=== PATIENT | female | born 1970 | race American Indian/Alaskan Native ===

== ENCOUNTER 2016-07-21 11:32 | Emergency (ER) | payer SELFPAY ==
[2016-07-21 11:41] VITALS: BP 150/87
--- NOTE | 2016-07-21 12:25 | Emergency Department Report ---
ED Rash HPI - HPI Chief Complaint: Skin Rash Stated Complaint: BAD RASH ON BACK OTHER AREAS Time Seen by Provider: 07/21/16 12:06 Duration: 3 Days Location: Chest, Back, Abdomen Suspected Cause: Unknown Rash Symptoms: Yes Itching, No Facial Swelling, No Tongue/Oral Swelling, No Breathing Difficulties, No Choking Sensation, No Wheezing/Dyspnea, No Peeling, No Blistering, No Fever, No Lightheaded, No Malaise, No Myalgias Severity: mild Other History: Pt reports rash to chest, abdomen, rash x 3 days. Mild pruritis. No exposures or other sx. ED Review of Systems ROS: Stated complaint: BAD RASH ON BACK OTHER AREAS Other details as noted in HPI Comment: All other systems reviewed and negative Constitutional: denies: chills, fever Eyes: denies: eye pain, eye discharge, vision change ENT: denies: ear pain, throat pain Respiratory: denies: cough, shortness of breath, wheezing Cardiovascular: denies: chest pain, palpitations Endocrine: no symptoms reported Gastrointestinal: denies: abdominal pain, nausea, diarrhea Genitourinary: denies: urgency, dysuria, discharge Musculoskeletal: denies: back pain, joint swelling, arthralgia Skin: rash. denies: lesions Neurological: denies: headache, weakness, paresthesias Psychiatric: denies: anxiety, depression Hematological/Lymphatic: denies: easy bleeding, easy bruising ED Past Medical Hx - Past Medical History Hx Hypertension: Yes Additional medical history: hypothyroid. fibroids. heart murmur - Surgical History Hx Breast Surgery: Yes (LEFT BREAST BIOPSY) Additional Surgical History: tubal ligation. left collar bone surgery - Social History Smoking Status: Former Smoker Substance Use Type: None - Medications Home Medications: Home Medications Medication Instructions Recorded Confirmed Last Taken Type Methimazole [Tapazole] 10 mg PO QDAY #30 tablet 02/16/16 Unknown Rx Propranolol [Inderal] 10 mg PO Q12H #60 tablet 02/16/16 Unknown Rx Acetaminophen/Codeine [Tylenol #3] 1 tab PO Q6H PRN #20 tab 06/14/16 Unknown Rx Amoxicillin [Amoxicillin TAB] 875 mg PO BID #20 tablet 06/14/16 Unknown Rx Ketoconazole 2% [Nizoral] 1 applicatio TP QDAY #60 gram 07/21/16 Unknown Rx hydrOXYzine HCL [Atarax] 25 mg PO Q6HR PRN #15 tablet 07/21/16 Unknown Rx Rash Exam - Exam General: Vital signs noted. No distress. Alert and acting appropriately. HEENT: No Periorbital Edema, No Conjuctival Injection, No Chemosis, No Perioral Edema, No Tongue Edema, No Uvular Edema, No Compromised Airway, No Drooling Lungs: Yes Good Air Exchange (Normal Breath Sounds), No Wheezes, No Ronchi, No Stridor, No Cough, No Labored Respirations, No Retractions, No Use of Accessory Muscles, No Other Abnormal Lung Sounds Heart: Yes Regular, No Murmur Skin: Yes Other (Rash appearing consistent with tinea versicolor noted to chest , abdomen, back. Under Wood's lamp, yellow-green areas noted.) Other: Positive: Abdomen Normal, Neurologic Normal, Musculoskeletal Normal ED Course Vital Signs 07/21/16 11:37 Temperature 98.7 F Pulse Rate 67 Respiratory 18 Rate Blood Pressure 150/87 O2 Sat by Pulse 100 Oximetry - Reevaluation(s) Reevaluation #1: 07/21/16 12:21 NAD, stable for d/c. ED Medical Decision Making - Medical Decision Making Will give topical therapy and follow with PCP/derm. - Differential Diagnosis tinea versicolor, ringworm, pityriasis rosea Critical care attestation.: If time is entered above; I have spent that time in minutes in the direct care of this critically ill patient, excluding procedure time. ED Disposition Clinical Impression: Tinea versicolor Disposition: DISCHARGED TO HOME OR SELFCARE Is pt being admited?: No Condition: Good Instructions: Tinea Versicolor (ED) Prescriptions: hydrOXYzine HCL [Atarax] 25 mg PO Q6HR PRN #15 tablet PRN Reason: Itching Ketoconazole 2% [Nizoral] 1 applicatio TP QDAY #60 gram Referrals: PRIMARY CARE,MD [Primary Care Provider] - 3-5 Days Forms: Work/School Release Form(ED) Time of Disposition: 12:26
== END 2016-07-21 12:33 | disposition home or self-care (01) ==
LOC: ED 11:32
DX: B36.0 Pityriasis versicolor (principal); I10 Essential (primary) hypertension; E03.9 Hypothyroidism, unspecified; Z87.891 Personal history of nicotine dependence
CPT/HCPCS: 99282

== ENCOUNTER 2016-09-25 16:00 | Emergency (ER) | payer SELFPAY ==
--- NOTE | 2016-09-25 19:50 | Emergency Department Report ---
ED Rash HPI - HPI Chief Complaint: Skin Rash Stated Complaint: BREAKING OUT W/RASH/OVR A MONTH ON MENSTRUAL CYCLE Time Seen by Provider: 09/25/16 18:56 Duration: 1 week Location: Neck, Chest, Back, Abdomen, Upper Extremities, Lower Extremities Rash Symptoms: Yes Itching, No Facial Swelling, No Tongue/Oral Swelling, No Breathing Difficulties, No Choking Sensation, No Wheezing/Dyspnea, No Peeling, No Blistering, No Fever, No Lightheaded, No Malaise, No Myalgias Severity: mild ED Review of Systems ROS: Stated complaint: BREAKING OUT W/RASH/OVR A MONTH ON MENSTRUAL CYCLE Other details as noted in HPI This is a [age]-year-old female presents with skin rash on the arms, breasts, groin area for several weeks. Patient states it is itching. Patient states 2 days ago change detergent to PureX. Patient states 2 days later after wearing the clothes she started to have these itching episodes. Denies any shortness of breath, chest pain. Comment: All other systems reviewed and negative Constitutional: denies: chills, fever Eyes: denies: eye pain, eye discharge, vision change ENT: denies: ear pain, throat pain Respiratory: denies: cough, shortness of breath, wheezing Cardiovascular: denies: chest pain, palpitations Endocrine: no symptoms reported Gastrointestinal: denies: abdominal pain, nausea, diarrhea Genitourinary: denies: urgency, dysuria, discharge Musculoskeletal: denies: back pain, joint swelling, arthralgia Skin: denies: rash, lesions Neurological: denies: headache, weakness, paresthesias Psychiatric: denies: anxiety, depression Hematological/Lymphatic: denies: easy bleeding, easy bruising ED Past Medical Hx - Past Medical History Previous Medical History?: Yes Hx Hypertension: Yes Additional medical history: hypothyroid. fibroids. heart murmur - Surgical History Past Surgical History?: Yes Hx Breast Surgery: Yes (LEFT BREAST BIOPSY) Additional Surgical History: tubal ligation. left collar bone surgery - Social History Smoking Status: Never Smoker Substance Use Type: None - Medications Home Medications: Home Medications Medication Instructions Recorded Confirmed Last Taken Type Methimazole [Tapazole] 10 mg PO QDAY #30 tablet 02/16/16 Unknown Rx Propranolol [Inderal] 10 mg PO Q12H #60 tablet 02/16/16 Unknown Rx Acetaminophen/Codeine [Tylenol #3] 1 tab PO Q6H PRN #20 tab 06/14/16 Unknown Rx Amoxicillin [Amoxicillin TAB] 875 mg PO BID #20 tablet 06/14/16 Unknown Rx Ketoconazole 2% [Nizoral] 1 applicatio TP QDAY #60 gram 07/21/16 Unknown Rx hydrOXYzine HCL [Atarax] 25 mg PO Q6HR PRN #15 tablet 07/21/16 Unknown Rx predniSONE [Deltasone] 50 mg PO QDAY #5 tab 09/25/16 Unknown Rx Rash Exam - Exam General: Vital signs noted. No distress. Alert and acting appropriately. HEENT: No Periorbital Edema, No Conjuctival Injection, No Chemosis, No Perioral Edema, No Tongue Edema, No Uvular Edema, No Compromised Airway, No Drooling Lungs: Yes Good Air Exchange (Normal Breath Sounds), No Wheezes, No Ronchi, No Stridor, No Cough, No Labored Respirations, No Retractions, No Use of Accessory Muscles, No Other Abnormal Lung Sounds Heart: Yes Regular, No Murmur Front/Back of Body, Lg (Color): 1 - macular rash 2 - macular rash 3 - macular rash 4 - macular rash 5 - macular rash 6 - macular rash 7 - macular rash 8 - macular rash Skin: Yes Maculopapular Rash (bilateral arms, groin, chest and back), No Urticarial Rash, No Morbilliform rash, No Bulla(e), No Excoriations, No Weeping , No Tenderness, No Erythema, No Edema, No Encrustations ED Course Vital Signs 09/25/16 16:10 Temperature 98.4 F Pulse Rate 71 Respiratory 16 Rate Blood Pressure 112/75 O2 Sat by Pulse 100 Oximetry ED Medical Decision Making - Medical Decision Making Ed course: This is a 46-year-old female that presents with atopic dermatitis. Patient does not seem toxic in appearance or in any distress. 1- I instructed patient to avoid PureX detergent. 2-Prescribed prednisone x5 days 3- I instructed patient if symptoms of shortness of breath, chest pain or worsening symptoms to report back emergency room. 4- patient understands diagnosis and treatment plan. At this time the patient does have any questions. Critical care attestation.: If time is entered above; I have spent that time in minutes in the direct care of this critically ill patient, excluding procedure time. ED Disposition Clinical Impression: Atopic dermatitis Disposition: DISCHARGED TO HOME OR SELFCARE Is pt being admited?: No Does the pt Need Aspirin: No Condition: Stable Instructions: Eczema (ED), Allergies (ED) Additional Instructions: Please visited her primary care doctor in 3-5 days. His symptoms of chest pain, shortness of breath, worsening of symptoms, please report back to emergency room. Please avoid factors that irritate her skin, such as PureX detergent. Please rewash or your close that was used with Purex detergent Prescriptions: predniSONE [Deltasone] 50 mg PO QDAY #5 tab Referrals: PRIMARY CARE, [Primary Care Provider] - 3-5 Days
[2016-09-25 20:11] VITALS: BP 138/83
== END 2016-09-25 20:11 | disposition home or self-care (01) ==
LOC: ED 16:00
DX: L20.9 Atopic dermatitis, unspecified (principal)
CPT/HCPCS: 99282

== ENCOUNTER 2016-11-30 18:08 | Emergency (ER) | payer SELFPAY ==
[2016-11-30 20:20] VITALS: BP 132/96
== END 2016-11-30 23:20 | disposition left against medical advice (07) ==
LOC: ED 18:08
DX: R21 Rash and other nonspecific skin eruption (principal); Z53.21 Procedure and treatment not carried out due to patient leaving prior to being seen by health care provider

== ENCOUNTER 2016-12-01 07:33 | Emergency (ER) | payer SELFPAY ==
[2016-12-01 07:43] VITALS: BP 120/59
[2016-12-01 08:38] LABS: Hematocrit 39.5 % (30.3-42.9); Hemoglobin 13.5 gm/dl (10.1-14.3); Mean Corpuscular HGB Conc 34 % (30-34); Mean Corpuscular Hemoglobin 30 pg (28-32); Mean Corpuscular Volume 89 fl (79-97); Platelet Count 211 K/mm3 (140-440); Red Blood Count 4.46 M/mm3 (3.65-5.03); Red Cell Distribution Width 12.9 % (13.2-15.2); White Blood Count 4.4 K/mm3 (4.5-11.0)
[2016-12-01 08:57] LABS: Anion Gap 13 mmol/L; Blood Urea Nitrogen 13 mg/dL (7-17); Carbon Dioxide 28 mmol/L (22-30); Glucose 93 mg/dL (65-100); Sodium 144 mmol/L (137-145)
== END 2016-12-01 08:30 | disposition left against medical advice (07) ==
LOC: ED 07:33
DX: R21 Rash and other nonspecific skin eruption (principal); Z53.21 Procedure and treatment not carried out due to patient leaving prior to being seen by health care provider
CPT/HCPCS: 36415; 80048; 84443; 84703; 85027

== ENCOUNTER 2017-03-18 20:17 | Emergency (ER) | payer SELFPAY ==
[2017-03-18 22:05] LABS: Basophils % (Auto) 0.4 % (0.0-1.8); Hemoglobin 13.5 gm/dl (10.1-14.3); Mean Corpuscular HGB Conc 34 % (30-34); Mean Corpuscular Hemoglobin 29 pg (28-32); Mean Corpuscular Volume 85 fl (79-97); Platelet Count 219 K/mm3 (140-440); Red Blood Count 4.71 M/mm3 (3.65-5.03); Red Cell Distribution Width 13.7 % (13.2-15.2)
[2017-03-18 22:19] LABS: Alanine Aminotransferase 12 units/L (7-56); Albumin 4.4 g/dL (3.9-5); Albumin/Globulin Ratio 1.5 %; Alkaline Phosphatase 143 units/L (35-129); Anion Gap 18 mmol/L; Blood Urea Nitrogen 15 mg/dL (7-17); Carbon Dioxide 26 mmol/L (22-30); Chloride 106.2 mmol/L (98-107); Glucose 110 mg/dL (65-100); Lipase 10 units/L (13-60); Potassium 4.2 mmol/L (3.6-5.0); Sodium 146 mmol/L (137-145); Total Protein 7.3 g/dL (6.3-8.2)
[2017-03-19] MEDS ORDERED: ZOFRAN IV ONE (01:58)
[2017-03-19] MEDS ORDERED: TORADOL IV ONE (01:58)
[2017-03-19] MEDS ORDERED: NACL 0.9% 1000 ML 1,000 ML IV ONE (01:58)
[2017-03-19 02:04] LABS: Bacteria,Urine 1+ /HPF (Negative); Bilirubin,Urine NEG (Negative); Blood,Urine MOD (Negative); Ketones,Urine TR mg/dL (Negative); Leukocyte Esterase,Urine NEG (Negative); Mucus,Urine 2+ /HPF; Nitrite,Urine NEG (Negative); Urobilinogen,Urine < 2.0 mg/dL (<2.0)
--- NOTE | 2017-03-19 02:07 | Emergency Department Report ---
ED Abdominal Pain HPI - General Chief Complaint: Abdominal Pain Stated Complaint: ABDOMINAL PAIN/VOMITING Time Seen by Provider: 03/19/17 01:47 Source: patient Mode of arrival: Stretcher Limitations: No Limitations - History of Present Illness Initial Comments: 47-year-old female with past medical history of hypothyroidism and constipation , presents with complains of diffuse abdominal pain since yesterday afternoon. Patient has had numerous episodes of vomiting, and diarrhea. No fever. No cough no shortness of breath. MD Complaint: abdominal pain (diffuse abdominal pain) -: Gradual, Last night Location: diffuse Radiation: none Migration to: no migration Severity: moderate Severity scale (0 -10): 7 Quality: cramping, stabbing Consistency: intermittent Improves With: nothing Worsens With: nothing Associated Symptoms: nausea, vomiting, diarrhea. denies: chills, dysuria, hematemesis, melena, hematuria, anorexia - Related Data Previous Rx's Medication Instructions Recorded Last Taken Type Methimazole [Tapazole] 10 mg PO QDAY #30 tablet 02/16/16 Unknown Rx Propranolol [Inderal] 10 mg PO Q12H #60 tablet 02/16/16 Unknown Rx Acetaminophen/Codeine [Tylenol #3] 1 tab PO Q6H PRN #20 tab 06/14/16 Unknown Rx Amoxicillin [Amoxicillin TAB] 875 mg PO BID #20 tablet 06/14/16 Unknown Rx Ketoconazole 2% [Nizoral] 1 applicatio TP QDAY #60 gram 07/21/16 Unknown Rx hydrOXYzine HCL [Atarax] 25 mg PO Q6HR PRN #15 tablet 07/21/16 Unknown Rx predniSONE [Deltasone] 50 mg PO QDAY #5 tab 09/25/16 Unknown Rx Dicyclomine [Bentyl] 20 mg PO QID #20 tablet 03/19/17 Unknown Rx Lactulose [Kristalose] 20 gm PO Q8H #21 packet 03/19/17 Unknown Rx Ondansetron [Zofran Odt] 4 mg PO Q8H PRN #16 tab.rapdis 03/19/17 Unknown Rx Allergies Allergy/AdvReac Type Severity Reaction Status Date / Time metronidazole [From Flagyl] Allergy Vomiting Verified 08/15/15 09:23 Metronidazole HCl Allergy Vomiting Verified 08/15/15 09:23 [From Flagyl] ED Review of Systems ROS: Stated complaint: ABDOMINAL PAIN/VOMITING Other details as noted in HPI Comment: All other systems reviewed and negative Constitutional: malaise, weakness. denies: chills, diaphoresis, fever Eyes: denies: eye pain, eye discharge, vision change ENT: denies: throat pain Respiratory: denies: cough, orthopnea, shortness of breath, SOB with exertion Cardiovascular: denies: chest pain, palpitations, dyspnea on exertion, edema, syncope, paroxysmal nocturnal dyspnea Endocrine: no symptoms reported. denies: excessive sweating, flushing, intolerance to cold Gastrointestinal: abdominal pain, nausea, vomiting, diarrhea. denies: hematemesis, melena Genitourinary: denies: urgency, dysuria, frequency, hematuria Musculoskeletal: denies: joint swelling, arthralgia Skin: denies: rash, change in color, change in hair/nails Neurological: weakness. denies: headache, numbness, paresthesias ED Past Medical Hx - Past Medical History Previous Medical History?: Yes Hx Hypertension: Yes Additional medical history: hypothyroid. fibroids. heart murmur - Surgical History Hx Breast Surgery: Yes (LEFT BREAST BIOPSY) Additional Surgical History: tubal ligation. left collar bone surgery - Social History Smoking Status: Never Smoker - Medications Home Medications: Home Medications Medication Instructions Recorded Confirmed Last Taken Type Methimazole [Tapazole] 10 mg PO QDAY #30 tablet 02/16/16 Unknown Rx Propranolol [Inderal] 10 mg PO Q12H #60 tablet 02/16/16 Unknown Rx Acetaminophen/Codeine [Tylenol #3] 1 tab PO Q6H PRN #20 tab 06/14/16 Unknown Rx Amoxicillin [Amoxicillin TAB] 875 mg PO BID #20 tablet 06/14/16 Unknown Rx Ketoconazole 2% [Nizoral] 1 applicatio TP QDAY #60 gram 07/21/16 Unknown Rx hydrOXYzine HCL [Atarax] 25 mg PO Q6HR PRN #15 tablet 07/21/16 Unknown Rx predniSONE [Deltasone] 50 mg PO QDAY #5 tab 09/25/16 Unknown Rx Dicyclomine [Bentyl] 20 mg PO QID #20 tablet 03/19/17 Unknown Rx Lactulose [Kristalose] 20 gm PO Q8H #21 packet 03/19/17 Unknown Rx Ondansetron [Zofran Odt] 4 mg PO Q8H PRN #16 tab.rapdis 03/19/17 Unknown Rx ED Physical Exam - General Limitations: No Limitations General appearance: alert, in distress (moderate distress) - Head Head exam: Present: atraumatic, normocephalic, normal inspection - Eye Eye exam: Present: normal appearance, PERRL, EOMI. Absent: scleral icterus, conjunctival injection, nystagmus Pupils: Present: normal accommodation - ENT ENT exam: Present: normal exam, normal orophraynx, mucous membranes moist - Neck Neck exam: Present: normal inspection, full ROM. Absent: tenderness, lymphadenopathy - Respiratory Respiratory exam: Present: normal lung sounds bilaterally. Absent: respiratory distress, wheezes, rales, chest wall tenderness, accessory muscle use - Cardiovascular Cardiovascular Exam: Present: regular rate, normal rhythm, normal heart sounds - GI/Abdominal GI/Abdominal exam: Present: soft, tenderness (diffuse), guarding (diffuse), hypoactive bowel sounds. Absent: rebound - Rectal Rectal exam: Present: deferred - Extremities Exam Extremities exam: Present: normal inspection, full ROM, normal capillary refill - Back Exam Back exam: Present: normal inspection, full ROM. Absent: CVA tenderness (L), muscle spasm - Neurological Exam Neurological exam: Present: alert, oriented X3, CN II-XII intact, normal gait ED Course Vital Signs 03/18/17 03/19/17 03/19/17 21:26 02:34 04:54 Temperature 98.9 F 98 F Pulse Rate 79 90 Respiratory 16 18 18 Rate Blood Pressure 120/72 119/78 [Right] O2 Sat by Pulse 100 100 Oximetry 03/19/17 04:55 Temperature Pulse Rate Respiratory 18 Rate Blood Pressure [Right] O2 Sat by Pulse Oximetry ED Medical Decision Making - Lab Data Result diagrams: 03/18/17 21:38 03/18/17 21:38 - Radiology Data Radiology results: report reviewed Critical Care Time: No Critical care attestation.: If time is entered above; I have spent that time in minutes in the direct care of this critically ill patient, excluding procedure time. ED Disposition Clinical Impression: Constipation, Nausea & vomiting Disposition: - TO HOME OR SELFCARE Is pt being admited?: No Does the pt Need Aspirin: No Condition: Stable Instructions: Abdominal Pain (ED), Constipation (ED), Acute Nausea and Vomiting (ED) Additional Instructions: Follow up with your primary care physician in next 2-3 days Prescriptions: Dicyclomine [Bentyl] 20 mg PO QID #20 tablet Lactulose [Kristalose] 20 gm PO Q8H #21 packet Ondansetron [Zofran Odt] 4 mg PO Q8H PRN #16 tab.rapdis PRN Reason: Nausea And Vomiting Referrals: PRIMARY CARE,MD [Primary Care Provider] - 3-5 Days Time of Disposition: 06:02
[2017-03-19 02:48] LABS: Urine Drugs of Abuse Note Disclamer
[2017-03-19] MEDS ORDERED: NACL ONE (03:10)
[2017-03-19 03:26] LABS: Amylase 54 units/L (27-131); Lipase 10 units/L (13-60)
--- NOTE | 2017-03-19 04:16 | Cat Scan Report ---
FINAL REPORT EXAM: CT ABDOMEN PELVIS W CON IV, HISTORY: Abdominal Pain TECHNIQUE: Routine imaging was obtained of the abdomen pelvis with IV contrast. There are no previous studies available for comparison. FINDINGS: The lung bases are clear. There is a small hiatal hernia at the GE junction. The liver, gallbladder, pancreas, spleen and adrenal glands appear normal. The kidneys enhance normally. There is a 6.3 millimeter low-attenuation lesion in the medial aspect of left kidney most likely representing small cortical cysts. It is too small to characterize. There is no evidence of hydronephrosis. There is normal enhancement of the great vessels. The bowel loops are normal in caliber. Free fluid is not seen. There is no evidence of adenopathy. There are several uncomplicated diverticula in the ascending colon. In the pelvis the uterus is enlarged having a lobulated contour. This is most likely to underlying fibroids. The bladder appears normal. The skeletal structures reveal the facet arthropathy changes lower lumbar spine IMPRESSION: No acute process in the abdomen pelvis. Uncomplicated diverticulosis in the ascending colon. Small hiatal hernia. Probable small cortical cyst in the medial aspect left kidney.
[2017-03-19 04:55] VITALS: BP 119/78
== END 2017-03-19 06:20 | disposition home or self-care (01) ==
LOC: ED 20:17
DX: K59.00 Constipation, unspecified (principal); R11.2 Nausea with vomiting, unspecified; I10 Essential (primary) hypertension; E03.9 Hypothyroidism, unspecified; Z88.8 Allergy status to other drugs, medicaments and biological substances
CPT/HCPCS: 36415; 74177; 80053; 80307; 81001; 81025; 82150; 83690; 83735; 85025; 96361; 96374; 96375; 99284; J1885; J2405; J7030; Q9967

== ENCOUNTER 2017-09-08 08:44 | Outpatient (CLI) | payer OTHER ==
--- NOTE | 2017-09-08 10:33 | Ultrasound Report ---
Bilateral mammogram and left breast ultrasound: Patient presents with palpable mass in the left breast. Prior benign biopsy on the left. A marker was placed over the area of concern in the approximate 10:00 location posteriorly in the left breast. Routine views were obtained. The patient has a heterogeneously dense fibroglandular pattern. The biopsy marker is at the margin of a small nodular area noted in the superior left breast. There is no identifiable nodule related to the palpable location. The remainder the breast pattern bilaterally is generally unremarkable. Probable ultrasound demonstrates dilated retroareolar ducts. No intra-ductal lesion identified. In the 11:00 location 7 cm from the nipple there is a circumscribed anechoic mass measuring 9.3 mm and in the 10:00 location a circumscribed hypoechoic nodule is present measuring 4 mm. A couple scattered echoes are noted within it but there is enhancement of distal echoes. Also in the 10:00 location corresponding to the palpable region there is a cluster of anechoic nodules having a maximum dimension of 2.3 cm. CAD used. Impression: 1. Nonspecific retroareolar ductal dilatation. 2. The palpable finding corresponds to a cluster of cysts. Other cysts identified as described. Recommendation: 1. Clinical followup of palpable abnormality. No currently suspicious findings. 2. Annual mammogram followup. BI-RADS CATEGORY: 2 = Benign ACR BI-RADS MAMMOGRAPHIC CODES: 0 = Needs additional imaging evaluation; 1 = Negative; 2 = Benign; 3 = Probably benign; 4 = Suspicious; 5 = Malignant; 6 = Known biopsy-proven malignancy COMMENT: 1. Dense breast tissue, i.e., adenosis, fibrocystic changes, etc., may obscure an underlying neoplasm. 2. Approximately 10% of cancers are not detected with mammography. 3. A negative mammography report should not delay biopsy if a clinically suspicious mass is present.
== END 2017-09-08 08:45 | disposition home or self-care (01) ==
LOC: MAMMO 08:44
PROVIDERS: ATTEND Advanced Practice Midwife
DX: N63.20 Unspecified lump in the left breast, unspecified quadrant (principal); N60.09 Solitary cyst of unspecified breast; R92.8 Other abnormal and inconclusive findings on diagnostic imaging of breast; I10 Essential (primary) hypertension; E07.89 Other specified disorders of thyroid
CPT/HCPCS: 77066

== ENCOUNTER 2018-02-06 05:55 | Emergency (ER) | payer SELFPAY ==
[2018-02-06] MEDS ORDERED: ZOFRAN ONE (06:17)
[2018-02-06] MEDS ORDERED: ZOFRAN IV ONE ×2 (06:26→19:01)
[2018-02-06 06:42] LABS: Hematocrit 40.5 % (30.3-42.9); Hemoglobin 13.8 gm/dl (10.1-14.3); Mean Corpuscular HGB Conc 34 % (30-34); Mean Corpuscular Hemoglobin 28 pg (28-32); Mean Corpuscular Volume 81 fl (79-97); Platelet Count 224 K/mm3 (140-440); Red Cell Distribution Width 13.8 % (13.2-15.2)
[2018-02-06 07:05] LABS: BUN/Creatinine Ratio 38; Blood Urea Nitrogen 15 mg/dL (7-17); Calcium 10.1 mg/dL (8.4-10.2); Hemolysis Index 7
[2018-02-06 09:22] LABS: Basophils % (Manual) 0 % (0.0-1.8); Eosinophils % (Manual) 0 % (0.0-4.3); Platelet Estimate Consistent w Auto; Total Cells Counted 100
[2018-02-06] MEDS ORDERED: NACL 0.9% 1000 ML 1,000 ML IV ONE ×3 (09:28→13:54)
[2018-02-06] MEDS ORDERED: K-DUR PO ONE (09:28)
[2018-02-06] MEDS ORDERED: IMODIUM PO ONE (09:28)
[2018-02-06] MEDS ORDERED: MORPHINE IV ONE ×2 (09:28→16:09)
[2018-02-06] MEDS ORDERED: TORADOL IV ONE (09:29)
[2018-02-06] MEDS ORDERED: PEPCID IV ONE (09:29)
[2018-02-06 09:30] LABS: Albumin 4.4 g/dL (3.9-5); Bilirubin,Direct 0.3 mg/dL (0-0.2)
--- NOTE | 2018-02-06 10:14 | Emergency Department Report ---
ED N/V/D HPI - General Chief complaint: Nausea/Vomiting/Diarrhea Stated complaint: N/V Time Seen by Provider: 02/06/18 09:21 Source: patient, EMS Mode of arrival: Stretcher Limitations: No Limitations - History of Present Illness Initial comments: 47-year-old female with a past medical history hypertension, hyperthyroidism ( on methimazole), fibroids, previous and tubal ligation presents to the hospital for complaints of nausea, vomiting, diarrhea, and by mouth intolerance for greater than 10 hours. Symptoms started after eating a salad. She denies sick contacts, recent travel, fever, hematemesis, hematochezia, or melena. She complains of generalized cramping abdominal pain worse the lower abdomen. Pain overall is constant, moderate to severe in intensity, worse with palpation without alleviating factors - Related Data Previous Rx's Medication Instructions Recorded Last Taken Type Acetaminophen/Codeine [Tylenol #3] 1 tab PO Q6H PRN #20 tab 06/14/16 Unknown Rx Amoxicillin [Amoxicillin TAB] 875 mg PO BID #20 tablet 06/14/16 Unknown Rx Ketoconazole 2% [Nizoral] 1 applicatio TP QDAY #60 gram 07/21/16 Unknown Rx hydrOXYzine HCL [Atarax] 25 mg PO Q6HR PRN #15 tablet 07/21/16 Unknown Rx predniSONE [Deltasone] 50 mg PO QDAY #5 tab 09/25/16 Unknown Rx Dicyclomine [Bentyl] 20 mg PO QID #20 tablet 03/19/17 Unknown Rx Lactulose [Kristalose] 20 gm PO Q8H #21 packet 03/19/17 Unknown Rx Ondansetron [Zofran Odt] 4 mg PO Q8H PRN #16 tab.rapdis 03/19/17 Unknown Rx Famotidine [Pepcid] 20 mg PO BID #20 tablet 02/06/18 Unknown Rx Loperamide [Imodium] 2 mg PO Q2HR PRN #20 capsule 02/06/18 Unknown Rx Methimazole [Tapazole] 10 mg PO QDAY #30 tablet 02/06/18 Unknown Rx Ondansetron [Zofran Odt] 4 mg PO Q8HR PRN #20 tab.rapdis 02/06/18 Unknown Rx Propranolol [Inderal] 10 mg PO Q12H #60 tablet 02/06/18 Unknown Rx traMADol [Ultram 50 MG tab] 50 mg PO Q6HR PRN #20 tablet 02/06/18 Unknown Rx Allergies Allergy/AdvReac Type Severity Reaction Status Date / Time metronidazole [From Flagyl] Allergy Vomiting Verified 08/15/15 09:23 Metronidazole HCl Allergy Vomiting Verified 08/15/15 09:23 [From Flagyl] ED Review of Systems ROS: Stated complaint: N/V Other details as noted in HPI Comment: All other systems reviewed and negative ED Past Medical Hx - Past Medical History Hx Hypertension: Yes Additional medical history: hyperthyroid. fibroids. heart murmur - Surgical History Hx Breast Surgery: Yes (LEFT BREAST BIOPSY) Additional Surgical History: tubal ligation. left collar bone surgery - Social History Smoking Status: Never Smoker Substance Use Type: None - Medications Home Medications: Home Medications Medication Instructions Recorded Confirmed Last Taken Type Acetaminophen/Codeine [Tylenol #3] 1 tab PO Q6H PRN #20 tab 06/14/16 Unknown Rx Amoxicillin [Amoxicillin TAB] 875 mg PO BID #20 tablet 06/14/16 Unknown Rx Ketoconazole 2% [Nizoral] 1 applicatio TP QDAY #60 gram 07/21/16 Unknown Rx hydrOXYzine HCL [Atarax] 25 mg PO Q6HR PRN #15 tablet 07/21/16 Unknown Rx predniSONE [Deltasone] 50 mg PO QDAY #5 tab 09/25/16 Unknown Rx Dicyclomine [Bentyl] 20 mg PO QID #20 tablet 03/19/17 Unknown Rx Lactulose [Kristalose] 20 gm PO Q8H #21 packet 03/19/17 Unknown Rx Ondansetron [Zofran Odt] 4 mg PO Q8H PRN #16 tab.rapdis 03/19/17 Unknown Rx Famotidine [Pepcid] 20 mg PO BID #20 tablet 02/06/18 Unknown Rx Loperamide [Imodium] 2 mg PO Q2HR PRN #20 capsule 02/06/18 Unknown Rx Methimazole [Tapazole] 10 mg PO QDAY #30 tablet 02/06/18 Unknown Rx Ondansetron [Zofran Odt] 4 mg PO Q8HR PRN #20 tab.rapdis 02/06/18 Unknown Rx Propranolol [Inderal] 10 mg PO Q12H #60 tablet 02/06/18 Unknown Rx traMADol [Ultram 50 MG tab] 50 mg PO Q6HR PRN #20 tablet 02/06/18 Unknown Rx ED Physical Exam - General Limitations: No Limitations - Other Other exam information: General: No limitations, patient is alert in no acute distress Head exam: Atraumatic, normocephalic Eyes exam: Normal appearance, nonicteric sclerae ENT: Moist mucous membrane, normal oropharynx Neck exam: Normal inspection, full range of motion, no meningismus nontender Respiratory exam: Clear to auscultation bilateral, no wheezes, rales, crackles Cardiovascular: Mild tachycardia regular rhythm Abdomen: Soft, nondistended, generalized tenderness to palpation greatest in the lower abdomen. Normal bowel sounds. No rebound or guarding Extremity: Full range of motion normal inspection no deformity Back: Normal Inspection, full range of motion, no tenderness Neurologic: Alert, oriented x3, cranial nerves intact, no motor or sensory deficit Psychiatric: normal affect, normal mood Skin: Warm, dry, intact ED Course Vital Signs 02/06/18 02/06/18 02/06/18 06:09 06:12 09:30 Temperature 98.4 F 98.4 F Pulse Rate 107 H 104 H Respiratory 18 16 16 Rate Blood Pressure 161/83 161/63 Blood Pressure [Right] O2 Sat by Pulse 96 98 Oximetry 02/06/18 02/06/18 02/06/18 09:40 12:09 15:59 Temperature 98.0 F Pulse Rate 109 H 103 H Respiratory 16 15 Rate Blood Pressure 122/66 145/81 Blood Pressure [Right] O2 Sat by Pulse 99 Oximetry 02/06/18 02/06/18 16:00 17:37 Temperature 98.2 F 99.6 F Pulse Rate 103 H 91 H Respiratory 18 18 Rate Blood Pressure Blood Pressure 145/81 130/76 [Right] O2 Sat by Pulse 99 95 Oximetry - Reevaluation(s) Reevaluation #1: 02/06/18 12:03 feeling better, tolerating po 02/06/18 15:29 Although patient was feeling better and tolerating by mouth heart rate still remained above 100 despite receiving 2 L of normal saline. Therefore a third liter of normal saline was ordered and thyroid function tests were added. Patient's labs that she has hyperthyroidism. Patient initially told staff that she was hypothyroid. She has been noncompliant with her methimazole and propranolol for several months. These medications were be providing any ED and restarted 02/06/18 17:38 HR now 91 after meds ED Medical Decision Making - Lab Data Result diagrams: 02/06/18 Unknown 02/06/18 Unknown Lab Results 02/06/18 02/06/18 02/06/18 Range/Units Unknown Unknown Unknown WBC 8.1 (4.5-11.0) K/mm3 RBC 5.00 (3.65-5.03) M/mm3 Hgb 13.8 (10.1-14.3) gm/dl Hct 40.5 (30.3-42.9) % MCV 81 (79-97) fl MCH 28 (28-32) pg MCHC 34 (30-34) % RDW 13.8 (13.2-15.2) % Plt Count 224 (140-440) K/mm3 Add Manual Diff Complete Total Counted 100 Seg Neutrophils % Chamber Walker Seg Neuts % (Manual) 90.0 H (40.0-70.0) % Band Neutrophils % 0 % Lymphocytes % (Manual) 5.0 L (13.4-35.0) % Reactive Lymphs % (Man) 0 % Monocytes % (Manual) 5.0 (0.0-7.3) % Eosinophils % (Manual) 0 (0.0-4.3) % Basophils % (Manual) 0 (0.0-1.8) % Metamyelocytes % 0 % Myelocytes % 0 % Promyelocytes % 0 % Blast Cells % 0 % Nucleated RBC % Not Reportable Seg Neutrophils # Man 7.3 (1.8-7.7) K/mm3 Band Neutrophils # 0.0 K/mm3 Lymphocytes # (Manual) 0.4 L (1.2-5.4) K/mm3 Abs React Lymphs (Man) 0.0 K/mm3 Monocytes # (Manual) 0.4 (0.0-0.8) K/mm3 Eosinophils # (Manual) 0.0 (0.0-0.4) K/mm3 Basophils # (Manual) 0.0 (0.0-0.1) K/mm3 Metamyelocytes # 0.0 K/mm3 Myelocytes # 0.0 K/mm3 Promyelocytes # 0.0 K/mm3 Blast Cells # 0.0 K/mm3 WBC Morphology Not Reportable Hypersegmented Neuts Not Reportable Hyposegmented Neuts Not Reportable Hypogranular Neuts Not Reportable Smudge Cells Not Reportable Toxic Granulation Not Reportable Toxic Vacuolation Not Reportable Dohle Bodies Not Reportable Pelger-Huet Anomaly Not Reportable Braden Rods Not Reportable Platelet Estimate Consistent w auto Clumped Platelets Not Reportable Plt Clumps, EDTA Not Reportable Large Platelets Not Reportable Giant Platelets Not Reportable Platelet Satelliting Not Reportable Plt Morphology Comment Not Reportable RBC Morphology Not Reportable Dimorphic RBCs Not Reportable Polychromasia Not Reportable Hypochromasia Not Reportable Poikilocytosis Not Reportable Anisocytosis Not Reportable Microcytosis Not Reportable Macrocytosis Not Reportable Spherocytes Not Reportable Pappenheimer Bodies Not Reportable Sickle Cells Not Reportable Target Cells Not Reportable Tear Drop Cells Not Reportable Ovalocytes Not Reportable Helmet Cells Not Reportable [place] Bodies Not Reportable [place]iday Rings Not Reportable [place] Cells Not Reportable Bite Cells Not Reportable Crenated Cell Not Reportable Elliptocytes Not Reportable Acanthocytes (Spur) Not Reportable Rouleaux Not Reportable Hemoglobin C Crystals Not Reportable Schistocytes Not Reportable Malaria parasites Not Reportable [place] Bodies Not Reportable Hem Pathologist Commnt No Sodium 144 (137-145) mmol/L Potassium 3.2 L (3.6-5.0) mmol/L Chloride 103.7 (98-107) mmol/L Carbon Dioxide 23 (22-30) mmol/L Anion Gap 21 mmol/L BUN 15 (7-17) mg/dL Creatinine 0.4 L (0.7-1.2) mg/dL Estimated GFR > 60 ml/min BUN/Creatinine Ratio 38 % Glucose 134 H (65-100) mg/dL Calcium 10.1 (8.4-10.2) mg/dL Magnesium (1.7-2.3) mg/dL Total Bilirubin (0.1-1.2) mg/dL Direct Bilirubin (0-0.2) mg/dL Indirect Bilirubin mg/dL AST (5-40) units/L ALT (7-56) units/L Alkaline Phosphatase (35-129) units/L Total Protein (6.3-8.2) g/dL Albumin (3.9-5) g/dL Albumin/Globulin Ratio % Lipase (13-60) units/L HCG, Qual Negative (Negative) 02/06/18 Range/Units Unknown WBC (4.5-11.0) K/mm3 RBC (3.65-5.03) M/mm3 Hgb (10.1-14.3) gm/dl Hct (30.3-42.9) % MCV (79-97) fl MCH (28-32) pg MCHC (30-34) % RDW (13.2-15.2) % Plt Count (140-440) K/mm3 Add Manual Diff Total Counted Seg Neutrophils % Seg Neuts % (Manual) (40.0-70.0) % Band Neutrophils % % Lymphocytes % (Manual) (13.4-35.0) % Reactive Lymphs % (Man) % Monocytes % (Manual) (0.0-7.3) % Eosinophils % (Manual) (0.0-4.3) % Basophils % (Manual) (0.0-1.8) % Metamyelocytes % % Myelocytes % % Promyelocytes % % Blast Cells % % Nucleated RBC % Seg Neutrophils # Man (1.8-7.7) K/mm3 Band Neutrophils # K/mm3 Lymphocytes # (Manual) (1.2-5.4) K/mm3 Abs React Lymphs (Man) K/mm3 Monocytes # (Manual) (0.0-0.8) K/mm3 Eosinophils # (Manual) (0.0-0.4) K/mm3 Basophils # (Manual) (0.0-0.1) K/mm3 Metamyelocytes # K/mm3 Myelocytes # K/mm3 Promyelocytes # K/mm3 Blast Cells # K/mm3 WBC Morphology Hypersegmented Neuts Hyposegmented Neuts Hypogranular Neuts Smudge Cells Toxic Granulation Toxic Vacuolation Dohle Bodies Pelger-Huet Anomaly Braden Rods Platelet Estimate Clumped Platelets Plt Clumps, EDTA Large Platelets Giant Platelets Platelet Satelliting Plt Morphology Comment RBC Morphology Dimorphic RBCs Polychromasia Hypochromasia Poikilocytosis Anisocytosis Microcytosis Macrocytosis Spherocytes Pappenheimer Bodies Sickle Cells Target Cells Tear Drop Cells Ovalocytes Helmet Cells [place] Bodies Ferriday Rings [place] Cells Bite Cells Crenated Cell Elliptocytes Acanthocytes (Spur) Rouleaux Hemoglobin C Crystals Schistocytes Malaria parasites Fermin Bodies Hem Pathologist Commnt Sodium (137-145) mmol/L Potassium (3.6-5.0) mmol/L Chloride (98-107) mmol/L Carbon Dioxide (22-30) mmol/L Anion Gap mmol/L BUN (7-17) mg/dL Creatinine (0.7-1.2) mg/dL Estimated GFR ml/min BUN/Creatinine Ratio % Glucose (65-100) mg/dL Calcium (8.4-10.2) mg/dL Magnesium 1.80 (1.7-2.3) mg/dL Total Bilirubin 2.40 H (0.1-1.2) mg/dL Direct Bilirubin 0.3 H (0-0.2) mg/dL Indirect Bilirubin 2.1 mg/dL AST 20 (5-40) units/L ALT 14 (7-56) units/L Alkaline Phosphatase 171 H (35-129) units/L Total Protein 7.7 (6.3-8.2) g/dL Albumin 4.4 (3.9-5) g/dL Albumin/Globulin Ratio 1.3 % Lipase 10 L (13-60) units/L HCG, Qual (Negative) - Medical Decision Making gastroenteritis better with IVF, zofran, tramadol tolerating po hypokalemia secondary to above given po kcl will d/c with meds and f/u - Differential Diagnosis gastroenteritis, infectious diarrhea, appendicitis, dehydration, Critical Care Time: No Critical care attestation.: If time is entered above; I have spent that time in minutes in the direct care of this critically ill patient, excluding procedure time. ED Disposition Clinical Impression: Gastroenteritis, Hyperthyroidism, Noncompliance with medication regimen, Hypokalemia Disposition: DC-01 TO HOME OR SELFCARE Is pt being admited?: No Does the pt Need Aspirin: No Condition: Stable Instructions: Hyperthyroidism (ED), Gastroenteritis (ED), Hypokalemia (ED) Additional Instructions: Take the medication as prescribed. Follow up with your doctor. Return if symptoms worsen as indicated by your discharge instructions Prescriptions: Famotidine [Pepcid] 20 mg PO BID #20 tablet Loperamide [Imodium] 2 mg PO Q2HR PRN #20 capsule PRN Reason: Diarrhea Methimazole [Tapazole] 10 mg PO QDAY #30 tablet Ondansetron [Zofran Odt] 4 mg PO Q8HR PRN #20 tab.rapdis PRN Reason: Nausea And Vomiting Propranolol [Inderal] 10 mg PO Q12H #60 tablet traMADol [Ultram 50 MG tab] 50 mg PO Q6HR PRN #20 tablet PRN Reason: Pain Referrals: [facility] [Provider Group] - 3-5 Days Daniel BOO MD [Referring] - 3-5 Days ([facility]) JO GARCIA MD [Staff Physician] - 3-5 Days (Endocrinology) MARNIE EASLEY MD [Referring] - 3-5 Days ([facility]) Time of Disposition: 18:45
[2018-02-06 14:41] LABS: INR 1.1 (0.87-1.13)
[2018-02-06] MEDS ORDERED: INDERAL PO ONE (15:28)
[2018-02-06] MEDS ORDERED: TAPAZOLE PO SCH (16:00)
[2018-02-06 17:38] VITALS: BP 130/76
[2018-02-06] MEDS ORDERED: LIDOCAINE VISCOUS 2% PO ONE (18:43)
[2018-02-06] MEDS ORDERED: ALUM-MAG HYDROX-SIMETH 200-200-20MG/5ML PO ONE (18:43)
== END 2018-02-06 19:27 | disposition home or self-care (01) ==
LOC: ED 05:55
DX: K52.9 Noninfective gastroenteritis and colitis, unspecified (principal); E05.90 Thyrotoxicosis, unspecified without thyrotoxic crisis or storm; E87.6 Hypokalemia; I10 Essential (primary) hypertension; Z91.14 Patient's other noncompliance with medication regimen; Z98.51 Tubal ligation status; Z88.1 Allergy status to other antibiotic agents
CPT/HCPCS: 36415; 80048; 80074; 83690; 83735; 84439; 84443; 84703; 85007; 85025; 85610; 93005; 93010; 96361; 96374; 96375; 96376; 99284; J1885; J2270; J2405; J7030

== ENCOUNTER 2018-06-20 18:40 | Emergency (ER) | payer SELFPAY ==
[2018-06-20] MEDS ORDERED: NACL 0.9% 1000 ML 1,000 ML IV ONE (19:04)
[2018-06-20] MEDS ORDERED: MORPHINE ONE (19:05)
[2018-06-20] MEDS ORDERED: ZOFRAN ONE (19:06)
--- NOTE | 2018-06-20 19:07 | Emergency Department Report ---
Chief Complaint: Abdominal Pain Stated Complaint: STOMACH PAIN - HPI History of Present Illness: 48-year-old -[place] female comes in for excruciating abdominal pain that started about 2:00 this afternoon. Patient reports no past medical history. - Exam Vital Signs: Vital Signs 06/20/18 18:50 Temperature 98.4 F Pulse Rate 131 H Respiratory 18 Rate Blood Pressure 163/78 O2 Sat by Pulse 99 Oximetry Physical Exam: Patient's alert and oriented mild distress. Patient is diaphoretic guarding abdominal tenderness to palpate. MSE screening note: Focused history and physical exam performed. Due to findings the following was ordered: Abdominal protocol has been ordered. Morphine 1 mg order for pain management. Patient then placed in room 3. ED Disposition for MSE Condition: Stable Instructions: Abdominal Pain (ED)
[2018-06-20] MEDS ORDERED: MORPHINE IV ONE (19:09)
[2018-06-20] MEDS ORDERED: ZOFRAN IV ONE (19:10)
--- NOTE | 2018-06-20 19:27 | Emergency Department Report ---
ED Abdominal Pain HPI - General Chief Complaint: Abdominal Pain Stated Complaint: STOMACH PAIN Time Seen by Provider: 06/20/18 19:18 Source: patient Mode of arrival: Ambulatory Limitations: No Limitations - History of Present Illness Initial Comments: 48-year-old female presents to ED with complaint of abdominal pain. Patient reports epigastric pain after drinking Cheko-Aid approximately 5 hours ago. Patient reports throbbing, nonradiating pain. Patient denies nausea, vomiting, diarrhea, fever. Patient denies taking anything prior to ED arrival for pain. Pt reports history of hyperthyroidism, states has been off of methimazole and propranolol for several months. MD Complaint: abdominal pain -: hour(s) (5) Location: epigastric Radiation: none Migration to: no migration Severity: severe Severity scale (0 -10): 10 Quality: other (throbbing) - Related Data Previous Rx's Medication Instructions Recorded Last Taken Type Dicyclomine [Bentyl] 20 mg PO QID PRN #20 tablet 06/20/18 Unknown Rx Methimazole [Tapazole] 10 mg PO QDAY #30 tablet 06/20/18 Unknown Rx Ondansetron [Zofran Odt] 4 mg PO Q8HR PRN #20 tab.rapdis 06/20/18 Unknown Rx Propranolol [Inderal] 10 mg PO BID #60 tablet 06/20/18 Unknown Rx Ranitidine HCl [Zantac] 300 mg PO QDAY #30 tablet 06/20/18 Unknown Rx Allergies Allergy/AdvReac Type Severity Reaction Status Date / Time metronidazole [From Flagyl] Allergy Vomiting Verified 08/15/15 09:23 Metronidazole HCl Allergy Vomiting Verified 08/15/15 09:23 [From Flagyl] ED Review of Systems ROS: Stated complaint: STOMACH PAIN Other details as noted in HPI Comment: All other systems reviewed and negative Constitutional: denies: chills, fever Respiratory: denies: shortness of breath Gastrointestinal: abdominal pain. denies: nausea, vomiting, diarrhea ED Past Medical Hx - Past Medical History Hx Hypertension: Yes Additional medical history: hyperthyroid. fibroids. heart murmur - Surgical History Hx Breast Surgery: Yes (LEFT BREAST BIOPSY) Additional Surgical History: tubal ligation. left collar bone surgery - Social History Smoking Status: Never Smoker Substance Use Type: None - Medications Home Medications: Home Medications Medication Instructions Recorded Confirmed Last Taken Type Dicyclomine [Bentyl] 20 mg PO QID PRN #20 tablet 06/20/18 Unknown Rx Methimazole [Tapazole] 10 mg PO QDAY #30 tablet 06/20/18 Unknown Rx Ondansetron [Zofran Odt] 4 mg PO Q8HR PRN #20 tab.rapdis 06/20/18 Unknown Rx Propranolol [Inderal] 10 mg PO BID #60 tablet 06/20/18 Unknown Rx Ranitidine HCl [Zantac] 300 mg PO QDAY #30 tablet 06/20/18 Unknown Rx ED Physical Exam - General Limitations: No Limitations General appearance: other (obvious pain) - Head Head exam: Present: atraumatic, normocephalic - Eye Eye exam: Present: normal appearance - ENT ENT exam: Present: mucous membranes moist - Neck Neck exam: Present: normal inspection - Respiratory Respiratory exam: Present: normal lung sounds bilaterally. Absent: respiratory distress - Cardiovascular Cardiovascular Exam: Present: normal rhythm, tachycardia - GI/Abdominal GI/Abdominal exam: Present: soft, tenderness (moderate diffuse abdominal tenderness). Absent: distended - Extremities Exam Extremities exam: Present: normal inspection - Neurological Exam Neurological exam: Present: alert, oriented X3 - Psychiatric Psychiatric exam: Present: normal affect, normal mood - Skin Skin exam: Present: warm, dry, intact, normal color. Absent: rash ED Course Vital Signs 06/20/18 06/20/18 06/20/18 18:50 19:07 19:15 Temperature 98.4 F Pulse Rate 131 H 140 H 125 H Respiratory 18 29 H 21 Rate Blood Pressure 163/78 184/91 O2 Sat by Pulse 99 Oximetry 06/20/18 06/20/18 06/20/18 19:31 19:51 20:00 Temperature Pulse Rate 118 H 119 H 108 H Respiratory 26 H 13 17 Rate Blood Pressure 139/56 117/70 138/60 O2 Sat by Pulse Oximetry 06/20/18 06/20/18 06/20/18 20:15 20:31 20:45 Temperature Pulse Rate 114 H 119 H 119 H Respiratory 23 24 21 Rate Blood Pressure 149/56 166/58 123/70 O2 Sat by Pulse Oximetry 06/20/18 06/20/18 06/20/18 21:01 21:15 21:46 Temperature Pulse Rate 116 H 117 H Respiratory 25 H 22 Rate Blood Pressure 108/67 107/56 145/70 O2 Sat by Pulse Oximetry 06/20/18 22:00 Temperature Pulse Rate Respiratory Rate Blood Pressure 110/55 O2 Sat by Pulse Oximetry ED Medical Decision Making - Lab Data Result diagrams: 06/20/18 20:05 06/20/18 20:05 - Radiology Data Radiology results: report reviewed, image reviewed - Medical Decision Making 48-year-old female who presented to ED with abdominal pain. Vital signs normal, except for heart rate, which is possibly elevated due to patient's history of untreated hyperthyroidism. Labs unremarkable, no elevation in WBCs, lipase normal, LFTs normal, only very mild elevation in alkaline phosphatase. CT abdomen and pelvis done, shows duodenitis. Patient feels much better following the IV fluids and pain medication. Will discharge home with prescription for Zantac, Bentyl. Patient also given a refill on her propranolol and methimazole. Physician follow-up information given. Return precautions given. - Differential Diagnosis pancreatitis, gastritis, bowel obstruction, esophageal spasm, perforation Critical care attestation.: If time is entered above; I have spent that time in minutes in the direct care of this critically ill patient, excluding procedure time. ED Disposition Clinical Impression: Duodenitis Disposition: DC-01 TO HOME OR SELFCARE Is pt being admited?: No Condition: Stable Instructions: Gastritis (ED), Diet for Ulcers and Gastritis (ED) Prescriptions: Dicyclomine [Bentyl] 20 mg PO QID PRN #20 tablet PRN Reason: abdominal pain Methimazole [Tapazole] 10 mg PO QDAY #30 tablet Ondansetron [Zofran Odt] 4 mg PO Q8HR PRN #20 tab.rapdis PRN Reason: Vomiting Propranolol [Inderal] 10 mg PO BID #60 tablet Ranitidine HCl [Zantac] 300 mg PO QDAY #30 tablet Referrals: [facility] [Primary Care Provider] - 3-5 Days [facility] [Provider Group] - 3-5 Days [facility] [Provider Group] - 3-5 Days [facility] [Outside] - 3-5 Days Forms: Work/School Release Form(ED) Time of Disposition: 22:24
[2018-06-20 20:19] LABS: Bilirubin,Urine NEG (Negative); Blood,Urine SM (Negative); Color,Urine Yellow (Yellow); Mucus,Urine FEW /HPF; Protein,Urine <15 mg/dL mg/dL (Negative); Urobilinogen,Urine < 2.0 mg/dL (<2.0)
[2018-06-20] MEDS ORDERED: ALUM-MAG HYDROX-SIMETH 200-200-20MG/5ML PO ONE (20:28)
[2018-06-20] MEDS ORDERED: LIDOCAINE VISCOUS 2% PO ONE (20:28)
[2018-06-20 20:32] LABS: Basophils % (Auto) 0.4 % (0.0-1.8); Eosinophils % (Auto) 0.2 % (0.0-4.3); Hemoglobin 12.5 gm/dl (10.1-14.3); Lymphocytes # (Auto) 1.9 K/mm3 (1.2-5.4); Lymphocytes % (Auto) 21.5 % (13.4-35.0); Mean Corpuscular HGB Conc 34 % (30-34); Mean Corpuscular Volume 83 fl (79-97); Monocytes # (Auto) 0.6 K/mm3 (0.0-0.8); Monocytes % (Auto) 7.1 % (0.0-7.3); Platelet Count 205 K/mm3 (140-440); Red Blood Count 4.45 M/mm3 (3.65-5.03); Red Cell Distribution Width 14.2 % (13.2-15.2)
[2018-06-20 20:51] LABS: Alanine Aminotransferase 12 units/L (7-56); Albumin 3.5 g/dL (3.9-5); BUN/Creatinine Ratio 53; Blood Urea Nitrogen 16 mg/dL (7-17); Calcium 9.2 mg/dL (8.4-10.2); Hemolysis Index 21
--- NOTE | 2018-06-20 22:11 | Cat Scan Report ---
FINAL REPORT PROCEDURE: CT ABDOMEN PELVIS W CON TECHNIQUE: Computerized axial tomography of the abdomen and pelvis was performed after the IV inject ion of iodinated nonionic contrast. HISTORY: abd pain COMPARISON: No prior studies are available for comparison. FINDINGS: Liver, spleen, pancreas and adrenal glands are within normal limits. Mild degree of diffuse fat indur ation is identified involving the peripancreatic, very duodenal and right paracolic and bilateral ant erior perirenal regions. Bilateral kidneys demonstrate normal enhancement without hydronephrosis. 3 m illimeter nonobstructive calculus is noted in the midpole right kidney. Urinary bladder is minimally filled with normal outlines. Aorta is of normal caliber. There is no free fluid or free air. Gallblad mary is contracted. There is mild degree dilatation of duodenum and proximal jejunal loops. Appendix i s normal. Uterus demonstrates multiple enhancing mass lesions largest measuring about 4.6 centimeters . Vertebral height is normal.. IMPRESSION: Mild degree duodenal and proximal jejunal dilatation with the induration of the intra-abdominal fat p lanes most likely represent duodenitis. Pancreas appears unremarkable and pancreatitis is felt to be unlikely. Clinical correlation is recommended. Multiple enhancing mass lesions in the uterus are consistent with uterine fibroids largest measuring 4.5 centimeters. 3 millimeter nonobstructive calculus right kidney
[2018-06-20 22:28] VITALS: BP 110/55
[2018-06-20] MEDS ORDERED: TORADOL IV ONE (22:37)
== END 2018-06-20 22:46 | disposition home or self-care (01) ==
LOC: ED 18:40
DX: K29.80 Duodenitis without bleeding (principal)
CPT/HCPCS: 36415; 74177; 80053; 81001; 83690; 84703; 85025; 96361; 96374; 96375; 99284; J1885; J2270; J2405; J7030; Q9967

== ENCOUNTER 2018-09-18 08:09 | Inpatient (IN) | payer SELFPAY ==
[2018-09-18] MEDS ORDERED: NACL 0.9% 1000 ML 1,000 ML IV ONE (08:17)
[2018-09-18 08:57] LABS: Basophils % (Auto) 0.6 % (0.0-1.8); Eosinophils % (Auto) 0.4 % (0.0-4.3); Hematocrit 38.8 % (30.3-42.9); Lymphocytes # (Auto) 1.9 K/mm3 (1.2-5.4); Lymphocytes % (Auto) 30.2 % (13.4-35.0); Mean Corpuscular HGB Conc 34 % (30-34); Mean Corpuscular Volume 82 fl (79-97); Monocytes # (Auto) 0.5 K/mm3 (0.0-0.8); Monocytes % (Auto) 7.2 % (0.0-7.3); Platelet Count 244 K/mm3 (140-440); Red Blood Count 4.71 M/mm3 (3.65-5.03); Red Cell Distribution Width 13.9 % (13.2-15.2)
[2018-09-18 09:19] LABS: Alanine Aminotransferase 14 units/L (7-56); Albumin 3.8 g/dL (3.9-5); BUN/Creatinine Ratio 37; Blood Urea Nitrogen 11 mg/dL (7-17); Calcium 9.8 mg/dL (8.4-10.2); Hemolysis Index 27
[2018-09-18 10:15] LABS: Bilirubin,Urine NEG (Negative); Blood,Urine MOD (Negative); Color,Urine Yellow (Yellow); Mucus,Urine 1+ /HPF; Protein,Urine <15 mg/dL mg/dL (Negative); Urobilinogen,Urine < 2.0 mg/dL (<2.0)
[2018-09-18] MEDS ORDERED: BENTYL IM ONE (11:15)
[2018-09-18] MEDS ORDERED: DILAUDID IV ONE (11:15)
[2018-09-18] MEDS ORDERED: ZOFRAN IV ONE (11:15)
[2018-09-18] MEDS ORDERED: PEPCID IV ONE (11:15)
--- NOTE | 2018-09-18 11:19 | Emergency Department Report ---
ED Abdominal Pain HPI - General Chief Complaint: Abdominal Pain Stated Complaint: ABD PAIN Time Seen by Provider: 09/18/18 11:08 Source: patient Mode of arrival: Ambulatory Limitations: No Limitations - History of Present Illness Initial Comments: Patient is a 48-year-old female who is presenting with epigastric pain. He states is 10 out of 10 in severity and occurred last night. Has been constant and is a stabbing aching pain with cramps. Patient states there is some radiation to the right upper flank. Patient states there is been multiple episodes of nausea vomiting but she denies diarrhea. Patient denies fevers chills cough cold or congestion. Patient has no history of gallstones or pancreatitis. Severity scale (0 -10): 10 - Related Data Previous Rx's Medication Instructions Recorded Last Taken Type Dicyclomine [Bentyl] 20 mg PO QID PRN #20 tablet 06/20/18 Unknown Rx Methimazole [Tapazole] 10 mg PO QDAY #30 tablet 06/20/18 Unknown Rx Ondansetron [Zofran Odt] 4 mg PO Q8HR PRN #20 tab.rapdis 06/20/18 Unknown Rx Propranolol [Inderal] 10 mg PO BID #60 tablet 06/20/18 Unknown Rx Ranitidine HCl [Zantac] 300 mg PO QDAY #30 tablet 06/20/18 Unknown Rx Allergies Allergy/AdvReac Type Severity Reaction Status Date / Time metronidazole [From Flagyl] Allergy Vomiting Verified 09/18/18 08:14 Metronidazole HCl Allergy Vomiting Verified 09/18/18 08:14 [From Flagyl] ED Review of Systems ROS: Stated complaint: ABD PAIN Other details as noted in HPI Comment: All other systems reviewed and negative ED Past Medical Hx - Past Medical History Previous Medical History?: Yes Hx Hypertension: Yes Additional medical history: hyperthyroid. fibroids. heart murmur - Surgical History Hx Breast Surgery: Yes (LEFT BREAST BIOPSY) Additional Surgical History: tubal ligation. left collar bone surgery - Social History Smoking Status: Never Smoker Substance Use Type: None - Medications Home Medications: Home Medications Medication Instructions Recorded Confirmed Last Taken Type Dicyclomine [Bentyl] 20 mg PO QID PRN #20 tablet 06/20/18 Unknown Rx Methimazole [Tapazole] 10 mg PO QDAY #30 tablet 06/20/18 Unknown Rx Ondansetron [Zofran Odt] 4 mg PO Q8HR PRN #20 tab.rapdis 06/20/18 Unknown Rx Propranolol [Inderal] 10 mg PO BID #60 tablet 06/20/18 Unknown Rx Ranitidine HCl [Zantac] 300 mg PO QDAY #30 tablet 06/20/18 Unknown Rx ED Physical Exam - General Limitations: No Limitations General appearance: alert, in distress (secondary to pain) - Head Head exam: Present: atraumatic, normocephalic - Eye Eye exam: Present: normal appearance, PERRL, EOMI - ENT ENT exam: Present: mucous membranes moist - Neck Neck exam: Present: normal inspection - Respiratory Respiratory exam: Present: normal lung sounds bilaterally. Absent: respiratory distress, wheezes, rales, rhonchi, stridor - Cardiovascular Cardiovascular Exam: Present: regular rate, normal rhythm. Absent: systolic murmur, diastolic murmur, rubs, gallop - GI/Abdominal GI/Abdominal exam: Present: soft, tenderness (epigastric ), normal bowel sounds. Absent: distended, guarding, rebound, rigid - Extremities Exam Extremities exam: Present: normal inspection, full ROM - Back Exam Back exam: Present: normal inspection - Neurological Exam Neurological exam: Present: alert, oriented X3 - Psychiatric Psychiatric exam: Present: normal affect, normal mood - Skin Skin exam: Present: warm, dry, intact, normal color. Absent: rash ED Course Vital Signs 09/18/18 08:14 Temperature 98.1 F Pulse Rate 125 H Respiratory 18 Rate Blood Pressure 170/95 O2 Sat by Pulse 95 Oximetry ED Medical Decision Making - Lab Data Result diagrams: 09/18/18 08:40 09/18/18 08:40 Lab Results 09/18/18 09/18/18 09/18/18 Range/Units 08:40 08:40 10:03 WBC 6.3 (4.5-11.0) K/mm3 RBC 4.71 (3.65-5.03) M/mm3 Hgb 13.0 (10.1-14.3) gm/dl Hct 38.8 (30.3-42.9) % MCV 82 (79-97) fl MCH 28 (28-32) pg MCHC 34 (30-34) % RDW 13.9 (13.2-15.2) % Plt Count 244 (140-440) K/mm3 Lymph % (Auto) 30.2 (13.4-35.0) % [place] % (Auto) 7.2 (0.0-7.3) % Eos % (Auto) 0.4 (0.0-4.3) % Baso % (Auto) 0.6 (0.0-1.8) % Lymph # 1.9 (1.2-5.4) K/mm3 [place] # 0.5 (0.0-0.8) K/mm3 Eos # 0.0 (0.0-0.4) K/mm3 Baso # 0.0 (0.0-0.1) K/mm3 Seg Neutrophils % 61.6 (40.0-70.0) % Seg Neutrophils # 3.9 (1.8-7.7) K/mm3 Sodium 138 (137-145) mmol/L Potassium 3.8 (3.6-5.0) mmol/L Chloride 104.9 (98-107) mmol/L Carbon Dioxide 25 (22-30) mmol/L Anion Gap 12 mmol/L BUN 11 (7-17) mg/dL Creatinine 0.3 L (0.7-1.2) mg/dL Estimated GFR > 60 ml/min BUN/Creatinine Ratio 37 % Glucose 119 H (65-100) mg/dL Calcium 9.8 (8.4-10.2) mg/dL Total Bilirubin 0.60 (0.1-1.2) mg/dL AST 19 (5-40) units/L ALT 14 (7-56) units/L Alkaline Phosphatase 216 H (35-129) units/L Total Protein 7.4 (6.3-8.2) g/dL Albumin 3.8 L (3.9-5) g/dL Albumin/Globulin Ratio 1.1 % Lipase 773 H (13-60) units/L Urine Color Yellow (Yellow) Urine Turbidity Clear (Clear) Urine pH 5.0 (5.0-7.0) Ur Specific [place] 1.027 (1.003-1.030) Urine Protein <15 mg/dl (Negative) mg/dL Urine Glucose (UA) Neg (Negative) mg/dL Urine Ketones Neg (Negative) mg/dL Urine Blood Mod (Negative) Urine Nitrite Neg (Negative) Urine Bilirubin Neg (Negative) Urine Urobilinogen < 2.0 (<2.0) mg/dL Ur Leukocyte Esterase Neg (Negative) Urine WBC (Auto) 1.0 (0.0-6.0) /HPF Urine RBC (Auto) 4.0 (0.0-6.0) /HPF U Epithel Cells (Auto) < 1.0 (0-13.0) /HPF Urine Mucus 1+ /HPF - Medical Decision Making Patient with a extremely elevated lipase. Patient has no history of pa ncreatitis. Patient be admitted to the hospitalist service under Dr. Ferguson. CT is pending at this time. Critical care attestation.: If time is entered above; I have spent that time in minutes in the direct care of this critically ill patient, excluding procedure time. ED Disposition Clinical Impression: Acute pancreatitis Qualifiers: Pancreatitis type: unspecified pancreatitis type Acute pancreatitis complication: unspecified Qualified Code(s): K85.90 - Acute pancreatitis without necrosis or infection, unspecified Disposition: 09 OP ADMIT IP TO THIS HOSP Is pt being admited?: Yes Does the pt Need Aspirin: No Condition: Stable Time of Disposition: 11:31
[2018-09-18] MEDS ORDERED: SODIUM CHLORIDE FLUSH SYRINGE 10 ML IV PRN (11:33)
[2018-09-18] MEDS ORDERED: PROVENTIL IH PRN (11:33)
[2018-09-18] MEDS ORDERED: TYLENOL PO PRN (11:33)
--- NOTE | 2018-09-18 11:33 | History and Physical Report ---
History of Present Illness Chief complaint: My stomach hurts History of present illness: 48 YO Female with HTN, Hyperthyroidism presents to ED for evaluation. Pt states that she has experienced abdominal pain over the past 2 days with progressively worsening symptoms over the past 10 hours. Pt states that her abdominal pain awoke her from sleep overnight. Pt states that her pain is 6-9/10, epigastric, persistent, associated with nausea, and multiple episodes of vomiting. Pt transported to [facility] via private vehicle. Pt seen and evaluated in ED and found to have Acute/Chronic Pancreatitis. Pt treated with IVF resuscitation and pain control. GI consulted in ED. Medication reconciled at time of admission. No previous admissions at [facility]. Pt denies fever, chills, CP, Palpitation, BRBPR, Unintentional weight loss, ETOH use, foreign travel, productive cough, skin rash, trauma, ingestion of food/water from new/different sources, or recent ill contacts. Pt admitted to medical floor. Past History Past Medical History: hypertension, hypothyroidism, other (Uterine Fibroids) Past Surgical History: Other (breast biopsy, ) Social history: single. denies: smoking, alcohol abuse, prescription drug abuse Family history: hypertension Medications and Allergies Allergies Allergy/AdvReac Type Severity Reaction Status Date / Time metronidazole [From Flagyl] Allergy Vomiting Verified 09/18/18 08:14 Metronidazole HCl Allergy Vomiting Verified 09/18/18 08:14 [From Flagyl] Home Medications Medication Instructions Recorded Confirmed Last Taken Type No Known Home Medications [No 09/18/18 09/18/18 Unknown History Reported Home Medications] Active Meds: Active Medications Sodium Chloride (Nacl 0.9% 1000 Ml) 1,000 mls @ 250 mls/hr IV ONCE ONE Stop: 09/18/18 12:16 Review of Systems Constitutional: no weight loss, no weight gain, no fever, no chills Ears, nose, mouth and throat: no ear pain, no ear discharge, no tinnitis, no decreased hearing, no nose pain, no nasal congestion Breasts: no change in shape, no swelling, no mass Cardiovascular: no chest pain, no orthopnea, no palpitations, no rapid/irregular heart beat, no edema, no syncope, no lightheadedness Respiratory: no cough, no cough with sputum, no excessive sputum, no hemoptysis, no shortness of breath, no snoring Gastrointestinal: abdominal pain, nausea, vomiting, no hematemesis, no BRBPR, no melena, no hematochezia, no early satiety, no heartburn Genitourinary Female: no pelvic pain, no flank pain, no menorrhagia, no dysuria Rectal: no pain, no incontinence, no bleeding Musculoskeletal: no neck stiffness, no neck pain, no shooting arm pain, no arm numbness/tingling, no low back pain, no shooting leg pain, no leg numbness/tingling Integumentary: no rash, no pruritis, no redness, no sores, no wounds Neurological: no head injury, no transient paralysis, no paralysis, no weakness, no parathesias, no numbness, no tingling Psychiatric: no anxiety, no memory loss, no change in sleep habits, no sleep disturbances, no insomnia, no change in appetite Endocrine: no cold intolerance, no heat intolerance, no excessive thirst, no polydipsia, no polyuria, no nocturia, no excessive sweating Hematologic/Lymphatic: no easy bruising, no easy bleeding, no lymphadenopathy, no lymphedema Allergic/Immunologic: no urticaria, no allergic rhinitis, no wheezing, no persistent infections, no anaphylaxis, no angioedema Exam - Constitutional Vitals: Temp Pulse Resp BP Pulse Ox 98.1 F 125 H 18 170/95 95 09/18/18 08:14 09/18/18 08:14 09/18/18 08:14 09/18/18 08:14 09/18/18 08:14 General appearance: Present: mild distress - EENT Eyes: Present: PERRL ENT: hearing intact, clear oral mucosa - Neck Neck: Present: supple, normal ROM - Respiratory Respiratory effort: normal Respiratory: bilateral: CTA - Cardiovascular Heart Sounds: Present: S1 & S2. Absent: rub, click - Extremities Extremities: pulses symmetrical, No edema Peripheral Pulses: within normal limits - Abdominal General gastrointestinal: Present: soft, non-distended, normal bowel sounds. Absent: hepatomegaly, splenomegaly, mass, hernia, other Localized gastrointestinal: tender: diffuse Female genitourinary: Present: normal - Integumentary Integumentary: Present: clear, warm, dry - Musculoskeletal Musculoskeletal: gait normal, strength equal bilaterally - Psychiatric Psychiatric: appropriate mood/affect, intact judgment & insight - Neurologic Neurologic: CNII-XII intact, moves all extremities Results - Labs CBC & Chem 7: 09/18/18 08:40 09/18/18 08:40 Labs: Abnormal lab results 09/18/18 Range/Units 08:40 Creatinine 0.3 L (0.7-1.2) mg/dL Glucose 119 H (65-100) mg/dL Alkaline Phosphatase 216 H (35-129) units/L Albumin 3.8 L (3.9-5) g/dL Lipase 773 H (13-60) units/L Assessment and Plan - Patient Problems (1) Acute pancreatitis Current Visit: Yes Status: Acute Qualifiers: Pancreatitis type: unspecified pancreatitis type Acute pancreatitis complication: unspecified Qualified Code(s): K85.90 - Acute pancreatitis without necrosis or infection, unspecified Plan to address problem: IVF resuscitation, Bowel rest, GI consulted, lipase, repeat lipase in AM, CT Abdomen Pelvis, Ultrasound abdomen, LFT, pain control, serial abdominal exam. (2) Hyperthyroidism Current Visit: No Status: Acute Plan to address problem: Continue methmizole, supportive care. (3) DVT prophylaxis Current Visit: Yes Status: Acute Plan to address problem: SCD to BLE while in bed, Prophylactic lovenox
[2018-09-18] MEDS ORDERED: ZOFRAN ODT PO PRN (11:35)
[2018-09-18] MEDS ORDERED: BENTYL PO PRN (11:35)
--- NOTE | 2018-09-18 12:41 | Ultrasound Report ---
ULTRASOUND ABDOMEN COMPLETE: TECHNIQUE: Transabdominal ultrasound with color Doppler interrogation. HISTORY: Pancreatitis. COMPARISON: none. FINDINGS: LIVER: Normal. BILIARY SYSTEM: Normal. PANCREAS: Only the proximal pancreas is visualized. No obvious pancreatic abnormality. The pancreatic duct is visualized and measures 2.9 mm. SPLEEN: Normal. 7.8 cm in length. KIDNEYS: The kidneys are slightly echogenic consistent with nonspecific renal parenchymal disease. No focal renal lesion or hydronephrosis. AORTA/IVC: Normal. ASCITES: None. IMPRESSION: Unremarkable liver and biliary system. The pancreas is only partially imaged, see above. Nonspecific renal parenchymal disease.
[2018-09-18] MEDS: INDERAL PO SCH ×2 (13:35→21:14)
--- NOTE | 2018-09-18 14:15 | Gastroenterology Consultation ---
History of Present Illness - Reason for Consult Consult date: 09/18/18 pancreatitis Requesting physician: STORMY ANDRE - History of Present Illness This is a 48 yo female with pmh of HTN and thyroid disorder presenting to the ED for acute onset epigastric abdominal pain. Patient reports pain starting yesterday with severe pain radiating to her back associated with n ausea/vomiting. She had fever at home but afebrile here. Denies any new medication, alcohol use, or herbal supplements. States she drinks a lot of tea. In the ED, she was found to have elevated lipase and CT abdomen showing inflammatory changes in the pancreatic tail. No family hx of pancreatic cancer or GI malignancy. Past History Past Medical History: hypertension, other (thyroid disorder) Social history: denies: alcohol abuse Family history: other (no h/o pancreatitis in family) Medications and Allergies Allergies Allergy/AdvReac Type Severity Reaction Status Date / Time metronidazole [From Flagyl] Allergy Vomiting Verified 09/18/18 08:14 Metronidazole HCl Allergy Vomiting Verified 09/18/18 08:14 [From Flagyl] Home Medications Medication Instructions Recorded Confirmed Last Taken Type No Known Home Medications [No 09/18/18 09/18/18 Unknown History Reported Home Medications] Active Meds: Active Medications Acetaminophen (Tylenol) 650 mg PO Q4H PRN PRN Reason: Pain MILD(1-3)/Fever >100.5/CODY Albuterol (Proventil) 2.5 mg IH Q4HRT PRN PRN Reason: Shortness Of Breath Dicyclomine HCl (Bentyl) 20 mg PO QID PRN PRN Reason: abdominal pain Famotidine (Pepcid) 10 mg IV BID [facility] Hydromorphone HCl (Dilaudid) 0.5 mg IV Q3H PRN PRN Reason: Pain , Severe (7-10) Methimazole (Tapazole) 10 mg PO QDAY [facility] Ondansetron HCl (Zofran) 4 mg IV Q8H PRN PRN Reason: Nausea And Vomiting Ondansetron HCl (Zofran Odt) 4 mg PO Q8HR PRN PRN Reason: Vomiting Propranolol HCl (Inderal) 10 mg PO BID [facility] Last Admin: 09/18/18 13:35 Dose: 10 mg Documented by: Sodium Chloride (Sodium Chloride Flush Syringe 10 Ml) 10 ml IV BID [facility] Sodium Chloride (Sodium Chloride Flush Syringe 10 Ml) 10 ml IV PRN PRN PRN Reason: LINE FLUSH Review of Systems - Review of Systems Constitutional: fever, no weight loss, no weight gain Eyes: deferred Ears, Nose, Throat: deferred Cardiovascular: no chest pain Respiratory: no cough Gastrointestinal: abdominal pain, nausea, vomiting, no diarrhea, no melena Musculoskeletal: no gait dysfunction Integumentary: deferred, no jaundice Endocrine: no cold intolerance Hematologic/Lymphatic: no easy bruising Allergic/Immunologic: no wheezing Exam - Constitutional Vital Signs: Temp Pulse Resp BP Pulse Ox 98.1 F 125 H 18 170/95 95 09/18/18 08:14 09/18/18 08:14 09/18/18 08:14 09/18/18 08:14 09/18/18 08:14 General appearance: well-nourished - EENT Eyes: PERRL ENT: hearing intact, clear oral mucosa, dentition normal - Neck Neck: supple, normal ROM, no masses or JVD - Respiratory Respiratory effort: normal Respiratory: bilateral: CTA - Breasts Breasts: deferred - Cardiovascular Rhythm: regular Heart Sounds: Present: S1 & S2. Absent: gallop, rub Extremities: pulses intact, No edema, normal color, Full ROM - Gastrointestinal General gastrointestinal: Present: soft, tender, non-distended, normal bowel sounds - Integumentary Integumentary: Present: clear, warm, dry - Neurologic Neurological: alert and oriented x3 - Psychiatric Psychiatric: appropriate mood/affect, intact judgment & insight, memory intact - Labs CBC & Chem 7: 09/18/18 08:40 09/18/18 08:40 Lab Results: Laboratory Results - last 24 hr 09/18/18 09/18/18 09/18/18 08:40 08:40 10:03 WBC 6.3 RBC 4.71 Hgb 13.0 Hct 38.8 MCV 82 MCH 28 MCHC 34 RDW 13.9 Plt Count 244 Lymph % (Auto) 30.2 [place] % (Auto) 7.2 Eos % (Auto) 0.4 Baso % (Auto) 0.6 Lymph # 1.9 [place] # 0.5 Eos # 0.0 Baso # 0.0 Seg Neutrophils % 61.6 Seg Neutrophils # 3.9 Sodium 138 Potassium 3.8 Chloride 104.9 Carbon Dioxide 25 Anion Gap 12 BUN 11 Creatinine 0.3 L Estimated GFR > 60 BUN/Creatinine Ratio 37 Glucose 119 H Calcium 9.8 Total Bilirubin 0.60 AST 19 ALT 14 Alkaline Phosphatase 216 H Total Protein 7.4 Albumin 3.8 L Albumin/Globulin Ratio 1.1 Lipase 773 H Urine Color Yellow Urine Turbidity Clear Urine pH 5.0 Ur Specific [place] 1.027 Urine Protein <15 mg/dl Urine Glucose (UA) Neg Urine Ketones Neg Urine Blood Mod Urine Nitrite Neg Urine Bilirubin Neg Urine Urobilinogen < 2.0 Ur Leukocyte Esterase Neg Urine WBC (Auto) 1.0 Urine RBC (Auto) 4.0 U Epithel Cells (Auto) < 1.0 Urine Mucus 1+ Plasma/Serum Alcohol 09/18/18 11:44 WBC RBC Hgb Hct MCV MCH MCHC RDW Plt Count Lymph % (Auto) [place] % (Auto) Eos % (Auto) Baso % (Auto) Lymph # [place] # Eos # Baso # Seg Neutrophils % Seg Neutrophils # Sodium Potassium Chloride Carbon Dioxide Anion Gap BUN Creatinine Estimated GFR BUN/Creatinine Ratio Glucose Calcium Total Bilirubin AST ALT Alkaline Phosphatase Total Protein Albumin Albumin/Globulin Ratio Lipase Urine Color Urine Turbidity Urine pH Ur Specific [place] Urine Protein Urine Glucose (UA) Urine Ketones Urine Blood Urine Nitrite Urine Bilirubin Urine Urobilinogen Ur Leukocyte Esterase Urine WBC (Auto) Urine RBC (Auto) U Epithel Cells (Auto) Urine Mucus Plasma/Serum Alcohol < 0.01 - Imaging CT Scan: report reviewed Ultrasound: report reviewed Assessment and Plan 48 yo female with pmh of HTN and thyroid disorder here with abdominal pain due to acute pancreatitis. # abdominal pain # Acute pancreatitis - elevated lipase >x3 ULN, CT findings with inflammatory changes in pancreatic tail. normal biliary system on US. - normal liver enzymes and kidney function. - unclear etiology given no h/o alcohol use or no medication. Patient states she has not been taking her medications. Rec: - medical therapy for pancreatitis with aggressive IVF with LR at 200cc/hr. - NPO - pain control. - follow liver enzymes. - will follow. Reviewed patient current medications - Patient Problems (1) Acute pancreatitis Current Visit: Yes Status: Acute Qualifiers: Pancreatitis type: unspecified pancreatitis type Acute pancreatitis complication: unspecified Qualified Code(s): K85.90 - Acute pancreatitis without necrosis or infection, unspecified
[2018-09-18] MEDS ORDERED: APRESOLINE IV PRN (14:27)
--- NOTE | 2018-09-18 14:37 | Cat Scan Report ---
PROCEDURE: CT ABDOMEN PELVIS W CON TECHNIQUE: Computerized axial tomography of the abdomen and pelvis was performed after the IV inject ion of iodinated nonionic contrast. HISTORY: epigatsric pain [place] COMPARISONS: Prior CT scan 06/20/2018 . FINDINGS: Lower Lung keller: Minimal dependent atelectasis otherwise clear. Upper Abdomen: The liver and gallbladder showed no focal abnormalities. The adrenal glands and splee n are unremarkable. The pancreas showed no focal abnormalities. Inflammatory changes previously visua lized in the right upper quadrant around the duodenum and pancreas extending anterior to Gerota's fas sil on the right have resolved. There is mild inflammatory change seen around the tail the pancreas o n today's study, the appearance suggesting mild residual or recurrent pancreatitis. No pancreatic mas s or pseudocyst visualized. Kidneys, Ureters and Urinary bladder: Subcentimeter cyst visualized medial aspect of the third left kidney. Kidneys, ureters and urinary bladder otherwise unremarkable. Urinary bladder is only partiall y filled and difficult to characterize. No gross abnormality is seen. Multiple calcifications seen in the lower pelvis which appear to represent phleboliths. Retroperitoneum: Minimal atherosclerotic changes visualized abdominal aorta. No aneurysm is seen. Nonspecific subcentimeter lymph nodes are seen in the retroperitoneum. No pathologically enlarged ly mph nodes are identified. Bowel: Minimal diverticulosis left side of the colon without evidence of diverticulitis. There is al so mild to moderate diverticulosis right side of the colon without evidence of diverticulitis. Normal -appearing appendix is seen on the right projecting into the right side of the pelvis. Reproductive organs: There is a lobulated soft tissue mass in the lower pelvis. This is to the right of midline. This measures 6.6 x 6.9 cm. This was seen on the prior study. The mass contains multiple soft tissue nodules, the central aspect of the nodules lower in density than the periphery of each n odule. This may represent fibroid uterus although should be correlated with the patient's prior surgi matt history. This is located to the right of midline and could represent an adnexal mass, ovarian mas s, as opposed to fibroid uterus. Other: No acute bone abnormalities are identified. IMPRESSION: Significantly improved inflammatory process upper abdomen. There is a small amount of inflammatory ch michaela seen adjacent to the tail the pancreas which could represent residual inflammation versus recurr ent inflammatory change such as pancreatitis. I do not see a pancreatic mass or pseudocyst.. Diverticulosis as described without evidence of diverticulitis. Lobulated soft tissue mass or pelvis. Please see above comments. Correlation with prior surgical hist ory is recommended. This document is electronically signed by Blaine Delcid MD., September 18 2018 02:34:50 PM ET
[2018-09-18] MEDS ORDERED: NACL 0.45% 2,000 ML IV SCH (15:00)
[2018-09-18] MEDS ORDERED: ZOFRAN ONE (17:47)
[2018-09-18] MEDS ORDERED: DILAUDID ONE (17:47)
[2018-09-18] MEDS: ZOFRAN IV PRN (17:50)
[2018-09-18] MEDS: DILAUDID IV PRN (17:50)
[2018-09-18] MEDS ORDERED: NACL 0.45% 1000 ML 1,000 ML IV ONE (18:10)
[2018-09-18] MEDS: LOVENOX SUB-Q SCH (21:09)
[2018-09-18] MEDS: PEPCID IV SCH (21:10)
[2018-09-18] MEDS: SODIUM CHLORIDE FLUSH SYRINGE 10 ML IV SCH (21:23)
[2018-09-19] MEDS: DILAUDID IV PRN ×4 (03:19→22:06)
[2018-09-19] MEDS: ZOFRAN IV PRN ×2 (03:34→22:33)
[2018-09-19] MEDS ORDERED: NACL 0.45% 1000 ML 1,000 ML IV SCH (06:00)
[2018-09-19 06:26] LABS: Basophils % (Auto) 0.5 % (0.0-1.8); Eosinophils % (Auto) 0.2 % (0.0-4.3); Hematocrit 35.4 % (30.3-42.9); Hemoglobin 11.8 gm/dl (10.1-14.3); Lymphocytes # (Auto) 1.2 K/mm3 (1.2-5.4); Lymphocytes % (Auto) 26.1 % (13.4-35.0); Mean Corpuscular HGB Conc 33 % (30-34); Mean Corpuscular Volume 82 fl (79-97); Monocytes # (Auto) 0.4 K/mm3 (0.0-0.8); Monocytes % (Auto) 8.4 % (0.0-7.3); Platelet Count 215 K/mm3 (140-440); Red Cell Distribution Width 13.6 % (13.2-15.2)
[2018-09-19 06:52] LABS: BUN/Creatinine Ratio 43; Blood Urea Nitrogen 13 mg/dL (7-17); Calcium 10.1 mg/dL (8.4-10.2); Hemolysis Index 3
[2018-09-19] MEDS: TAPAZOLE PO SCH (09:51)
[2018-09-19] MEDS: PEPCID IV SCH ×2 (09:52→22:06)
[2018-09-19] MEDS: INDERAL PO SCH ×2 (09:52→22:05)
[2018-09-19] MEDS ORDERED: NON-FORMULARY (Methimazole [Tapazole] 10 MG) PO SCH (10:00)
[2018-09-19] MEDS ORDERED: NON-FORMULARY (Ranitidine Hcl [Zantac] 300 MG) PO SCH (10:00)
[2018-09-19] MEDS: SODIUM CHLORIDE FLUSH SYRINGE 10 ML IV SCH ×2 (10:01→22:07)
--- NOTE | 2018-09-19 10:29 | Progress Note ---
Assessment and Plan Assessment and plan: --Acute Pancreatitis; worsening symptoms and worsening lipase levels Nothing by mouth status, supportive care, IV fluids GI evaluation and recommendations noted and appreciated --History of hyperthyroidism; Continue methimazole, beta blockers if needed --Iyti-ja-elvfjryg malnutrition; supportive care --DVT prophylaxis; SCD and Lovenox Closely monitor the patient and adjust the management as needed Plan of care is reviewed with the patient, GI and her nurse History Interval history: Patient seen and examined medical records reviewed Admitted with acute pancreatitis Worsening symptoms, worsening lipase levels GI evaluated the patient Patient complains of vague abdominal pain Mild nausea Alert awake oriented Vital signs noted Hospitalist Physical - Constitutional Vitals: Temp Pulse Resp BP Pulse Ox 98.5 F 108 H 18 117/60 97 09/19/18 05:40 09/19/18 06:31 09/19/18 05:40 09/19/18 09:52 09/19/18 09:22 General appearance: Present: mild distress, well-nourished, cachectic - EENT Eyes: Present: PERRL, EOM intact - Neck Neck: Present: supple, normal ROM - Respiratory Respiratory effort: normal Respiratory: bilateral: diminished, negative: rales, rhonchi, wheezing - Cardiovascular Rhythm: regular Heart Sounds: Present: S1 & S2 - Extremities Extremities: no ischemia, No edema - Abdominal General gastrointestinal: soft, non-tender, non-distended, normal bowel sounds - Integumentary Integumentary: Present: clear, warm - Psychiatric Psychiatric: appropriate mood/affect, cooperative - Neurologic Neurologic: CNII-XII intact, moves all extremities Results - Labs CBC & Chem 7: 09/19/18 06:07 09/19/18 06:07 Labs: Laboratory Last Values WBC 4.5 K/mm3 (4.5-11.0) 09/19/18 06:07 RBC 4.30 M/mm3 (3.65-5.03) 09/19/18 06:07 Hgb 11.8 gm/dl (10.1-14.3) 09/19/18 06:07 Hct 35.4 % (30.3-42.9) 09/19/18 06:07 MCV 82 fl (79-97) 09/19/18 06:07 MCH 28 pg (28-32) 09/19/18 06:07 MCHC 33 % (30-34) 09/19/18 06:07 RDW 13.6 % (13.2-15.2) 09/19/18 06:07 Plt Count 215 K/mm3 (140-440) 09/19/18 06:07 Lymph % (Auto) 26.1 % (13.4-35.0) 09/19/18 06:07 [place] % (Auto) 8.4 % (0.0-7.3) H 09/19/18 06:07 Eos % (Auto) 0.2 % (0.0-4.3) 09/19/18 06:07 Baso % (Auto) 0.5 % (0.0-1.8) 09/19/18 06:07 Lymph # 1.2 K/mm3 (1.2-5.4) 09/19/18 06:07 [place] # 0.4 K/mm3 (0.0-0.8) 09/19/18 06:07 Eos # 0.0 K/mm3 (0.0-0.4) 09/19/18 06:07 Baso # 0.0 K/mm3 (0.0-0.1) 09/19/18 06:07 Seg Neutrophils % 64.8 % (40.0-70.0) 09/19/18 06:07 Seg Neutrophils # 2.9 K/mm3 (1.8-7.7) 09/19/18 06:07 Sodium 136 mmol/L (137-145) L 09/19/18 06:07 Potassium 4.1 mmol/L (3.6-5.0) 09/19/18 06:07 Chloride 99.9 mmol/L (98-107) 09/19/18 06:07 Carbon Dioxide 24 mmol/L (22-30) 09/19/18 06:07 Anion Gap 16 mmol/L 09/19/18 06:07 BUN 13 mg/dL (7-17) 09/19/18 06:07 Creatinine 0.3 mg/dL (0.7-1.2) L 09/19/18 06:07 Estimated GFR > 60 ml/min 09/19/18 06:07 BUN/Creatinine Ratio 43 % 09/19/18 06:07 Glucose 76 mg/dL (65-100) 09/19/18 06:07 Calcium 10.1 mg/dL (8.4-10.2) 09/19/18 06:07 Total Bilirubin 0.60 mg/dL (0.1-1.2) 09/18/18 08:40 AST 19 units/L (5-40) 09/18/18 08:40 ALT 14 units/L (7-56) 09/18/18 08:40 Alkaline Phosphatase 216 units/L (35-129) H 09/18/18 08:40 Total Protein 7.4 g/dL (6.3-8.2) 09/18/18 08:40 Albumin 3.8 g/dL (3.9-5) L 09/18/18 08:40 Albumin/Globulin Ratio 1.1 % 09/18/18 08:40 Lipase 1254 units/L (13-60) H 09/19/18 06:07 Urine Color Yellow (Yellow) 09/18/18 10:03 Urine Turbidity Clear (Clear) 09/18/18 10:03 Urine pH 5.0 (5.0-7.0) 09/18/18 10:03 Ur Specific [place] 1.027 (1.003-1.030) 09/18/18 10:03 Urine Protein <15 mg/dl mg/dL (Negative) 09/18/18 10:03 Urine Glucose (UA) Neg mg/dL (Negative) 09/18/18 10:03 Urine Ketones Neg mg/dL (Negative) 09/18/18 10:03 Urine Blood Mod (Negative) 09/18/18 10:03 Urine Nitrite Neg (Negative) 09/18/18 10:03 Urine Bilirubin Neg (Negative) 09/18/18 10:03 Urine Urobilinogen < 2.0 mg/dL (<2.0) 09/18/18 10:03 Ur Leukocyte Esterase Neg (Negative) 09/18/18 10:03 Urine WBC (Auto) 1.0 /HPF (0.0-6.0) 09/18/18 10:03 Urine RBC (Auto) 4.0 /HPF (0.0-6.0) 09/18/18 10:03 U Epithel Cells (Auto) < 1.0 /HPF (0-13.0) 09/18/18 10:03 Urine Mucus 1+ /HPF 09/18/18 10:03 Plasma/Serum Alcohol < 0.01 % (0-0.07) 09/18/18 11:44 Active Medications - Current Medications Current Medications: Generic Name Dose Route Start Last Admin Trade Name Freq PRN Reason Stop Dose Admin Acetaminophen 650 mg 09/18/18 11:33 Tylenol PO Q4H PRN Pain MILD(1-3)/Fever >100.5/CODY Albuterol 2.5 mg 09/18/18 11:33 Proventil IH Q4HRT PRN Shortness Of Breath Dicyclomine HCl 20 mg 09/18/18 11:35 09/18/18 21:10 Bentyl PO 20 mg QID PRN Administration abdominal pain Enoxaparin Sodium 40 mg 09/18/18 22:00 09/18/18 21:09 Lovenox SUB-Q 40 mg QDAY@2200 ELHAM Administration Famotidine 10 mg 09/18/18 22:00 09/19/18 09:52 Pepcid IV 10 mg BID ELHAM Administration Hydralazine HCl 10 mg 09/18/18 14:27 Apresoline IV Q6HR PRN Hypertension Hydromorphone HCl 0.5 mg 09/18/18 11:33 09/19/18 08:57 Dilaudid IV 0.5 mg Q3H PRN Administration Pain , Severe (7-10) Sodium Chloride 1,000 mls @ 125 mls/hr 09/19/18 06:00 09/19/18 06:14 Nacl 0.45% 1000 Ml IV 09/19/18 13:59 125 mls/hr DIRECT ELHAM Administration Methimazole 10 mg 09/19/18 10:00 09/19/18 09:51 Tapazole PO 10 mg QDAY ELHAM Administration Ondansetron HCl 4 mg 09/18/18 11:33 09/19/18 03:34 Zofran IV 4 mg Q8H PRN Administration Nausea And Vomiting Ondansetron HCl 4 mg 09/18/18 11:35 Zofran Odt PO Q8HR PRN Vomiting Propranolol HCl 10 mg 09/18/18 13:15 09/19/18 09:52 Inderal PO 10 mg BID ELHAM Administration Sodium Chloride 10 ml 09/18/18 22:00 09/19/18 10:01 Sodium Chloride Flush Syringe 10 Ml IV 10 ml BID ELHAM Administration Sodium Chloride 10 ml 09/18/18 11:33 Sodium Chloride Flush Syringe 10 Ml IV PRN PRN LINE FLUSH
--- NOTE | 2018-09-19 11:37 | Gastroenterology Progress Note ---
Assessment and Plan 1.acute pancreatitis -afebrile -WBC and H/H WNL -LFTs-T.francisco javier 0.60, AST 19, ALT 14, alk phos 216 -lipase 1254-trending up -abd CT showed inflammatory changes in pancreatic tail -abd U/S- unremarkable liver and biliary system -etiology unclear (patient denies alcohol use or new medication) -clinically, patient reports feeling slightly better with N/V improved but still c/o abdominal pain. -will order triglyceride level and IgG4 in am to r/o other possible causes -CRP in am -Keep NPO for now -continue to trend labs and supportive care (IVF, antiemetics, pain medications, etc.) -will follow Subjective Date of service: 09/19/18 Principal diagnosis: pancreatitis Interval history: Patient resting in bed w/o acute distress. Reports feeling slightly better with no N/V this am but still has c/o abdominal pain. Objective - Constitutional Vitals: Temp Pulse Resp BP Pulse Ox 98.5 F 108 H 18 117/60 97 09/19/18 05:40 09/19/18 06:31 09/19/18 05:40 09/19/18 09:52 09/19/18 09:22 General appearance: no acute distress - EENT Eyes: PERRL, EOM intact ENT: hearing intact - Respiratory Respiratory: bilateral: CTA - Cardiovascular Rhythm: other (tachycardia) - Gastrointestinal General gastrointestinal: Present: soft, tender (epigastric/LUQ), non-distended, normal bowel sounds - Neurologic Neurological: alert and oriented x3 - Labs CBC & Chem 7: 09/19/18 06:07 09/19/18 06:07 Labs: Laboratory Results - last 24 hr 09/18/18 09/19/18 09/19/18 11:44 06:07 06:07 WBC 4.5 RBC 4.30 Hgb 11.8 Hct 35.4 MCV 82 MCH 28 MCHC 33 RDW 13.6 Plt Count 215 Lymph % (Auto) 26.1 [place] % (Auto) 8.4 H Eos % (Auto) 0.2 Baso % (Auto) 0.5 Lymph # 1.2 [place] # 0.4 Eos # 0.0 Baso # 0.0 Seg Neutrophils % 64.8 Seg Neutrophils # 2.9 Sodium 136 L Potassium 4.1 Chloride 99.9 Carbon Dioxide 24 Anion Gap 16 BUN 13 Creatinine 0.3 L Estimated GFR > 60 BUN/Creatinine Ratio 43 Glucose 76 Calcium 10.1 Lipase Plasma/Serum Alcohol < 0.01 09/19/18 06:07 WBC RBC Hgb Hct MCV MCH MCHC RDW Plt Count Lymph % (Auto) [place] % (Auto) Eos % (Auto) Baso % (Auto) Lymph # [place] # Eos # Baso # Seg Neutrophils % Seg Neutrophils # Sodium Potassium Chloride Carbon Dioxide Anion Gap BUN Creatinine Estimated GFR BUN/Creatinine Ratio Glucose Calcium Lipase 1254 H Plasma/Serum Alcohol
[2018-09-19] MEDS: D5NS 1,000 ML IV SCH ×2 (17:16→23:56)
[2018-09-19] MEDS: LOVENOX SUB-Q SCH (22:07)
[2018-09-20 05:57] LABS: Basophils % (Auto) 0.1 % (0.0-1.8); Eosinophils % (Auto) 0.3 % (0.0-4.3); Hematocrit 33.2 % (30.3-42.9); Hemoglobin 11.1 gm/dl (10.1-14.3); Lymphocytes % (Auto) 42.4 % (13.4-35.0); Mean Corpuscular HGB Conc 34 % (30-34); Mean Corpuscular Volume 82 fl (79-97); Monocytes # (Auto) 0.6 K/mm3 (0.0-0.8); Platelet Count 197 K/mm3 (140-440); Red Blood Count 4.05 M/mm3 (3.65-5.03); Red Cell Distribution Width 13.9 % (13.2-15.2)
[2018-09-20] MEDS: D5NS 1,000 ML IV SCH ×3 (06:01→19:56)
[2018-09-20] MEDS: DILAUDID IV PRN ×4 (06:05→21:51)
[2018-09-20 06:28] LABS: Alanine Aminotransferase 9 units/L (7-56); Albumin 3.2 g/dL (3.9-5); BUN/Creatinine Ratio 15; Blood Urea Nitrogen 6 mg/dL (7-17); Calcium 9.3 mg/dL (8.4-10.2); Hemolysis Index 9
--- NOTE | 2018-09-20 09:01 | Progress Note ---
Assessment and Plan Assessment and plan: --Acute Pancreatitis; patient is clinically improving Lipase levels within normal limits, still has mild abdominal pain Start clear liquids advance as tolerated --History of hyperthyroidism; Continue methimazole, beta blockers if needed --Qnxl-ps-[id number] malnutrition; supportive care --DVT prophylaxis; SCD and Lovenox Closely monitor the patient and adjust the management as needed Plan of care is reviewed with the patient, GI and her nurse Possible discharge in 1-2 days if stable History Interval history: Patient seen and examined medical history reviewed Right is significantly improved Patient complains of mild abdominal pain Diet started to advance as tolerated Vital signs reviewed Hospitalist Physical - Constitutional Vitals: Temp Pulse Resp BP Pulse Ox 98.6 F 81 18 88/41 94 09/20/18 06:14 09/20/18 06:14 09/20/18 06:35 09/20/18 06:14 09/20/18 06:14 General appearance: Present: mild distress, well-nourished, cachectic - EENT Eyes: Present: PERRL, EOM intact - Neck Neck: Present: supple, normal ROM - Respiratory Respiratory effort: normal Respiratory: bilateral: diminished, negative: rales, rhonchi, wheezing - Cardiovascular Rhythm: regular Heart Sounds: Present: S1 & S2 - Extremities Extremities: no ischemia, No edema - Abdominal General gastrointestinal: soft, non-tender, non-distended, normal bowel sounds - Integumentary Integumentary: Present: clear, warm - Psychiatric Psychiatric: appropriate mood/affect, cooperative - Neurologic Neurologic: CNII-XII intact, moves all extremities Results - Labs CBC & Chem 7: 09/20/18 04:40 09/20/18 04:40 Labs: Laboratory Last Values WBC 4.7 K/mm3 (4.5-11.0) 09/20/18 04:40 RBC 4.05 M/mm3 (3.65-5.03) 09/20/18 04:40 Hgb 11.1 gm/dl (10.1-14.3) 09/20/18 04:40 Hct 33.2 % (30.3-42.9) 09/20/18 04:40 MCV 82 fl (79-97) 09/20/18 04:40 MCH 28 pg (28-32) 09/20/18 04:40 MCHC 34 % (30-34) 09/20/18 04:40 RDW 13.9 % (13.2-15.2) 09/20/18 04:40 Plt Count 197 K/mm3 (140-440) 09/20/18 04:40 Lymph % (Auto) 42.4 % (13.4-35.0) H 09/20/18 04:40 [place] % (Auto) 13.0 % (0.0-7.3) H 09/20/18 04:40 Eos % (Auto) 0.3 % (0.0-4.3) 09/20/18 04:40 Baso % (Auto) 0.1 % (0.0-1.8) 09/20/18 04:40 Lymph # 2.0 K/mm3 (1.2-5.4) 09/20/18 04:40 [place] # 0.6 K/mm3 (0.0-0.8) 09/20/18 04:40 Eos # 0.0 K/mm3 (0.0-0.4) 09/20/18 04:40 Baso # 0.0 K/mm3 (0.0-0.1) 09/20/18 04:40 Seg Neutrophils % 44.2 % (40.0-70.0) 09/20/18 04:40 Seg Neutrophils # 2.1 K/mm3 (1.8-7.7) 09/20/18 04:40 Sodium 140 mmol/L (137-145) 09/20/18 04:40 Potassium 3.8 mmol/L (3.6-5.0) 09/20/18 04:40 Chloride 102.6 mmol/L (98-107) 09/20/18 04:40 Carbon Dioxide 26 mmol/L (22-30) 09/20/18 04:40 Anion Gap 15 mmol/L 09/20/18 04:40 BUN 6 mg/dL (7-17) L 09/20/18 04:40 Creatinine 0.4 mg/dL (0.7-1.2) L 09/20/18 04:40 Estimated GFR > 60 ml/min 09/20/18 04:40 BUN/Creatinine Ratio 15 % 09/20/18 04:40 Glucose 125 mg/dL (65-100) H 09/20/18 04:40 Calcium 9.3 mg/dL (8.4-10.2) 09/20/18 04:40 Total Bilirubin 1.00 mg/dL (0.1-1.2) 09/20/18 04:40 AST 12 units/L (5-40) 09/20/18 04:40 ALT 9 units/L (7-56) 09/20/18 04:40 Alkaline Phosphatase 167 units/L (35-129) H 09/20/18 04:40 C-Reactive Protein 1.80 mg/dL (0.00-1.30) H 09/20/18 04:40 Total Protein 6.2 g/dL (6.3-8.2) L 09/20/18 04:40 Albumin 3.2 g/dL (3.9-5) L 09/20/18 04:40 Albumin/Globulin Ratio 1.1 % 09/20/18 04:40 Triglycerides 78 mg/dL (2-149) 09/20/18 04:40 Lipase 1254 units/L (13-60) H 09/19/18 06:07 Urine Color Yellow (Yellow) 09/18/18 10:03 Urine Turbidity Clear (Clear) 09/18/18 10:03 Urine pH 5.0 (5.0-7.0) 09/18/18 10:03 Ur Specific [place] 1.027 (1.003-1.030) 09/18/18 10:03 Urine Protein <15 mg/dl mg/dL (Negative) 09/18/18 10:03 Urine Glucose (UA) Neg mg/dL (Negative) 09/18/18 10:03 Urine Ketones Neg mg/dL (Negative) 09/18/18 10:03 Urine Blood Mod (Negative) 09/18/18 10:03 Urine Nitrite Neg (Negative) 09/18/18 10:03 Urine Bilirubin Neg (Negative) 09/18/18 10:03 Urine Urobilinogen < 2.0 mg/dL (<2.0) 09/18/18 10:03 Ur Leukocyte Esterase Neg (Negative) 09/18/18 10:03 Urine WBC (Auto) 1.0 /HPF (0.0-6.0) 09/18/18 10:03 Urine RBC (Auto) 4.0 /HPF (0.0-6.0) 09/18/18 10:03 U Epithel Cells (Auto) < 1.0 /HPF (0-13.0) 09/18/18 10:03 Urine Mucus 1+ /HPF 09/18/18 10:03 Plasma/Serum Alcohol < 0.01 % (0-0.07) 09/18/18 11:44 Active Medications - Current Medications Current Medications: Generic Name Dose Route Start Last Admin Trade Name Freq PRN Reason Stop Dose Admin Acetaminophen 650 mg 09/18/18 11:33 Tylenol PO Q4H PRN Pain MILD(1-3)/Fever >100.5/CODY Albuterol 2.5 mg 09/18/18 11:33 Proventil IH Q4HRT PRN Shortness Of Breath Dicyclomine HCl 20 mg 09/18/18 11:35 09/18/18 21:10 Bentyl PO 20 mg QID PRN Administration abdominal pain Enoxaparin Sodium 40 mg 09/18/18 22:00 09/19/18 22:07 Lovenox SUB-Q 40 mg QDAY@2200 ELHAM Administration Famotidine 10 mg 09/18/18 22:00 09/19/18 22:06 Pepcid IV 10 mg BID ELHAM Administration Hydralazine HCl 10 mg 09/18/18 14:27 Apresoline IV Q6HR PRN Hypertension Hydromorphone HCl 0.5 mg 09/18/18 11:33 09/20/18 06:05 Dilaudid IV 0.5 mg Q3H PRN Administration Pain , Severe (7-10) Dextrose/Sodium Chloride 1,000 mls @ 150 mls/hr 09/19/18 17:00 09/20/18 06:01 D5ns IV 150 mls/hr DIRECT ELHAM Administration Methimazole 10 mg 09/19/18 10:00 09/19/18 09:51 Tapazole PO 10 mg QDAY ELHAM Administration Ondansetron HCl 4 mg 09/18/18 11:33 09/19/18 22:33 Zofran IV 4 mg Q8H PRN Administration Nausea And Vomiting Ondansetron HCl 4 mg 09/18/18 11:35 Zofran Odt PO Q8HR PRN Vomiting Propranolol HCl 10 mg 09/18/18 13:15 09/19/18 22:05 Inderal PO 10 mg BID ELHAM Administration Sodium Chloride 10 ml 09/18/18 22:00 09/19/18 22:07 Sodium Chloride Flush Syringe 10 Ml IV 10 ml BID ELHAM Administration Sodium Chloride 10 ml 09/18/18 11:33 Sodium Chloride Flush Syringe 10 Ml IV PRN PRN LINE FLUSH
[2018-09-20] MEDS: PEPCID IV SCH ×2 (09:05→21:53)
[2018-09-20] MEDS: TAPAZOLE PO SCH (09:05)
[2018-09-20] MEDS: INDERAL PO SCH ×2 (09:09→21:53)
[2018-09-20] MEDS: SODIUM CHLORIDE FLUSH SYRINGE 10 ML IV SCH ×2 (09:10→21:54)
--- NOTE | 2018-09-20 10:12 | Gastroenterology Progress Note ---
Assessment and Plan 48 yo female with pmh of HTN and thyroid disorder here with abdominal pain due to acute pancreatitis. # abdominal pain # Acute pancreatitis - elevated lipase >x3 ULN, CT findings with inflammatory changes in pancreatic tail. normal biliary system on US. - normal liver enzymes and kidney function. - unclear etiology given no h/o alcohol use or no medication. Patient states she has not been taking her medications. - clinically improving. lipase and Hct trending down. CRP mildly elevated. - triglyceride normal. Rec: - start clear liquid diet. - pain control. - IGG4 pending. - will follow. - Patient Problems (1) Acute pancreatitis Current Visit: Yes Status: Acute Qualifiers: Pancreatitis type: unspecified pancreatitis type Acute pancreatitis complication: unspecified Qualified Code(s): K85.90 - Acute pancreatitis without necrosis or infection, unspecified Subjective Date of service: 09/20/18 Principal diagnosis: pancreatitis Interval history: No events o/n. Patient reports abdominal pain improving. No nausea/vomiting. No chest pain Objective - Constitutional Vitals: Temp Pulse Resp BP Pulse Ox 98.6 F 81 18 109/58 94 09/20/18 06:14 09/20/18 06:14 09/20/18 06:35 09/20/18 09:09 09/20/18 06:14 - EENT ENT: hearing intact, clear oral mucosa, dentition normal - Neck Neck: supple, normal ROM - Respiratory Respiratory effort: normal Respiratory: bilateral: CTA - Cardiovascular Rhythm: regular - Extremities Extremities: pulses intact, No edema, normal color, Full ROM - Gastrointestinal General gastrointestinal: Present: soft, tender, non-distended, normal bowel sounds - Integumentary Integumentary: Present: clear, warm, dry - Neurologic Neurological: alert and oriented x3 - Labs CBC & Chem 7: 09/20/18 04:40 09/20/18 04:40 Labs: Laboratory Results - last 24 hr 09/20/18 09/20/18 09/20/18 04:40 04:40 04:40 WBC 4.7 RBC 4.05 Hgb 11.1 Hct 33.2 MCV 82 MCH 28 MCHC 34 RDW 13.9 Plt Count 197 Lymph % (Auto) 42.4 H [place] % (Auto) 13.0 H Eos % (Auto) 0.3 Baso % (Auto) 0.1 Lymph # 2.0 [place] # 0.6 Eos # 0.0 Baso # 0.0 Seg Neutrophils % 44.2 Seg Neutrophils # 2.1 Sodium 140 Potassium 3.8 Chloride 102.6 Carbon Dioxide 26 Anion Gap 15 BUN 6 L Creatinine 0.4 L Estimated GFR > 60 BUN/Creatinine Ratio 15 Glucose 125 H Calcium 9.3 Total Bilirubin 1.00 AST 12 ALT 9 Alkaline Phosphatase 167 H C-Reactive Protein 1.80 H Total Protein 6.2 L Albumin 3.2 L Albumin/Globulin Ratio 1.1 Triglycerides 78 Lipase 103 H
[2018-09-20] MEDS: LOVENOX SUB-Q SCH (21:52)
[2018-09-21] MEDS: D5NS 1,000 ML IV SCH ×2 (01:51→07:58)
[2018-09-21] MEDS: TAPAZOLE PO SCH (10:38)
[2018-09-21] MEDS: PEPCID IV SCH (10:38)
[2018-09-21] MEDS: SODIUM CHLORIDE FLUSH SYRINGE 10 ML IV SCH (10:39)
[2018-09-21] MEDS: INDERAL PO SCH (10:39)
--- NOTE | 2018-09-21 11:25 | Gastroenterology Progress Note ---
Assessment and Plan 48 yo female with pmh of HTN and thyroid disorder here with abdominal pain due to acute pancreatitis. 1 abdominal pain 2 Acute pancreatitis - elevated lipase >x3 ULN- now trending down to 103. CT findings with inflammatory changes in pancreatic tail. normal biliary system on US. - normal liver enzymes and kidney function. CRP 1.8 on 09/20/18 - unclear etiology given no h/o alcohol use or no medication. Patient states she has not been taking her medications. - clinically improving. - triglyceride normal. - advance to full liquid/ soft diet. Denies N/V and wants to eat. - IGG4 pending. - IF tolerates diet well and pain controlled this afternoon, ok to DC per GI standpoint. D/W pt the need for follow up in clinic in 2-3 weeks. All questions answered. Subjective Date of service: 09/21/18 Principal diagnosis: pancreatitis Interval history: Pt reports she is feeling better, has not required any pain medications today to this point. Objective - Constitutional Vitals: Temp Pulse Resp BP Pulse Ox 98.0 F 86 18 116/43 97 09/21/18 04:50 09/21/18 10:39 09/21/18 04:50 09/21/18 04:50 09/21/18 04:50 General appearance: no acute distress - EENT Eyes: EOM intact ENT: hearing intact - Neck Neck: supple - Gastrointestinal General gastrointestinal: Present: soft, tender (mild TTP epigastric area) - Integumentary Integumentary: Present: warm, dry - Labs CBC & Chem 7: 09/20/18 04:40 09/20/18 04:40
[2018-09-21 12:47] VITALS: BP 134/62
--- NOTE | 2018-09-21 15:38 | Discharge Summary ---
Providers - Providers Date of Admission: 09/18/18 11:33 Date of discharge: 09/21/18 Attending physician: ENZO LIU 09/18/18 14:25 Consult to Physician [CONS] Routine Comment: Consulting Provider: ARYAN JOHNS Physician Instructions: Reason For Exam: pancreatitis [facility] Reason for admission: abdominal pain Condition: Stable Pertinent studies: CT abdomen and pelvis; significantly improved from a depressive upper abdomen and a small amount of inflammation to change seen adjacent to the tail of the pancreas could represent residual inflammation versus recurrent inflammation changes such as pancreatitis no pancreatic mass or pseudocyst Diverticulosis, no evidence of diverticulitis, Lobulated soft tissue mass and possible fibroid uterus Abdominal ultrasound; Unremarkable liver and biliary system nonspecifically renal parenchymal disease Hospital course: 48-year-old female patient with significant history of hypertension and hypothyroidism who was admitted through emergency room with abdominal pain, initial workup was consistent with acute pancreatitis with elevated lipase Placed on nothing by mouth status evaluated by GI, gradually monitor lipase levels which came back to normal limits, clear liquid diet advance to soft diet today which patient tolerated, Patient's symptoms significantly improved Incidental finding of a lobular mass in the pelvis probably fibroid uterus, Patient was advised to see private [employer]ER upon discharge for further evaluation and management, patient verbalized understanding, GI cleared for discharge and follow up with them in 1-2 weeks Today she is comfortable in no new complaints vital signs stable physical examination unremarkable, Stable at discharge Discharge diagnosis; --Acute Pancreatitis; patient is clinically improving Lipase levels within normal limits, still has mild abdominal pain Start clear liquids advance as tolerated --History of hyperthyroidism; Continue methimazole, beta blockers if needed --[id number] malnutrition; supportive care --Incidental finding of a lobulated mass and pelvis possible fibroid uterus Patient advised to follow private [employer] TECHNICAL OFF[employer]ER for further evaluation and management Cleared by GI stable at discharge Disposition: DC-01 TO HOME OR SELFCARE Time spent for discharge: 32 min Core Measure Documentation - Palliative Care Palliative Care/ Comfort Measures: Not Applicable - Core Measures Any of the following diagnoses?: none Exam - Constitutional Vitals: Temp Pulse Resp BP Pulse Ox 98.2 F 92 H 18 134/62 96 09/21/18 12:45 09/21/18 12:45 09/21/18 12:45 09/21/18 12:45 04/05/19 12:45 General appearance: Present: no acute distress, well-nourished - EENT Eyes: Present: PERRL, EOM intact - Neck Neck: Present: supple, normal ROM - Respiratory Respiratory effort: normal Respiratory: bilateral: diminished, negative: rales, rhonchi, wheezing - Cardiovascular Rhythm: regular Heart Sounds: Present: S1 & S2 - Extremities Extremities: no ischemia, No edema - Abdominal General gastrointestinal: Present: soft, non-tender, non-distended, normal bowel sounds - Integumentary Integumentary: Present: clear, warm - Musculoskeletal Musculoskeletal: strength equal bilaterally - Psychiatric Psychiatric: appropriate mood/affect, cooperative - Neurologic Neurologic: CNII-XII intact, moves all extremities Plan Activity: no restrictions Diet: other (soft diet, advance as tolerated) Additional Instructions: Soft diet advance as tolerated. Advised to follow GI in 1 week. Possible fibroid uterus on CT abdomen; advised to see private [employer] TECHNICAL OFFICER for further evaluation and management Follow up with: [place] [Primary Care Provider] - 7 Days MIN,ZACHARY MANE MD [Staff Physician] - 7 Days Prescriptions: Dicyclomine [Bentyl] 20 mg PO QID PRN #20 tablet PRN Reason: abdominal pain
== END 2018-09-21 17:10 | disposition home or self-care (01) | DRG 439 ==
LOC: ED 08:09 → 3A 11:33
PROVIDERS: ADMIT Internal Medicine; ATTEND Internal Medicine
DX: K85.90 Acute pancreatitis without necrosis or infection, unspecified (principal); E44.0 Moderate protein-calorie malnutrition; I10 Essential (primary) hypertension; E05.90 Thyrotoxicosis, unspecified without thyrotoxic crisis or storm; R19.00 Intra-abdominal and pelvic swelling, mass and lump, unspecified site; Z82.49 Family history of ischemic heart disease and other diseases of the circulatory system; Z88.8 Allergy status to other drugs, medicaments and biological substances; Z98.51 Tubal ligation status; Z68.22 Body mass index [BMI] 22.0-22.9, adult
CPT/HCPCS: 36415; 74177; 76700; 80048; 80053; 80320; 81001; 83690; 84478; 85025; 86140; G0378; G0480; J0500; J1170; J1650; J2405; J7030; J7042; Q9967

== ENCOUNTER 2018-10-14 19:16 | Inpatient (IN) | payer SELFPAY ==
[2018-10-14] MEDS ORDERED: NACL 0.9% 1000 ML 1,000 ML IV ONE ×2 (19:40→22:06)
[2018-10-14] MEDS ORDERED: ZOFRAN IV ONE ×3 (19:40→22:06)
[2018-10-14] MEDS ORDERED: MORPHINE IV ONE ×2 (19:40→21:08)
[2018-10-14] MEDS ORDERED: TORADOL IV ONE (19:40)
[2018-10-14] MEDS ORDERED: PEPCID IV ONE (19:41)
[2018-10-14 19:54] LABS: Basophils # (Auto) 0.1 K/mm3 (0.0-0.1); Basophils % (Auto) 1.1 % (0.0-1.8); Hematocrit 34.8 % (30.3-42.9); Hemoglobin 11.8 gm/dl (10.1-14.3); Lymphocytes # (Auto) 1.4 K/mm3 (1.2-5.4); Lymphocytes % (Auto) 23.4 % (13.4-35.0); Mean Corpuscular HGB Conc 34 % (30-34); Mean Corpuscular Volume 82 fl (79-97); Monocytes # (Auto) 0.5 K/mm3 (0.0-0.8); Monocytes % (Auto) 7.9 % (0.0-7.3); Platelet Count 172 K/mm3 (140-440); Red Blood Count 4.27 M/mm3 (3.65-5.03); Red Cell Distribution Width 14.4 % (13.2-15.2)
[2018-10-14 20:24] LABS: BUN/Creatinine Ratio 33; Blood Urea Nitrogen 13 mg/dL (7-17); Calcium 9.7 mg/dL (8.4-10.2); Hemolysis Index 16
--- NOTE | 2018-10-14 20:50 | Cat Scan Report ---
CT ABDOMEN PELVIS WO CON CLINICAL INDICATION: Female, 48 years of age. left flank pain COMPARISON: CT abdomen and pelvis September 18, 2018. TECHNIQUE: Contiguous axial images were obtained. This CT exam was performed using one or more of th e following dose reduction techniques: automated exposure control, adjustment of the mA and/or kV acc ording to patient size, or use of iterative reconstruction technique. Additional sagittal and coronal reformatted images were obtained. FINDINGS: Mild linear atelectasis or scarring at the lung bases. No calcified gallstones. Liver and s pleen are grossly unremarkable. Minimal haziness of fat margin of the pancreas. Bilateral thickened a drenal glands. 4 mm nonobstructive right renal calculus. No hydronephrosis bilaterally. No perinephric fat stranding . Aorta and IVC are normal in caliber. No distal ureteral or urinary bladder calculi. Multiple pelvic phlebolith. Lobular contour of the [place] and may be underlying fibroids. Ovaries are grossly unremarkable. No free fluid or lymphadenopath y in the pelvic cavity. The appendix is normal in caliber measuring 6 mm in diameter. No adjacent fat stranding or fluid. Lar ge and small bowel loops are normal in caliber. Lumbar vertebral body heights preserved. Bony pelvis is grossly intact. IMPRESSION: 1. Mild haziness of the fat at the margin of the pancreas. Correlation with urinalysis suggested to e nsure no subtle acute pancreatitis. 2. Single 4 mm nonobstructive right renal calculus. No additional renal or ureteral calculi. No hydro nephrosis. 3. No other gross acute findings. This document is electronically signed by Luz Elena Rocha DO., October 14 2018 08:47:58 PM ET
--- NOTE | 2018-10-14 21:03 | XRay Report ---
PROCEDURE: XR CHEST 1V AP TECHNIQUE: Frontal portable view of the chest HISTORY: Chest Pain COMPARISONS: Chest x-ray dated February 16, 2016 FINDINGS: There is prominence of the interstitial markings in both lungs similar in appearance to the previous study. There appear to be patchy areas of pulmonary consolidation in the upper lung keller bilaterally sugge stive of pulmonary infiltrates. There is no evidence of pneumothorax or pleural fluid collection. The cardiac silhouette is enlarged. There appears to be prominence of the pulmonary venous vasculature suggestive of pulmonary venous con gestion. The thoracic aorta and bony structures are unremarkable. IMPRESSION: 1. Areas of pulmonary consolidation in the upper lung keller bilaterally suggestive of pulmonary infi ltrates. Infectious and noninfectious etiologies, to include CHF, need to be considered. 2. Enlarged cardiac silhouette. 3. Evidence of pulmonary venous congestion. This document is electronically signed by Olga Ibarra MD., October 14 2018 09:01:54 PM ET
[2018-10-14 21:39] LABS: Bacteria,Urine 1+ /HPF (Negative); Bilirubin,Urine NEG (Negative); Blood,Urine SM (Negative); Color,Urine Straw (Yellow); Protein,Urine <15 mg/dL mg/dL (Negative); Urobilinogen,Urine < 2.0 mg/dL (<2.0); WBC,Urine < 1.0 /HPF (0.0-6.0)
[2018-10-14 21:44] LABS: Albumin 3.5 g/dL (3.9-5); Bilirubin,Direct 0.2 mg/dL (0-0.2)
[2018-10-14] MEDS ORDERED: ZOFRAN ONE (22:08)
--- NOTE | 2018-10-14 22:23 | Emergency Department Report ---
- General Chief Complaint: Chest Pain Stated Complaint: CHEST PRESSURE Time Seen by Provider: 10/14/18 19:36 Source: patient, EMS Mode of arrival: Stretcher Limitations: No Limitations - History of Present Illness Initial Comments: Patient is a 48-year-old female who is presenting with chest pain. The patient when pointing to the area that hurts is pointing to the lower chest/epigastrium. Patient states this started around 6 PM tonight she says it is a tight feeling. She states the pain is 8 out of 10 in severity. Patient also is complaining of some left flank pain and states that the chest pain radiates to her back. Patient states she has a history of anxiety but states this is a different feeling. She denies any cough cold or congestion. She states she also has some mild nausea but denies any vomiting or diarrhea. Patient states she does not drink alcohol and is not sure while she's had pancreatitis in the past. - Related Data Home Medications Medication Instructions Recorded Confirmed Last Taken Propranolol [Inderal] 10 mg PO BID 09/18/18 10/14/18 10/14/18 Tapazole 10 mg PO DAILY 09/18/18 10/14/18 10/14/18 Allergies Allergy/AdvReac Type Severity Reaction Status Date / Time metronidazole [From Flagyl] Allergy Vomiting Verified 09/18/18 08:14 Metronidazole HCl Allergy Vomiting Verified 09/18/18 08:14 [From Flagyl] ED Review of Systems ROS: Stated complaint: CHEST PRESSURE Other details as noted in HPI Comment: All other systems reviewed and negative ED Past Medical Hx - Past Medical History Hx Hypertension: Yes Hx Congestive Heart Failure: No Hx Diabetes: No Hx Asthma: (unsure) Hx COPD: No Additional medical history: hyperthyroid. fibroids. heart murmur - Surgical History Hx Breast Surgery: Yes (LEFT BREAST BIOPSY) Additional Surgical History: tubal ligation. left collar bone surgery - Social History Smoking Status: Never Smoker Substance Use Type: None - Medications Home Medications: Home Medications Medication Instructions Recorded Confirmed Last Taken Type Propranolol [Inderal] 10 mg PO BID 09/18/18 10/14/18 10/14/18 History Tapazole 10 mg PO DAILY 09/18/18 10/14/18 10/14/18 History ED Physical Exam - General Limitations: No Limitations General appearance: alert, in no apparent distress - Head Head exam: Present: atraumatic, normocephalic - Eye Eye exam: Present: normal appearance, PERRL, EOMI - ENT ENT exam: Present: mucous membranes moist - Neck Neck exam: Present: normal inspection - Respiratory Respiratory exam: Present: normal lung sounds bilaterally. Absent: respiratory distress, wheezes, rales, rhonchi - Cardiovascular Cardiovascular Exam: Present: regular rate, normal rhythm. Absent: systolic murmur, diastolic murmur, rubs, gallop - GI/Abdominal GI/Abdominal exam: Present: soft, normal bowel sounds. Absent: distended, tenderness, guarding, rebound, rigid - Extremities Exam Extremities exam: Present: normal inspection - Back Exam Back exam: Present: normal inspection - Neurological Exam Neurological exam: Present: alert, oriented X3 - Psychiatric Psychiatric exam: Present: normal affect, normal mood - Skin Skin exam: Present: warm, dry, intact, normal color. Absent: rash ED Course Vital Signs 10/14/18 10/14/18 10/14/18 19:20 19:22 19:31 Temperature 98.0 F Pulse Rate 138 H 142 H 127 H Respiratory 13 24 17 Rate Blood Pressure 129/67 129/67 O2 Sat by Pulse 97 98 Oximetry 10/14/18 10/14/18 10/14/18 19:45 20:00 20:15 Temperature Pulse Rate 112 H 111 H 111 H Respiratory 42 H 16 18 Rate Blood Pressure 125/68 122/75 125/76 O2 Sat by Pulse 98 99 97 Oximetry ED Medical Decision Making - Lab Data Result diagrams: 10/14/18 19:42 10/14/18 19:42 Lab Results 10/14/18 10/14/18 10/14/18 Range/Units 19:42 19:42 19:42 WBC 6.1 (4.5-11.0) K/mm3 RBC 4.27 (3.65-5.03) M/mm3 Hgb 11.8 (10.1-14.3) gm/dl Hct 34.8 (30.3-42.9) % MCV 82 (79-97) fl MCH 28 (28-32) pg MCHC 34 (30-34) % RDW 14.4 (13.2-15.2) % Plt Count 172 (140-440) K/mm3 Lymph % (Auto) 23.4 (13.4-35.0) % [place] % (Auto) 7.9 H (0.0-7.3) % Eos % (Auto) 0.0 (0.0-4.3) % Baso % (Auto) 1.1 (0.0-1.8) % Lymph # 1.4 (1.2-5.4) K/mm3 [place] # 0.5 (0.0-0.8) K/mm3 Eos # 0.0 (0.0-0.4) K/mm3 Baso # 0.1 (0.0-0.1) K/mm3 Seg Neutrophils % 67.6 (40.0-70.0) % Seg Neutrophils # 4.2 (1.8-7.7) K/mm3 Sodium 139 (137-145) mmol/L Potassium 3.1 L (3.6-5.0) mmol/L Chloride 105.5 (98-107) mmol/L Carbon Dioxide 21 L (22-30) mmol/L Anion Gap 16 mmol/L BUN 13 (7-17) mg/dL Creatinine 0.4 L (0.7-1.2) mg/dL Estimated GFR > 60 ml/min BUN/Creatinine Ratio 33 % Glucose 130 H (65-100) mg/dL Calcium 9.7 (8.4-10.2) mg/dL Total Bilirubin (0.1-1.2) mg/dL Direct Bilirubin (0-0.2) mg/dL Indirect Bilirubin mg/dL AST (5-40) units/L ALT (7-56) units/L Alkaline Phosphatase (35-129) units/L Troponin T < 0.010 (0.00-0.029) ng/mL NT-Pro-B Natriuret Pep (0-450) pg/mL Total Protein (6.3-8.2) g/dL Albumin (3.9-5) g/dL Albumin/Globulin Ratio % Lipase (13-60) units/L HCG, Qual Negative (Negative) Urine Color (Yellow) Urine Turbidity (Clear) Urine pH (5.0-7.0) Ur Specific [place] (1.003-1.030) Urine Protein (Negative) mg/dL Urine Glucose (UA) (Negative) mg/dL Urine Ketones (Negative) mg/dL Urine Blood (Negative) Urine Nitrite (Negative) Urine Bilirubin (Negative) Urine Urobilinogen (<2.0) mg/dL Ur Leukocyte Esterase (Negative) Urine WBC (Auto) (0.0-6.0) /HPF Urine RBC (Auto) (0.0-6.0) /HPF U Epithel Cells (Auto) (0-13.0) /HPF Urine Bacteria (Auto) (Negative) /HPF 10/14/18 10/14/18 10/14/18 Range/Units 19:42 19:42 21:14 WBC (4.5-11.0) K/mm3 RBC (3.65-5.03) M/mm3 Hgb (10.1-14.3) gm/dl Hct (30.3-42.9) % MCV (79-97) fl MCH (28-32) pg MCHC (30-34) % RDW (13.2-15.2) % Plt Count (140-440) K/mm3 Lymph % (Auto) (13.4-35.0) % [place] % (Auto) (0.0-7.3) % Eos % (Auto) (0.0-4.3) % Baso % (Auto) (0.0-1.8) % Lymph # (1.2-5.4) K/mm3 [place] # (0.0-0.8) K/mm3 Eos # (0.0-0.4) K/mm3 Baso # (0.0-0.1) K/mm3 Seg Neutrophils % (40.0-70.0) % Seg Neutrophils # (1.8-7.7) K/mm3 Sodium (137-145) mmol/L Potassium (3.6-5.0) mmol/L Chloride (98-107) mmol/L Carbon Dioxide (22-30) mmol/L Anion Gap mmol/L BUN (7-17) mg/dL Creatinine (0.7-1.2) mg/dL Estimated GFR ml/min BUN/Creatinine Ratio % Glucose (65-100) mg/dL Calcium (8.4-10.2) mg/dL Total Bilirubin 1.10 (0.1-1.2) mg/dL Direct Bilirubin 0.2 (0-0.2) mg/dL Indirect Bilirubin 0.9 mg/dL AST 16 (5-40) units/L ALT 10 (7-56) units/L Alkaline Phosphatase 251 H (35-129) units/L Troponin T (0.00-0.029) ng/mL NT-Pro-B Natriuret Pep 95.49 (0-450) pg/mL Total Protein 6.8 (6.3-8.2) g/dL Albumin 3.5 L (3.9-5) g/dL Albumin/Globulin Ratio 1.1 % Lipase 1285 H (13-60) units/L HCG, Qual (Negative) Urine Color Straw (Yellow) Urine Turbidity Clear (Clear) Urine pH 5.0 (5.0-7.0) Ur Specific [place] 1.004 (1.003-1.030) Urine Protein <15 mg/dl (Negative) mg/dL Urine Glucose (UA) Neg (Negative) mg/dL Urine Ketones Neg (Negative) mg/dL Urine Blood Sm (Negative) Urine Nitrite Neg (Negative) Urine Bilirubin Neg (Negative) Urine Urobilinogen < 2.0 (<2.0) mg/dL Ur Leukocyte Esterase Neg (Negative) Urine WBC (Auto) < 1.0 (0.0-6.0) /HPF Urine RBC (Auto) 3.0 (0.0-6.0) /HPF U Epithel Cells (Auto) < 1.0 (0-13.0) /HPF Urine Bacteria (Auto) 1+ (Negative) /HPF - EKG Data -: EKG Interpreted by [place] EKG shows normal: sinus rhythm, axis, intervals, QRS complexes, ST-T waves Rate: tachycardia - EKG Data Interpretation: normal EKG - Radiology Data [facility] [address] [place] [address] XRay Report Signed Patient: TONY WAY Cristine#: [id number] : 1970 Acct:[id number] Age/Sex: 48 / F ADM Date: 10/14/18 Loc: ED Attending Dr: Ordering Physician: STORMY ANDRE MD Date of Service: 10/14/18 Procedure(s): XR chest 1V ap Accession Number(s): [id number] cc: STORMY ANDRE MD Fluoro Time In Minutes: PROCEDURE: XR CHEST 1V AP TECHNIQUE: Frontal portable view of the chest HISTORY: Chest Pain COMPARISONS: Chest x-ray dated February 16, 2016 FINDINGS: There is prominence of the interstitial markings in both lungs similar in appearance to the previous study. There appear to be patchy areas of pulmonary consolidation in the upper lung keller bilaterally suggestive of pulmonary infiltrates. There is no evidence of pneumothorax or pleural fluid collection. The cardiac silhouette is enlarged. There appears to be prominence of the pulmonary venous vasculature suggestive of pulmonary venous congestion. The thoracic aorta and bony structures are unremarkable. IMPRESSION: 1. Areas of pulmonary consolidation in the upper lung keller bilaterally suggestive of pulmonary infiltrates. Infectious and noninfectious etiologies, to include CHF, need to be considered. 2. Enlarged cardiac silh ouette. 3. Evidence of pulmonary venous congestion. This document is electronically signed by Olga Ibarra MD., October 14 2018 09:01:54 PM ET Transcribed By: ED Dictated By: OLGA IBARRA MD Electronically Authenticated By: OLGA IBARRA MD Signed Date/Time: 10/14/182102 DD/D 45 TD/TT: 10/14/182045 [address] [address] Cat Scan Report Signed Patient: TONY WAY R#: [id number] : 1970 Acct:[id number] Age/Sex: 48 / F ADM Date: 10/14/18 Loc: ED Attending Dr: Ordering Physician: STORMY ANDRE MD Date of Service: 10/14/18 Procedure(s): CT abdomen pelvis wo con Accession Number(s): [id number] cc: STORMY ANDRE MD CT ABDOMEN PELVIS WO CON CLINICAL INDICATION: Female, 48 years of age. left flank pain COMPARISON: CT abdomen and pelvis September 18, 2018. TECHNIQUE: Contiguous axial images were obtained. This CT exam was performed using one or more of the following dose reduction techniques: automated exposure control, adjustment of the mA and/or kV according to patient size, or use of iterative reconstruction technique. Additional sagittal and coronal reformatted images were obtained. FINDINGS: Mild linear atelectasis or scarring at the lung bases. No calcified gallstones. Liver and spleen are grossly unremarkable. Minimal haziness of fat margin of the pancreas. Bilateral thickened adrenal glands. 4 mm nonobstructive right renal calculus. No hydronephrosis bilaterally. No perinephric fat stranding. Aorta and IVC are normal in caliber. No distal ureteral or urinary bladder calculi. Multiple pelvic phlebolith. Lobular contour of the uterus and may be underlying fibroids. Ovaries are grossly unremarkable. No free fluid or lymphadenopathy in the pelvic cavity. The appendix is normal in caliber measuring 6 mm in diameter. No adjacent fat stranding or fluid. Large and small bowel loops are normal in caliber. Lumbar vertebral body heights preserved. Bony pelvis is grossly intact. IMPRESSION: 1. Mild haziness of the fat at the margin of the pancreas. Correlation with urinalysis suggested to ensure no subtle acute pancreatitis. 2. Single 4 mm nonobstructive right renal calculus. No additional renal or ureteral calculi. No hydronephrosis. 3. No other gross acute findings. This document is electronically signed by Luz Elena Rocha DO., October 14 2018 08:47:58 PM ET Transcribed By: LMA Dictated By: TRISTAN ORCHA MD Electronically Authenticated By: TRISTAN ROCHA MD Signed Date/Time: 10/14/182049 DD/ 42 TD/TT: 10/14/18 204 - Medical Decision Making Patient is a 48-year-old female presenting with what she describes as chest pain. Physical exam patient is most tender in the epigastrium and does have some left CVA tenderness. Patient does have a small nonobstructing kidney stone on the right there is no evidence of hydronephrosis. The patient does have some inflammation at the pancreas. Patient's lipase is significantly elevated patient will be admitted to the hospital for hepatitis exacerbation. Critical care attestation.: If time is entered above; I have spent that time in minutes in the direct care of this critically ill patient, excluding procedure time. ED Disposition Clinical Impression: Acute pancreatitis Disposition: OP ADMIT IP TO THIS HOSP Is pt being admited?: Yes Does the pt Need Aspirin: No Condition: Stable Time of Disposition: 22:25
[2018-10-14] MEDS ORDERED: DILAUDID IV ONE (22:28)
[2018-10-14] MEDS ORDERED: INDERAL PO ONE (22:56)
[2018-10-14] MEDS ORDERED: TAPAZOLE PO SCH (22:58)
--- NOTE | 2018-10-14 23:08 | History and Physical Report ---
History of Present Illness Date of examination: 10/14/18 History of present illness: 48-year-old woman with a history of hypertension, hyperthyroidism, pancreatitis, unknown etiology cost emergency room with complaints of left mid to lower back pain, radiating to the left upper abdomen that she describes as a stabbing pain, constant, intensity 8/10, relieved with pain medication given in the emergency room. Also complaining of chest tightness, intermittent every 1 hour, no radiation, intensity 5/10. Admits to palpitation, nausea or vomiting, no shortness of breath, diaphoresis. She's been off her medications for the last 1 week Review of systems Constitutional: no weight loss, chills, fever Ears, eyes, nose, mouth and throat: no nasal congestion, no nasal discharge, no sinus pressure, no vision change, no red eye. Neck: No neck pain or rigidity. Cardiovascular: +palpitations, chest pain Respiratory: no cough, shortness of breath Gastrointestinal: no hematochezia, +abdominal pain Genitourinary : no frequency , no hematuria Musculoskeletal: no joint swelling or muscle ache Integumentary: no rash, no pruritis Neurological: no parathesias, no focal weakness Endocrine: no cold or heat intolerance, no polyuria or polydipsia Hematologic/Lymphatic: no easy bruising, no easy bleeding, no gland swelling Allergic/Immunologic: no urticaria, no angioedema. PAST MEDICAL HISTORY:hypertension, hyperthyroidism, pancreatitis PAST SURGICAL HISTORY: Tubal ligation, surgeryon collar bone SOCIAL HISTORY: Denies alcohol, drugs, tobacco FAMILY HISTORY: Hypertension Medications and Allergies Allergies Allergy/AdvReac Type Severity Reaction Status Date / Time metronidazole [From Flagyl] Allergy Vomiting Verified 09/18/18 08:14 Metronidazole HCl Allergy Vomiting Verified 09/18/18 08:14 [From Flagyl] Home Medications Medication Instructions Recorded Confirmed Last Taken Type Propranolol [Inderal] 10 mg PO BID 09/18/18 10/14/18 10/14/18 History Tapazole 10 mg PO DAILY 09/18/18 10/14/18 10/14/18 History Active Meds: Active Medications Sodium Chloride (Nacl 0.9% 1000 Ml) 1,000 mls @ 125 mls/hr IV ONCE ONE Stop: 10/15/18 06:05 Last Admin: 10/14/18 22:08 Dose: 125 mls/hr Documented by: Methimazole (Tapazole) 10 mg PO Q24HR ELHAM Methimazole (Tapazole) 10 mg PO Q24HR ELHAM Stop: 10/14/18 23:59 Exam - Physical Exam Narrative exam: General Apperance: The patient lying in bed, breathing comfortable HEENT: Normocephalic, atraumatic. Pupils equally round and reactive to light, EOMI, no sclericterus or JVD or thyromegaly or nodule. , no carotid bruit, mucous membranes moist, no exudate or erythema Heart: S1-S2, regular is rhythm Lungs: Clear to auscultation bilaterally, breathing comfortable Abdomen: Positive bowel sounds, soft,tender in the left upper quadrant, nondistended, no organomegaly Extremities: No edema cyanosis clubbing Skin: no rash, nodule, warm and dry Neuro: cranial nerves 2-12 intact, speech is fluent, motor/sensory intact - Constitutional Vitals: Temp Pulse Resp BP Pulse Ox 98.0 F 110 H 20 144/71 94 10/14/18 19:20 10/14/18 22:30 10/14/18 22:30 10/14/18 22:30 10/14/18 22:30 Results - Labs CBC & Chem 7: 10/14/18 19:42 10/14/18 19:42 Labs: Abnormal lab results 10/14/18 10/14/18 10/14/18 Range/Units 19:42 19:42 19:42 [place] % (Auto) 7.9 H (0.0-7.3) % Potassium 3.1 L (3.6-5.0) mmol/L Carbon Dioxide 21 L (22-30) mmol/L Creatinine 0.4 L (0.7-1.2) mg/dL Glucose 130 H (65-100) mg/dL Alkaline Phosphatase 251 H (35-129) units/L Albumin 3.5 L (3.9-5) g/dL Lipase 1285 H (13-60) units/L - Imaging and Cardiology Chest x-ray: report reviewed CT scan - abdomen: report reviewed CT scan - pelvis: report reviewed Assessment and Plan Assessment Acute pancreatitis Chest pain Bilateral upper lobe pneumonia Hypothyroidism Hypertension Plan Placed on bowel rest, start IV fluids, pain medication Start IV Rocephin, azithromycin, sputum cultures Respiratory isolation, although risk for TB but will still rule out Restart her medication, first dose of thyroid medicines now DVT prophylaxis
[2018-10-14] MEDS ORDERED: SODIUM CHLORIDE FLUSH SYRINGE 10 ML IV PRN (23:09)
[2018-10-14] MEDS ORDERED: TYLENOL PO PRN (23:09)
[2018-10-14] MEDS ORDERED: APRESOLINE IV PRN (23:11)
[2018-10-14] MEDS: ZITHROMAX PO SCH (23:42)
[2018-10-14] MEDS: ROCEPHIN/NS 1 GM/50 ML 1 GM/50 ML BAG IV SCH (23:42)
[2018-10-15 00:25] LABS: Creatine Kinase MB 1.6 ng/mL (0.0-4.0)
[2018-10-15] MEDS: NACL 0.45% 1000 ML 1,000 ML IV SCH ×2 (00:50→15:45)
[2018-10-15] MEDS: MORPHINE IV PRN ×4 (00:50→21:22)
[2018-10-15] MEDS: ZOFRAN IV PRN ×3 (04:36→21:22)
[2018-10-15 06:56] LABS: BUN/Creatinine Ratio 38; Blood Urea Nitrogen 15 mg/dL (7-17); Calcium 9.6 mg/dL (8.4-10.2); Hemolysis Index 5
[2018-10-15 06:57] LABS: Hematocrit 33.1 % (30.3-42.9); Hemoglobin 11.1 gm/dl (10.1-14.3); Mean Corpuscular Volume 82 fl (79-97); Red Blood Count 4.04 M/mm3 (3.65-5.03)
[2018-10-15 06:58] LABS: Basophils % (Auto) 0.1 % (0.0-1.8); Eosinophils % (Auto) 0.2 % (0.0-4.3); Lymphocytes # (Auto) 1.3 K/mm3 (1.2-5.4); Lymphocytes % (Auto) 26.1 % (13.4-35.0); Mean Corpuscular HGB Conc 34 % (30-34); Mean Platelet Volume 9.6 fl (6-12); Monocytes # (Auto) 0.5 K/mm3 (0.0-0.8); Monocytes % (Auto) 10.4 % (0.0-7.3); Platelet Count 173 K/mm3 (140-440); Red Cell Distribution Width 14.2 % (13.2-15.2)
[2018-10-15] MEDS: INDERAL PO SCH ×2 (09:29→21:50)
[2018-10-15] MEDS: LOVENOX SUB-Q SCH (09:29)
[2018-10-15] MEDS: TAPAZOLE PO SCH (09:30)
[2018-10-15] MEDS: SODIUM CHLORIDE FLUSH SYRINGE 10 ML IV SCH ×2 (09:30→21:51)
[2018-10-15] MEDS ORDERED: LOVENOX SUB-Q SCH (10:00)
[2018-10-15] MEDS ORDERED: TAPAZOLE PO SCH (10:00)
--- NOTE | 2018-10-15 11:29 | Gastroenterology Consultation ---
<LAKIA BALTAZAR - Last Filed: 10/15/18 12:06> History of Present Illness - Reason for Consult Consult date: 10/15/18 pancreatitis Requesting physician: MARTHA CORREA - History of Present Illness Patient is a 48 y/o female with PMH of HTN and thyroid disorder who presented to ED with c/o lower chest/upper abd pain that radiates to her back. CXR upon admission showed areas of pulmonary consolidation in francisco javier lung keller suggestive of pulmonary infiltrates with further workup pending by primary team (currently on antibiotics). Lipase was also found to be elevated with abd CT showing pancreatitis to which GI has been consulted. Patient is previously known to our service from a prior hospitalization earlier this month (09/18/18-09/21/18) for pancreatitis with etiology unknown. Patient was recommended to follow up in clinic for further workup upon discharge, however patient was unable to do so due to family issues at home. This morning patient was resting in bed w/o acute distress. She reports continued upper abdominal pain (epigastric/LUQ/RUQ) that radiates to her back. States that her abdominal pain improved upon d/c on 09/21/18 but never completely resolved and became increasing worse yesterday with an episode of N/V but no further episodes of N/V today. Symptoms are exacerbated with PO intake. Her weight is known to fluctuate but she has had no significant drop in wt recently per pt. Denies fever, CP, SOB, jaundice, signs of bleeding, or LGI symptoms. No alcohol use, new medications, or herbal supplements. No family hx of pancreatic cancer or GI malignancy. Past History Past Medical History: hypertension, other (thyroid disease, pancreatitis) Past Surgical History: Other (tubal ligation, collar bone) Social history: denies: smoking, alcohol abuse Medications and Allergies Allergies Allergy/AdvReac Type Severity Reaction Status Date / Time metronidazole [From Flagyl] Allergy Vomiting Verified 09/18/18 08:14 Metronidazole HCl Allergy Vomiting Verified 09/18/18 08:14 [From Flagyl] Home Medications Medication Instructions Recorded Confirmed Last Taken Type Propranolol [Inderal] 10 mg PO BID 09/18/18 10/14/18 10/14/18 History Tapazole 10 mg PO DAILY 09/18/18 10/14/18 10/14/18 History Active Meds: Active Medications Acetaminophen (Tylenol) 650 mg PO Q4H PRN PRN Reason: Pain MILD(1-3)/Fever >100.5/CODY Azithromycin (Zithromax) 500 mg PO DAILY@2200 [facility] Last Admin: 10/14/18 23:42 Dose: 500 mg Documented by: Enoxaparin Sodium (Lovenox) 40 mg SUB-Q QDAY@1000 [facility] Last Admin: 10/15/18 09:29 Dose: 40 mg Documented by: Hydralazine HCl (Apresoline) 5 mg IV Q6H PRN PRN Reason: Hypertension Sodium Chloride (Nacl 0.45% 1000 Ml) 1,000 mls @ 100 mls/hr IV DIRECT [facility] Last Admin: 10/15/18 00:50 Dose: 100 mls/hr Documented by: Ceftriaxone Sodium (Rocephin/Ns 1 Gm/50 Ml) 1 gm in 50 mls @ 100 mls/hr IV Q24HR@2200 [facility]; Protocol Last Admin: 10/14/18 23:42 Dose: 100 mls/hr Documented by: Methimazole (Tapazole) 10 mg PO DAILY [facility] Last Admin: 10/15/18 09:30 Dose: 10 mg Documented by: Morphine Sulfate (Morphine) 2 mg IV Q4H PRN PRN Reason: Pain, Moderate (4-6) Last Admin: 10/15/18 09:29 Dose: 2 mg Documented by: Ondansetron HCl (Zofran) 4 mg IV Q4H PRN PRN Reason: Nausea And Vomiting Last Admin: 10/15/18 09:29 Dose: 4 mg Documented by: Propranolol HCl (Inderal) 10 mg PO BID [facility] Last Admin: 10/15/18 09:29 Dose: 10 mg Documented by: Sodium Chloride (Sodium Chloride Flush Syringe 10 Ml) 10 ml IV BID [facility] Last Admin: 10/15/18 09:30 Dose: 10 ml Documented by: Sodium Chloride (Sodium Chloride Flush Syringe 10 Ml) 10 ml IV PRN PRN PRN Reason: LINE FLUSH medications reviewed/updated as required Review of Systems - Review of Systems All systems: negative Gastrointestinal: abdominal pain Exam - Constitutional Vital Signs: Temp Pulse Resp BP Pulse Ox 98.2 F 95 H 18 103/49 96 10/15/18 08:40 10/15/18 08:40 10/15/18 08:40 10/15/18 08:40 10/15/18 08:40 General appearance: no acute distress - EENT Eyes: PERRL, EOM intact ENT: hearing intact - Respiratory Respiratory: bilateral: diminished - Cardiovascular Rhythm: regular - Gastrointestinal General gastrointestinal: Present: soft, tender (epigastric/RUQ/LUQ), non- distended, normal bowel sounds - Neurologic Neurological: alert and oriented x3 - Labs CBC & Chem 7: 10/15/18 05:43 10/15/18 05:43 Lab Results: Laboratory Results - last 24 hr 10/14/18 10/14/18 10/14/18 19:42 19:42 19:42 WBC 6.1 RBC 4.27 Hgb 11.8 Hct 34.8 MCV 82 MCH 28 MCHC 34 RDW 14.4 Plt Count 172 Lymph % (Auto) 23.4 [place] % (Auto) 7.9 H Eos % (Auto) 0.0 Baso % (Auto) 1.1 Lymph # 1.4 [place] # 0.5 Eos # 0.0 Baso # 0.1 Seg Neutrophils % 67.6 Seg Neutrophils # 4.2 Sodium 139 Potassium 3.1 L Chloride 105.5 Carbon Dioxide 21 L Anion Gap 16 BUN 13 Creatinine 0.4 L Estimated GFR > 60 BUN/Creatinine Ratio 33 Glucose 130 H Calcium 9.7 Total Bilirubin Direct Bilirubin Indirect Bilirubin AST ALT Alkaline Phosphatase Total Creatine Kinase CK-MB (CK-2) CK-MB (CK-2) Rel Index Troponin T < 0.010 NT-Pro-B Natriuret Pep Total Protein Albumin Albumin/Globulin Ratio Triglycerides Lipase HCG, Qual Negative Urine Color Urine Turbidity Urine pH Ur Specific [place] Urine Protein Urine Glucose (UA) Urine Ketones Urine Blood Urine Nitrite Urine Bilirubin Urine Urobilinogen Ur Leukocyte Esterase Urine WBC (Auto) Urine RBC (Auto) U Epithel Cells (Auto) Urine Bacteria (Auto) 10/14/18 10/14/18 10/14/18 19:42 19:42 21:14 WBC RBC Hgb Hct MCV MCH MCHC RDW Plt Count Lymph % (Auto) [place] % (Auto) Eos % (Auto) Baso % (Auto) Lymph # [place] # Eos # Baso # Seg Neutrophils % Seg Neutrophils # Sodium Potassium Chloride Carbon Dioxide Anion Gap BUN Creatinine Estimated GFR BUN/Creatinine Ratio Glucose Calcium Total Bilirubin 1.10 Direct Bilirubin 0.2 Indirect Bilirubin 0.9 AST 16 ALT 10 Alkaline Phosphatase 251 H Total Creatine Kinase CK-MB (CK-2) CK-MB (CK-2) Rel Index Troponin T NT-Pro-B Natriuret Pep 95.49 Total Protein 6.8 Albumin 3.5 L Albumin/Globulin Ratio 1.1 Triglycerides Lipase 1285 H HCG, Qual Urine Color Straw Urine Turbidity Clear Urine pH 5.0 Ur Specific [place] 1.004 Urine Protein <15 mg/dl Urine Glucose (UA) Neg Urine Ketones Neg Urine Blood Sm Urine Nitrite Neg Urine Bilirubin Neg Urine Urobilinogen < 2.0 Ur Leukocyte Esterase Neg Urine WBC (Auto) < 1.0 Urine RBC (Auto) 3.0 U Epithel Cells (Auto) < 1.0 Urine Bacteria (Auto) 1+ 10/14/18 10/14/18 10/14/18 23:46 23:46 23:46 WBC RBC Hgb Hct MCV MCH MCHC RDW Plt Count Lymph % (Auto) [place] % (Auto) Eos % (Auto) Baso % (Auto) Lymph # [place] # Eos # Baso # Seg Neutrophils % Seg Neutrophils # Sodium Potassium Chloride Carbon Dioxide Anion Gap BUN Creatinine Estimated GFR BUN/Creatinine Ratio Glucose Calcium Total Bilirubin Direct Bilirubin Indirect Bilirubin AST ALT Alkaline Phosphatase Total Creatine Kinase 75 CK-MB (CK-2) 1.6 CK-MB (CK-2) Rel Index 2.1 Troponin T < 0.010 < 0.010 NT-Pro-B Natriuret Pep Total Protein Albumin Albumin/Globulin Ratio Triglycerides 36 Lipase HCG, Qual Urine Color Urine Turbidity Urine pH Ur Specific [place] Urine Protein Urine Glucose (UA) Urine Ketones Urine Blood Urine Nitrite Urine Bilirubin Urine Urobilinogen Ur Leukocyte Esterase Urine WBC (Auto) Urine RBC (Auto) U Epithel Cells (Auto) Urine Bacteria (Auto) 10/15/18 10/15/18 10/15/18 05:43 05:43 05:43 WBC 5.1 RBC 4.04 Hgb 11.1 Hct 33.1 MCV 82 MCH 27 L MCHC 34 RDW 14.2 Plt Count 173 Lymph % (Auto) 26.1 [place] % (Auto) 10.4 H Eos % (Auto) 0.2 Baso % (Auto) 0.1 Lymph # 1.3 [place] # 0.5 Eos # 0.0 Baso # 0.0 Seg Neutrophils % 63.2 Seg Neutrophils # 3.2 Sodium 142 Potassium 4.2 D Chloride 108.7 H Carbon Dioxide 22 Anion Gap 16 BUN 15 Creatinine 0.4 L Estimated GFR > 60 BUN/Creatinine Ratio 38 Glucose 94 Calcium 9.6 Total Bilirubin Direct Bilirubin Indirect Bilirubin AST ALT Alkaline Phosphatase Total Creatine Kinase 65 CK-MB (CK-2) 2.0 CK-MB (CK-2) Rel Index 3.0 Troponin T < 0.010 NT-Pro-B Natriuret Pep Total Protein Albumin Albumin/Globulin Ratio Triglycerides Lipase HCG, Qual Urine Color Urine Turbidity Urine pH Ur Specific [place] Urine Protein Urine Glucose (UA) Urine Ketones Urine Blood Urine Nitrite Urine Bilirubin Urine Urobilinogen Ur Leukocyte Esterase Urine WBC (Auto) Urine RBC (Auto) U Epithel Cells (Auto) Urine Bacteria (Auto) 10/15/18 09:53 WBC RBC Hgb Hct MCV MCH MCHC RDW Plt Count Lymph % (Auto) [place] % (Auto) Eos % (Auto) Baso % (Auto) Lymph # [place] # Eos # Baso # Seg Neutrophils % Seg Neutrophils # Sodium Potassium Chloride Carbon Dioxide Anion Gap BUN Creatinine Estimated GFR BUN/Creatinine Ratio Glucose Calcium Total Bilirubin Direct Bilirubin Indirect Bilirubin AST ALT Alkaline Phosphatase Total Creatine Kinase CK-MB (CK-2) CK-MB (CK-2) Rel Index Troponin T NT-Pro-B Natriuret Pep Total Protein Albumin Albumin/Globulin Ratio Triglycerides Lipase 299 H HCG, Qual Urine Color Urine Turbidity Urine pH Ur Specific [place] Urine Protein Urine Glucose (UA) Urine Ketones Urine Blood Urine Nitrite Urine Bilirubin Urine Urobilinogen Ur Leukocyte Esterase Urine WBC (Auto) Urine RBC (Auto) U Epithel Cells (Auto) Urine Bacteria (Auto) Assessment and Plan 1.pancreatitis -patient is a 48y/o female who presents with recurrent abd pain after previously being hospitalized earlier this month (09/18-09/21) for acute pancreatitis with unk nown etiology -afebrile -WBC and H/H WNL -LFTs-alk phos 251 (elevated since 2014 when compared to previous labs), T.francisco javier 1.10, AST 16, ALT 10 -lipase 299-trending down (1285 on admission) -triglyceride level WNL -IgG4 normal (45.6) on 09/21/18 -abd CT showed pancreatitis (non-obstructing kidney stone) -abd U/S 09/18/18-showed unremarkable liver and biliary system -etiology unclear (patient denies alcohol use or new medication) -clinically, patient is stable but reports continued upper abd pain. No N/V today. -CRP in am -Keep NPO for now -continue to trend labs and supportive care (IVF, antiemetics, pain medications, etc.) -will discuss with Dr. Jane and have him review prior workup with further recommendations to follow <ANGEL JANE - Last Filed: 10/15/18 14:55> Medications and Allergies Active Meds: Active Medications Acetaminophen (Tylenol) 650 mg PO Q4H PRN PRN Reason: Pain MILD(1-3)/Fever >100.5/CODY Azithromycin (Zithromax) 500 mg PO DAILY@2200 [facility] Last Admin: 10/14/18 23:42 Dose: 500 mg Documented by: Enoxaparin Sodium (Lovenox) 40 mg SUB-Q QDAY@1000 [place] Last Admin: 10/15/18 09:29 Dose: 40 mg Documented by: Hydralazine HCl (Apresoline) 5 mg IV Q6H PRN PRN Reason: Hypertension Sodium Chloride (Nacl 0.45% 1000 Ml) 1,000 mls @ 100 mls/hr IV DIRECT [facility] Last Admin: 10/15/18 00:50 Dose: 100 mls/hr Documented by: Ceftriaxone Sodium (Rocephin/Ns 1 Gm/50 Ml) 1 gm in 50 mls @ 100 mls/hr IV Q24HR@2200 [facility]; Protocol Last Admin: 10/14/18 23:42 Dose: 100 mls/hr Documented by: Methimazole (Tapazole) 10 mg PO DAILY [facility] Last Admin: 10/15/18 09:30 Dose: 10 mg Documented by: Morphine Sulfate (Morphine) 2 mg IV Q4H PRN PRN Reason: Pain, Moderate (4-6) Last Admin: 10/15/18 09:29 Dose: 2 mg Documented by: Ondansetron HCl (Zofran) 4 mg IV Q4H PRN PRN Reason: Nausea And Vomiting Last Admin: 10/15/18 09:29 Dose: 4 mg Documented by: Propranolol HCl (Inderal) 10 mg PO BID [facility] Last Admin: 10/15/18 09:29 Dose: 10 mg Documented by: Sodium Chloride (Sodium Chloride Flush Syringe 10 Ml) 10 ml IV BID [facility] Last Admin: 10/15/18 09:30 Dose: 10 ml Documented by: Sodium Chloride (Sodium Chloride Flush Syringe 10 Ml) 10 ml IV PRN PRN PRN Reason: LINE FLUSH Exam - Constitutional Vital Signs: Temp Pulse Resp BP Pulse Ox 98.2 F 95 H 18 103/49 96 10/15/18 08:40 10/15/18 08:40 10/15/18 08:40 10/15/18 08:40 10/15/18 08:40 - Labs CBC & Chem 7: 10/15/18 05:43 10/15/18 05:43 Lab Results: Laboratory Results - last 24 hr 10/14/18 10/14/18 10/14/18 19:42 19:42 19:42 WBC 6.1 RBC 4.27 Hgb 11.8 Hct 34.8 MCV 82 MCH 28 MCHC 34 RDW 14.4 Plt Count 172 Lymph % (Auto) 23.4 [place] % (Auto) 7.9 H Eos % (Auto) 0.0 Baso % (Auto) 1.1 Lymph # 1.4 [place] # 0.5 Eos # 0.0 Baso # 0.1 Seg Neutrophils % 67.6 Seg Neutrophils # 4.2 Sodium 139 Potassium 3.1 L Chloride 105.5 Carbon Dioxide 21 L Anion Gap 16 BUN 13 Creatinine 0.4 L Estimated GFR > 60 BUN/Creatinine Ratio 33 Glucose 130 H Calcium 9.7 Total Bilirubin Direct Bilirubin Indirect Bilirubin AST ALT Alkaline Phosphatase Total Creatine Kinase CK-MB (CK-2) CK-MB (CK-2) Rel Index Troponin T < 0.010 NT-Pro-B Natriuret Pep Total Protein Albumin Albumin/Globulin Ratio Triglycerides Lipase HCG, Qual Negative Urine Color Urine Turbidity Urine pH Ur Specific [place] Urine Protein Urine Glucose (UA) Urine Ketones Urine Blood Urine Nitrite Urine Bilirubin Urine Urobilinogen Ur Leukocyte Esterase Urine WBC (Auto) Urine RBC (Auto) U Epithel Cells (Auto) Urine Bacteria (Auto) 10/14/18 10/14/18 10/14/18 19:42 19:42 21:14 WBC RBC Hgb Hct MCV MCH MCHC RDW Plt Count Lymph % (Auto) [place] % (Auto) Eos % (Auto) Baso % (Auto) Lymph # [place] # Eos # Baso # Seg Neutrophils % Seg Neutrophils # Sodium Potassium Chloride Carbon Dioxide Anion Gap BUN Creatinine Estimated GFR BUN/Creatinine Ratio Glucose Calcium Total Bilirubin 1.10 Direct Bilirubin 0.2 Indirect Bilirubin 0.9 AST 16 ALT 10 Alkaline Phosphatase 251 H Total Creatine Kinase CK-MB (CK-2) CK-MB (CK-2) Rel Index Troponin T NT-Pro-B Natriuret Pep 95.49 Total Protein 6.8 Albumin 3.5 L Albumin/Globulin Ratio 1.1 Triglycerides Lipase 1285 H HCG, Qual Urine Color Straw Urine Turbidity Clear Urine pH 5.0 Ur Specific [place] 1.004 Urine Protein <15 mg/dl Urine Glucose (UA) Neg Urine Ketones Neg Urine Blood Sm Urine Nitrite Neg Urine Bilirubin Neg Urine Urobilinogen < 2.0 Ur Leukocyte Esterase Neg Urine WBC (Auto) < 1.0 Urine RBC (Auto) 3.0 U Epithel Cells (Auto) < 1.0 Urine Bacteria (Auto) 1+ 10/14/18 10/14/18 10/14/18 23:46 23:46 23:46 WBC RBC Hgb Hct MCV MCH MCHC RDW Plt Count Lymph % (Auto) [place] % (Auto) Eos % (Auto) Baso % (Auto) Lymph # [place] # Eos # Baso # Seg Neutrophils % Seg Neutrophils # Sodium Potassium Chloride Carbon Dioxide Anion Gap BUN Creatinine Estimated GFR BUN/Creatinine Ratio Glucose Calcium Total Bilirubin Direct Bilirubin Indirect Bilirubin AST ALT Alkaline Phosphatase Total Creatine Kinase 75 CK-MB (CK-2) 1.6 CK-MB (CK-2) Rel Index 2.1 Troponin T < 0.010 < 0.010 NT-Pro-B Natriuret Pep Total Protein Albumin Albumin/Globulin Ratio Triglycerides 36 Lipase HCG, Qual Urine Color Urine Turbidity Urine pH Ur Specific [place] Urine Protein Urine Glucose (UA) Urine Ketones Urine Blood Urine Nitrite Urine Bilirubin Urine Urobilinogen Ur Leukocyte Esterase Urine WBC (Auto) Urine RBC (Auto) U Epithel Cells (Auto) Urine Bacteria (Auto) 10/15/18 10/15/18 10/15/18 05:43 05:43 05:43 WBC 5.1 RBC 4.04 Hgb 11.1 Hct 33.1 MCV 82 MCH 27 L MCHC 34 RDW 14.2 Plt Count 173 Lymph % (Auto) 26.1 [place] % (Auto) 10.4 H Eos % (Auto) 0.2 Baso % (Auto) 0.1 Lymph # 1.3 [place] # 0.5 Eos # 0.0 Baso # 0.0 Seg Neutrophils % 63.2 Seg Neutrophils # 3.2 Sodium 142 Potassium 4.2 D Chloride 108.7 H Carbon Dioxide 22 Anion Gap 16 BUN 15 Creatinine 0.4 L Estimated GFR > 60 BUN/Creatinine Ratio 38 Glucose 94 Calcium 9.6 Total Bilirubin Direct Bilirubin Indirect Bilirubin AST ALT Alkaline Phosphatase Total Creatine Kinase 65 CK-MB (CK-2) 2.0 CK-MB (CK-2) Rel Index 3.0 Troponin T < 0.010 NT-Pro-B Natriuret Pep Total Protein Albumin Albumin/Globulin Ratio Triglycerides Lipase HCG, Qual Urine Color Urine Turbidity Urine pH Ur Specific [place] Urine Protein Urine Glucose (UA) Urine Ketones Urine Blood Urine Nitrite Urine Bilirubin Urine Urobilinogen Ur Leukocyte Esterase Urine WBC (Auto) Urine RBC (Auto) U Epithel Cells (Auto) Urine Bacteria (Auto) 10/15/18 09:53 WBC RBC Hgb Hct MCV MCH MCHC RDW Plt Count Lymph % (Auto) [place] % (Auto) Eos % (Auto) Baso % (Auto) Lymph # [place] # Eos # Baso # Seg Neutrophils % Seg Neutrophils # Sodium Potassium Chloride Carbon Dioxide Anion Gap BUN Creatinine Estimated GFR BUN/Creatinine Ratio Glucose Calcium Total Bilirubin Direct Bilirubin Indirect Bilirubin AST ALT Alkaline Phosphatase Total Creatine Kinase CK-MB (CK-2) CK-MB (CK-2) Rel Index Troponin T NT-Pro-B Natriuret Pep Total Protein Albumin Albumin/Globulin Ratio Triglycerides Lipase 299 H HCG, Qual Urine Color Urine Turbidity Urine pH Ur Specific [place] Urine Protein Urine Glucose (UA) Urine Ketones Urine Blood Urine Nitrite Urine Bilirubin Urine Urobilinogen Ur Leukocyte Esterase Urine WBC (Auto) Urine RBC (Auto) U Epithel Cells (Auto) Urine Bacteria (Auto) Assessment and Plan Pt has chest pain and abd pain. She has significant costochondritis with xiphoid tenderness radiating around both flanks. However, she also has elevated lipase and ALP, and CT findings of pancreatitis. - symptoms confusing due to panic disorder, costochondritis, and possible pancreatitis, as well as current pulmonary process. PUD also needs to be considered. - fractionate and verify that ALP is biliary in origin - do further GB evaluation, including HIDA scan - if negative, may do EGD and possible EUS.
--- NOTE | 2018-10-15 11:41 | Consultation ---
History of Present Illness Consult date: 10/15/18 Reason for consult: pneumonia History of present illness: Called to evaluate case of a 48-year-old -[place] female, admitted with new onset of abdominal pain radiating to the back and suspected acute pancreatitis. Called to evaluate for possible pneumonia. The patient reports new onset of midabdominal pain radiating to the back, up to 8/10 in intensity. This was associated with nausea and at least vomiting 1. She came to the ED for evaluation. Reportedly, recent history of pancreatitis approximately one month ago. She does report some chest tightness and pain, but denies cough, expectoration, fever, hemoptysis. Denies any choking events associated with vomiting. Admission x-ray was reported as consistent with upper lobe consolidations and she was admitted him placed on isolation for possible pneumonia. She denies juan or history of TB or abnormal PPD Past History Past Medical History: other (pancreatitis). denies: DVT, pulmonary embolism Social history: denies: smoking, alcohol abuse, prescription drug abuse, IV drug use Family history: other Medications and Allergies Allergies Allergy/AdvReac Type Severity Reaction Status Date / Time metronidazole [From Flagyl] Allergy Vomiting Verified 09/18/18 08:14 Metronidazole HCl Allergy Vomiting Verified 09/18/18 08:14 [From Flagyl] Home Medications Medication Instructions Recorded Confirmed Last Taken Type Propranolol [Inderal] 10 mg PO BID 09/18/18 10/14/18 10/14/18 History Tapazole 10 mg PO DAILY 09/18/18 10/14/18 10/14/18 History Active Meds: Active Medications Acetaminophen (Tylenol) 650 mg PO Q4H PRN PRN Reason: Pain MILD(1-3)/Fever >100.5/CODY Azithromycin (Zithromax) 500 mg PO DAILY@2200 [facility] Last Admin: 10/14/18 23:42 Dose: 500 mg Documented by: Enoxaparin Sodium (Lovenox) 40 mg SUB-Q QDAY@1000 [facility] Last Admin: 10/15/18 09:29 Dose: 40 mg Documented by: Hydralazine HCl (Apresoline) 5 mg IV Q6H PRN PRN Reason: Hypertension Sodium Chloride (Nacl 0.45% 1000 Ml) 1,000 mls @ 100 mls/hr IV DIRECT [facility] Last Admin: 10/15/18 00:50 Dose: 100 mls/hr Documented by: Ceftriaxone Sodium (Rocephin/Ns 1 Gm/50 Ml) 1 gm in 50 mls @ 100 mls/hr IV Q24HR@2200 [facility]; Protocol Last Admin: 10/14/18 23:42 Dose: 100 mls/hr Documented by: Methimazole (Tapazole) 10 mg PO DAILY [facility] Last Admin: 10/15/18 09:30 Dose: 10 mg Documented by: Morphine Sulfate (Morphine) 2 mg IV Q4H PRN PRN Reason: Pain, Moderate (4-6) Last Admin: 10/15/18 09:29 Dose: 2 mg Documented by: Ondansetron HCl (Zofran) 4 mg IV Q4H PRN PRN Reason: Nausea And Vomiting Last Admin: 10/15/18 09:29 Dose: 4 mg Documented by: Propranolol HCl (Inderal) 10 mg PO BID [facility] Last Admin: 10/15/18 09:29 Dose: 10 mg Documented by: Sodium Chloride (Sodium Chloride Flush Syringe 10 Ml) 10 ml IV BID [facility] Last Admin: 10/15/18 09:30 Dose: 10 ml Documented by: Sodium Chloride (Sodium Chloride Flush Syringe 10 Ml) 10 ml IV PRN PRN PRN Reason: LINE FLUSH Review of Systems Constitutional: weight loss, anorexia, fatigue, weakness Ears, nose, mouth and throat: no epistaxis, no bleeding gums Breasts: deferred Cardiovascular: no chest pain, no orthopnea, no palpitations, no rapid/irregular heart beat, no edema, no syncope, no lightheadedness, no shortness of breath, no dyspnea on exertion Respiratory: no cough, no cough with sputum, no hemoptysis, no wheezing, no pleurisy Gastrointestinal: abdominal pain (see HPI) Neurological: no head injury, no transient paralysis, no paralysis, no weakness, no parathesias Physical Examination Vital signs: Vital Signs Temp Pulse Resp BP Pulse Ox 98.0 F 138 H 13 129/67 97 10/14/18 19:20 10/14/18 19:20 10/14/18 19:20 10/14/18 19:20 10/14/18 19:20 General appearance: no acute distress, alert Eyes: non-icteric ENT: oropharynx moist Neck: no JVD Ascultation: Bilateral: clear Percussion: Bilateral: not dull Tactile fremitus: Bilateral: normal Cardiovascular: regular rate and rhythm Gastrointestinal: normoactive bowel sounds, non-distended, other (mildly distended and diffusely tender, no rebound. Bowel sounds present, diminished) Integumentary: normal Extremities: no cyanosis, no edema Musculoskeletal: no deformities normal mental status, non-focal exam, CN II-XII normal, motor strength normal and mood appropriate, affect normal Results - Laboratory Findings CBC and BMP: 10/15/18 05:43 10/15/18 05:43 Abnormal lab findings: Abnormal Labs 10/14/18 10/14/18 10/14/18 19:42 19:42 19:42 MCH [place] % (Auto) 7.9 H Potassium 3.1 L Chloride Carbon Dioxide 21 L Creatinine 0.4 L Glucose 130 H Alkaline Phosphatase 251 H Albumin 3.5 L Lipase 1285 H 10/15/18 10/15/18 10/15/18 05:43 05:43 09:53 MCH 27 L [place] % (Auto) 10.4 H Potassium Chloride 108.7 H Carbon Dioxide Creatinine 0.4 L Glucose Alkaline Phosphatase Albumin Lipase 299 H - Diagnostic Findings Chest x-ray: report reviewed, image reviewed Assessment and Plan Pneumonia. On my review, no significant consolidates, palpitation OR reaction seen. I do see a possible increased bronchovascular pattern change, which is not unusual to see an acute pancreatitis Acute pancreatitis Recommendations Continue nothing by mouth GI follow-up Consider chest CTA. I think this would more revealing and comprehensive, considering also recent admission Discussed with patient in detail. All questions answered. Thanks
--- NOTE | 2018-10-15 13:23 | Progress Note ---
Assessment and Plan Assessment and plan: Acute pancreatitis Admitted to tele Daily lipase Consult GI Chest pain Atypical Likely due to pneumonia Bilateral upper lobe pneumonia Started on Rocephin, Zithromax Consult Pulmonology Placed on airborne precautions from ED To r/o TB since upper lobe Consult ID Hyperthyroidism Resume Tapazole Hypertension Monitor BP Full code status History Interval history: Chest [place] Abdominal pain Hospitalist Physical - Physical exam Narrative exam: Gen: Not in acute distress, lying in bed HEENT: Normocephalic, atraumatic Neck: supple, no JVD Heart: S1 and S2 reg, no murmurs, rubs or gallop Lungs: Clear, no crackles Abd: soft, tender epigastric and mid abdomen, non distended, normal BS Ext: No edema, no clubbing, no cyanosis, Neuro: AAO x 3, no focal signs, moves all ext Psych:Normal mood - Constitutional Vitals: Temp Pulse Resp BP Pulse Ox 98.2 F 95 H 18 103/49 96 10/15/18 08:40 10/15/18 08:40 10/15/18 08:40 10/15/18 08:40 10/15/18 08:40 Results - Labs CBC & Chem 7: 10/15/18 05:43 10/15/18 05:43 Labs: Laboratory Last Values WBC 5.1 K/mm3 (4.5-11.0) 10/15/18 05:43 RBC 4.04 M/mm3 (3.65-5.03) 10/15/18 05:43 Hgb 11.1 gm/dl (10.1-14.3) 10/15/18 05:43 Hct 33.1 % (30.3-42.9) 10/15/18 05:43 MCV 82 fl (79-97) 10/15/18 05:43 MCH 27 pg (28-32) L 10/15/18 05:43 MCHC 34 % (30-34) 10/15/18 05:43 RDW 14.2 % (13.2-15.2) 10/15/18 05:43 Plt Count 173 K/mm3 (140-440) 10/15/18 05:43 Lymph % (Auto) 26.1 % (13.4-35.0) 10/15/18 05:43 [place] % (Auto) 10.4 % (0.0-7.3) H 10/15/18 05:43 Eos % (Auto) 0.2 % (0.0-4.3) 10/15/18 05:43 Baso % (Auto) 0.1 % (0.0-1.8) 10/15/18 05:43 Lymph # 1.3 K/mm3 (1.2-5.4) 10/15/18 05:43 [place] # 0.5 K/mm3 (0.0-0.8) 10/15/18 05:43 Eos # 0.0 K/mm3 (0.0-0.4) 10/15/18 05:43 Baso # 0.0 K/mm3 (0.0-0.1) 10/15/18 05:43 Seg Neutrophils % 63.2 % (40.0-70.0) 10/15/18 05:43 Seg Neutrophils # 3.2 K/mm3 (1.8-7.7) 10/15/18 05:43 Sodium 142 mmol/L (137-145) 10/15/18 05:43 Potassium 4.2 mmol/L (3.6-5.0) D 10/15/18 05:43 Chloride 108.7 mmol/L (98-107) H 10/15/18 05:43 Carbon Dioxide 22 mmol/L (22-30) 10/15/18 05:43 Anion Gap 16 mmol/L 10/15/18 05:43 BUN 15 mg/dL (7-17) 10/15/18 05:43 Creatinine 0.4 mg/dL (0.7-1.2) L 10/15/18 05:43 Estimated GFR > 60 ml/min 10/15/18 05:43 BUN/Creatinine Ratio 38 % 10/15/18 05:43 Glucose 94 mg/dL (65-100) 10/15/18 05:43 Calcium 9.6 mg/dL (8.4-10.2) 10/15/18 05:43 Total Bilirubin 1.10 mg/dL (0.1-1.2) 10/14/18 19:42 Direct Bilirubin 0.2 mg/dL (0-0.2) 10/14/18 19:42 Indirect Bilirubin 0.9 mg/dL 10/14/18 19:42 AST 16 units/L (5-40) 10/14/18 19:42 ALT 10 units/L (7-56) 10/14/18 19:42 Alkaline Phosphatase 251 units/L (35-129) H 10/14/18 19:42 Total Creatine Kinase 65 units/L (30-135) 10/15/18 05:43 CK-MB (CK-2) 2.0 ng/mL (0.0-4.0) 10/15/18 05:43 CK-MB (CK-2) Rel Index 3.0 (0-4) 10/15/18 05:43 Troponin T < 0.010 ng/mL (0.00-0.029) 10/15/18 05:43 NT-Pro-B Natriuret Pep 95.49 pg/mL (0-450) 10/14/18 19:42 Total Protein 6.8 g/dL (6.3-8.2) 10/14/18 19:42 Albumin 3.5 g/dL (3.9-5) L 10/14/18 19:42 Albumin/Globulin Ratio 1.1 % 10/14/18 19:42 Triglycerides 36 mg/dL (2-149) 10/14/18 23:46 Lipase 299 units/L (13-60) H 10/15/18 09:53 HCG, Qual Negative (Negative) 10/14/18 19:42 Urine Color Straw (Yellow) 10/14/18 21:14 Urine Turbidity Clear (Clear) 10/14/18 21:14 Urine pH 5.0 (5.0-7.0) 10/14/18 21:14 Ur Specific [place] 1.004 (1.003-1.030) 10/14/18 21:14 Urine Protein <15 mg/dl mg/dL (Negative) 10/14/18 21:14 Urine Glucose (UA) Neg mg/dL (Negative) 10/14/18 21:14 Urine Ketones Neg mg/dL (Negative) 10/14/18 21:14 Urine Blood Sm (Negative) 10/14/18 21:14 Urine Nitrite Neg (Negative) 10/14/18 21:14 Urine Bilirubin Neg (Negative) 10/14/18 21:14 Urine Urobilinogen < 2.0 mg/dL (<2.0) 10/14/18 21:14 Ur Leukocyte Esterase Neg (Negative) 10/14/18 21:14 Urine WBC (Auto) < 1.0 /HPF (0.0-6.0) 10/14/18 21:14 Urine RBC (Auto) 3.0 /HPF (0.0-6.0) 10/14/18 21:14 U Epithel Cells (Auto) < 1.0 /HPF (0-13.0) 10/14/18 21:14 Urine Bacteria (Auto) 1+ /HPF (Negative) 10/14/18 21:14 Active Medications - Current Medications Current Medications: Generic Name Dose Route Start Last Admin Trade Name Freq PRN Reason Stop Dose Admin Acetaminophen 650 mg 10/14/18 23:09 Tylenol PO Q4H PRN Pain MILD(1-3)/Fever >100.5/CODY Azithromycin 500 mg 10/14/18 23:21 10/14/18 23:42 Zithromax PO 500 mg DAILY@2200 ELHAM Administration Enoxaparin Sodium 40 mg 10/15/18 10:00 10/15/18 09:29 Lovenox SUB-Q 40 mg QDAY@1000 ELHAM Administration Hydralazine HCl 5 mg 10/14/18 23:11 Apresoline IV Q6H PRN Hypertension Sodium Chloride 1,000 mls @ 100 mls/hr 10/14/18 23:45 10/15/18 00:50 Nacl 0.45% 1000 Ml IV 100 mls/hr DIRECT ELHAM Administration Ceftriaxone Sodium 1 gm in 50 mls @ 100 mls/hr 10/14/18 23:21 10/14/18 23:42 Rocephin/Ns 1 Gm/50 Ml IV 100 mls/hr Q24HR@2200 ELHAM Administration Protocol Methimazole 10 mg 10/15/18 10:00 10/15/18 09:30 Tapazole PO 10 mg DAILY ELHAM Administration Morphine Sulfate 2 mg 10/14/18 23:09 10/15/18 09:29 Morphine IV 2 mg Q4H PRN Administration Pain, Moderate (4-6) Ondansetron HCl 4 mg 10/14/18 23:09 10/15/18 09:29 Zofran IV 4 mg Q4H PRN Administration Nausea And Vomiting Propranolol HCl 10 mg 10/15/18 10:00 10/15/18 09:29 Inderal PO 10 mg BID ELHAM Administration Sodium Chloride 10 ml 10/15/18 10:00 10/15/18 09:30 Sodium Chloride Flush Syringe 10 Ml IV 10 ml BID ELHAM Administration Sodium Chloride 10 ml 10/14/18 23:09 Sodium Chloride Flush Syringe 10 Ml IV PRN PRN LINE FLUSH
--- NOTE | 2018-10-15 16:56 | Consultation ---
History of Present Illness - Reason for Consult Consult date: 10/15/18 pneumonia upper load r/o TB Requesting physician: MARTHA CORREA - History of Present Illness 48 y/o female patient with history of hypertension, hypothyroidism, uterine fibroids and recent acute pancreatitis (recently admitted from 09/18-09/22/2018); re-admitted on 10/14/2018 due to acute midabdominal pain radiating to the back, up to 8/10 in intensity associated with nausea and at least vomiting 1. Reports chest tightness and pain, reports night dry cough associated with night sweats. Reports weight loss unclear amount during last 4 weeks. Denies any history of TB contact. Denies recent travels. Denies tobacco, ETOH or drugs. Works is a hotel. In the ED, temp 98, HR 138, R 13, O2 sat 97%, BP 129/57. WBC 6.1, Hg 11, Plat 172. Creat 0.4. Lipase 1285. Ct abdomen with mild haziness of the fat at the margin of the pancreas. CXR showed areas of pulmonary consolidation in the upper lung keller bilaterally suggestive of pulmonary infiltrates. Review of Systems: General: no fever, chills, nightsweats, unintentional weight change, or change in appetite Cutaneous: no rash, pruritus Head: no headaches or injury Eyes: no changes in vision, eye pain, double vision Ears: no ear pain, ear discharge, ringing or hearing loss Nose: no nose bleeding, stuffiness Mouth & throat: no bleeding gums, no horseness, no dental problems, or swollen glands Neck: no pain, node enlargement/lumps, tyroid enlargement or tenderness Respiratory:+cough, no wheezing, no sputum, no hemoptysis, pleuritic chest pain Cardiovascular: no chest pain, leg edema, cyanosis, DUGGAN, orthopnea Musculoskeletal: no decreased joint motion, bone or joint pain, joint swelling, muscle aches Gastrointestinal: no nausea, vomiting, hematemesis, diarrhea, constipation, melena, bright red blood in stools, fecal incontinence, jaundice Genitourinary/Reproductive: no frequent urination, dysuria, hematuria, incontinence Neurogical: no seizures, no headaches, no weakness, no paresthesias, no loss of speech or vision; no memory loss, no vertigo, no tremors, no numbness Psychiatric: stable mood; no excessive anxiety, sadness or moodiness . Past History Past Medical History: hypertension, other (thyroid disease, pancreatitis) Past Surgical History: Other (tubal ligation, collar bone) Social history: denies: smoking, alcohol abuse Family history: other Medications and Allergies Allergies Allergy/AdvReac Type Severity Reaction Status Date / Time metronidazole [From Flagyl] Allergy Vomiting Verified 09/18/18 08:14 Metronidazole HCl Allergy Vomiting Verified 09/18/18 08:14 [From Flagyl] Home Medications Medication Instructions Recorded Confirmed Last Taken Type Propranolol [Inderal] 10 mg PO BID 09/18/18 10/14/18 10/14/18 History Tapazole 10 mg PO DAILY 09/18/18 10/14/18 10/14/18 History Active Meds: Active Medications Acetaminophen (Tylenol) 650 mg PO Q4H PRN PRN Reason: Pain MILD(1-3)/Fever >100.5/CODY Azithromycin (Zithromax) 500 mg PO DAILY@2200 [facility] Last Admin: 10/14/18 23:42 Dose: 500 mg Documented by: Enoxaparin Sodium (Lovenox) 40 mg SUB-Q QDAY@1000 ELHAM Last Admin: 10/15/18 09:29 Dose: 40 mg Documented by: Hydralazine HCl (Apresoline) 5 mg IV Q6H PRN PRN Reason: Hypertension Sodium Chloride (Nacl 0.45% 1000 Ml) 1,000 mls @ 100 mls/hr IV DIRECT ELHAM Last Admin: 10/15/18 15:45 Dose: 100 mls/hr Documented by: Ceftriaxone Sodium (Rocephin/Ns 1 Gm/50 Ml) 1 gm in 50 mls @ 100 mls/hr IV Q2 4HR@2200 ELHAM; Protocol Last Admin: 10/14/18 23:42 Dose: 100 mls/hr Documented by: Methimazole (Tapazole) 10 mg PO DAILY [facility] Last Admin: 10/15/18 09:30 Dose: 10 mg Documented by: Morphine Sulfate (Morphine) 2 mg IV Q4H PRN PRN Reason: Pain, Moderate (4-6) Last Admin: 10/15/18 09:29 Dose: 2 mg Documented by: Ondansetron HCl (Zofran) 4 mg IV Q4H PRN PRN Reason: Nausea And Vomiting Last Admin: 10/15/18 09:29 Dose: 4 mg Documented by: Propranolol HCl (Inderal) 10 mg PO BID [facility] Last Admin: 10/15/18 09:29 Dose: 10 mg Documented by: Sodium Chloride (Sodium Chloride Flush Syringe 10 Ml) 10 ml IV BID [facility] Last Admin: 10/15/18 09:30 Dose: 10 ml Documented by: Sodium Chloride (Sodium Chloride Flush Syringe 10 Ml) 10 ml IV PRN PRN PRN Reason: LINE FLUSH Physical Examination - Physical Exam Narrative exam: General appearance: Alert in NAD, conversant Eyes: anicteric sclerae, moist conjunctivae; no lid-lag; PERRLA HENT: Atraumatic; oropharynx clear with moist mucous membranes and no mucosal ulcerations/no oral thrush; normal hard and soft palate. Normal external ears. Neck: Trachea midline; supple, no thyromegaly or lymphadenopathy Lungs: francicso javier crackles CV: RRR, no murmurs Abdomen: Soft, non-tender; no masses or hepatosplenomegaly Extremities: No peripheral edema or extremity lymphadenopathy Skin: Normal temperature, turgor and texture; no rash, ulcers or subcutaneous nodules Psych: Appropriate affect, alert and oriented to person, place and time. Neuro: alert and oriented x 3. Moving all extermities - Constitutional Vitals: Vital Signs Temp Pulse Resp BP Pulse Ox 98.2 F 95 H 18 103/49 96 10/15/18 08:40 10/15/18 08:40 10/15/18 08:40 10/15/18 08:40 10/15/18 08:40 Temperature -Last 24 Hours Temperature 98.2 F Temperature 98.0 F Temperature 98.0 F Temperature 98.0 F Results - Labs CBC & Chem 7: 10/15/18 05:43 10/15/18 05:43 Labs: Abnormal lab results 10/14/18 10/14/18 10/14/18 Range/Units 19:42 19:42 19:42 MCH (28-32) pg [place] % (Auto) 7.9 H (0.0-7.3) % Potassium 3.1 L (3.6-5.0) mmol/L Chloride (98-107) mmol/L Carbon Dioxide 21 L (22-30) mmol/L Creatinine 0.4 L (0.7-1.2) mg/dL Glucose 130 H (65-100) mg/dL Alkaline Phosphatase 251 H (35-129) units/L Albumin 3.5 L (3.9-5) g/dL Lipase 1285 H (13-60) units/L 10/15/18 10/15/18 10/15/18 Range/Units 05:43 05:43 09:53 MCH 27 L (28-32) pg [place] % (Auto) 10.4 H (0.0-7.3) % Potassium (3.6-5.0) mmol/L Chloride 108.7 H (98-107) mmol/L Carbon Dioxide (22-30) mmol/L Creatinine 0.4 L (0.7-1.2) mg/dL Glucose (65-100) mg/dL Alkaline Phosphatase (35-129) units/L Albumin (3.9-5) g/dL Lipase 299 H (13-60) units/L Assessment and Plan Cultures: none Assessment: 48 y/o female patient with history of hypertension, hypothyroidism, uterine fibroids and recent acute pancreatitis (recently admitted from 09/18-09/22/2018); re-admitted on 10/14/2018 due to acute midabdominal pain radiating to the back, up to 8/10 in intensity associated with nausea and at least vomiting 1. Reports chest tightness and pain, reports night dry cough associated with night sweats: 1) Tachycardia: unclear etiology likely acute pancreatitis +/- pneumonia. 2) Presumed bilateral upper lobe pneumonia: CXR with very mild changes of pneumonia. In my review seems quite normal. If pneumonia this may be related with recent nausea/vomiting from pancreatitis ? aspiration pneumonitis v/s CAP. Other possibility ?PE. Very low probability for TB. Denies any history of TB contact. Denies recent travels. Denies tobacco, ETOH or drugs. Works is a hotel. 3) Presumed recurrent pancreatitis: GI on board. CT abdomen with mild haziness of the fat at the margin of the pancreas. CXR showed areas of pulmonary consolidation in the upper lung keller bilaterally suggestive of pulmonary i nfiltrates. Recommendations: - CTA chest ordered - continue airborne isolation but will stop if CTA does not show infiltrates - continue ceftriaxone and azithromycin - add flagyl to cover aspiration pneumonia - abdominal pain evaluation per GI med Will follow. Lorrie Fan MD Infectious Diseases [facility] [employer] [facility] M [phone] O [phone]
[2018-10-15] MEDS: ROCEPHIN/NS 1 GM/50 ML 1 GM/50 ML BAG IV SCH (21:20)
[2018-10-15] MEDS: FLAGYL 500 MG/100 ML 500 MG/100 ML BAG IV SCH (21:22)
[2018-10-15] MEDS: ZITHROMAX PO SCH (21:50)
[2018-10-15] MEDS ORDERED: METHIMAZOLE 10 MG PO SCH (23:00)
--- NOTE | 2018-10-15 23:58 | Cat Scan Report ---
PROCEDURE: CT ANGIOGRAM OF THE CHEST FOR PULMONARY EMBOLISM TECHNIQUE: Computerized axial tomographic angiography of the chest and pulmonary arteries was perfor med after the IV injection of iodinated nonionic contrast. The image data was postprocessed using max imum intensity projection (MIP) and 2-dimensional multiplanar reformatted (MPR) techniques. The exami nation is specifically tailored to the evaluation of the pulmonary arteries per clinical request. Au tomated exposure control, adjustment of mA and/or kV according to patient size, or iterative reconstr uction dose optimization techniques were utilized. CPT G9637, 53253 HISTORY: Shortness of breath R06.02, chest pain unspecified R07.9 , COMPARISONS: None . FINDINGS: Heart and pericardium: Normal. Thoracic aorta: There is no thoracic aortic aneurysm or dissection.. Pulmonary vasculature: Normal. No pulmonary emboli. Lymph nodes: No enlarged thoracic lymph nodes. Lungs: Lungs are clear and expanded. There are no infiltrates.. Pleural space: No effusion, thickening, or pneumothorax. Musculoskeletal structures: No significant abnormality. Upper abdominal structures: There is fatty infiltration of liver. There is a 3 mm stone in the right kidney without hydronephrosis.. IMPRESSION: There is no pulmonary embolism. There is no thoracic aortic aneurysm or dissection.. Lungs are clear and expanded. There are no infiltrates.. There is no pleural effusion or pneumothorax. There is fatty infiltration of liver. There is a 3 mm stone in the right kidney without hydronephrosi s.. This document is electronically signed by Jason Horvath MD., October 15 2018 11:56:08 PM ET
[2018-10-16] MEDS: FLAGYL 500 MG/100 ML 500 MG/100 ML BAG IV SCH ×2 (05:35→15:00)
[2018-10-16 06:28] LABS: Hematocrit 34.2 % (30.3-42.9); Hemoglobin 11.5 gm/dl (10.1-14.3); Mean Corpuscular HGB Conc 34 % (30-34); Mean Corpuscular Volume 82 fl (79-97); Platelet Count 165 K/mm3 (140-440); Red Blood Count 4.19 M/mm3 (3.65-5.03); Red Cell Distribution Width 14.2 % (13.2-15.2)
[2018-10-16 06:37] LABS: Alanine Aminotransferase 12 units/L (7-56); Albumin 3.4 g/dL (3.9-5); BUN/Creatinine Ratio 33; Blood Urea Nitrogen 10 mg/dL (7-17); Calcium 9.4 mg/dL (8.4-10.2); Hemolysis Index 6
[2018-10-16] MEDS: TAPAZOLE PO SCH (10:09)
[2018-10-16] MEDS: ZOFRAN IV PRN ×3 (10:09→21:03)
[2018-10-16] MEDS: INDERAL PO SCH ×2 (10:09→21:03)
[2018-10-16] MEDS: LOVENOX SUB-Q SCH (10:09)
[2018-10-16] MEDS: SODIUM CHLORIDE FLUSH SYRINGE 10 ML IV SCH ×2 (10:10→21:04)
[2018-10-16] MEDS: MORPHINE IV PRN ×3 (10:10→21:04)
--- NOTE | 2018-10-16 10:51 | Progress Note ---
Assessment and Plan Assessment and plan: 48-year-old female patient was admitted with acute pancreatitis, evaluated by GI, lipase levels and symptoms significantly improved, was started on soft diet Awaiting HIDA scan, bilateral pneumonia, on IV antibiotics, pulmonary ID following, as lesions are upper lobe, airborne isolation to rule out pulmonary tuberculosis. --Acute pancreatitis; symptoms significantly improved, lipase levels within norm al limits Soft diet advance as tolerated, GI following --Atypical chest pain; noncardiac, continue current management --Bilateral upper lobe pneumonia; probably community-acquired Continue Rocephin and Zithromax, pulmonary following Airborne isolation to rule out tuberculosis, supportive care ID pulmonary following --Hyperthyroidism; continue Tapazole Supportive care --Hypertension; moderate control, continue current antihypertensives and when necessary medications --Hypertension; moderate control Continue current antihypertensives and when necessary medications --Full CODE STATUS Consults and recommendations noted and appreciated Plan of care reviewed with the patient her nurse and case management Disposition; follow pulmonary ID recommendations Possible discharge in 1-2 days if stable History Interval history: Patient seen and examined medical records reviewed Admitted with acute pancreatitis, bilateral pneumonia Pancreatitis significantly improved GI pulmonary and ID following the patient Patient has no new complaints Vital signs noted Hospitalist Physical - Constitutional Vitals: Temp Pulse Resp BP Pulse Ox 97.9 F 94 H 18 120/58 97 10/16/18 08:13 10/16/18 04:01 10/16/18 08:13 10/16/18 08:13 10/16/18 04:01 General appearance: Present: no acute distress, well-nourished - EENT Eyes: Present: PERRL, EOM intact - Neck Neck: Present: supple, normal ROM - Respiratory Respiratory effort: normal Respiratory: bilateral: diminished, rhonchi, negative: rales, wheezing - Cardiovascular Rhythm: regular Heart Sounds: Present: S1 & S2 - Extremities Extremities: no ischemia, No edema - Abdominal General gastrointestinal: soft, non-tender, non-distended - Integumentary Integumentary: Present: clear, warm - Psychiatric Psychiatric: appropriate mood/affect, cooperative - Neurologic Neurologic: moves all extremities Results - Labs CBC & Chem 7: 10/16/18 04:51 10/16/18 04:51 Labs: Laboratory Last Values WBC 4.1 K/mm3 (4.5-11.0) L 10/16/18 04:51 RBC 4.19 M/mm3 (3.65-5.03) 10/16/18 04:51 Hgb 11.5 gm/dl (10.1-14.3) 10/16/18 04:51 Hct 34.2 % (30.3-42.9) 10/16/18 04:51 MCV 82 fl (79-97) 10/16/18 04:51 MCH 28 pg (28-32) 10/16/18 04:51 MCHC 34 % (30-34) 10/16/18 04:51 RDW 14.2 % (13.2-15.2) 10/16/18 04:51 Plt Count 165 K/mm3 (140-440) 10/16/18 04:51 Lymph % (Auto) 26.1 % (13.4-35.0) 10/15/18 05:43 [place] % (Auto) 10.4 % (0.0-7.3) H 10/15/18 05:43 Eos % (Auto) 0.2 % (0.0-4.3) 10/15/18 05:43 Baso % (Auto) 0.1 % (0.0-1.8) 10/15/18 05:43 Lymph # 1.3 K/mm3 (1.2-5.4) 10/15/18 05:43 [place] # 0.5 K/mm3 (0.0-0.8) 10/15/18 05:43 Eos # 0.0 K/mm3 (0.0-0.4) 10/15/18 05:43 Baso # 0.0 K/mm3 (0.0-0.1) 10/15/18 05:43 Seg Neutrophils % 63.2 % (40.0-70.0) 10/15/18 05:43 Seg Neutrophils # 3.2 K/mm3 (1.8-7.7) 10/15/18 05:43 Sodium 141 mmol/L (137-145) 10/16/18 04:51 Potassium 3.8 mmol/L (3.6-5.0) 10/16/18 04:51 Chloride 104.6 mmol/L (98-107) 10/16/18 04:51 Carbon Dioxide 23 mmol/L (22-30) 10/16/18 04:51 Anion Gap 17 mmol/L 10/16/18 04:51 BUN 10 mg/dL (7-17) 10/16/18 04:51 Creatinine 0.3 mg/dL (0.7-1.2) L 10/16/18 04:51 Estimated GFR > 60 ml/min 10/16/18 04:51 BUN/Creatinine Ratio 33 % 10/16/18 04:51 Glucose 78 mg/dL (65-100) 10/16/18 04:51 Calcium 9.4 mg/dL (8.4-10.2) 10/16/18 04:51 Total Bilirubin 1.60 mg/dL (0.1-1.2) H 10/16/18 04:51 Direct Bilirubin 0.2 mg/dL (0-0.2) 10/14/18 19:42 Indirect Bilirubin 0.9 mg/dL 10/14/18 19:42 AST 19 units/L (5-40) 10/16/18 04:51 ALT 12 units/L (7-56) 10/16/18 04:51 Alkaline Phosphatase 235 units/L (35-129) H 10/16/18 04:51 Total Creatine Kinase 65 units/L (30-135) 10/15/18 05:43 CK-MB (CK-2) 2.0 ng/mL (0.0-4.0) 10/15/18 05:43 CK-MB (CK-2) Rel Index 3.0 (0-4) 10/15/18 05:43 Troponin T < 0.010 ng/mL (0.00-0.029) 10/15/18 05:43 C-Reactive Protein 0.80 mg/dL (0.00-1.30) 10/15/18 09:53 NT-Pro-B Natriuret Pep 95.49 pg/mL (0-450) 10/14/18 19:42 Total Protein 6.5 g/dL (6.3-8.2) 10/16/18 04:51 Albumin 3.4 g/dL (3.9-5) L 10/16/18 04:51 Albumin/Globulin Ratio 1.1 % 10/16/18 04:51 Triglycerides 36 mg/dL (2-149) 10/14/18 23:46 Lipase 26 units/L (13-60) 10/16/18 04:51 HCG, Qual Negative (Negative) 10/14/18 19:42 Urine Color Straw (Yellow) 10/14/18 21:14 Urine Turbidity Clear (Clear) 10/14/18 21:14 Urine pH 5.0 (5.0-7.0) 10/14/18 21:14 Ur Specific [place] 1.004 (1.003-1.030) 10/14/18 21:14 Urine Protein <15 mg/dl mg/dL (Negative) 10/14/18 21:14 Urine Glucose (UA) Neg mg/dL (Negative) 10/14/18 21:14 Urine Ketones Neg mg/dL (Negative) 10/14/18 21:14 Urine Blood Sm (Negative) 10/14/18 21:14 Urine Nitrite Neg (Negative) 10/14/18 21:14 Urine Bilirubin Neg (Negative) 10/14/18 21:14 Urine Urobilinogen < 2.0 mg/dL (<2.0) 10/14/18 21:14 Ur Leukocyte Esterase Neg (Negative) 10/14/18 21:14 Urine WBC (Auto) < 1.0 /HPF (0.0-6.0) 10/14/18 21:14 Urine RBC (Auto) 3.0 /HPF (0.0-6.0) 10/14/18 21:14 U Epithel Cells (Auto) < 1.0 /HPF (0-13.0) 10/14/18 21:14 Urine Bacteria (Auto) 1+ /HPF (Negative) 10/14/18 21:14 Active Medications - Current Medications Current Medications: Generic Name Dose Route Start Last Admin Trade Name Freq PRN Reason Stop Dose Admin Acetaminophen 650 mg 10/14/18 23:09 Tylenol PO Q4H PRN Pain MILD(1-3)/Fever >100.5/CODY Azithromycin 500 mg 10/14/18 23:21 10/15/18 21:50 Zithromax PO 500 mg DAILY@2200 ELHAM Administration Enoxaparin Sodium 40 mg 10/15/18 10:00 10/16/18 10:09 Lovenox SUB-Q 40 mg QDAY@1000 ELHAM Administration Hydralazine HCl 5 mg 10/14/18 23:11 Apresoline IV Q6H PRN Hypertension Sodium Chloride 1,000 mls @ 100 mls/hr 10/14/18 23:45 10/15/18 15:45 Nacl 0.45% 1000 Ml IV 100 mls/hr DIRECT ELHAM Administration Ceftriaxone Sodium 1 gm in 50 mls @ 100 mls/hr 10/14/18 23:21 10/15/18 21:20 Rocephin/Ns 1 Gm/50 Ml IV 100 mls/hr Q24HR@2200 ELHAM Administration Protocol Metronidazole 500 mg in 100 mls @ 100 mls/hr 10/15/18 18:00 10/16/18 05:35 Flagyl 500 Mg/100 Ml IV Not Given Q8HR ELHAM Protocol Methimazole 10 mg 10/15/18 10:00 10/16/18 10:09 Tapazole PO 10 mg DAILY ELHAM Administration Morphine Sulfate 2 mg 10/14/18 23:09 10/16/18 10:10 Morphine IV 2 mg Q4H PRN Administration Pain, Moderate (4-6) Ondansetron HCl 4 mg 10/14/18 23:09 10/16/18 10:09 Zofran IV 4 mg Q4H PRN Administration Nausea And Vomiting Propranolol HCl 10 mg 10/15/18 10:00 10/16/18 10:09 Inderal PO 10 mg BID ELHAM Administration Sodium Chloride 10 ml 10/15/18 10:00 10/16/18 10:10 Sodium Chloride Flush Syringe 10 Ml IV 10 ml BID ELHAM Administration Sodium Chloride 10 ml 10/14/18 23:09 Sodium Chloride Flush Syringe 10 Ml IV PRN PRN LINE FLUSH Nutrition/Malnutrition Assess - Dietary Evaluation Nutrition/Malnutrition Findings: Nutrition Notes Start: 10/15/18 16:49 Freq: Status: Active Protocol: Document 10/15/18 16:49 RM (Rec: 10/15/18 16:49 RM [id number]) Nutrition Notes Need for Assessment generated from: test analyst Initial or Follow up Brief Note Subjective/Other Information Screened for skin risk. Wiledr 21 points. Nutrition Intervention Revisit per MD consult or patient Sign Off request:
--- NOTE | 2018-10-16 11:00 | Progress Note ---
Assessment and Plan Cultures: none Assessment: 48 y/o female patient with history of hypertension, hypothyroidism, uterine fibroids and recent acute pancreatitis (recently admitted from 09/18-09/22/2018); re-admitted on 10/14/2018 due to acute midabdominal pain radiating to the back, up to 8/10 in intensity associated with nausea and at least vomiting 1. Reports chest tightness and pain, reports night dry cough associated with night sweats: 1) Tachycardia: Improved. unclear etiology likely acute pancreatitis +/- pneumonia. 2) Presumed bilateral upper lobe pneumonia: ? aspiration pneumonitis. CXR with very mild changes of pneumonia. In my review seems quite normal. Chest CT shows no infiltrates. No pleural effusion or pneuomothorax. There is fatty infiltration of liver. There is a 3 mm stone in the right kidney without hydronephrosis.. 3) Presumed recurrent pancreatitis: GI on board. CT abdomen with mild haziness of the fat at the margin of the pancreas. CXR showed areas of pulmonary consolidation in the upper lung keller bilaterally suggestive of pulmonary infiltrates. HIDA scan pending to further evaluate GB- Gi following Recommendations: -discontinue airborne isolation -discontinue ceftriaxone, azithromycin and flagyl -monitor off antibiotics Janis Lloyd NP [facility] M: [id number] O:[phone] Subjective Date of service: 10/16/18 Interval history: Patient seen and examined. Sitting up in bed. Reports no generalized weakness, SOB or rashes. No fevers. Objective - Exam Narrative Exam: General appearance: Alert in NAD, conversant Eyes: anicteric sclerae, moist conjunctivae; no lid-lag; PERRLA HENT: Atraumatic; oropharynx clear with moist mucous membranes and no mucosal ulcerations/no oral thrush; normal hard and soft palate. Normal external ears. Neck: Trachea midline; supple, no thyromegaly or lymphadenopathy Lungs: francisco javier crackles CV: RRR, no murmurs Abdomen: Soft, non-tender; no masses or hepatosplenomegaly Extremities: No peripheral edema or extremity lymphadenopathy Skin: Normal temperature, turgor and texture; no rash, ulcers or subcutaneous nodules Psych: Appropriate affect, alert and oriented to person, place and time. Neuro: alert and oriented x 3. Moving all extermities - Constitutional Vitals: Vital Signs Temp Pulse Resp BP Pulse Ox 97.9 F 94 H 18 120/58 97 10/16/18 08:13 10/16/18 04:01 10/16/18 08:13 10/16/18 08:13 10/16/18 04:01 Temperature -Last 24 Hours Temperature 97.9 F Temperature 98.3 F Temperature 98.0 F Temperature 98.2 F - Labs CBC & Chem 7: 10/16/18 04:51 10/16/18 04:51 Labs: Abnormal lab results 10/16/18 10/16/18 Range/Units 04:51 04:51 WBC 4.1 L (4.5-11.0) K/mm3 Creatinine 0.3 L (0.7-1.2) mg/dL Total Bilirubin 1.60 H (0.1-1.2) mg/dL Alkaline Phosphatase 235 H (35-129) units/L Albumin 3.4 L (3.9-5) g/dL
--- NOTE | 2018-10-16 12:00 | Gastroenterology Progress Note ---
<LAKIA BALTAZAR - Last Filed: 10/16/18 12:01> Assessment and Plan 1.pancreatitis -patient is a 48y/o female who presents with recurrent abd pain after previously being hospitalized earlier this month (09/18-09/21) for acute pancreatitis with unknown etiology -afebrile -WBC and H/H WNL -alk phos 235-stable (elevated since 2014 when compared to previous labs; T.francisco javier,AST, and ALT WNL) -lipase 26-trended down (1285 on admission) -CRP 0.80 -triglyceride level WNL -IgG4 normal (45.6) on 09/21/18 -abd CT showed pancreatitis (non-obstructing kidney stone) -abd U/S 09/18/18-showed unremarkable liver and biliary system -etiology unclear- Patient denies alcohol use or new medication. Symptoms confusing due to panic disorder, costochondritis, possible pancreatitis, and current pulmonary process -clinically, patient is stable. Reports abd pain improved from yesterday. No N/V. -okay to start on clears -labs pending to verify ALP is biliary in origin (5'nucleotidase and alk phos isoenzymes) -HIDA scan pneidng to further evaluate GB -continue to trend labs and supportive care (IVF, antiemetics, pain medications, etc.) -consider EGD vs possible EUS based on clinical course/progress -will follow Subjective Date of service: 10/16/18 Principal diagnosis: pancreatitis Interval history: Patient resting in bed this am w/o acute distress. Reports abd pain improved from yesterday. No N/V. Objective - Constitutional Vitals: Temp Pulse Resp BP Pulse Ox 97.9 F 94 H 18 120/58 97 10/16/18 08:13 10/16/18 04:01 10/16/18 08:13 10/16/18 08:13 10/16/18 04:01 General appearance: no acute distress - EENT Eyes: PERRL, EOM intact ENT: hearing intact - Respiratory Respiratory: bilateral: diminished - Cardiovascular Rhythm: regular - Gastrointestinal General gastrointestinal: Present: soft, tender, non-distended, normal bowel sounds - Neurologic Neurological: alert and oriented x3 - Labs CBC & Chem 7: 10/16/18 04:51 10/16/18 04:51 Labs: Laboratory Results - last 24 hr 10/15/18 10/16/18 10/16/18 09:53 04:51 04:51 WBC 4.1 L RBC 4.19 Hgb 11.5 Hct 34.2 MCV 82 MCH 28 MCHC 34 RDW 14.2 Plt Count 165 Sodium 141 Potassium 3.8 Chloride 104.6 Carbon Dioxide 23 Anion Gap 17 BUN 10 Creatinine 0.3 L Estimated GFR > 60 BUN/Creatinine Ratio 33 Glucose 78 Calcium 9.4 Total Bilirubin 1.60 H AST 19 ALT 12 Alkaline Phosphatase 235 H C-Reactive Protein 0.80 Total Protein 6.5 Albumin 3.4 L Albumin/Globulin Ratio 1.1 Lipase 10/16/18 04:51 WBC RBC Hgb Hct MCV MCH MCHC RDW Plt Count Sodium Potassium Chloride Carbon Dioxide Anion Gap BUN Creatinine Estimated GFR BUN/Creatinine Ratio Glucose Calcium Total Bilirubin AST ALT Alkaline Phosphatase C-Reactive Protein Total Protein Albumin Albumin/Globulin Ratio Lipase 26 <ANGEL PAGE R - Last Filed: 10/16/18 14:24> Assessment and Plan Doing well. No abd pain. Tolerated solids. Await f/u on labs and HIDA. However, if continues to do well, may D/C in AM, with outpatient f/u. Objective - Constitutional Vitals: Temp Pulse Resp BP Pulse Ox 98.2 F 94 H 18 112/50 97 10/16/18 12:02 10/16/18 04:01 10/16/18 12:02 10/16/18 12:02 10/16/18 04:01 - Labs CBC & Chem 7: 10/16/18 04:51 10/16/18 04:51 Labs: Laboratory Results - last 24 hr 10/15/18 10/16/18 10/16/18 09:53 04:51 04:51 WBC 4.1 L RBC 4.19 Hgb 11.5 Hct 34.2 MCV 82 MCH 28 MCHC 34 RDW 14.2 Plt Count 165 Sodium 141 Potassium 3.8 Chloride 104.6 Carbon Dioxide 23 Anion Gap 17 BUN 10 Creatinine 0.3 L Estimated GFR > 60 BUN/Creatinine Ratio 33 Glucose 78 Calcium 9.4 Total Bilirubin 1.60 H AST 19 ALT 12 Alkaline Phosphatase 235 H C-Reactive Protein 0.80 Total Protein 6.5 Albumin 3.4 L Albumin/Globulin Ratio 1.1 Lipase 10/16/18 04:51 WBC RBC Hgb Hct MCV MCH MCHC RDW Plt Count Sodium Potassium Chloride Carbon Dioxide Anion Gap BUN Creatinine Estimated GFR BUN/Creatinine Ratio Glucose Calcium Total Bilirubin AST ALT Alkaline Phosphatase C-Reactive Protein Total Protein Albumin Albumin/Globulin Ratio Lipase 26
--- NOTE | 2018-10-16 12:10 | Progress Note ---
Assessment and Plan r/o Pneumonia vs other process. Chest CTA negative pattern change, which is not unusual to see an acute pancreatitis Acute pancreatitis Recommendations Incentive spirometry x atelectasis prevention OOB as tolerated Pancreatitis, GI follow-up [place] Discussed with patient in detail. All questions answered. Will sign off Subjective Date of service: 10/16/18 Principal diagnosis: pancreatitis Interval history: No chest complains Objective Vital Signs - 12hr 10/16/18 10/16/18 10/16/18 04:01 08:13 12:02 Temperature 98.3 F 97.9 F 98.2 F Pulse Rate 94 H Respiratory 12 18 18 Rate Blood Pressure 127/62 120/58 112/50 O2 Sat by Pulse 97 Oximetry Constitutional: no acute distress, alert Eyes: non-icteric ENT: oropharynx moist Neck: no JVD Ascultation: Bilateral: clear Percussion: Bilateral: not dull Tactile fremitus: Bilateral: normal Cardiovascular: regular rate and rhythm Gastrointestinal: normoactive bowel sounds, non-distended, other (mildly distended and diffusely tender, no rebound. Bowel sounds present, diminished) Integumentary: normal Extremities: no cyanosis, no edema Neurologic: normal mental status, non-focal exam, CN II-XII normal, motor s trength normal and Psychiatric: mood appropriate, affect normal CBC and BMP: 10/16/18 04:51 10/16/18 04:51 Abnormal lab findings: Abnormal Labs 10/14/18 10/14/18 10/14/18 19:42 19:42 19:42 WBC MCH [place] % (Auto) 7.9 H Potassium 3.1 L Chloride Carbon Dioxide 21 L Creatinine 0.4 L Glucose 130 H Total Bilirubin Alkaline Phosphatase 251 H Albumin 3.5 L Lipase 1285 H 10/15/18 10/15/18 10/15/18 05:43 05:43 09:53 WBC MCH 27 L [place] % (Auto) 10.4 H Potassium Chloride 108.7 H Carbon Dioxide Creatinine 0.4 L Glucose Total Bilirubin Alkaline Phosphatase Albumin Lipase 299 H 10/16/18 10/16/18 04:51 04:51 WBC 4.1 L MCH [place] % (Auto) Potassium Chloride Carbon Dioxide Creatinine 0.3 L Glucose Total Bilirubin 1.60 H Alkaline Phosphatase 235 H Albumin 3.[address] scan - chest: report reviewed, image reviewed
[2018-10-16] MEDS: NACL 0.45% 1000 ML 1,000 ML IV SCH (18:27)
[2018-10-17] MEDS: NACL 0.45% 1000 ML 1,000 ML IV SCH ×2 (04:26→21:43)
[2018-10-17 06:36] LABS: Basophils % (Auto) 0.2 % (0.0-1.8); Eosinophils # (Auto) 0.1 K/mm3 (0.0-0.4); Eosinophils % (Auto) 1.5 % (0.0-4.3); Hematocrit 33.4 % (30.3-42.9); Hemoglobin 11.2 gm/dl (10.1-14.3); Lymphocytes # (Auto) 1.8 K/mm3 (1.2-5.4); Lymphocytes % (Auto) 43.4 % (13.4-35.0); Mean Corpuscular HGB Conc 34 % (30-34); Mean Corpuscular Volume 82 fl (79-97); Monocytes # (Auto) 0.5 K/mm3 (0.0-0.8); Monocytes % (Auto) 12.6 % (0.0-7.3); Platelet Count 169 K/mm3 (140-440); Red Blood Count 4.09 M/mm3 (3.65-5.03); Red Cell Distribution Width 14.3 % (13.2-15.2)
[2018-10-17 07:13] LABS: Alanine Aminotransferase 11 units/L (7-56); Albumin 3.2 g/dL (3.9-5); BUN/Creatinine Ratio 15; Blood Urea Nitrogen 6 mg/dL (7-17); Calcium 9.3 mg/dL (8.4-10.2); Hemolysis Index 6
[2018-10-17] MEDS ORDERED: KINEVAC IV ONE ×2 (08:27→08:30)
--- NOTE | 2018-10-17 08:54 | Progress Note ---
Assessment and Plan Cultures: 10/16/2018 Blood: in progress [id number] MRSA PCR: in progress Assessment: 48 y/o female patient with history of hypertension, hypothyroidism, uterine fibroids and recent acute pancreatitis (recently admitted from 09/18-09/22/2018); re-admitted on 10/14/2018 due to acute midabdominal pain radiating to the back, up to 8/10 in intensity associated with nausea and at least vomiting 1. Repo rts chest tightness and pain, reports night dry cough associated with night sweats: 1) Tachycardia: Improved. unclear etiology likely acute pancreatitis +/- pneumonia. 2) Presumed bilateral upper lobe pneumonia: ? aspiration pneumonitis. CXR with very mild changes of pneumonia. In my review seems quite normal. Chest CT shows no infiltrates. No pleural effusion or pneuomothorax. There is fatty infiltration of liver. There is a 3 mm stone in the right kidney without hydrone phrosis.. 3) Presumed recurrent pancreatitis: GI on board. CT abdomen with mild haziness of the fat at the margin of the pancreas. CXR showed areas of pulmonary consolidation in the upper lung keller bilaterally suggestive of pulmonary infiltrates. HIDA scan pending to further evaluate GB- Gi following Recommendations: -monitor off antibiotics ID is signing off [facility] M: [id number] O:[phone] Subjective Date of service: 10/17/18 Principal diagnosis: pancreatitis Interval history: Patient seen and examined. Sitting up in bed. Reports no generalized weakness, SOB or rashes. No fevers. Objective - Exam Narrative Exam: General appearance: Alert in NAD, conversant Eyes: anicteric sclerae, moist conjunctivae; no lid-lag; PERRLA HENT: Atraumatic; oropharynx clear with moist mucous membranes and no mucosal ulcerations/no oral thrush; normal hard and soft palate. Normal external ears. Neck: Trachea midline; supple, no thyromegaly or lymphadenopathy Lungs: francisco javier crackles CV: RRR, no murmurs Abdomen: Soft, non-tender; no masses or hepatosplenomegaly Extremities: No peripheral edema or extremity lymphadenopathy Skin: Normal temperature, turgor and texture; no rash, ulcers or subcutaneous nodules Psych: Appropriate affect, alert and oriented to person, place and time. Neuro: alert and oriented x 3. Moving all extermities - Constitutional Vitals: Vital Signs Temp Pulse Resp BP Pulse Ox 98.2 F 83 15 105/49 97 10/17/18 03:57 10/17/18 03:57 10/17/18 03:57 10/17/18 03:57 10/17/18 03:57 Temperature -Last 24 Hours Temperature 98.2 F Temperature 99.4 F Temperature 98.6 F Temperature 98.0 F Temperature 98.2 F - Labs CBC & Chem 7: 10/17/18 05:39 10/17/18 05:39 Labs: Abnormal lab results 10/17/18 10/17/18 Range/Units 05:39 05:39 WBC 4.2 L (4.5-11.0) K/mm3 MCH 27 L (28-32) pg Lymph % (Auto) 43.4 H (13.4-35.0) % [place] % (Auto) 12.6 H (0.0-7.3) % BUN 6 L (7-17) mg/dL Creatinine 0.4 L (0.7-1.2) mg/dL Glucose 113 H (65-100) mg/dL Alkaline Phosphatase 207 H (35-129) units/L Albumin 3.2 L (3.9-5) g/dL
--- NOTE | 2018-10-17 11:18 | Nuclear Medicine Report ---
NUCLEAR MEDICINE HEPATOBILIARY SCAN: 10/17/18 CLINICAL: Recurrent abdominal pain.Nausea and vomiting. History of pancreatitis. TECHNIQUE: 5.0-mCi technetium 99m Choletec was injected intravenously. Serial images were obtained up to 60 minutes. 1.19 mcg of Kinevac was injected intravenously vessel and fusion at one hour and gallbladder ejection fractions were measured. FINDINGS: Normal activity in the liver, bile ducts and small bowel. Normal gallbladder activity is apparent at 10 minutes and the bladder ejection fraction is normal. It measured 52% at 10 minutes, 84% at 20 minutes and 86% at 30 minutes. It should be noted that pain similar to the index pain was elicited with the injection of the CCK . IMPRESSION: No evidence of acute cholecystitis and normal gallbladder ejection fraction. Pain elicited by the CCK injection is of uncertain significance.
[2018-10-17] MEDS: INDERAL PO SCH ×2 (11:21→21:27)
[2018-10-17] MEDS: TAPAZOLE PO SCH (11:21)
[2018-10-17] MEDS: SODIUM CHLORIDE FLUSH SYRINGE 10 ML IV SCH ×2 (11:22→21:27)
[2018-10-17] MEDS: LOVENOX SUB-Q SCH (11:22)
--- NOTE | 2018-10-17 15:08 | Gastroenterology Progress Note ---
<LAKIA BALTAZAR - Last Filed: 10/17/18 15:38> Assessment and Plan 1.pancreatitis -patient is a 48y/o female who presents with recurrent abd pain after previously being hospitalized earlier this month (09/18-09/21) for acute pancreatitis with unknown etiology -afebrile -WBC and H/H WNL -alk phos 207 (elevated since 2014 when compared to previous labs; T.francisco javier ,AST, and ALT WNL) -lipase 26-trended down (1285 on admission) -CRP 0.80 -triglyceride level WNL -IgG4 normal (45.6) on 09/21/18 -abd CT showed pancreatitis (non-obstructing kidney stone) -abd U/S 09/18/18-showed unremarkable liver and biliary system -etiology unclear- Patient denies alcohol use or new medication. Symptoms confusing due to panic disorder, costochondritis, possible pancreatitis, and current pulmonary process -clinically, patient is stable with abd pain improving. No N/V. Tolerating diet. -labs pending to verify ALP is biliary in origin (5'nucleotidase and alk phos isoenzymes) -HIDA scan today with normal gallbladder and EF but pain reproduced with CCK -recommend surgery consult for possible cholecystectomy -continue to trend labs and supportive care (IVF, antiemetics, pain medications, etc.) -okay to be d/c per GI standpoint for further management as an outpatient pending on surgery recommendations Subjective Date of service: 10/17/18 Principal diagnosis: pancreatitis Interval history: No acute distress. Reports abd pain continuing to improve. No N/v. Tolerating diet. Objective - Constitutional Vitals: Temp Pulse Resp BP Pulse Ox 98.4 F 64 18 127/68 100 10/17/18 13:03 10/17/18 13:03 10/17/18 13:03 10/17/18 13:03 10/17/18 13:03 General appearance: no acute distress - Respiratory Respiratory: bilateral: CTA - Cardiovascular Rhythm: regular - Gastrointestinal General gastrointestinal: Present: soft, tender (slight TTP in upper abdomen), non-distended, normal bowel sounds - Neurologic Neurological: alert and oriented x3 - Labs CBC & Chem 7: 10/17/18 05:39 10/17/18 05:39 Labs: Laboratory Results - last 24 hr 10/17/18 10/17/18 05:39 05:39 WBC 4.2 L RBC 4.09 Hgb 11.2 Hct 33.4 MCV 82 MCH 27 L MCHC 34 RDW 14.3 Plt Count 169 Lymph % (Auto) 43.4 H [place] % (Auto) 12.6 H Eos % (Auto) 1.5 Baso % (Auto) 0.2 Lymph # 1.8 [place] # 0.5 Eos # 0.1 Baso # 0.0 Seg Neutrophils % 42.3 Seg Neutrophils # 1.8 Sodium 141 Potassium 3.9 Chloride 106.5 Carbon Dioxide 27 Anion Gap 11 BUN 6 L Creatinine 0.4 L Estimated GFR > 60 BUN/Creatinine Ratio 15 Glucose 113 H Calcium 9.3 Total Bilirubin 0.90 AST 17 ALT 11 Alkaline Phosphatase 207 H Total Protein 6.3 Albumin 3.2 L Albumin/Globulin Ratio 1.0 <ANGEL PAGE R - Last Filed: 10/17/18 15:58> Assessment and Plan Pt continues to have pain, though samy po. HIDA showed normal EF, but pt states her presenting symptoms were reproduced, with nausea and lasted 20-30'. Fairly severe. Imp - Likely has biliary dyskinesia, and possible microlithiasis, resulting in recurrent pancreatitis. Would recommend CCY. Cannot guarantee resolution of recurrent pancreatitis, but if it recurs after surgery, then will check LFTs to assess for SOD, and o/w EUS. Discussed with Dr. Redmond and Dr. Guajardo. Will sign off. Thanks. Objective - Constitutional Vitals: Temp Pulse Resp BP Pulse Ox 98.4 F 64 18 127/68 100 10/17/18 13:03 10/17/18 13:03 10/17/18 13:03 10/17/18 13:03 10/17/18 13:03 - Labs CBC & Chem 7: 10/17/18 05:39 10/17/18 05:39 Labs: Laboratory Results - last 24 hr 10/17/18 10/17/18 05:39 05:39 WBC 4.2 L RBC 4.09 Hgb 11.2 Hct 33.4 MCV 82 MCH 27 L MCHC 34 RDW 14.3 Plt Count 169 Lymph % (Auto) 43.4 H [place] % (Auto) 12.6 H Eos % (Auto) 1.5 Baso % (Auto) 0.2 Lymph # 1.8 [place] # 0.5 Eos # 0.1 Baso # 0.0 Seg Neutrophils % 42.3 Seg Neutrophils # 1.8 Sodium 141 Potassium 3.9 Chloride 106.5 Carbon Dioxide 27 Anion Gap 11 BUN 6 L Creatinine 0.4 L Estimated GFR > 60 BUN/Creatinine Ratio 15 Glucose 113 H Calcium 9.3 Total Bilirubin 0.90 AST 17 ALT 11 Alkaline Phosphatase 207 H Total Protein 6.3 Albumin 3.2 L Albumin/Globulin Ratio 1.0
--- NOTE | 2018-10-17 16:01 | Progress Note ---
Assessment and Plan Assessment and plan: Patient is a 48-year-old woman with a history of hypertension and hyperthyroidism who was admitted with acute pancreatitis, evaluated by GI, lipase levels and symptoms significantly improved, was started on soft diet, bilateral pneumonia, treated with IV antibiotics, pulmonary and ID following, as lesions are upper lobe, airborne isolation to rule out pulmonary tuberculosis but CT chest did not show lesions or pneumonia * CTA chest IMPRESSION: There is no pulmonary embolism. There is no thoracic aortic aneurysm or dissection.. Lungs are clear and expanded. There are no infiltrates.. There is no pleural effusion or pneumothorax. There is fatty infiltration of liver. There is a 3 mm stone in the right kidney without hydronephrosis.. --Acute pancreatitis; symptoms significantly improved, lipase levels within normal limits Soft diet advance as tolerated, GI following --Atypical chest pain; noncardiac, continue current management --No Bilateral upper lobe pneumonia; probably community-acquired Continue Rocephin and Zithromax, pulmonary following Airborne isolation to rule out tuberculosis, supportive care ID pulmonary following --Hyperthyroidism; continue Tapazole Supportive care --Hypertension; moderate control, continue current antihypertensives and when necessary medications --Hypertension; moderate control Continue current antihypertensives and when necessary medications --Full CODE STATUS Consults and recommendations noted and appreciated Plan of care reviewed with the patient her nurse and case management Disposition; follow pulmonary History Interval history: Patient was seen and examined. Follow-up on current diagnosis of abd pains. No overnight events reported to me. Patient denies any chest pain, shortness breath, or severe headaches. Imaging, nursing note, chart, labs and old chart reviewed. Discussed with patient. Hospitalist Physical - Physical exam Narrative exam: Gen: WDWN, NAD, Awake, Alert, Orientated HEENT: NCAT, EOMI, PERRL, OP Clear Neck: supple, no adenopathy, no thyromegaly, no JVD CVS/Heart: RRR, normal S1S2, pulses present bilaterally Chest/Lungs: CTA B, Symmetrical chest expansion, good air entry bilaterally GI/Abdomen: soft, RUQ, tenderness, good bowel sounds, +guarding no rebound /Bladder: no suprapubic tenderness, no CVA or paraspinal tenderness Extermity/Skin: no c/c/e, no obvious rash MSK: FROM x 4 Neuro: CN 2-12 grossly intact, no new focal deficits Psych: calm - Constitutional Vitals: Temp Pulse Resp BP Pulse Ox 98.4 F 64 18 127/68 100 10/17/18 13:03 10/17/18 13:03 10/17/18 13:03 10/17/18 13:03 10/17/18 13:03 General appearance: Present: no acute distress, well-nourished Results - Labs CBC & Chem 7: 10/17/18 05:39 10/17/18 05:39 Labs: Laboratory Last Values WBC 4.2 K/mm3 (4.5-11.0) L 10/17/18 05:39 RBC 4.09 M/mm3 (3.65-5.03) 10/17/18 05:39 Hgb 11.2 gm/dl (10.1-14.3) 10/17/18 05:39 Hct 33.4 % (30.3-42.9) 10/17/18 05:39 MCV 82 fl (79-97) 10/17/18 05:39 MCH 27 pg (28-32) L 10/17/18 05:39 MCHC 34 % (30-34) 10/17/18 05:39 RDW 14.3 % (13.2-15.2) 10/17/18 05:39 Plt Count 169 K/mm3 (140-440) 10/17/18 05:39 Lymph % (Auto) 43.4 % (13.4-35.0) H 10/17/18 05:39 [place] % (Auto) 12.6 % (0.0-7.3) H 10/17/18 05:39 Eos % (Auto) 1.5 % (0.0-4.3) 10/17/18 05:39 Baso % (Auto) 0.2 % (0.0-1.8) 10/17/18 05:39 Lymph # 1.8 K/mm3 (1.2-5.4) 10/17/18 05:39 Coal # 0.5 K/mm3 (0.0-0.8) 10/17/18 05:39 Eos # 0.1 K/mm3 (0.0-0.4) 10/17/18 05:39 Baso # 0.0 K/mm3 (0.0-0.1) 10/17/18 05:39 Seg Neutrophils % 42.3 % (40.0-70.0) 10/17/18 05:39 Seg Neutrophils # 1.8 K/mm3 (1.8-7.7) 10/17/18 05:39 Sodium 141 mmol/L (137-145) 10/17/18 05:39 Potassium 3.9 mmol/L (3.6-5.0) 10/17/18 05:39 Chloride 106.5 mmol/L (98-107) 10/17/18 05:39 Carbon Dioxide 27 mmol/L (22-30) 10/17/18 05:39 Anion Gap 11 mmol/L 10/17/18 05:39 BUN 6 mg/dL (7-17) L 10/17/18 05:39 Creatinine 0.4 mg/dL (0.7-1.2) L 10/17/18 05:39 Estimated GFR > 60 ml/min 10/17/18 05:39 BUN/Creatinine Ratio 15 % 10/17/18 05:39 Glucose 113 mg/dL (65-100) H 10/17/18 05:39 Calcium 9.3 mg/dL (8.4-10.2) 10/17/18 05:39 Total Bilirubin 0.90 mg/dL (0.1-1.2) 10/17/18 05:39 Direct Bilirubin 0.2 mg/dL (0-0.2) 10/14/18 19:42 Indirect Bilirubin 0.9 mg/dL 10/14/18 19:42 AST 17 units/L (5-40) 10/17/18 05:39 ALT 11 units/L (7-56) 10/17/18 05:39 Alkaline Phosphatase 207 units/L (35-129) H 10/17/18 05:39 Total Creatine Kinase 65 units/L (30-135) 10/15/18 05:43 CK-MB (CK-2) 2.0 ng/mL (0.0-4.0) 10/15/18 05:43 CK-MB (CK-2) Rel Index 3.0 (0-4) 10/15/18 05:43 Troponin T < 0.010 ng/mL (0.00-0.029) 10/15/18 05:43 C-Reactive Protein 0.80 mg/dL (0.00-1.30) 10/15/18 09:53 NT-Pro-B Natriuret Pep 95.49 pg/mL (0-450) 10/14/18 19:42 Total Protein 6.3 g/dL (6.3-8.2) 10/17/18 05:39 Albumin 3.2 g/dL (3.9-5) L 10/17/18 05:39 Albumin/Globulin Ratio 1.0 % 10/17/18 05:39 Triglycerides 36 mg/dL (2-149) 10/14/18 23:46 Lipase 26 units/L (13-60) 10/16/18 04:51 HCG, Qual Negative (Negative) 10/14/18 19:42 Urine Color Straw (Yellow) 10/14/18 21:14 Urine Turbidity Clear (Clear) 10/14/18 21:14 Urine pH 5.0 (5.0-7.0) 10/14/18 21:14 Ur Specific [place] 1.004 (1.003-1.030) 10/14/18 21:14 Urine Protein <15 mg/dl mg/dL (Negative) 10/14/18 21:14 Urine Glucose (UA) Neg mg/dL (Negative) 10/14/18 21:14 Urine Ketones Neg mg/dL (Negative) 10/14/18 21:14 Urine Blood Sm (Negative) 10/14/18 21:14 Urine Nitrite Neg (Negative) 10/14/18 21:14 Urine Bilirubin Neg (Negative) 10/14/18 21:14 Urine Urobilinogen < 2.0 mg/dL (<2.0) 10/14/18 21:14 Ur Leukocyte Esterase Neg (Negative) 10/14/18 21:14 Urine WBC (Auto) < 1.0 /HPF (0.0-6.0) 10/14/18 21:14 Urine RBC (Auto) 3.0 /HPF (0.0-6.0) 10/14/18 21:14 U Epithel Cells (Auto) < 1.0 /HPF (0-13.0) 10/14/18 21:14 Urine Bacteria (Auto) 1+ /HPF (Negative) 10/14/18 21:14 Active Medications - Current Medications Current Medications: Generic Name Dose Route Start Last Admin Trade Name Freq PRN Reason Stop Dose Admin Acetaminophen 650 mg 04/28/19 23:09 Tylenol PO Q4H PRN Pain MILD(1-3)/Fever >100.5/CODY Enoxaparin Sodium 40 mg 10/15/18 10:00 10/17/18 11:22 Lovenox SUB-Q 40 mg QDAY@1000 ELHAM Administration Hydralazine HCl 5 mg 10/14/18 23:11 Apresoline IV Q6H PRN Hypertension Sodium Chloride 1,000 mls @ 100 mls/hr 10/14/18 23:45 10/17/18 04:26 Nacl 0.45% 1000 Ml IV 100 mls/hr DIRECT ELHAM Administration Methimazole 10 mg 10/15/18 10:00 10/17/18 11:21 Tapazole PO 10 mg DAILY ELHAM Administration Morphine Sulfate 2 mg 10/14/18 23:09 10/16/18 21:04 Morphine IV 2 mg Q4H PRN Administration Pain, Moderate (4-6) Ondansetron HCl 4 mg 10/14/18 23:09 10/16/18 21:03 Zofran IV 4 mg Q4H PRN Administration Nausea And Vomiting Propranolol HCl 10 mg 10/15/18 10:00 10/17/18 11:21 Inderal PO 10 mg BID ELHAM Administration Sodium Chloride 10 ml 10/15/18 10:00 10/17/18 11:22 Sodium Chloride Flush Syringe 10 Ml IV 10 ml BID ELHAM Administration Sodium Chloride 10 ml 10/14/18 23:09 Sodium Chloride Flush Syringe 10 Ml IV PRN PRN LINE FLUSH Nutrition/Malnutrition Assess - Dietary Evaluation Nutrition/Malnutrition Findings: Nutrition Notes Start: 10/15/18 16:49 Freq: Status: Active Protocol: Document 10/15/18 16:49 RM (Rec: 10/15/18 16:49 RM [id number]) Nutrition Notes Need for Assessment generated from: electrophysiology technician Initial or Follow up Brief Note Subjective/Other Information Screened for skin risk. Wilder 21 points. Nutrition Intervention Revisit per MD consult or patient Sign Off request:
--- NOTE | 2018-10-17 16:30 | Consultation ---
History of Present Illness Consult date: 10/17/18 Reason for consult: abdominal pain Requesting physician: ANGEL JANE Chief complaint: abdominal pain - History of present illness History of present illness: 48yo F admitted with abdominal pain. Work-up revealed acute pancreatitis. Patient has been seen by gastroenterology and recently had a HIDA scan. The scan elicited the exact same pain when CCK was administered. General surgery was asked to consult for consideration of cholecystectomy. Patient reports that her epigastric pain is present but much improved compared to admission. She had the similar episode of pain at the beginning of September. In addition to pain she felt as though there was pressure in the epigastric area. It felt as though food "got stuck". Past History Past Medical History: hyperthyroidism, hypertension, other (pancreatitis). denies: DVT, pulmonary embolism Past Surgical History: Other (tubal ligation, collar bone) Social history: denies: smoking, alcohol abuse, prescription drug abuse, IV drug use Family history: hypertension Medications and Allergies Allergies Allergy/AdvReac Type Severity Reaction Status Date / Time metronidazole [From Flagyl] Allergy Vomiting Verified 09/18/18 08:14 Metronidazole HCl Allergy Vomiting Verified 09/18/18 08:14 [From Flagyl] Home Medications Medication Instructions Recorded Confirmed Last Taken Type Propranolol [Inderal] 10 mg PO BID 09/18/18 10/14/18 10/14/18 History Tapazole 10 mg PO DAILY 09/18/18 10/14/18 10/14/18 History Active Meds: Active Medications Acetaminophen (Tylenol) 650 mg PO Q4H PRN PRN Reason: Pain MILD(1-3)/Fever >100.5/CODY Enoxaparin Sodium (Lovenox) 40 mg SUB-Q QDAY@1000 [facility] Last Admin: 10/17/18 11:22 Dose: 40 mg Documented by: Hydralazine HCl (Apresoline) 5 mg IV Q6H PRN PRN Reason: Hypertension Sodium Chloride (Nacl 0.45% 1000 Ml) 1,000 mls @ 100 mls/hr IV DIRECT [facility] Last Admin: 10/17/18 04:26 Dose: 100 mls/hr Documented by: Cefazolin Sodium 2 gm/ Sodium (Chloride) 100 mls @ 200 mls/hr IV PREOP ONE; Protocol Stop: 10/18/18 06:29 Methimazole (Tapazole) 10 mg PO DAILY [facility] Last Admin: 10/17/18 11:21 Dose: 10 mg Documented by: Morphine Sulfate (Morphine) 2 mg IV Q4H PRN PRN Reason: Pain, Moderate (4-6) Last Admin: 10/16/18 21:04 Dose: 2 mg Documented by: Ondansetron HCl (Zofran) 4 mg IV Q4H PRN PRN Reason: Nausea And Vomiting Last Admin: 10/16/18 21:03 Dose: 4 mg Documented by: Propranolol HCl (Inderal) 10 mg PO BID [facility] Last Admin: 10/17/18 11:21 Dose: 10 mg Documented by: Sodium Chloride (Sodium Chloride Flush Syringe 10 Ml) 10 ml IV BID [facility] Last Admin: 10/17/18 11:22 Dose: 10 ml Documented by: Sodium Chloride (Sodium Chloride Flush Syringe 10 Ml) 10 ml IV PRN PRN PRN Reason: LINE FLUSH Review of Systems - Constitutional no fever, no chills, no chronic pain - Cardiovascular no chest pain - Gastrointestinal abdominal pain, nausea, dyspepsia/bloating, no vomiting, no change in bowel habits, no hematemesis, no coffee ground emesis, no BRBPR, no melena, no hematochezia - Genitourinary Genitourinary: no dysuria - Muskuloskeletal no low back pain Exam Vital Signs Temp Pulse Resp BP Pulse Ox 98.0 F 138 H 13 129/67 97 10/14/18 19:20 10/14/18 19:20 10/14/18 19:20 10/14/18 19:20 10/14/18 19:20 - General physical appearance Positive: no distress, no pain, other (pleasant) - Eyes Positive: normal occular movement. Negative: icteric - Respiratory Positive: normal expansion, normal respiratory effort, clear to auscultation - Cardiovascular Rhythm: regular - Abdomen Abdomen: Present: soft, tender (in epigastric area only), bowel sounds hypoactive, surgical scars (well healed suprapubic incision). Absent: diste nded, guarding, rigid, wound - Integumentary no rash, no growths, no abnormal pigmentation - Neurologic Neurologic: alert and oriented to time, place and person, motor strength and sensation are grossly intact - Psychiatric Psychiatric: appropriate mood/affect, intact judgment & insight Results - Labs 10/17/18 05:39 10/17/18 05:39 Abnormal lab results 10/17/18 10/17/18 Range/Units 05:39 05:39 WBC 4.2 L (4.5-11.0) K/mm3 MCH 27 L (28-32) pg Lymph % (Auto) 43.4 H (13.4-35.0) % [place] % (Auto) 12.6 H (0.0-7.3) % BUN 6 L (7-17) mg/dL Creatinine 0.4 L (0.7-1.2) mg/dL Glucose 113 H (65-100) mg/dL Alkaline Phosphatase 207 H (35-129) units/L Albumin 3.2 L (3.9-5) g/dL Diabetes panel 10/17/18 Range/Units 05:39 Sodium 141 (137-145) mmol/L Potassium 3.9 (3.6-5.0) mmol/L Chloride 106.5 (98-107) mmol/L Carbon Dioxide 27 (22-30) mmol/L BUN 6 L (7-17) mg/dL Creatinine 0.4 L (0.7-1.2) mg/dL Glucose 113 H (65-100) mg/dL Calcium 9.3 (8.4-10.2) mg/dL AST 17 (5-40) units/L ALT 11 (7-56) units/L Alkaline Phosphatase 207 H (35-129) units/L Total Protein 6.3 (6.3-8.2) g/dL Albumin 3.2 L (3.9-5) g/dL Calcium panel 10/17/18 Range/Units 05:39 Calcium 9.3 (8.4-10.2) mg/dL Albumin 3.2 L (3.9-5) g/dL Pituitary panel 10/17/18 Range/Units 05:39 Sodium 141 (137-145) mmol/L Potassium 3.9 (3.6-5.0) mmol/L Chloride 106.5 (98-107) mmol/L Carbon Dioxide 27 (22-30) mmol/L BUN 6 L (7-17) mg/dL Creatinine 0.4 L (0.7-1.2) mg/dL Glucose 113 H (65-100) mg/dL Calcium 9.3 (8.4-10.2) mg/dL Adrenal panel 10/17/18 Range/Units 05:39 Sodium 141 (137-145) mmol/L Potassium 3.9 (3.6-5.0) mmol/L Chloride 106.5 (98-107) mmol/L Carbon Dioxide 27 (22-30) mmol/L BUN 6 L (7-17) mg/dL Creatinine 0.4 L (0.7-1.2) mg/dL Glucose 113 H (65-100) mg/dL Calcium 9.3 (8.4-10.2) mg/dL Total Bilirubin 0.90 (0.1-1.2) mg/dL AST 17 (5-40) units/L ALT 11 (7-56) units/L Alkaline Phosphatase 207 H (35-129) units/L Total Protein 6.3 (6.3-8.2) g/dL Albumin 3.2 L (3.9-5) g/dL - Imaging CT scan - abdomen: report reviewed, image reviewed CT scan - pelvis: report reviewed, image reviewed US - abdomen: report reviewed, image reviewed Assessment and Plan - Patient Problems (1) Acute pancreatitis Current Visit: Yes Status: Acute Qualifiers: Pancreatitis type: unspecified pancreatitis type Acute pancreatitis complication: no infection or necrosis Qualified Code(s): K85.90 - Acute p ancreatitis without necrosis or infection, unspecified Plan to address problem: Pt stable. In review of the US from 09/18, I think that there are stones near the neck of the GB on the images. This would then be consistent with biliary pancreatitis picture. In discussing with Dr. Jane, it makes sense that the gallbladder is the cause as her symptoms were reproduced with the CCK. Discussed pros and cons of moving forward with surgery. Procedure, risks, benefits discus sed. All questions answered. Pt wishes to proceed with surgery. Pt added on to tomorrow's surgery schedule. Will get written consent tomorrow. NPO after midnight. Please call with questions. Time=30min
[2018-10-17] MEDS: MORPHINE IV PRN ×2 (17:28→21:25)
[2018-10-17] MEDS: ZOFRAN IV PRN ×2 (17:33→21:26)
[2018-10-18] MEDS ORDERED: ceFAZolin 2 GM in NACL 0.9% 100 ML IV ONE (06:00)
[2018-10-18] MEDS: ZOFRAN IV PRN ×4 (06:03→21:43)
[2018-10-18] MEDS: MORPHINE IV PRN ×4 (06:04→21:43)
[2018-10-18] MEDS: NACL 0.45% 1000 ML 1,000 ML IV SCH ×2 (07:01→17:46)
[2018-10-18] MEDS: INDERAL PO SCH ×2 (09:16→21:44)
[2018-10-18] MEDS: TAPAZOLE PO SCH (09:17)
[2018-10-18] MEDS: SODIUM CHLORIDE FLUSH SYRINGE 10 ML IV SCH ×2 (09:17→21:44)
[2018-10-18] MEDS: LOVENOX SUB-Q SCH (10:00)
--- NOTE | 2018-10-18 14:02 | Progress Note ---
Assessment and Plan Assessment and plan: Patient is a 48-year-old woman with a history of hypertension and hyperthyroidism who was admitted with acute pancreatitis, evaluated by GI, lipase levels and symptoms significantly improved, was started on soft diet, bilateral pneumonia, treated with IV antibiotics, pulmonary and ID following, as lesions are upper lobe, airborne isolation to rule out pulmonary tuberculosis but CT chest did not show lesions or pneumonia * CTA chest IMPRESSION: There is no pulmonary embolism. There is no thoracic aortic aneurysm or dissection.. Lungs are clear and expanded. There are no infiltrates.. There is no pleural effusion or pneumothorax. There is fatty infiltration of liver. There is a 3 mm stone in the right kidney without hydronephrosis.. --Acute pancreatitis; ?GB related --Atypical chest pain; noncardiac, continue current management --No Bilateral upper lobe pneumonia; probably community-acquired --Hyperthyroidism; continue Tapazole --Hypertension; moderate control, continue current antihypertensives --Hypertension; moderate control, Continue current antihypertensives and when necessary medications --Full CODE STATUS Disposition; continue inpatient care OR for lap kenia today d/w Dr. Redmond History Interval history: Patient was seen and examined. Follow-up on current diagnosis of abd pains. No overnight events reported to me. Patient denies any chest pain, shortness breath, or severe headaches. Imaging, nursing note, chart, labs and old chart reviewed. Discussed with patient. Hospitalist Physical - Physical exam Narrative exam: Gen: WDWN, NAD, Awake, Alert, Orientated HEENT: NCAT, EOMI, PERRL, OP Clear Neck: supple, no adenopathy, no thyromegaly, no JVD CVS/Heart: RRR, normal S1S2, pulses present bilaterally Chest/Lungs: CTA B, Symmetrical chest expansion, good air entry bilaterally GI/Abdomen: soft, RUQ, tenderness, good bowel sounds, +guarding no rebound /Bladder: no suprapubic tenderness, no CVA or paraspinal tenderness Extermity/Skin: no c/c/e, no obvious rash MSK: FROM x 4 Neuro: CN 2-12 grossly intact, no new focal deficits Psych: calm - Constitutional Vitals: Temp Pulse Resp BP Pulse Ox 97.9 F 70 18 131/63 94 10/18/18 11:54 10/18/18 11:54 10/18/18 11:54 10/18/18 11:54 10/18/18 11:54 General appearance: Present: no acute distress, well-nourished Results - Labs CBC & Chem 7: 10/17/18 05:39 10/17/18 05:39 Labs: Laboratory Last Values WBC 4.2 K/mm3 (4.5-11.0) L 10/17/18 05:39 RBC 4.09 M/mm3 (3.65-5.03) 10/17/18 05:39 Hgb 11.2 gm/dl (10.1-14.3) 10/17/18 05:39 Hct 33.4 % (30.3-42.9) 10/17/18 05:39 MCV 82 fl (79-97) 10/17/18 05:39 MCH 27 pg (28-32) L 10/17/18 05:39 MCHC 34 % (30-34) 10/17/18 05:39 RDW 14.3 % (13.2-15.2) 10/17/18 05:39 Plt Count 169 K/mm3 (140-440) 10/17/18 05:39 Lymph % (Auto) 43.4 % (13.4-35.0) H 10/17/18 05:39 [place] % (Auto) 12.6 % (0.0-7.3) H 10/17/18 05:39 Eos % (Auto) 1.5 % (0.0-4.3) 10/17/18 05:39 Baso % (Auto) 0.2 % (0.0-1.8) 10/17/18 05:39 Lymph # 1.8 K/mm3 (1.2-5.4) 10/17/18 05:39 [place] # 0.5 K/mm3 (0.0-0.8) 10/17/18 05:39 Eos # 0.1 K/mm3 (0.0-0.4) 10/17/18 05:39 Baso # 0.0 K/mm3 (0.0-0.1) 10/17/18 05:39 Seg Neutrophils % 42.3 % (40.0-70.0) 10/17/18 05:39 Seg Neutrophils # 1.8 K/mm3 (1.8-7.7) 10/17/18 05:39 Sodium 141 mmol/L (137-145) 10/17/18 05:39 Potassium 3.9 mmol/L (3.6-5.0) 10/17/18 05:39 Chloride 106.5 mmol/L (98-107) 10/17/18 05:39 Carbon Dioxide 27 mmol/L (22-30) 10/17/18 05:39 Anion Gap 11 mmol/L 10/17/18 05:39 BUN 6 mg/dL (7-17) L 10/17/18 05:39 Creatinine 0.4 mg/dL (0.7-1.2) L 10/17/18 05:39 Estimated GFR > 60 ml/min 10/17/18 05:39 BUN/Creatinine Ratio 15 % 10/17/18 05:39 Glucose 113 mg/dL (65-100) H 10/17/18 05:39 Calcium 9.3 mg/dL (8.4-10.2) 10/17/18 05:39 Total Bilirubin 0.90 mg/dL (0.1-1.2) 10/17/18 05:39 Direct Bilirubin 0.2 mg/dL (0-0.2) 10/14/18 19:42 Indirect Bilirubin 0.9 mg/dL 10/14/18 19:42 AST 17 units/L (5-40) 10/17/18 05:39 ALT 11 units/L (7-56) 10/17/18 05:39 Alkaline Phosphatase 207 units/L (35-129) H 10/17/18 05:39 Total Creatine Kinase 65 units/L (30-135) 10/15/18 05:43 CK-MB (CK-2) 2.0 ng/mL (0.0-4.0) 10/15/18 05:43 CK-MB (CK-2) Rel Index 3.0 (0-4) 10/15/18 05:43 Troponin T < 0.010 ng/mL (0.00-0.029) 10/15/18 05:43 C-Reactive Protein 0.80 mg/dL (0.00-1.30) 10/15/18 09:53 NT-Pro-B Natriuret Pep 95.49 pg/mL (0-450) 10/14/18 19:42 Total Protein 6.3 g/dL (6.3-8.2) 10/17/18 05:39 Albumin 3.2 g/dL (3.9-5) L 10/17/18 05:39 Albumin/Globulin Ratio 1.0 % 10/17/18 05:39 Triglycerides 36 mg/dL (2-149) 10/14/18 23:46 Lipase 26 units/L (13-60) 10/16/18 04:51 HCG, Qual Negative (Negative) 10/14/18 19:42 Urine Color Straw (Yellow) 10/14/18 21:14 Urine Turbidity Clear (Clear) 10/14/18 21:14 Urine pH 5.0 (5.0-7.0) 10/14/18 21:14 Ur Specific [place] 1.004 (1.003-1.030) 10/14/18 21:14 Urine Protein <15 mg/dl mg/dL (Negative) 10/14/18 21:14 Urine Glucose (UA) Neg mg/dL (Negative) 10/14/18 21:14 Urine Ketones Neg mg/dL (Negative) 10/14/18 21:14 Urine Blood Sm (Negative) 10/14/18 21:14 Urine Nitrite Neg (Negative) 10/14/18 21:14 Urine Bilirubin Neg (Negative) 10/14/18 21:14 Urine Urobilinogen < 2.0 mg/dL (<2.0) 10/14/18 21:14 Ur Leukocyte Esterase Neg (Negative) 10/14/18 21:14 Urine WBC (Auto) < 1.0 /HPF (0.0-6.0) 10/14/18 21:14 Urine RBC (Auto) 3.0 /HPF (0.0-6.0) 10/14/18 21:14 U Epithel Cells (Auto) < 1.0 /HPF (0-13.0) 10/14/18 21:14 Urine Bacteria (Auto) 1+ /HPF (Negative) 10/14/18 21:14 Active Medications - Current Medications Current Medications: Generic Name Dose Route Start Last Admin Trade Name Freq PRN Reason Stop Dose Admin Acetaminophen 650 mg 10/14/18 23:09 Tylenol PO Q4H PRN Pain MILD(1-3)/Fever >100.5/CODY Enoxaparin Sodium 40 mg 10/15/18 10:00 10/17/18 11:22 Lovenox SUB-Q 40 mg QDAY@1000 ELHAM Administration Hydralazine HCl 5 mg 10/14/18 23:11 Apresoline IV Q6H PRN Hypertension Sodium Chloride 1,000 mls @ 100 mls/hr 10/14/18 23:45 10/18/18 07:01 Nacl 0.45% 1000 Ml IV 100 mls/hr DIRECT ELHAM Administration Methimazole 10 mg 10/15/18 10:00 10/18/18 09:17 Tapazole PO 10 mg DAILY ELHAM Administration Morphine Sulfate 2 mg 10/14/18 23:09 10/18/18 11:04 Morphine IV 2 mg Q4H PRN Administration Pain, Moderate (4-6) Ondansetron HCl 4 mg 10/14/18 23:09 10/18/18 11:07 Zofran IV 4 mg Q4H PRN Administration Nausea And Vomiting Propranolol HCl 10 mg 10/15/18 10:00 10/18/18 09:16 Inderal PO 10 mg BID ELHAM Administration Sodium Chloride 10 ml 10/15/18 10:00 10/18/18 09:17 Sodium Chloride Flush Syringe 10 Ml IV 10 ml BID ELHAM Administration Sodium Chloride 10 ml 10/14/18 23:09 Sodium Chloride Flush Syringe 10 Ml IV PRN PRN LINE FLUSH Nutrition/Malnutrition Assess - Dietary Evaluation Nutrition/Malnutrition Findings: Nutrition Notes Start: 10/15/18 16:49 Freq: Status: Active Protocol: Document 10/15/18 16:49 RM (Rec: 10/15/18 16:49 RM [id number]) Nutrition Notes Need for Assessment generated from: orbitread operator Initial or Follow up Brief Note Subjective/Other Information Screened for skin risk. Wilder 21 points. Nutrition Intervention Revisit per MD consult or patient Sign Off request:
--- NOTE | 2018-10-18 14:34 | Event Note ---
Date: 10/18/18 Patient for cholecystectomy today per surgery.
--- NOTE | 2018-10-18 21:04 | Event Note ---
Date: 10/18/18 surgery postponed until tomorrow. unable to do today due to cases running late. She has been added to tomorrow's schedule. Explained to patient. She understood.
[2018-10-19] MEDS: NACL 0.45% 1000 ML 1,000 ML IV SCH ×2 (03:16→13:44)
[2018-10-19] MEDS: MORPHINE IV PRN ×4 (03:17→23:05)
[2018-10-19] MEDS: ZOFRAN IV PRN ×4 (03:17→23:05)
[2018-10-19] MEDS ORDERED: ceFAZolin 2 GM in NACL 0.9% 100 ML IV ONE (06:00)
[2018-10-19] MEDS: TAPAZOLE PO SCH ×2 (09:01→09:03)
[2018-10-19] MEDS: SODIUM CHLORIDE FLUSH SYRINGE 10 ML IV SCH ×2 (09:02→21:20)
[2018-10-19] MEDS: LOVENOX SUB-Q SCH (09:02)
[2018-10-19] MEDS: INDERAL PO SCH ×2 (09:04→21:11)
--- NOTE | 2018-10-19 09:53 | Gastroenterology Progress Note ---
<LAKIA BALTAZAR - Last Filed: 10/19/18 09:54> Assessment and Plan 1.pancreatitis -patient is a 48y/o female who presents with recurrent abd pain after previously being hospitalized earlier this month (09/18-09/21) for acute pancreatitis with unknown etiology -afebrile -WBC and H/H WNL -alk phos 207 (elevated since 2014 when compared to previous labs; T.francisco javier ,AST, and ALT WNL) -lipase 26-trended down (1285 on admission) -CRP 0.80 -triglyceride level WNL -IgG4 normal (45.6) on 09/21/18 -abd CT showed pancreatitis (non-obstructing kidney stone) -abd U/S 09/18/18-showed unremarkable liver and biliary system -HIDA scan showed normal EF but presenting symptoms were reproduced with CCK -etiology-likely biliary source (biliary dyskinesia and possible microlithiasis resulting in recurrent pancreatitits) -surgery following with cholecystectomy pending for today (rescheduled yesterday) -continue to trend labs and supportive care -if pancreatitis recurs after surgery, then will check LFTs to assess for SOD, and o/w EUS Subjective Date of service: 10/19/18 Principal diagnosis: pancreatitis Interval history: No acute distress. Reports continued upper abd pain. No N/v. Objective - Constitutional Vitals: Temp Pulse Resp BP Pulse Ox 98.1 F 76 16 104/34 97 10/19/18 07:46 10/19/18 09:04 10/19/18 07:46 10/19/18 09:04 10/19/18 03:47 General appearance: no acute distress - Respiratory Respiratory: bilateral: CTA - Cardiovascular Rhythm: regular - Gastrointestinal General gastrointestinal: Present: soft, tender (slight TTP in epigastric area), non-distended, normal bowel sounds - Neurologic Neurological: alert and oriented x3 - Labs CBC & Chem 7: 10/17/18 05:39 10/17/18 05:39 <ANGEL PAGE - Last Filed: 10/19/18 15:22> Assessment and Plan Ongoing symptoms. Will await outcome after CCY. Objective - Constitutional Vitals: Temp Pulse Resp BP Pulse Ox 98.1 F 71 18 104/34 97 10/19/18 07:46 10/19/18 10:00 10/19/18 10:00 10/19/18 09:04 10/19/18 03:47 - Labs CBC & Chem 7: 10/17/18 05:39 10/17/18 05:39
--- NOTE | 2018-10-19 13:04 | Progress Note ---
Assessment and Plan Assessment and plan: Patient is a 48-year-old woman with a history of hypertension and hyperthyroidism who was admitted with acute pancreatitis, evaluated by GI, lipase levels and symptoms significantly improved, was started on soft diet, bilateral pneumonia, treated with IV antibiotics, pulmonary and ID following, as lesions are upper lobe, airborne isolation to rule out pulmonary tuberculosis but CT chest did not show lesions or pneumonia * CTA chest IMPRESSION: There is no pulmonary embolism. There is no thoracic aortic aneurysm or dissection.. Lungs are clear and expanded. There are no infiltrates.. There is no pleural effusion or pneumothorax. There is fatty infiltration of liver. There is a 3 mm stone in the right kidney without hydronephrosis.. --Acute pancreatitis; ?GB related --Atypical chest pain; noncardiac, continue current management --No Bilateral upper lobe pneumonia; probably community-acquired --Hyperthyroidism; continue Tapazole --Hypertension; moderate control, continue current antihypertensives --Hypertension; moderate control, Continue current antihypertensives and when necessary medications --Full CODE STATUS Disposition; continue inpatient care OR for lap kenia was re-scheduled for today History Interval history: Patient was seen and examined. Follow-up on current diagnosis of abd pains. No overnight events reported to me. Patient denies any chest pain, shortness breath, or severe headaches. Imaging, nursing note, chart, labs and old chart reviewed. Discussed with patient. Hospitalist Physical - Physical exam Narrative exam: Gen: WDWN, NAD, Awake, Alert, Orientated HEENT: NCAT, EOMI, PERRL, OP Clear Neck: supple, no adenopathy, no thyromegaly, no JVD CVS/Heart: RRR, normal S1S2, pulses present bilaterally Chest/Lungs: CTA B, Symmetrical chest expansion, good air entry bilaterally GI/Abdomen: soft, RUQ, tenderness, good bowel sounds, +guarding no rebound /Bladder: no suprapubic tenderness, no CVA or paraspinal tenderness Extermity/Skin: no c/c/e, no obvious rash MSK: FROM x 4 Neuro: CN 2-12 grossly intact, no new focal deficits Psych: calm - Constitutional Vitals: Temp Pulse Resp BP Pulse Ox 98.1 F 71 18 104/34 97 10/19/18 07:46 10/19/18 10:00 10/19/18 10:00 10/19/18 09:04 10/19/18 03:47 General appearance: Present: no acute distress, well-nourished Results - Labs CBC & Chem 7: 10/17/18 05:39 10/17/18 05:39 Labs: Laboratory Last Values WBC 4.2 K/mm3 (4.5-11.0) L 10/17/18 05:39 RBC 4.09 M/mm3 (3.65-5.03) 10/17/18 05:39 Hgb 11.2 gm/dl (10.1-14.3) 10/17/18 05:39 Hct 33.4 % (30.3-42.9) 10/17/18 05:39 MCV 82 fl (79-97) 10/17/18 05:39 MCH 27 pg (28-32) L 10/17/18 05:39 MCHC 34 % (30-34) 10/17/18 05:39 RDW 14.3 % (13.2-15.2) 10/17/18 05:39 Plt Count 169 K/mm3 (140-440) 10/17/18 05:39 Lymph % (Auto) 43.4 % (13.4-35.0) H 10/17/18 05:39 [place] % (Auto) 12.6 % (0.0-7.3) H 10/17/18 05:39 Eos % (Auto) 1.5 % (0.0-4.3) 10/17/18 05:39 Baso % (Auto) 0.2 % (0.0-1.8) 10/17/18 05:39 Lymph # 1.8 K/mm3 (1.2-5.4) 10/17/18 05:39 Dick[place] # 0.5 K/mm3 (0.0-0.8) 10/17/18 05:39 Eos # 0.1 K/mm3 (0.0-0.4) 10/17/18 05:39 Baso # 0.0 K/mm3 (0.0-0.1) 10/17/18 05:39 Seg Neutrophils % 42.3 % (40.0-70.0) 10/17/18 05:39 Seg Neutrophils # 1.8 K/mm3 (1.8-7.7) 10/17/18 05:39 Sodium 141 mmol/L (137-145) 10/17/18 05:39 Potassium 3.9 mmol/L (3.6-5.0) 10/17/18 05:39 Chloride 106.5 mmol/L (98-107) 10/17/18 05:39 Carbon Dioxide 27 mmol/L (22-30) 10/17/18 05:39 Anion Gap 11 mmol/L 10/17/18 05:39 BUN 6 mg/dL (7-17) L 10/17/18 05:39 Creatinine 0.4 mg/dL (0.7-1.2) L 10/17/18 05:39 Estimated GFR > 60 ml/min 10/17/18 05:39 BUN/Creatinine Ratio 15 % 10/17/18 05:39 Glucose 113 mg/dL (65-100) H 10/17/18 05:39 Calcium 9.3 mg/dL (8.4-10.2) 10/17/18 05:39 Total Bilirubin 0.90 mg/dL (0.1-1.2) 10/17/18 05:39 Direct Bilirubin 0.2 mg/dL (0-0.2) 10/14/18 19:42 Indirect Bilirubin 0.9 mg/dL 10/14/18 19:42 AST 17 units/L (5-40) 10/17/18 05:39 ALT 11 units/L (7-56) 10/17/18 05:39 Alkaline Phosphatase 207 units/L (35-129) H 10/17/18 05:39 Total Creatine Kinase 65 units/L (30-135) 10/15/18 05:43 CK-MB (CK-2) 2.0 ng/mL (0.0-4.0) 10/15/18 05:43 CK-MB (CK-2) Rel Index 3.0 (0-4) 10/15/18 05:43 Troponin T < 0.010 ng/mL (0.00-0.029) 10/15/18 05:43 C-Reactive Protein 0.80 mg/dL (0.00-1.30) 10/15/18 09:53 NT-Pro-B Natriuret Pep 95.49 pg/mL (0-450) 10/14/18 19:42 Total Protein 6.3 g/dL (6.3-8.2) 10/17/18 05:39 Albumin 3.2 g/dL (3.9-5) L 10/17/18 05:39 Albumin/Globulin Ratio 1.0 % 10/17/18 05:39 Triglycerides 36 mg/dL (2-149) 10/14/18 23:46 Lipase 26 units/L (13-60) 10/16/18 04:51 HCG, Qual Negative (Negative) 10/14/18 19:42 Urine Color Straw (Yellow) 10/14/18 21:14 Urine Turbidity Clear (Clear) 10/14/18 21:14 Urine pH 5.0 (5.0-7.0) 10/14/18 21:14 Ur Specific [place] 1.004 (1.003-1.030) 10/14/18 21:14 Urine Protein <15 mg/dl mg/dL (Negative) 10/14/18 21:14 Urine Glucose (UA) Neg mg/dL (Negative) 10/14/18 21:14 Urine Ketones Neg mg/dL (Negative) 10/14/18 21:14 Urine Blood Sm (Negative) 10/14/18 21:14 Urine Nitrite Neg (Negative) 10/14/18 21:14 Urine Bilirubin Neg (Negative) 10/14/18 21:14 Urine Urobilinogen < 2.0 mg/dL (<2.0) 10/14/18 21:14 Ur Leukocyte Esterase Neg (Negative) 10/14/18 21:14 Urine WBC (Auto) < 1.0 /HPF (0.0-6.0) 10/14/18 21:14 Urine RBC (Auto) 3.0 /HPF (0.0-6.0) 10/14/18 21:14 U Epithel Cells (Auto) < 1.0 /HPF (0-13.0) 10/14/18 21:14 Urine Bacteria (Auto) 1+ /HPF (Negative) 10/14/18 21:14 Active Medications - Current Medications Current Medications: Generic Name Dose Route Start Last Admin Trade Name Freq PRN Reason Stop Dose Admin Acetaminophen 650 mg 10/14/18 23:09 Tylenol PO Q4H PRN Pain MILD(1-3)/Fever >100.5/CODY Enoxaparin Sodium 40 mg 10/15/18 10:00 10/19/18 09:02 Lovenox SUB-Q Not Given QDAY@1000 ELHAM Hydralazine HCl 5 mg 10/14/18 23:11 Apresoline IV Q6H PRN Hypertension Sodium Chloride 1,000 mls @ 100 mls/hr 10/14/18 23:45 10/19/18 03:16 Nacl 0.45% 1000 Ml IV 100 mls/hr DIRECT ELHAM Administration Methimazole 10 mg 10/15/18 10:00 10/19/18 09:03 Tapazole PO 10 mg DAILY ELHAM Administration Morphine Sulfate 2 mg 10/14/18 23:09 10/19/18 11:02 Morphine IV 2 mg Q4H PRN Administration Pain, Moderate (4-6) Ondansetron HCl 4 mg 10/14/18 23:09 10/19/18 11:02 Zofran IV 4 mg Q4H PRN Administration Nausea And Vomiting Propranolol HCl 10 mg 10/15/18 10:00 10/19/18 09:04 Inderal PO 10 mg BID ELHAM Administration Sodium Chloride 10 ml 10/15/18 10:00 10/19/18 09:02 Sodium Chloride Flush Syringe 10 Ml IV 10 ml BID ELHAM Administration Sodium Chloride 10 ml 10/14/18 23:09 Sodium Chloride Flush Syringe 10 Ml IV PRN PRN LINE FLUSH Nutrition/Malnutrition Assess - Dietary Evaluation Nutrition/Malnutrition Findings: Nutrition Notes Start: 10/15/18 16:49 Freq: Status: Active Protocol: Document 10/19/18 09:46 ER (Rec: 10/19/18 09:58 ER [id number]) Co-Sign 10/19/18 09:46 LP Nutrition Notes Need for Assessment generated from: LOS Initial or Follow up Assessment Current Diagnosis Hypertension Other Pertinent Diagnosis Hyperthyroidism, Acute pancreatitis Current Diet NPO Labs/Tests Reviewed Pertinent Medications Reviewed Height 5 ft 3 in Weight 57.8 kg [place] Body Weight (kg) 52.27 BMI 22.6 Subjective/Other Information Screen for LOS. Pt. stated she was eating 80% of meals prior to NPO status. Pt. denied having N/V/D. Pt. stated she has trouble with BM and has felt constipated. Pt. unsure of how to help constipation. Encouraged pt. to drink plenty of fluids and consume foods with fiber (handout given). Pt . is having gallbladder removed today, pt. unsure about what to eat after surgery, education was given on diet after gallbladder removal. Burn Absent Trauma Absent GI Symptoms Constipation Current % PO Good (75-100%) #1 Nutrition Diagnosis Food and nutrition-related knowledge deficit Etiology gallbladder removal diet recommendation As Evidenced by Signs and Symptoms pt. stating she is unsure of what to eat post-surgery. Diagnosis Progress(for reassessment Resolved documentation) Is patient on ventilator? No Is Patient Ambulatory and/or Out of Bed Yes REE-([place]. Jeor-ambulatory/OOB) [ 1523.769 [id number]] Calculation Used for Recommendations [place] or Additional Notes Protein needs: 69-87g (1.2-1. 5g/kg) Fluid needs: 1 ml/kcal Nutrition Intervention Change Diet Order: Advance diet when medically feasible Teaching Recipient Patient Learning Readiness Good Teaching Methods Discussion,Handout Response to Teaching Verbalize understanding Education Handouts Provided Gallbladder Nutrition Therapy and High fiber foods Barriers to Learning Motivation RD phone number provided Yes Patient aware of follow up options Yes Goal #1 Diet advancement Goal #2 Patient to adhere to diet recommendations after surgery Follow-Up By: 10/23/18
--- NOTE | 2018-10-19 14:28 | Anesthesia Consultation ---
Anesthesia Consult and Med Hx Date of service: 10/19/18 - Airway Anesthetic Teeth Evaluation: Good ROM Head & Neck: Adequate Mental/Hyoid Distance: Adequate Mallampati Class: Class II Intubation Access Assessment: Good - Pulmonary Exam CTA: Yes - Cardiac Exam Cardiac Exam: RRR - Pre-Operative Health Status ASA Pre-Surgery Classification: ASA2 Proposed Anesthetic Plan: General - Pulmonary Hx Asthma: No (unsure) COPD: No Hx Pneumonia: No - Cardiovascular System Hx Hypertension: Yes - Central Nervous System Hx Psychiatric Problems: (yes, post tramatice stresss disorder.) - Endocrine Hx End Stage Renal Disease: No - Other Systems Hx Cancer: No
[2018-10-19] MEDS ORDERED: LACTATED RINGERS 1,000 ML ONE ×2 (14:29→18:02)
[2018-10-19] MEDS: LACTATED RINGERS 1,000 ML IV SCH (14:35)
[2018-10-19] MEDS ORDERED: NARCAN 0.4 MG/1 ML IV PRN (14:42)
[2018-10-19] MEDS ORDERED: ZOFRAN IV PRN (14:42)
[2018-10-19] MEDS ORDERED: SUBLIMAZE IV PRN (14:42)
--- NOTE | 2018-10-19 14:42 | Anesthesia Day of Surgery ---
Anesthesia Day of Surgery - Day of Surgery Patient Examined: Yes Patient H&P Reviewed: Yes Patient is NPO: Yes Beta Blockers: No Cardiac Clearance: No Pulmonary Clearance: No
[2018-10-19] MEDS ORDERED: XYLOCAINE MPF 2% ONE (14:47)
[2018-10-19] MEDS ORDERED: SUBLIMAZE ONE ×2 (14:47→16:17)
[2018-10-19] MEDS ORDERED: DIPRIVAN 10 MG/ML IV ONE (14:48)
[2018-10-19] MEDS ORDERED: VERSED ONE (14:58)
[2018-10-19] MEDS ORDERED: XYLOCAINE 1% 20 mL ONE (15:28)
[2018-10-19] MEDS ORDERED: MARCAINE 0.5% INFILTRATI ONE ×2 (15:29→16:23)
[2018-10-19] MEDS ORDERED: BLOXIVERZ ONE ×2 (15:34→16:22)
[2018-10-19] MEDS ORDERED: ROBINUL ONE (15:34)
[2018-10-19] MEDS ORDERED: ZOFRAN ONE (15:34)
[2018-10-19] MEDS ORDERED: DECADRON ONE (15:34)
[2018-10-19] MEDS ORDERED: TORADOL ONE (16:22)
[2018-10-19] MEDS ORDERED: XYLOCAINE 1% 20 mL INFILTRATI ONE (16:25)
[2018-10-19] MEDS ORDERED: NACL 0.9% IR ONE (16:26)
--- NOTE | 2018-10-19 17:16 | Post Operative Note ---
Date of procedure: 10/19/18 (dictation:[id number]) Pre-op diagnosis: gallstone pancreatitis Post-op diagnosis: same Findings: Enlarged GB with adhesions to adjacent tissues. Procedure: robotic assisted cholecystectomy lysis of adhesions IVF 1000 EBL 5cc Anesthesia: DAISY Surgeon: ANA ZHENG Engagement Manager: TAMELA CASAS Estimated blood loss: minimal Pathology: list (gallbladder) Specimen disposition: to lab Condition: stable Disposition: PACU
[2018-10-19] MEDS: DILAUDID IV PRN ×2 (17:20→17:30)
[2018-10-19] MEDS ORDERED: DILAUDID ONE ×2 (17:22→17:33)
[2018-10-19] MEDS: NORCO 5/325 PO PRN (21:11)
[2018-10-20] MEDS: ZOFRAN IV PRN (03:22)
[2018-10-20] MEDS: MORPHINE IV PRN (03:22)
[2018-10-20] MEDS: LACTATED RINGERS 1,000 ML IV SCH (05:59)
--- NOTE | 2018-10-20 08:23 | Progress Note ---
Assessment and Plan - Patient Problems (1) Acute pancreatitis Current Visit: Yes Status: Acute Qualifiers: Pancreatitis type: unspecified pancreatitis type Acute pancreatitis complication: no infection or necrosis Qualified Code(s): K85.90 - Acute pancreatitis without necrosis or infection, unspecified Plan to address problem: Pt stable. s/p robotic assisted cholecystectomy - 10/19 - POD#1. Patient appears to be doing well. Has already ambulated. May go home today if she tolerates a liquid diet and her pain is tolerable with the oral medications. - Follow-up in 2 weeks in office. - Diet as tolerated - may shower tomorrow. Pat dry wounds - no driving until cleared by surgeon - no heavy lifting or strenuous activity Please call with questions. Time=10min Subjective Date of service: 10/20/18 Patient Reports: Positive: no new complaints (feels sore around the incisions. ), tolerating liquids well. Negative: nausea, vomiting Objective Vital Signs - 12hr 10/19/18 10/20/18 10/20/18 22:00 00:00 04:00 Temperature 98.2 F 98.1 F Pulse Rate 81 71 78 Respiratory 18 18 18 Rate Blood Pressure Blood Pressure 115/56 127/61 [Left] O2 Sat by Pulse 95 95 Oximetry 10/20/18 08:10 Temperature 98.3 F Pulse Rate 88 Respiratory 16 Rate Blood Pressure 141/71 Blood Pressure [Left] O2 Sat by Pulse 92 Oximetry - General physical appearance no distress, no pain - Eyes normal occular movement - Abdomen soft, tender (incisional), distended (mild), not guarding, not rigid, surgical scars (C/D/I) - Integumentary no rash, no growths, no abnormal pigmentation - Psychiatric oriented to time, oriented to person, oriented to place, speech is normal, memory intact - Labs 10/17/18 05:39 10/17/18 05:39
--- NOTE | 2018-10-20 08:59 | Discharge Summary ---
Providers - Providers Date of Admission: 10/14/18 23:09 Attending physician: RITU HEATON MD 10/15/18 08:04 Consult to Physician [CONS] Routine Comment: Consulting Provider: CAMPOS CORLEY Physician Instructions: Reason For Exam: Pancreatitis 10/15/18 08:06 Consult to Physician [CONS] Routine Comment: Consulting Provider: SERAFIN RETANA Physician Instructions: Reason For Exam: Pneumonia bilat upper lobes 10/15/18 08:08 Consult to Physician [CONS] Routine Comment: Consulting Provider: MELANIE ALY Physician Instructions: Reason For Exam: Pneumonia upper lobes, to r/o TB 10/17/18 15:57 Consult to Physician [CONS] Routine Comment: Consulting Provider: ANA ZHENG Physician Instructions: Reason For Exam: abd pains same with CCK injection [facility] Reason for admission: pancreatitis Condition: Stable Hospital course: Patient is a 48-year-old woman with a history of hypertension and hyperthyroidism who was admitted with acute pancreatitis, evaluated by GI, lipase levels and symptoms significantly improved, was started on soft diet, bilateral pneumonia, treated with IV antibiotics, pulmonary and ID following, as lesions are upper lobe, airborne isolation to rule out pulmonary tuberculosis but CT chest did not show lesions or pneumonia * CTA chest IMPRESSION: There is no pulmonary embolism. There is no thoracic aortic aneurysm or dissection.. Lungs are clear and expanded. There are no infiltrates.. There is no pleural effusion or pneumothorax. There is fatty infiltration of liver. There is a 3 mm stone in the right kidney without hydronephrosis. * Patient to follow with GI and surgery outaptient. --Acute pancreatitis; ?GB related- patient underwent lap kenia for cholithasis --Atypical chest pain; noncardiac, secondary to cholithasis --No Bilateral upper lobe pneumonia; probably community-acquired --Hyperthyroidism; continue Tapazole --Hypertension; moderate control, continue current antihypertensives --Hypertension; moderate control, Continue current antihypertensives and when necessary medications - Disposition: DC-01 TO HOME OR SELFCARE Time spent for discharge: 35 mins Core Measure Documentation - Palliative Care Palliative Care/ Comfort Measures: Not Applicable - Core Measures Any of the following diagnoses?: none Exam - Physical Exam Narrative exam: Gen: WDWN, NAD, Awake, Alert, Orientated HEENT: NCAT, EOMI, PERRL, OP Clear Neck: supple, no adenopathy, no thyromegaly, no JVD CVS/Heart: RRR, normal S1S2, pulses present bilaterally Chest/Lungs: CTA B, Symmetrical chest expansion, good air entry bilaterally GI/Abdomen: soft, RUQ, tenderness around surgical scar, good bowel sounds, no guarding no rebound /Bladder: no suprapubic tenderness, no CVA or paraspinal tenderness Extermity/Skin: no c/c/e, no obvious rash MSK: FROM x 4 Neuro: CN 2-12 grossly intact, no new focal deficits Psych: calm - Constitutional Vitals: Temp Pulse Resp BP Pulse Ox 98.3 F 88 16 141/71 92 10/20/18 08:10 10/20/18 08:10 10/20/18 08:10 10/20/18 08:10 10/20/18 08:10 Plan Activity: fall precautions, other (see detailed surgeon instruction) Diet: low fat Wound: per your surgeon's advice Special Instructions: record daily weights, record daily BP diary, follow up in rehab Additional Instructions: - Follow-up in 2 weeks in office. - Diet as tolerated. - may shower tomorrow. Pat dry wounds. - no driving until cleared by surge on. - no heavy lifting or strenuous activity Follow up with: [place] BEBETOSAN ANTONIO MD RIMA [Primary Care Provider] - 7 Days ANA ZHENG MD [Staff Physician] - 14 Days Forms: Work/School Release Form Prescriptions: Propranolol [Inderal] 10 mg PO BID #60 tablet HYDROcodone/APAP 5-325 [[place] 5-325 mg TAB] 2 each PO Q6H PRN #14 tablet PRN Reason: Pain, Moderate (4-6) Tapazole 10 mg PO DAILY #30
--- NOTE | 2018-10-20 09:02 | Operative Report ---
PREOPERATIVE DIAGNOSIS: Gallstone pancreatitis. POSTOPERATIVE DIAGNOSIS: Gallstone pancreatitis. PROCEDURES: 1. Robotic-assisted cholecystectomy. 2. Lysis of adhesions. ATTENDING SURGEON: Marisol Redmond MD CHARGE ACCOUNTS AUDIT CLERK: Dr. Calle. ANESTHESIA: General. ESTIMATED BLOOD LOSS: Minimal. FLUIDS: 1000 mL. FINDINGS: Enlarged gallbladder with adhesions to adjacent omentum and stomach. The patient was also noted to have adhesions around the umbilicus. SPECIMEN: Gallbladder. DRAINS: None. COMPLICATIONS: Stable, transferred to Recovery Room. INDICATIONS: This is a 48-year-old female, who presented to the hospital with significant abdominal pain. The patient was diagnosed to have pancreatitis. Etiology was assessed to be the gallbladder. Upon my review of the ultrasound, I think there were stones at the neck that probably caused the pancreatitis. The patient was assessed need for cholecystectomy. Procedure, risks and benefits were explained to the patient. Risks included but were not limited to infection, bleeding, pain, injury to surrounding structures, possible need for open surgery, possible need for further procedures in the future. The patient understood and consented. OPERATIVE NOTE: The patient was brought to the operating room and placed on the table in supine position. After adequate general anesthesia was established, the patient was positioned in appropriate manner for robotic-assisted cholecystectomy. Sterile prep and drape was performed. Antibiotics have been given prior to start of the case. SCDs were in place. Time-out was called. I began by placing a Veress needle in the left upper quadrant. I was able to insufflate on the first attempt. This was replaced with a 5 mm port using an Optiview technique to enter the peritoneal cavity. There was no injury to the underlying structures. We saw a fair amount of adhesions around the umbilicus, but there was an opening where we could place a 12 mm port under direct vision, we did so. We placed two more 8 mm ports in the right side of the abdomen for the robot. Using those ports, we then took down the adhesions, we did a lysis of adhesions around the umbilicus to free up the camera port. I then replaced the 5 mm port in the left upper quadrant with an 8 mm port. Robot was docked. We inserted a gauze into the right upper quadrant and then I proceeded to the console. I began by taking down the omental adhesions from the gallbladder. Extra time was required for all the adhesiolysis. I then the stomach from the gallbladder and then proceeded to dissect out a large critical view as well as the cystic duct and cystic artery. Hemoclips were applied on the cystic duct and artery. Two clips were placed distally, one proximally on the cystic duct in relation to the gallbladder, one clip was placed on either side of the cystic artery. These were divided sharply with scissors. I then removed the gallbladder from the bed with the scissors and electrocautery. Specimen was left on the side. We evaluated the gallbladder bed. We had very good hemostasis. The clips were in place. There was no evidence of any bile leak or any bleeding. I was satisfied with the appearance. We then undocked the robot and I scrubbed back into the case. We removed the gauze and then placed an EndoCatch bag and placed the specimen into the bag and then removed it from the camera port site. Using the Jameson-Jf fascial closure device, we closed the fascia at the umbilicus with a 0 Vicryl stitch. We then removed the remaining ports. Additional local was injected into all the incisions. The abdomen had been desufflated using 4-0 Monocryl, we closed the skin sites with interrupted subcuticular stitches. Skin was cleaned and dried. Dermabond was placed. The patient tolerated the procedure well. There were no complications. All counts were correct at the end of the case. JOB# [id number] ROSETTA/JASKARAN
--- NOTE | 2018-10-20 09:26 | Post Anesthesia Evaluation ---
- Post Anesthesia Evaluation Patient Participated: Yes Airway Patent: Yes Stable Respiratory Function: Yes Nausea/Vomiting: No Temp > 96.8F: Yes Pain Manageable: Yes Adequeate Hydration: Yes Anesthesia Complications: No
[2018-10-20] MEDS: NORCO 5/325 PO PRN (10:00)
[2018-10-20] MEDS: TAPAZOLE PO SCH (10:02)
[2018-10-20] MEDS: LOVENOX SUB-Q SCH (10:02)
[2018-10-20] MEDS: INDERAL PO SCH (10:10)
[2018-10-20] MEDS: SODIUM CHLORIDE FLUSH SYRINGE 10 ML IV SCH (10:15)
--- NOTE | 2018-10-20 10:34 | Progress Note ---
Assessment and Plan - Patient Problems (1) Acute pancreatitis Current Visit: Yes Status: Acute Qualifiers: Pancreatitis type: unspecified pancreatitis type Acute pancreatitis complication: no infection or necrosis Qualified Code(s): K85.90 - Acute pancreatitis without necrosis or infection, unspecified (2) Hyperthyroidism Current Visit: No Status: Acute Subjective Principal diagnosis: pancreatitis Interval history: c/o pain at incision site no sob Objective Vital Signs - 12hr 10/20/18 10/20/18 10/20/18 00:00 04:00 08:10 Temperature 98.2 F 98.1 F 98.3 F Pulse Rate 71 78 88 Respiratory 18 18 16 Rate Blood Pressure 141/71 Blood Pressure 115/56 127/61 [Left] O2 Sat by Pulse 95 95 92 Oximetry 10/20/18 09:08 Temperature Pulse Rate Respiratory Rate Blood Pressure Blood Pressure [Left] O2 Sat by Pulse 95 Oximetry Constitutional: no acute distress, alert Eyes: non-icteric ENT: oropharynx moist Neck: no JVD Ascultation: Bilateral: clear Percussion: Bilateral: not dull Tactile fremitus: Bilateral: normal Cardiovascular: regular rate and rhythm Gastrointestinal: normoactive bowel sounds, non-distended, other (mildly distended and diffusely tender, no rebound. Bowel sounds present, diminished) Integumentary: normal Extremities: no cyanosis, no edema Neurologic: normal mental status, non-focal exam, CN II-XII normal, motor strength normal and Psychiatric: mood appropriate, affect normal CBC and BMP: 10/17/18 05:39 10/17/18 05:39 Abnormal lab findings: Abnormal Labs 10/14/18 10/14/18 10/14/18 19:42 19:42 19:42 WBC MCH Lymph % (Auto) [place] % (Auto) 7.9 H Potassium 3.1 L Chloride Carbon Dioxide 21 L BUN Creatinine 0.4 L Glucose 130 H POC Glucose Total Bilirubin Alkaline Phosphatase 251 H Albumin 3.5 L Lipase 1285 H 10/15/18 10/15/18 10/15/18 05:43 05:43 09:53 WBC MCH 27 L Lymph % (Auto) [place] % (Auto) 10.4 H Potassium Chloride 108.7 H Carbon Dioxide BUN Creatinine 0.4 L Glucose POC Glucose Total Bilirubin Alkaline Phosphatase Albumin Lipase 299 H 10/16/18 10/16/18 10/17/18 04:51 04:51 05:39 WBC 4.1 L 4.2 L MCH 27 L Lymph % (Auto) 43.4 H Luna % (Auto) 12.6 H Potassium Chloride Carbon Dioxide BUN Creatinine 0.3 L Glucose POC Glucose Total Bilirubin 1.60 H Alkaline Phosphatase 235 H Albumin 3.4 L Lipase 10/17/18 10/19/18 05:39 20:41 WBC MCH Lymph % (Auto) [place] % (Auto) Potassium Chloride Carbon Dioxide BUN 6 L Creatinine 0.4 L Glucose 113 H POC Glucose 106 H Total Bilirubin Alkaline Phosphatase 207 H Albumin 3.2 L Lipase
[2018-10-20 12:16] VITALS: BP 120/59
== END 2018-10-20 13:13 | disposition home or self-care (01) | DRG 417 ==
LOC: ED 19:16 → 4A 23:09
PROVIDERS: ADMIT Internal Medicine; ATTEND Internal Medicine
PROC: 0FT44ZZ Resection of Gallbladder, Percutaneous Endoscopic Approach (ICD-10-PCS; principal; 2018-10-19)
PROC: 0DNU4ZZ Release Omentum, Percutaneous Endoscopic Approach (ICD-10-PCS; 2018-10-19)
PROC: 8E0W4CZ Robotic Assisted Procedure of Trunk Region, Percutaneous Endoscopic Approach (ICD-10-PCS; 2018-10-19)
DX: K85.10 Biliary acute pancreatitis without necrosis or infection (principal); J18.9 Pneumonia, unspecified organism; E05.90 Thyrotoxicosis, unspecified without thyrotoxic crisis or storm; I10 Essential (primary) hypertension; R00.0 Tachycardia, unspecified; M94.0 Chondrocostal junction syndrome [Tietze]; F41.9 Anxiety disorder, unspecified; F43.10 Post-traumatic stress disorder, unspecified; K66.0 Peritoneal adhesions (postprocedural) (postinfection); Z98.51 Tubal ligation status; Z82.49 Family history of ischemic heart disease and other diseases of the circulatory system; Z79.899 Other long term (current) drug therapy
CPT/HCPCS: 36415; 71045; 71275; 74176; 78227; 80048; 80053; 80076; 81001; 82550; 82553; 82962; 83690; 83880; 84478; 84484; 84703; 85025; 85027; 86140; 87040; 87116; 88304; 93005; 93010; G0378; A9537; J0690; J0696; J1100; J1170; J1650; J1885; J2250; J2270; J2405; J2704; J2710; J2805; J3010; J7030; J7120; Q9967

== ENCOUNTER 2019-01-07 14:29 | Emergency (ER) | payer SELFPAY ==
--- NOTE | 2019-01-07 14:47 | Emergency Department Report ---
Blank Doc - Documentation Documentation: This is a 48-year-old female that presents with headache and lower back pain. Denies any injuries. Denies any urinary symptoms. This initial assessment/diagnostic orders/clinical plan/treatment(s) is/are subject to change based on patient's health status, clinical progression and re- assessment by fellow clinical providers in the ED. Further treatment and workup at subsequent clinical providers discretion. Patient/guardians urged not to elope from the ED as their condition may be serious if not clinically assessed and managed. Initial orders include: 1- Patient sent to [facility] for further evaluation and treatment
[2019-01-07] MEDS ORDERED: IBUPROFEN PO ONE (17:48)
--- NOTE | 2019-01-07 17:48 | Emergency Department Report ---
ED Back Pain/Injury HPI - General Chief Complaint: Back Pain/Injury Stated Complaint: BACK PAIN Time Seen by Provider: 01/07/19 14:46 Source: patient Limitations: No Limitations - History of Present Illness Initial Comments: 38 yo with low back pain. 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 no trauma. no fall. pain has been off and on since choley surgery in October Complaint: back pain Similar Symptoms Previously: No Place: home Radiation: none Severity: mild - Related Data Previous Rx's Medication Instructions Recorded Last Taken Type Propranolol [Inderal] 10 mg PO BID #60 tablet 10/20/18 Unknown Rx Tapazole 10 mg PO DAILY #30 10/20/18 Unknown Rx Cyclobenzaprine [Flexeril] 10 mg PO TID PRN #10 tablet 01/07/19 Unknown Rx Naproxen [Naprosyn] 500 mg PO BID PRN #20 tablet 01/07/19 Unknown Rx Allergies Allergy/AdvReac Type Severity Reaction Status Date / Time metronidazole [From Flagyl] Allergy Vomiting Verified 09/18/18 08:14 Metronidazole HCl Allergy Vomiting Verified 09/18/18 08:14 [From Flagyl] ED Review of Systems ROS: Stated complaint: BACK PAIN Other details as noted in HPI Comment: All other systems reviewed and negative ED Past Medical Hx - Past Medical History hyperthyroid. fibroids. heart murmur Surgical history: cholecystectomy Psychiatric history: no pertinent history Family history: hypertension ED Back Pain Physical Exam - Exam General: Vital signs noted. No distress. Alert and acting appropriately. Back/Abdomen: No Abdominal Tenderness, No Perithoracic Tenderness, No Perilumbar Tenderness, No Sacroiliac Tenderness, No Flank Tenderness, No Straight Leg Raise Pain Neuro: Yes Normal Sensation, Yes Normal DTR's, Yes Normal Gait, No Motor Weakness ED Course Vital Signs 01/07/19 14:45 Temperature 98.3 F Pulse Rate 95 H Respiratory 16 Rate Blood Pressure 140/70 O2 Sat by Pulse 100 Oximetry Ed Back Pain Tests - Tests Tests: Normal UA ED Medical Decision Making - Medical Decision Making no spine tenderness no trauma no fall neuro intact ambulatory medicated in er dc home with dc plan of care Vital Signs (72 hours) 01/07/19 14:45 Temperature 98.3 F Pulse Rate 95 H Respiratory 16 Rate Blood Pressure 140/70 O2 Sat by Pulse 100 Oximetry - Differential Diagnosis RO UTI Critical care attestation.: If time is entered above; I have spent that time in minutes in the direct care of this critically ill patient, excluding procedure time. ED Disposition Clinical Impression: Back pain Disposition: - TO HOME OR SELFCARE Is pt being admited?: No Does the pt Need Aspirin: No Condition: Stable Instructions: Low Back Strain (ED) Additional Instructions: meds as ordered if treating the muscle component does not improve follow up with your PCP or choley surgeon urine normal/ neg Prescriptions: Cyclobenzaprine [Flexeril] 10 mg PO TID PRN #10 tablet PRN Reason: Muscle Spasm Naproxen [Naprosyn] 500 mg PO BID PRN #20 tablet PRN Reason: Pain Referrals: KIMBERLY CARRILLO MD [Staff Physician] - 3-5 Days Time of Disposition: 18:28
[2019-01-07 18:22] LABS: HCG Qualitative,Urine Negative (Negative)
[2019-01-07 18:24] LABS: Bilirubin,Urine NEG (Negative); Blood,Urine MOD (Negative); Color,Urine Yellow (Yellow); Mucus,Urine FEW /HPF; Protein,Urine <15 mg/dL mg/dL (Negative); Urobilinogen,Urine < 2.0 mg/dL (<2.0); WBC,Urine < 1.0 /HPF (0.0-6.0)
[2019-01-07 18:56] VITALS: BP 109/51
== END 2019-01-07 18:55 | disposition home or self-care (01) ==
LOC: ED 14:29
DX: M54.5 Low back pain (principal); Z90.49 Acquired absence of other specified parts of digestive tract; E05.90 Thyrotoxicosis, unspecified without thyrotoxic crisis or storm; Z88.1 Allergy status to other antibiotic agents
CPT/HCPCS: 81001; 81025

== ENCOUNTER 2019-02-27 11:37 | Emergency (ER) | payer SELFPAY ==
--- NOTE | 2019-02-27 11:47 | Emergency Department Report ---
Blank Doc - Documentation Documentation: 49-year-old female that presents with body aches, headache, abdominal pain with n/v. This initial assessment/diagnostic orders/clinical plan/treatment(s) is/are subject to change based on patient's health status, clinical progression and re- assessment by fellow clinical providers in the ED. Further treatment and workup at subsequent clinical providers discretion. Patient/guardians urged not to elope from the ED as their condition may be serious if not clinically assessed and managed. Initial orders include: 1- Patient sent to [facility] for further evaluation and treatment 2- labs 3- UA
[2019-02-27 13:16] LABS: Basophils % (Auto) 0.7 % (0.0-1.8); Eosinophils % (Auto) 0.1 % (0.0-4.3); Hematocrit 39.5 % (30.3-42.9); Hemoglobin 13.2 gm/dl (10.1-14.3); Lymphocytes # (Auto) 1.8 K/mm3 (1.2-5.4); Lymphocytes % (Auto) 39.2 % (13.4-35.0); Mean Corpuscular HGB Conc 33 % (30-34); Mean Corpuscular Volume 82 fl (79-97); Monocytes # (Auto) 0.5 K/mm3 (0.0-0.8); Monocytes % (Auto) 10.5 % (0.0-7.3); Platelet Count 181 K/mm3 (140-440); Red Blood Count 4.81 M/mm3 (3.65-5.03); Red Cell Distribution Width 14.2 % (13.2-15.2)
[2019-02-27 14:25] LABS: Alanine Aminotransferase 32 units/L (7-56); Albumin 4.1 g/dL (3.9-5); BUN/Creatinine Ratio 38; Blood Urea Nitrogen 15 mg/dL (7-17); Calcium 10.4 mg/dL (8.4-10.2); Hemolysis Index 4
[2019-02-27 14:45] LABS: Bacteria,Urine 2+ /HPF (Negative); Mucus,Urine 1+ /HPF
[2019-02-27] MEDS ORDERED: BENADRYL IV ONE (14:54)
[2019-02-27] MEDS ORDERED: NACL 0.9% 1000 ML 1,000 ML IV ONE (14:54)
[2019-02-27] MEDS ORDERED: ZOFRAN IV ONE (14:54)
[2019-02-27] MEDS ORDERED: FIORICET PO ONE (14:54)
[2019-02-27] MEDS ORDERED: SOLU-Medrol IV ONE (14:54)
[2019-02-27] MEDS ORDERED: REGLAN IV ONE (14:54)
[2019-02-27 15:27] LABS: Bilirubin,Urine NEG (Negative); Blood,Urine SM (Negative); Color,Urine Yellow (Yellow); Protein,Urine <15 mg/dL mg/dL (Negative); RBC,Urine < 1.0 /HPF (0.0-6.0); Urobilinogen,Urine < 2.0 mg/dL (<2.0)
[2019-02-27 15:28] LABS: WBC,Urine < 1.0 /HPF (0.0-6.0)
--- NOTE | 2019-02-27 15:55 | Emergency Department Report ---
ED General Adult HPI - General Chief complaint: Abdominal Pain Stated complaint: MIGRAINE/BACK PAIN/CHEST PAIN Time Seen by Provider: 02/27/19 11:45 Source: patient Mode of arrival: Ambulatory Limitations: No Limitations - History of Present Illness Initial comments: Patient presents to the emergency department with a chief complaint of nausea and vomiting that started yesterday as well as a headache. Patient states she thrown up so much over the last 2 days that she has a burning sensation in her chest. Patient also complains of a throbbing diffuse headache that is not the worse headache of her life. Patient also complains some abdominal cramping as well. Patient denies any head trauma. -: Sudden Location: abdomen Severity scale (0 -10): 5 Quality: aching Consistency: constant Improves with: none Worsens with: none Associated Symptoms: denies other symptoms Treatments Prior to Arrival: none - Related Data Previous Rx's Medication Instructions Recorded Last Taken Type Propranolol [Inderal] 10 mg PO BID #60 tablet 10/20/18 Unknown Rx Tapazole 10 mg PO DAILY #30 10/20/18 Unknown Rx Cyclobenzaprine [Flexeril] 10 mg PO TID PRN #10 tablet 01/07/19 Unknown Rx Naproxen [Naprosyn] 500 mg PO BID PRN #20 tablet 01/07/19 Unknown Rx Butalb/Acetamin/Caff 50-325-40 1 tab PO Q6HR PRN #24 tab 02/27/19 Unknown Rx [Fioricet] Dicyclomine [Bentyl] 10 mg PO QID PRN #20 capsule 02/27/19 Unknown Rx Ondansetron [Zofran Odt] 4 mg PO Q4HR PRN #20 tab.rapdis 02/27/19 Unknown Rx Promethazine [Phenergan TAB] 25 mg PO Q6HR PRN #20 tab 02/27/19 Unknown Rx Allergies Allergy/AdvReac Type Severity Reaction Status Date / Time metronidazole [From Flagyl] Allergy Vomiting Verified 09/18/18 08:14 Metronidazole HCl Allergy Vomiting Verified 09/18/18 08:14 [From Flagyl] ED Review of Systems ROS: Stated complaint: MIGRAINE/BACK PAIN/CHEST PAIN Other details as noted in HPI Comment: All other systems reviewed and negative Constitutional: denies: chills, fever Eyes: denies: eye pain, eye discharge, vision change ENT: denies: ear pain, throat pain Respiratory: denies: cough, shortness of breath, wheezing Cardiovascular: denies: chest pain, palpitations Endocrine: no symptoms reported Gastrointestinal: abdominal pain, nausea, vomiting. denies: diarrhea Genitourinary: denies: urgency, dysuria, discharge Musculoskeletal: denies: back pain, joint swelling, arthralgia Skin: denies: rash, lesions Neurological: denies: headache, weakness, paresthesias Psychiatric: denies: anxiety, depression Hematological/Lymphatic: denies: easy bleeding, easy bruising ED Past Medical Hx - Past Medical History Previous Medical History?: Yes Hx Hypertension: Yes Hx Congestive Heart Failure: No Hx Diabetes: No Hx Asthma: (unsure) Hx COPD: No Additional medical history: hyperthyroid. fibroids. heart murmur - Surgical History Past Surgical History?: Yes Hx Cholecystectomy: Yes Hx Breast Surgery: Yes (LEFT BREAST BIOPSY) Additional Surgical History: tubal ligation. left collar bone surgery - Social History Smoking Status: Never Smoker Substance Use Type: None - Medications Home Medications: Home Medications Medication Instructions Recorded Confirmed Last Taken Type Propranolol [Inderal] 10 mg PO BID #60 tablet 10/20/18 Unknown Rx Tapazole 10 mg PO DAILY #30 10/20/18 Unknown Rx Cyclobenzaprine [Flexeril] 10 mg PO TID PRN #10 tablet 01/07/19 Unknown Rx Naproxen [Naprosyn] 500 mg PO BID PRN #20 tablet 01/07/19 Unknown Rx Butalb/Acetamin/Caff 50-325-40 1 tab PO Q6HR PRN #24 tab 02/27/19 Unknown Rx [Fioricet] Dicyclomine [Bentyl] 10 mg PO QID PRN #20 capsule 02/27/19 Unknown Rx Ondansetron [Zofran Odt] 4 mg PO Q4HR PRN #20 tab.rapdis 02/27/19 Unknown Rx Promethazine [Phenergan TAB] 25 mg PO Q6HR PRN #20 tab 02/27/19 Unknown Rx ED Physical Exam - General Limitations: No Limitations General appearance: alert, in no apparent distress - Head Head exam: Present: atraumatic, normocephalic - Eye Eye exam: Present: normal appearance, PERRL, EOMI - ENT ENT exam: Present: mucous membranes moist - Neck Neck exam: Present: normal inspection - Respiratory Respiratory exam: Present: normal lung sounds bilaterally. Absent: respiratory distress, wheezes, rales - Cardiovascular Cardiovascular Exam: Present: normal rhythm, tachycardia. Absent: systolic murmur, diastolic murmur, rubs, gallop - GI/Abdominal GI/Abdominal exam: Present: soft, normal bowel sounds. Absent: distended, tenderness - Extremities Exam Extremities exam: Present: normal inspection - Back Exam Back exam: Present: normal inspection - Neurological Exam Neurological exam: Present: alert, oriented X3, CN II-XII intact. Absent: motor sensory deficit - Psychiatric Psychiatric exam: Present: normal affect, normal mood - Skin Skin exam: Present: warm, dry, intact, normal color. Absent: rash ED Course Vital Signs 02/27/19 11:45 Temperature 98.3 F Pulse Rate 101 H Respiratory 16 Rate Blood Pressure 143/82 [Left] O2 Sat by Pulse 96 Oximetry ED Medical Decision Making - Lab Data Result diagrams: 02/27/19 12:42 02/27/19 12:42 Lab Results 02/27/19 02/27/19 02/27/19 Range/Units 12:42 12:42 13:48 WBC 4.6 (4.5-11.0) K/mm3 RBC 4.81 (3.65-5.03) M/mm3 Hgb 13.2 (10.1-14.3) gm/dl Hct 39.5 (30.3-42.9) % MCV 82 (79-97) fl MCH 27 L (28-32) pg MCHC 33 (30-34) % RDW 14.2 (13.2-15.2) % Plt Count 181 (140-440) K/mm3 Lymph % (Auto) 39.2 H (13.4-35.0) % [place] % (Auto) 10.5 H (0.0-7.3) % Eos % (Auto) 0.1 (0.0-4.3) % Baso % (Auto) 0.7 (0.0-1.8) % Lymph # 1.8 (1.2-5.4) K/mm3 [place] # 0.5 (0.0-0.8) K/mm3 Eos # 0.0 (0.0-0.4) K/mm3 Baso # 0.0 (0.0-0.1) K/mm3 Seg Neutrophils % 49.5 (40.0-70.0) % Seg Neutrophils # 2.3 (1.8-7.7) K/mm3 Sodium 145 (137-145) mmol/L Potassium 4.2 (3.6-5.0) mmol/L Chloride 103.9 (98-107) mmol/L Carbon Dioxide 23 (22-30) mmol/L Anion Gap 22 mmol/L BUN 15 (7-17) mg/dL Creatinine 0.4 L (0.7-1.2) mg/dL Estimated GFR > 60 ml/min BUN/Creatinine Ratio 38 % Glucose 109 H (65-100) mg/dL Calcium 10.4 H (8.4-10.2) mg/dL Total Bilirubin 1.90 H (0.1-1.2) mg/dL AST 37 (5-40) units/L ALT 32 (7-56) units/L Alkaline Phosphatase 262 H (35-129) units/L Total Protein 7.3 (6.3-8.2) g/dL Albumin 4.1 (3.9-5) g/dL Albumin/Globulin Ratio 1.3 % Lipase 55 (13-60) units/L Urine Color Yellow (Yellow) Urine Turbidity Turbid (Clear) Urine pH 5.0 (5.0-7.0) Ur Specific [place] 1.038 H (1.003-1.030) Urine Protein <15 mg/dl (Negative) mg/dL Urine Glucose (UA) Neg (Negative) mg/dL Urine Ketones Tr (Negative) mg/dL Urine Blood Sm (Negative) Urine Nitrite Neg (Negative) Urine Bilirubin Neg (Negative) Urine Urobilinogen < 2.0 (<2.0) mg/dL Ur Leukocyte Esterase Neg (Negative) Urine WBC (Auto) < 1.0 (0.0-6.0) /HPF Urine RBC (Auto) < 1.0 (0.0-6.0) /HPF Urine Bacteria (Auto) 2+ (Negative) /HPF Urine Mucus 1+ /HPF - Medical Decision Making Discussed results with patient CODY completely resolved with [facility] Critical care attestation.: If time is entered above; I have spent that time in minutes in the direct care of this critically ill patient, excluding procedure time. ED Disposition Clinical Impression: Headache, Nausea & vomiting Disposition: DC-01 TO HOME OR SELFCARE Is pt being admited?: No Does the pt Need Aspirin: No Condition: Stable Instructions: Abdominal Pain (ED), Acute Headache (ED) Additional Instructions: return if worse Referrals: PR[facility]ARE,MD [Primary Care Provider] - 3-5 Days [facility] [Provider Group] - 3-5 Days [facility] [Provider Group] - 3-5 Days Time of Disposition: 16:02
[2019-02-27 16:27] VITALS: BP 129/58
== END 2019-02-27 16:27 | disposition home or self-care (01) ==
LOC: ED 11:37
DX: R11.2 Nausea with vomiting, unspecified (principal); R51 Headache; I10 Essential (primary) hypertension; E05.90 Thyrotoxicosis, unspecified without thyrotoxic crisis or storm; Z90.49 Acquired absence of other specified parts of digestive tract; Z98.51 Tubal ligation status; Z79.899 Other long term (current) drug therapy; Z88.8 Allergy status to other drugs, medicaments and biological substances
CPT/HCPCS: 36415; 80053; 81001; 83690; 85025; 96361; 96374; 96375; 99283; J1200; J2405; J2765; J2930; J7030

== ENCOUNTER 2019-03-26 11:16 | Emergency (ER) | payer SELFPAY ==
[2019-03-26 11:23] VITALS: BP 167/83
[2019-03-26] MEDS ORDERED: DOCUSATE SODIUM 100 MG/10 ML ORAL LIQD PO ONE (11:28)
--- NOTE | 2019-03-26 11:32 | Emergency Department Report ---
ED ENT HPI - General Chief complaint: Earache Stated complaint: LFT EAR CLOGED/CANT HEAR/PAIN Time Seen by Provider: 03/26/19 11:28 Source: patient Mode of arrival: Ambulatory Limitations: No Limitations - History of Present Illness Initial comments: CC: "My ear is clogged up. I can't hear anything." HPI: Mrs. Desai is a 49-year-old female presents with decreased hearing in left ear. She has wax buildup in her left ear. She attempted home remedy including solution with materials at home as well as Q-tip. No trauma. No fever. No nasal congestion. MD complaint: ear pain -: Gradual Location: L ear Severity: mild Quality: dull Consistency: constant Worsens with: none Context- Ear: other (home remedies, Q-tip wax buildup) - Related Data Previous Rx's Medication Instructions Recorded Last Taken Type Propranolol [Inderal] 10 mg PO BID #60 tablet 10/20/18 Unknown Rx Tapazole 10 mg PO DAILY #30 10/20/18 Unknown Rx Cyclobenzaprine [Flexeril] 10 mg PO TID PRN #10 tablet 01/07/19 Unknown Rx Naproxen [Naprosyn] 500 mg PO BID PRN #20 tablet 01/07/19 Unknown Rx Butalb/Acetamin/Caff 50-325-40 1 tab PO Q6HR PRN #24 tab 02/27/19 Unknown Rx [Fioricet] Dicyclomine [Bentyl] 10 mg PO QID PRN #20 capsule 02/27/19 Unknown Rx Ondansetron [Zofran Odt] 4 mg PO Q4HR PRN #20 tab.rapdis 02/27/19 Unknown Rx Promethazine [Phenergan TAB] 25 mg PO Q6HR PRN #20 tab 02/27/19 Unknown Rx Allergies Allergy/AdvReac Type Severity Reaction Status Date / Time metronidazole [From Flagyl] Allergy Vomiting Verified 09/18/18 08:14 Metronidazole HCl Allergy Vomiting Verified 03/26/19 11:23 [From Flagyl] ED Dental HPI - General Chief complaint: Earache Stated complaint: LFT EAR CLOGED/CANT HEAR/PAIN Time Seen by Provider: 03/26/19 11:28 Source: patient Mode of arrival: Ambulatory Limitations: No Limitations - Related Data Previous Rx's Medication Instructions Recorded Last Taken Type Propranolol [Inderal] 10 mg PO BID #60 tablet 10/20/18 Unknown Rx Tapazole 10 mg PO DAILY #30 10/20/18 Unknown Rx Cyclobenzaprine [Flexeril] 10 mg PO TID PRN #10 tablet 01/07/19 Unknown Rx Naproxen [Naprosyn] 500 mg PO BID PRN #20 tablet 01/07/19 Unknown Rx Butalb/Acetamin/Caff 50-325-40 1 tab PO Q6HR PRN #24 tab 02/27/19 Unknown Rx [Fioricet] Dicyclomine [Bentyl] 10 mg PO QID PRN #20 capsule 02/27/19 Unknown Rx Ondansetron [Zofran Odt] 4 mg PO Q4HR PRN #20 tab.rapdis 02/27/19 Unknown Rx Promethazine [Phenergan TAB] 25 mg PO Q6HR PRN #20 tab 02/27/19 Unknown Rx Allergies Allergy/AdvReac Type Severity Reaction Status Date / Time metronidazole [From Flagyl] Allergy Vomiting Verified 09/18/18 08:14 Metronidazole HCl Allergy Vomiting Verified 03/26/19 11:23 [From Flagyl] ED Review of Systems ROS: Stated complaint: LFT EAR CLOGED/CANT HEAR/PAIN Other details as noted in HPI Constitutional: denies: fever, malaise ENT: ear pain, hearing loss. denies: dental pain, congestion Respiratory: denies: cough, shortness of breath, wheezing Cardiovascular: denies: chest pain ED Past Medical Hx - Past Medical History Previous Medical History?: Yes Hx Hypertension: Yes Hx Congestive Heart Failure: No Hx Diabetes: No Hx Asthma: (unsure) Hx COPD: No Additional medical history: hyperthyroid. fibroids. heart murmur - Surgical History Past Surgical History?: Yes Hx Cholecystectomy: Yes Hx Breast Surgery: Yes (LEFT BREAST BIOPSY) Additional Surgical History: tubal ligation. left collar bone surgery - Social History Smoking Status: Never Smoker Substance Use Type: None - Medications Home Medications: Home Medications Medication Instructions Recorded Confirmed Last Taken Type Propranolol [Inderal] 10 mg PO BID #60 tablet 10/20/18 Unknown Rx Tapazole 10 mg PO DAILY #30 10/20/18 Unknown Rx Cyclobenzaprine [Flexeril] 10 mg PO TID PRN #10 tablet 01/07/19 Unknown Rx Naproxen [Naprosyn] 500 mg PO BID PRN #20 tablet 01/07/19 Unknown Rx Butalb/Acetamin/Caff 50-325-40 1 tab PO Q6HR PRN #24 tab 02/27/19 Unknown Rx [Fioricet] Dicyclomine [Bentyl] 10 mg PO QID PRN #20 capsule 02/27/19 Unknown Rx Ondansetron [Zofran Odt] 4 mg PO Q4HR PRN #20 tab.rapdis 02/27/19 Unknown Rx Promethazine [Phenergan TAB] 25 mg PO Q6HR PRN #20 tab 02/27/19 Unknown Rx ED Physical Exam - General Limitations: No Limitations General appearance: alert, in no apparent distress - Eye Eye exam: Absent: scleral icterus, conjunctival injection, nystagmus, periorbital swelling, periorbital tenderness - ENT ENT exam: Present: normal orophraynx, other (cerumen impaction left ear) - Neurological Exam Neurological exam: Present: alert, oriented X3 - Psychiatric Psychiatric exam: Present: normal affect, normal mood - Skin Skin exam: Present: warm, dry, intact, normal color ED Course Vital Signs 03/26/19 11:20 Temperature 98 F Pulse Rate 126 H Respiratory 20 Rate Blood Pressure 167/83 [Right] O2 Sat by Pulse 98 Oximetry ED Medical Decision Making - Medical Decision Making Cerumen impaction, Colace was used for wax removal. Critical care attestation.: If time is entered above; I have spent that time in minutes in the direct care of this critically ill patient, excluding procedure time. ED Disposition Clinical Impression: Impacted cerumen, left ear Disposition: DC-01 TO HOME OR SELFCARE Is pt being admited?: No Does the pt Need Aspirin: No Condition: Stable Instructions: Cerumen Impaction (ED)
== END 2019-03-26 12:51 | disposition home or self-care (01) ==
LOC: ED 11:16
DX: H61.22 Impacted cerumen, left ear (principal); I10 Essential (primary) hypertension; Z90.49 Acquired absence of other specified parts of digestive tract; Z98.51 Tubal ligation status; Z79.899 Other long term (current) drug therapy; Z88.1 Allergy status to other antibiotic agents
CPT/HCPCS: 99282

== ENCOUNTER 2019-05-05 08:49 | Emergency (ER) | payer SELFPAY ==
--- NOTE | 2019-05-05 09:20 | XRay Report ---
ABDOMEN 1 VIEW(S) INDICATION / CLINICAL INFORMATION: No BM in 2 weeks, abd distention. COMPARISON: CT abdomen and pelvis on 10/14/2018. FINDINGS: TUBES / LINES: None. BOWEL GAS PATTERN/EXTRALUMINAL GAS: No dilated loops of small or large bowel. No pneumatosis or secon vane signs of free air. Moderate constipation. ADDITIONAL FINDINGS: No significant additional findings. IMPRESSION: 1. No acute findings. Moderate constipation. Signer Name: Dale Huertas MD Signed: 05/05/2019 9:16 AM Workstation Name: [employer]
[2019-05-05 10:24] LABS: Bacteria,Urine 1+ /HPF (Negative); Bilirubin,Urine NEG (Negative); Blood,Urine MOD (Negative); Color,Urine Yellow (Yellow); Mucus,Urine FEW /HPF; Protein,Urine <15 mg/dL mg/dL (Negative); Urobilinogen,Urine < 2.0 mg/dL (<2.0)
[2019-05-05 10:27] LABS: Amphetamine Screen,Urine PRESUMPTIVE NEGATIVE; Benzodiazepines Screen,Urine PRESUMPTIVE NEGATIVE; Cannabinoid Screen,Urine PRESUMPTIVE NEGATIVE; Cocaine Screen,Urine PRESUMPTIVE NEGATIVE; Methadone Screen,Urine PRESUMPTIVE NEGATIVE; Opiate Screen,Urine PRESUMPTIVE NEGATIVE
--- NOTE | 2019-05-05 10:39 | XRay Report ---
CHEST 1 VIEW 05/05/2019 10:15 AM INDICATION / CLINICAL INFORMATION: tachycardia. COMPARISON: Chest x-ray on 10/14/2018 FINDINGS: SUPPORT DEVICES: None. HEART / MEDIASTINUM: No significant abnormality. LUNGS / PLEURA: No significant pulmonary or pleural abnormality. No pneumothorax. ADDITIONAL FINDINGS: No significant additional findings. IMPRESSION: 1. No acute findings. Signer Name: Dale Huertas MD Signed: 05/05/2019 10:35 AM Workstation Name: [id number]
[2019-05-05 10:54] LABS: Basophils # (Auto) 0.1 K/mm3 (0.0-0.1); Basophils % (Auto) 0.9 % (0.0-1.8); Eosinophils % (Auto) 0.4 % (0.0-4.3); Hematocrit 37.3 % (30.3-42.9); Hemoglobin 12.4 gm/dl (10.1-14.3); Lymphocytes # (Auto) 2.5 K/mm3 (1.2-5.4); Lymphocytes % (Auto) 44.8 % (13.4-35.0); Mean Corpuscular HGB Conc 33 % (30-34); Mean Corpuscular Volume 83 fl (79-97); Monocytes # (Auto) 0.9 K/mm3 (0.0-0.8); Monocytes % (Auto) 15.5 % (0.0-7.3); Platelet Count 214 K/mm3 (140-440); Red Blood Count 4.48 M/mm3 (3.65-5.03); Red Cell Distribution Width 14.5 % (13.2-15.2)
[2019-05-05] MEDS ORDERED: PROPRANOLOL 10 MG TAB PO ONE (11:00)
[2019-05-05] MEDS ORDERED: propylthiouraciL 50 MG TAB PO ONE (11:00)
[2019-05-05 11:03] LABS: INR 1.13 (0.87-1.13)
[2019-05-05 11:11] LABS: Alanine Aminotransferase 14 units/L (7-56); Albumin 3.8 g/dL (3.9-5); BUN/Creatinine Ratio 37; Blood Urea Nitrogen 11 mg/dL (7-17); Calcium 10.2 mg/dL (8.4-10.2); Hemolysis Index 19
--- NOTE | 2019-05-05 12:37 | Emergency Department Report ---
ED General Adult HPI - General Chief complaint: Abdominal Pain Stated complaint: NO BOWEL 2WKS/N/BREAST PAIN Time Seen by Provider: 05/05/19 09:38 Source: patient Mode of arrival: Ambulatory Limitations: No Limitations - History of Present Illness Initial comments: Patient presents to the emergency department with a chief complaint of constipation. Patient states that she has not had a bowel movement in the last couple of days. Patient is very anxious on initial examination with obvious tremors. She denies chest pain, shortness breath, or headache. -: unknown Consistency: constant Improves with: none Worsens with: none Associated Symptoms: denies other symptoms Treatments Prior to Arrival: none - Related Data Previous Rx's Medication Instructions Recorded Last Taken Type Propranolol [Inderal] 10 mg PO BID #60 tablet 10/20/18 Unknown Rx Tapazole 10 mg PO DAILY #30 10/20/18 Unknown Rx Cyclobenzaprine [Flexeril] 10 mg PO TID PRN #10 tablet 01/07/19 Unknown Rx Naproxen [Naprosyn] 500 mg PO BID PRN #20 tablet 01/07/19 Unknown Rx Butalb/Acetamin/Caff 50-325-40 1 tab PO Q6HR PRN #24 tab 02/27/19 Unknown Rx [Fioricet] Dicyclomine [Bentyl] 10 mg PO QID PRN #20 capsule 02/27/19 Unknown Rx Ondansetron [Zofran Odt] 4 mg PO Q4HR PRN #20 tab.rapdis 02/27/19 Unknown Rx Promethazine [Phenergan TAB] 25 mg PO Q6HR PRN #20 tab 02/27/19 Unknown Rx Allergies Allergy/AdvReac Type Severity Reaction Status Date / Time metronidazole [From Flagyl] Allergy Vomiting Verified 09/18/18 08:14 Metronidazole HCl Allergy Vomiting Verified 03/26/19 11:23 [From Flagyl] ED Review of Systems ROS: Stated complaint: NO BOWEL 2WKS/N/BREAST PAIN Other details as noted in HPI Comment: All other systems reviewed and negative Constitutional: denies: chills, fever Eyes: denies: eye pain, eye discharge, vision change ENT: denies: ear pain, throat pain Respiratory: denies: cough, shortness of breath, wheezing Cardiovascular: denies: chest pain, palpitations Endocrine: no symptoms reported Gastrointestinal: constipation. denies: abdominal pain, nausea, diarrhea Genitourinary: denies: urgency, dysuria, discharge Musculoskeletal: denies: back pain, joint swelling, arthralgia Skin: denies: rash, lesions Neurological: denies: headache, weakness, paresthesias Psychiatric: denies: anxiety, depression Hematological/Lymphatic: denies: easy bleeding, easy bruising ED Past Medical Hx - Past Medical History Previous Medical History?: Yes Hx Hypertension: Yes Hx Congestive Heart Failure: No Hx Diabetes: No Hx Asthma: (unsure) Hx COPD: No Additional medical history: hyperthyroid. fibroids. heart murmur - Surgical History Past Surgical History?: Yes Hx Cholecystectomy: Yes Hx Breast Surgery: Yes (LEFT BREAST BIOPSY) Additional Surgical History: tubal ligation. left collar bone surgery - Social History Smoking Status: Never Smoker - Medications Home Medications: Home Medications Medication Instructions Recorded Confirmed Last Taken Type Propranolol [Inderal] 10 mg PO BID #60 tablet 10/20/18 Unknown Rx Tapazole 10 mg PO DAILY #30 10/20/18 Unknown Rx Cyclobenzaprine [Flexeril] 10 mg PO TID PRN #10 tablet 01/07/19 Unknown Rx Naproxen [Naprosyn] 500 mg PO BID PRN #20 tablet 01/07/19 Unknown Rx Butalb/Acetamin/Caff 50-325-40 1 tab PO Q6HR PRN #24 tab 02/27/19 Unknown Rx [Fioricet] Dicyclomine [Bentyl] 10 mg PO QID PRN #20 capsule 02/27/19 Unknown Rx Ondansetron [Zofran Odt] 4 mg PO Q4HR PRN #20 tab.rapdis 02/27/19 Unknown Rx Promethazine [Phenergan TAB] 25 mg PO Q6HR PRN #20 tab 02/27/19 Unknown Rx ED Physical Exam - General Limitations: No Limitations General appearance: alert, in no apparent distress, anxious - Head Head exam: Present: atraumatic, normocephalic - Eye Eye exam: Present: normal appearance, PERRL, EOMI - ENT ENT exam: Present: mucous membranes dry - Neck Neck exam: Present: normal inspection - Respiratory Respiratory exam: Present: normal lung sounds bilaterally. Absent: respiratory distress - Cardiovascular Cardiovascular Exam: Present: normal rhythm, tachycardia, irregular rhythm. Absent: systolic murmur, diastolic murmur, rubs, gallop - GI/Abdominal GI/Abdominal exam: Present: soft, normal bowel sounds. Absent: distended, tenderness - Extremities Exam Extremities exam: Present: normal inspection - Back Exam Back exam: Present: normal inspection - Neurological Exam Neurological exam: Present: alert, oriented X3, CN II-XII intact. Absent: motor sensory deficit - Psychiatric Psychiatric exam: Present: normal affect, normal mood - Skin Skin exam: Present: warm, dry, intact, normal color. Absent: rash ED Course Vital Signs 05/05/19 05/05/19 05/05/19 08:52 09:03 09:46 Temperature 98.1 F Pulse Rate 85 Respiratory 20 Rate Blood Pressure 117/66 153/81 132/65 O2 Sat by Pulse 98 86 96 Oximetry 05/05/19 05/05/19 05/05/19 10:01 10:15 10:50 Temperature Pulse Rate 165 H 182 H 199 H Respiratory 37 H 27 H 33 H Rate Blood Pressure 126/65 117/72 117/72 O2 Sat by Pulse 97 99 99 Oximetry 05/05/19 05/05/19 10:53 10:59 Temperature Pulse Rate 176 H Respiratory Rate Blood Pressure 127/71 O2 Sat by Pulse 98 Oximetry ED Medical Decision Making - Lab Data Result diagrams: 05/05/19 10:21 05/05/19 10:21 Lab Results 05/05/19 05/05/19 05/05/19 Range/Units 10:00 10:00 10:21 WBC 5.6 (4.5-11.0) K/mm3 RBC 4.48 (3.65-5.03) M/mm3 Hgb 12.4 (10.1-14.3) gm/dl Hct 37.3 (30.3-42.9) % MCV 83 (79-97) fl MCH 28 (28-32) pg MCHC 33 (30-34) % RDW 14.5 (13.2-15.2) % Plt Count 214 (140-440) K/mm3 Lymph % (Auto) 44.8 H (13.4-35.0) % [place] % (Auto) 15.5 H (0.0-7.3) % Eos % (Auto) 0.4 (0.0-4.3) % Baso % (Auto) 0.9 (0.0-1.8) % Lymph # 2.5 (1.2-5.4) K/mm3 [place] # 0.9 H (0.0-0.8) K/mm3 Eos # 0.0 (0.0-0.4) K/mm3 Baso # 0.1 (0.0-0.1) K/mm3 Seg Neutrophils % 38.4 L (40.0-70.0) % Seg Neutrophils # 2.1 (1.8-7.7) K/mm3 PT (12.2-14.9) Sec. INR (0.87-1.13) APTT (24.2-36.6) Sec. Sodium (137-145) mmol/L Potassium (3.6-5.0) mmol/L Chloride (98-107) mmol/L Carbon Dioxide (22-30) mmol/L Anion Gap mmol/L BUN (7-17) mg/dL Creatinine (0.7-1.2) mg/dL Estimated GFR ml/min BUN/Creatinine Ratio % Glucose (65-100) mg/dL Calcium (8.4-10.2) mg/dL Phosphorus (2.5-4.5) mg/dL Magnesium (1.7-2.3) mg/dL Total Bilirubin (0.1-1.2) mg/dL AST (5-40) units/L ALT (7-56) units/L Alkaline Phosphatase (35-129) units/L Total Protein (6.3-8.2) g/dL Albumin (3.9-5) g/dL Albumin/Globulin Ratio % TSH (0.270-4.200) mlU/mL Thyroxine (T4) (4.0-12.0) ug/dL PTH Intact (15-65) pg/mL Urine Color Yellow (Yellow) Urine Turbidity Clear (Clear) Urine pH 5.0 (5.0-7.0) Ur Specific [place] 1.019 (1.003-1.030) Urine Protein <15 mg/dl (Negative) mg/dL Urine Glucose (UA) Neg (Negative) mg/dL Urine Ketones Neg (Negative) mg/dL Urine Blood Mod (Negative) Urine Nitrite Neg (Negative) Urine Bilirubin Neg (Negative) Urine Urobilinogen < 2.0 (<2.0) mg/dL Ur Leukocyte Esterase Neg (Negative) Urine WBC (Auto) 1.0 (0.0-6.0) /HPF Urine RBC (Auto) 2.0 (0.0-6.0) /HPF U Epithel Cells (Auto) 1.0 (0-13.0) /HPF Urine Bacteria (Auto) 1+ (Negative) /HPF Urine Mucus Few /HPF Urine Opiates Screen Presumptive negative Urine Methadone Screen Presumptive negative Ur Barbiturates Screen Presumptive negative Ur Phencyclidine Scrn Presumptive negative Ur Amphetamines Screen Presumptive negative U Benzodiazepines Scrn Presumptive negative Urine Cocaine Screen Presumptive negative U Marijuana (THC) Screen Presumptive negative Drugs of Abuse Note Disclamer 05/05/19 05/05/19 05/05/19 Range/Units 10:21 10:21 10:21 WBC (4.5-11.0) K/mm3 RBC (3.65-5.03) M/mm3 Hgb (10.1-14.3) gm/dl Hct (30.3-42.9) % MCV (79-97) fl MCH (28-32) pg MCHC (30-34) % RDW (13.2-15.2) % Plt Count (140-440) K/mm3 Lymph % (Auto) (13.4-35.0) % [place] % (Auto) (0.0-7.3) % Eos % (Auto) (0.0-4.3) % Baso % (Auto) (0.0-1.8) % Lymph # (1.2-5.4) K/mm3 [place] # (0.0-0.8) K/mm3 Eos # (0.0-0.4) K/mm3 Baso # (0.0-0.1) K/mm3 Seg Neutrophils % (40.0-70.0) % Seg Neutrophils # (1.8-7.7) K/mm3 PT 14.4 (12.2-14.9) Sec. INR 1.13 (0.87-1.13) APTT 32.0 (24.2-36.6) Sec. Sodium 141 (137-145) mmol/L Potassium 3.9 (3.6-5.0) mmol/L Chloride 105.4 (98-107) mmol/L Carbon Dioxide 23 (22-30) mmol/L Anion Gap 17 mmol/L BUN 11 (7-17) mg/dL Creatinine 0.3 L (0.7-1.2) mg/dL Estimated GFR > 60 ml/min BUN/Creatinine Ratio 37 % Glucose 104 H (65-100) mg/dL Calcium 10.2 (8.4-10.2) mg/dL Phosphorus 3.60 (2.5-4.5) mg/dL Magnesium 1.90 (1.7-2.3) mg/dL Total Bilirubin 1.30 H (0.1-1.2) mg/dL AST 18 (5-40) units/L ALT 14 (7-56) units/L Alkaline Phosphatase 236 H (35-129) units/L Total Protein 7.1 (6.3-8.2) g/dL Albumin 3.8 L (3.9-5) g/dL Albumin/Globulin Ratio 1.2 % TSH (0.270-4.200) mlU/mL Thyroxine (T4) > 24.9 H (4.0-12.0) ug/dL PTH Intact (15-65) pg/mL Urine Color (Yellow) Urine Turbidity (Clear) Urine pH (5.0-7.0) Ur Specific [place] (1.003-1.030) Urine Protein (Negative) mg/dL Urine Glucose (UA) (Negative) mg/dL Urine Ketones (Negative) mg/dL Urine Blood (Negative) Urine Nitrite (Negative) Urine Bilirubin (Negative) Urine Urobilinogen (<2.0) mg/dL Ur Leukocyte Esterase (Negative) Urine WBC (Auto) (0.0-6.0) /HPF Urine RBC (Auto) (0.0-6.0) /HPF U Epithel Cells (Auto) (0-13.0) /HPF Urine Bacteria (Auto) (Negative) /HPF Urine Mucus /HPF Urine Opiates Screen Urine Methadone Screen Ur Barbiturates Screen Ur Phencyclidine Scrn Ur Amphetamines Screen U Benzodiazepines Scrn Urine Cocaine Screen U Marijuana (THC) Screen Drugs of Abuse Note 05/05/19 05/05/19 Range/Units 10:21 10:21 WBC (4.5-11.0) K/mm3 RBC (3.65-5.03) M/mm3 Hgb (10.1-14.3) gm/dl Hct (30.3-42.9) % MCV (79-97) fl MCH (28-32) pg MCHC (30-34) % RDW (13.2-15.2) % Plt Count (140-440) K/mm3 Lymph % (Auto) (13.4-35.0) % [place] % (Auto) (0.0-7.3) % Eos % (Auto) (0.0-4.3) % Baso % (Auto) (0.0-1.8) % Lymph # (1.2-5.4) K/mm3 [place] # (0.0-0.8) K/mm3 Eos # (0.0-0.4) K/mm3 Baso # (0.0-0.1) K/mm3 Seg Neutrophils % (40.0-70.0) % Seg Neutrophils # (1.8-7.7) K/mm3 PT (12.2-14.9) Sec. INR (0.87-1.13) APTT (24.2-36.6) Sec. Sodium (137-145) mmol/L Potassium (3.6-5.0) mmol/L Chloride (98-107) mmol/L Carbon Dioxide (22-30) mmol/L Anion Gap mmol/L BUN (7-17) mg/dL Creatinine (0.7-1.2) mg/dL Estimated GFR ml/min BUN/Creatinine Ratio % Glucose (65-100) mg/dL Calcium (8.4-10.2) mg/dL Phosphorus (2.5-4.5) mg/dL Magnesium (1.7-2.3) mg/dL Total Bilirubin (0.1-1.2) mg/dL AST (5-40) units/L ALT (7-56) units/L Alkaline Phosphatase (35-129) units/L Total Protein (6.3-8.2) g/dL Albumin (3.9-5) g/dL Albumin/Globulin Ratio % TSH < 0.005 L (0.270-4.200) mlU/mL Thyroxine (T4) (4.0-12.0) ug/dL PTH Intact 22.94 (15-65) pg/mL Urine Color (Yellow) Urine Turbidity (Clear) Urine pH (5.0-7.0) Ur Specific [place] (1.003-1.030) Urine Protein (Negative) mg/dL Urine Glucose (UA) (Negative) mg/dL Urine Ketones (Negative) mg/dL Urine Blood (Negative) Urine Nitrite (Negative) Urine Bilirubin (Negative) Urine Urobilinogen (<2.0) mg/dL Ur Leukocyte Esterase (Negative) Urine WBC (Auto) (0.0-6.0) /HPF Urine RBC (Auto) (0.0-6.0) /HPF U Epithel Cells (Auto) (0-13.0) /HPF Urine Bacteria (Auto) (Negative) /HPF Urine Mucus /HPF Urine Opiates Screen Urine Methadone Screen Ur Barbiturates Screen Ur Phencyclidine Scrn Ur Amphetamines Screen U Benzodiazepines Scrn Urine Cocaine Screen U Marijuana (THC) Screen Drugs of Abuse Note - EKG Data Rate: tachycardia - EKG Data Interpretation: other (A. fib with RVR) - Radiology Data Radiology results: report reviewed - Medical Decision Making After initially evaluating the patient for her chief complaint of constipation was noticed that the patient was significantly anxious with tremors and her heart rate greater than 180. This is when the patient endorses associated history of hyperthyroidism was not taking her medications Patient given IV propranolol and PTU The patient states she has not taken her Methimazole in over a month Critical Care Time: Yes Critical care time in (mins) excluding proc time.: 45 Critical care attestation.: If time is entered above; I have spent that time in minutes in the direct care of this critically ill patient, excluding procedure time. ED Disposition Clinical Impression: Thyroid storm Disposition: DC-09 OP ADMIT IP TO THIS HOSP Is pt being admited?: Yes Does the pt Need Aspirin: No Condition: Fair Instructions: Abdominal Pain (ED) Referrals: DAVID HINOJOSA MD [Primary Care Provider] - 3-5 Days
--- NOTE | 2019-05-05 12:47 | History and Physical Report ---
Medications and Allergies Allergies Allergy/AdvReac Type Severity Reaction Status Date / Time metronidazole [From Flagyl] Allergy Vomiting Verified 09/18/18 08:14 Metronidazole HCl Allergy Vomiting Verified 03/26/19 11:23 [From SmartFocusyl] Home Medications Medication Instructions Recorded Confirmed Last Taken Type Propranolol [Inderal] 10 mg PO BID #60 tablet 10/20/18 Unknown Rx Tapazole 10 mg PO DAILY #30 10/20/18 Unknown Rx Cyclobenzaprine [Flexeril] 10 mg PO TID PRN #10 tablet 01/07/19 Unknown Rx Naproxen [Naprosyn] 500 mg PO BID PRN #20 tablet 01/07/19 Unknown Rx Butalb/Acetamin/Caff 50-325-40 1 tab PO Q6HR PRN #24 tab 02/27/19 Unknown Rx [Fioricet] Dicyclomine [Bentyl] 10 mg PO QID PRN #20 capsule 02/27/19 Unknown Rx Ondansetron [Zofran Odt] 4 mg PO Q4HR PRN #20 tab.rapdis 02/27/19 Unknown Rx Promethazine [Phenergan TAB] 25 mg PO Q6HR PRN #20 tab 02/27/19 Unknown Rx Exam - Constitutional Vitals: Temp Pulse Resp BP Pulse Ox 98.1 F 101 H 15 120/77 99 05/05/19 08:52 05/05/19 12:30 05/05/19 12:30 05/05/19 12:30 05/05/19 12:30 Results - Labs CBC & Chem 7: 05/05/19 10:21 05/05/19 10:21 Labs: Abnormal lab results 05/05/19 05/05/19 05/05/19 Range/Units 10:21 10:21 10:21 Lymph % (Auto) 44.8 H (13.4-35.0) % [place] % (Auto) 15.5 H (0.0-7.3) % [place] # 0.9 H (0.0-0.8) K/mm3 Seg Neutrophils % 38.4 L (40.0-70.0) % Creatinine 0.3 L (0.7-1.2) mg/dL Glucose 104 H (65-100) mg/dL Total Bilirubin 1.30 H (0.1-1.2) mg/dL Alkaline Phosphatase 236 H (35-129) units/L Albumin 3.8 L (3.9-5) g/dL TSH (0.270-4.200) mlU/mL Thyroxine (T4) > 24.9 H (4.0-12.0) ug/dL 05/05/ Range/Units 10:21 Lymph % (Auto) (13.4-35.0) % [place] % (Auto) (0.0-7.3) % [place] # (0.0-0.8) K/mm3 Seg Neutrophils % (40.0-70.0) % Creatinine (0.7-1.2) mg/dL Glucose (65-100) mg/dL Total Bilirubin (0.1-1.2) mg/dL Alkaline Phosphatase (35-129) units/L Albumin (3.9-5) g/dL TSH < 0.005 L (0.270-4.200) mlU/mL Thyroxine (T4) (4.0-12.0) ug/dL
[2019-05-05] MEDS ORDERED: SODIUM CHLORIDE 0.9% 1000 ML 1,000 ML IV ONE ×2 (12:49→14:30)
[2019-05-05] MEDS ORDERED: SODIUM CHLORIDE 0.9% 1000 ML 1,000 ML IV SCH (13:00)
[2019-05-05 16:10] VITALS: BP 105/63
--- NOTE | 2019-05-17 15:47 | Event Note ---
Date: 05/05/19 49 YO Female presents to ED for evaluation of abdominal discomfort as well as constipation. Pt treated with bowel regimen and supportive care. Pt medically optimized and subsequently discharged home. Pt instructed to F/U pcp within 3-5 days for further care. Pt instructed to continue all prehospital medication. Pt counseled regarding medication noncompliance. ED Physical Exam - General Limitations: No Limitations General appearance: alert, in no apparent distress, anxious - Head Head exam: Present: atraumatic, normocephalic - Eye Eye exam: Present: normal appearance, PERRL, EOMI - ENT ENT exam: Present: mucous membranes dry - Neck Neck exam: Present: normal inspection - Respiratory Respiratory exam: Present: normal lung sounds bilaterally. Absent: respiratory distress - Cardiovascular Cardiovascular Exam: Present: normal rhythm, tachycardia, irregular rhythm. Absent: systolic murmur, diastolic murmur, rubs, gallop - GI/Abdominal GI/Abdominal exam: Present: soft, normal bowel sounds. Absent: distended, tenderness - Extremities Exam Extremities exam: Present: normal inspection - Back Exam Back exam: Present: normal inspection - Neurological Exam Neurological exam: Present: alert, oriented X3, CN II-XII intact. Absent: motor sensory deficit - Psychiatric Psychiatric exam: Present: normal affect, normal mood - Skin Skin exam: Present: warm, dry, intact, normal color. Absent: rash
== END 2019-05-05 16:08 | disposition admitted as inpatient to this hospital (09) ==
LOC: ED 08:49
DX: I10 Essential (primary) hypertension (principal); E05.90 Thyrotoxicosis, unspecified without thyrotoxic crisis or storm; Z90.49 Acquired absence of other specified parts of digestive tract; Z98.890 Other specified postprocedural states; Z98.51 Tubal ligation status; Z79.899 Other long term (current) drug therapy; Z88.8 Allergy status to other drugs, medicaments and biological substances
CPT/HCPCS: 36415; 71045; 74018; 80053; 80307; 81001; 83735; 83970; 84100; 84436; 84443; 85025; 85610; 85730; 93005; 93010; 99284; J7030

== ENCOUNTER 2019-05-10 23:19 | Inpatient (IN) | payer OTHER ==
[2019-05-11 00:01] LABS: Basophils % (Auto) 0.7 % (0.0-1.8); Eosinophils % (Auto) 0.5 % (0.0-4.3); Hematocrit 34.2 % (30.3-42.9); Hemoglobin 11.4 gm/dl (10.1-14.3); Lymphocytes # (Auto) 2.7 K/mm3 (1.2-5.4); Lymphocytes % (Auto) 46.8 % (13.4-35.0); Mean Corpuscular HGB Conc 34 % (30-34); Mean Corpuscular Volume 83 fl (79-97); Monocytes # (Auto) 0.8 K/mm3 (0.0-0.8); Monocytes % (Auto) 13.7 % (0.0-7.3); Platelet Count 220 K/mm3 (140-440); Red Blood Count 4.14 M/mm3 (3.65-5.03); Red Cell Distribution Width 14.2 % (13.2-15.2)
[2019-05-11 00:21] LABS: BUN/Creatinine Ratio 50; Blood Urea Nitrogen 15 mg/dL (7-17); Calcium 9.6 mg/dL (8.4-10.2); Hemolysis Index 7
--- NOTE | 2019-05-11 00:43 | XRay Report ---
CHEST 1 VIEW, 05/11/2019 12:03 AM CLINICAL INFORMATION/INDICATION: Chest pain COMPARISON: Chest radiograph, 05/05/2019 FINDINGS: SUPPORT DEVICES: None. HEART: The cardiac silhouette is normal in size. LUNGS/PLEURA: There is no focal airspace disease or significant pleural effusion ADDITIONAL FINDINGS: No additional acute findings. IMPRESSION: 1. No evidence of acute cardiopulmonary process. Signer Name: Yanci Strickland MD Signed: 05/11/2019 12:39 AM Workstation Name: [email or web address]
[2019-05-11] MEDS ORDERED: ESMOLOL 100 MG/10 ML INJ IV ONE (02:44)
[2019-05-11] MEDS ORDERED: POTASSIUM CHLORIDE ER 20 MEQ TAB PO ONE (02:44)
[2019-05-11] MEDS ORDERED: methIMAzole 5 MG TAB PO ONE (02:53)
[2019-05-11] MEDS ORDERED: HYDROCORTISONE SOD SUCC 100 MG/2 ML VIAL IV ONE (02:54)
[2019-05-11 03:19] LABS: Albumin 3.2 g/dL (3.9-5); Bilirubin,Direct 0.2 mg/dL (0-0.2)
--- NOTE | 2019-05-11 04:01 | Emergency Department Report ---
ED Palpitations HPI - General Chief Complaint: Chest Pain Stated Complaint: CHEST PAIN TO LT SHOULDER,SEEN MONDAY Time Seen by Provider: 05/11/19 02:34 Source: patient, EMS Mode of arrival: Ambulatory Limitations: No Limitations - History of Present Illness Initial Comments: 49 year old female with a past medical history of hyperthyroidism and hypertens ion presents to the hospital complains of persistent tachycardia, chest pain, and tremors times one week. Patient was seen and evaluated here on May 05 with the same complaint was noncompliant with her thyroid medication. Your physician evaluated patient will plan to admit. Hospitalist evaluated patient and provided medications to take and was discharged on methimazole 10 mg every 8 hours and propranolol 20 mg twice a day. Patient states she has been taking these medications since they were provided on the . However, she does not feel any better and continues to have constant palpitations, chest pain, and tremors. Chest pain is in the center of her chest and described as a int ermittent tightness with associated shortness of breath. Patient also experiencing nausea and vomiting. Patient did call to schedule an appointment with the administrative specialist in June was first available appointment. ASA 324mg provided prior to arrival. - Related Data Previous Rx's Medication Instructions Recorded Last Taken Type Propranolol [Inderal] 10 mg PO BID #60 tablet 10/20/18 Unknown Rx Tapazole 10 mg PO DAILY #30 10/20/18 Unknown Rx Cyclobenzaprine [Flexeril] 10 mg PO TID PRN #10 tablet 01/07/19 Unknown Rx Naproxen [Naprosyn] 500 mg PO BID PRN #20 tablet 01/07/19 Unknown Rx Butalb/Acetamin/Caff 50-325-40 1 tab PO Q6HR PRN #24 tab 02/27/19 Unknown Rx [Fioricet] Dicyclomine [Bentyl] 10 mg PO QID PRN #20 capsule 02/27/19 Unknown Rx Ondansetron [Zofran Odt] 4 mg PO Q4HR PRN #20 tab.rapdis 02/27/19 Unknown Rx Promethazine [Phenergan TAB] 25 mg PO Q6HR PRN #20 tab 02/27/19 Unknown Rx Methimazole [Tapazole] 10 mg PO Q8H #90 tablet 05/05/19 Unknown Rx Propranolol [Inderal] 10 mg PO BID #60 tablet 05/05/19 Unknown Rx Allergies Allergy/AdvReac Type Severity Reaction Status Date / Time metronidazole [From Flagyl] Allergy Vomiting Verified 09/18/18 08:14 Metronidazole HCl Allergy Vomiting Verified 03/26/19 11:23 [From Flagyl] ED Review of Systems ROS: Stated complaint: CHEST PAIN TO LT SHOULDER,SEEN MONDAY Other details as noted in HPI Comment: All other systems reviewed and negative ED Past Medical Hx - Past Medical History Previous Medical History?: Yes Hx Hypertension: Yes Hx Congestive Heart Failure: No Hx Diabetes: No Hx Asthma: (unsure) Hx COPD: No Additional medical history: hyperthyroid. fibroids. heart murmur - Surgical History Past Surgical History?: Yes Hx Cholecystectomy: Yes Hx Breast Surgery: Yes (LEFT BREAST BIOPSY) Additional Surgical History: tubal ligation. left collar bone surgery - Social History Smoking Status: Former Smoker Substance Use Type: None - Medications Home Medications: Home Medications Medication Instructions Recorded Confirmed Last Taken Type Propranolol [Inderal] 10 mg PO BID #60 tablet 10/20/18 Unknown Rx Tapazole 10 mg PO DAILY #30 10/20/18 Unknown Rx Cyclobenzaprine [Flexeril] 10 mg PO TID PRN #10 tablet 01/07/19 Unknown Rx Naproxen [Naprosyn] 500 mg PO BID PRN #20 tablet 01/07/19 Unknown Rx Butalb/Acetamin/Caff 50-325-40 1 tab PO Q6HR PRN #24 tab 02/27/19 Unknown Rx [Fioricet] Dicyclomine [Bentyl] 10 mg PO QID PRN #20 capsule 02/27/19 Unknown Rx Ondansetron [Zofran Odt] 4 mg PO Q4HR PRN #20 tab.rapdis 02/27/19 Unknown Rx Promethazine [Phenergan TAB] 25 mg PO Q6HR PRN #20 tab 02/27/19 Unknown Rx Methimazole [Tapazole] 10 mg PO Q8H #90 tablet 05/05/19 Unknown Rx Propranolol [Inderal] 10 mg PO BID #60 tablet 05/05/19 Unknown Rx ED Physical Exam - General Limitations: No Limitations - Other Other exam information: General: mild distress Head: Atraumatic Eyes: normal appearance ENT: Moist mucous membranes Neck: Normal appearance, no midline tenderness Chest: Clear to auscultation bilaterally CV: Tachycardia, irregular rhythm Abdomen: Soft, normal bowel sounds, nontender, nondistended, no rebound or guarding Back: Normal inspection Extremity: Normal inspection infection, full range of motion Neuro: Alert O x 3, no facial asymmetry, speech clear, no gross motor sensory deficit. Tremors Psych: Appropriate behavior Skin: No rash ED Course Vital Signs 05/10/19 05/11/19 05/11/19 23:37 02:58 03:39 Temperature 98.6 F Pulse Rate 116 H 163 H Respiratory 22 22 20 Rate Blood Pressure 124/52 Blood Pressure 127/73 [Left] O2 Sat by Pulse 98 98 Oximetry - Reevaluation(s) Reevaluation #1: 05/11/19 04:14 hr improved to 90's once esmolol to 150mcg/kg/min ED Medical Decision Making - Lab Data Result diagrams: 05/10/19 23:45 05/10/19 23:45 Lab Results 05/10/19 05/10/19 05/11/19 Range/Units 23:45 23:45 02:03 WBC 5.8 (4.5-11.0) K/mm3 RBC 4.14 (3.65-5.03) M/mm3 Hgb 11.4 (10.1-14.3) gm/dl Hct 34.2 (30.3-42.9) % MCV 83 (79-97) fl MCH 28 (28-32) pg MCHC 34 (30-34) % RDW 14.2 (13.2-15.2) % Plt Count 220 (140-440) K/mm3 Lymph % (Auto) 46.8 H (13.4-35.0) % [place] % (Auto) 13.7 H (0.0-7.3) % Eos % (Auto) 0.5 (0.0-4.3) % Baso % (Auto) 0.7 (0.0-1.8) % Lymph # 2.7 (1.2-5.4) K/mm3 [place] # 0.8 (0.0-0.8) K/mm3 Eos # 0.0 (0.0-0.4) K/mm3 Baso # 0.0 (0.0-0.1) K/mm3 Seg Neutrophils % 38.3 L (40.0-70.0) % Seg Neutrophils # 2.2 (1.8-7.7) K/mm3 Sodium 142 (137-145) mmol/L Potassium 3.3 L (3.6-5.0) mmol/L Chloride 103.3 (98-107) mmol/L Carbon Dioxide 22 (22-30) mmol/L Anion Gap 20 mmol/L BUN 15 (7-17) mg/dL Creatinine 0.3 L (0.7-1.2) mg/dL Estimated GFR > 60 ml/min BUN/Creatinine Ratio 50 % Glucose 123 H (65-100) mg/dL Calcium 9.6 (8.4-10.2) mg/dL Magnesium (1.7-2.3) mg/dL Total Bilirubin (0.1-1.2) mg/dL Direct Bilirubin (0-0.2) mg/dL Indirect Bilirubin mg/dL AST (5-40) units/L ALT (7-56) units/L Alkaline Phosphatase (35-129) units/L Troponin T < 0.010 < 0.010 (0.00-0.029) ng/mL Total Protein (6.3-8.2) g/dL Albumin (3.9-5) g/dL Albumin/Globulin Ratio % TSH (0.270-4.200) mlU/mL Free T4 (0.76-1.46) ng/dL 05/11/19 05/11/19 05/11/19 Range/Units 02:55 02:55 02:55 WBC (4.5-11.0) K/mm3 RBC (3.65-5.03) M/mm3 Hgb (10.1-14.3) gm/dl Hct (30.3-42.9) % MCV (79-97) fl MCH (28-32) pg MCHC (30-34) % RDW (13.2-15.2) % Plt Count (140-440) K/mm3 Lymph % (Auto) (13.4-35.0) % [place] % (Auto) (0.0-7.3) % Eos % (Auto) (0.0-4.3) % Baso % (Auto) (0.0-1.8) % Lymph # (1.2-5.4) K/mm3 [place] # (0.0-0.8) K/mm3 Eos # (0.0-0.4) K/mm3 Baso # (0.0-0.1) K/mm3 Seg Neutrophils % (40.0-70.0) % Seg Neutrophils # (1.8-7.7) K/mm3 Sodium (137-145) mmol/L Potassium (3.6-5.0) mmol/L Chloride (98-107) mmol/L Carbon Dioxide (22-30) mmol/L Anion Gap mmol/L BUN (7-17) mg/dL Creatinine (0.7-1.2) mg/dL Estimated GFR ml/min BUN/Creatinine Ratio % Glucose (65-100) mg/dL Calcium (8.4-10.2) mg/dL Magnesium 1.90 (1.7-2.3) mg/dL Total Bilirubin 1.00 (0.1-1.2) mg/dL Direct Bilirubin 0.2 (0-0.2) mg/dL Indirect Bilirubin 0.8 mg/dL AST 22 (5-40) units/L ALT 15 (7-56) units/L Alkaline Phosphatase 215 H (35-129) units/L Troponin T (0.00-0.029) ng/mL Total Protein 6.5 (6.3-8.2) g/dL Albumin 3.2 L (3.9-5) g/dL Albumin/Globulin Ratio 1.0 % TSH < 0.005 L (0.270-4.200) mlU/mL Free T4 > 7.77 H (0.76-1.46) ng/dL - EKG Data -: EKG Interpreted by Me (atrial fibrilation) EKG shows normal: ST-T waves (no stemi ) Rate: tachycardia (149) - EKG Data 05/11/19 04:34 repeat ekg now with sinus rate 100, biatrial enlargement. no stemi - Radiology Data Radiology results: report reviewed CHEST 1 VIEW, 05/11/2019 12:03 AM CLINICAL INFORMATION/INDICATION: Chest pain COMPARISON: Chest radiograph, 05/05/2019 FINDINGS: SUPPORT DEVICES: None. HEART: The cardiac silhouette is normal in size. LUNGS/PLEURA: There is no focal airspace disease or significant pleural effusion ADDITIONAL FINDINGS: No additional acute findings. IMPRESSION: 1. No evidence of acute cardiopulmonary process. - Medical Decision Making Pt symptoms likely related to thyrotoxicosis. Patient has a very low TSH. Similar labs when she presented on the not improved with restarting her medication. In the ED patient was treated with Esmolol bolus followed by drip with improvement in heart rate to below 100 and A. fib converted to sinus rhythm. top neg x2 Patient received hydrocortisone, and methimazole was ordered for thyrotoxicosis. By mouth potassium provided for mild hypokalemia. Hospitalist informed for admission. Patient will require ICU admission - Differential Diagnosis mi, unstable angina, pe, thyriod storm Critical Care Time: Yes Critical care time in (mins) excluding proc time.: 35 Critical care attestation.: If time is entered above; I have spent that time in minutes in the direct care of this critically ill patient, excluding procedure time. ED Disposition Clinical Impression: Thyrotoxicosis, Atrial fibrillation with RVR, Hypokalemia Disposition: OP ADMIT IP TO THIS HOSP Is pt being admited?: Yes Condition: Stable Time of Disposition: 04:01 (Dr Arroyo/hosp)
[2019-05-11 04:25] LABS: Free T4 (Free Thyroxine) > 7.77 ng/dL (0.76-1.46)
[2019-05-11] MEDS ORDERED: ACETAMINOPHEN 325 MG TAB PO PRN (04:29)
[2019-05-11] MEDS ORDERED: ONDANSETRON 4 MG/2 ML INJ IV PRN (04:29)
--- NOTE | 2019-05-11 04:38 | History and Physical Report ---
History of Present Illness Date of examination: 05/11/19 History of present illness: 49-year-old woman with a history of hypertension, hyperthyroidism, pancreatitis, unknown etiology cost emergency room with complaints of left arm and epigastric area. Pain is that she describes as a stightness, intermittent every 10 to 20 minutes, intensity 5/10, relieved with pain medication given in the emergency room. Admits to palpitation, nausea or vomiting, shortness of breath,no diaphoresis. States she is compliant with her medication. In the ER she was found to be in A. fib, rate 160s, she is now converted back to sinus, started on esmolol drip Review of systems Constitutional: no weight loss, chills, fever Ears, eyes, nose, mouth and throat: no nasal congestion, no nasal discharge, no sinus pressure, no vision change, no red eye. Neck: No neck pain or rigidity. Cardiovascular: +palpitations, chest pain Respiratory: no cough, shortness of breath Gastrointestinal: no hematochezia, abdominal pain Genitourinary : no frequency , no hematuria Musculoskeletal: no joint swelling or muscle ache Integumentary: no rash, no pruritis Neurological: no parathesias, no focal weakness Endocrine: no cold or heat intolerance, no polyuria or polydipsia Hematologic/Lymphatic: no easy bruising, no easy bleeding, no gland swelling Allergic/Immunologic: no urticaria, no angioedema. PAST MEDICAL HISTORY:hypertension, hyperthyroidism, pancreatitis PAST SURGICAL HISTORY: Tubal ligation, surgeryon collar bone, cholecystectomy SOCIAL HISTORY: Denies alcohol, drugs, tobacco FAMILY HISTORY: Hypertension Medications and Allergies Allergies Allergy/AdvReac Type Severity Reaction Status Date / Time metronidazole [From Flagyl] Allergy Vomiting Verified 09/18/18 08:14 Metronidazole HCl Allergy Vomiting Verified 03/26/19 11:23 [From Flagyl] Home Medications Medication Instructions Recorded Confirmed Last Taken Type Propranolol [Inderal] 10 mg PO BID #60 tablet 10/20/18 Unknown Rx Tapazole 10 mg PO DAILY #30 10/20/18 Unknown Rx Cyclobenzaprine [Flexeril] 10 mg PO TID PRN #10 tablet 01/07/19 Unknown Rx Naproxen [Naprosyn] 500 mg PO BID PRN #20 tablet 01/07/19 Unknown Rx Butalb/Acetamin/Caff 50-325-40 1 tab PO Q6HR PRN #24 tab 02/27/19 Unknown Rx [Fioricet] Dicyclomine [Bentyl] 10 mg PO QID PRN #20 capsule 02/27/19 Unknown Rx Ondansetron [Zofran Odt] 4 mg PO Q4HR PRN #20 tab.rapdis 02/27/19 Unknown Rx Promethazine [Phenergan TAB] 25 mg PO Q6HR PRN #20 tab 02/27/19 Unknown Rx Methimazole [Tapazole] 10 mg PO Q8H #90 tablet 05/05/19 Unknown Rx Propranolol [Inderal] 10 mg PO BID #60 tablet 05/05/19 Unknown Rx Active Meds: Active Medications Acetaminophen (Tylenol) 650 mg PO Q4H PRN PRN Reason: Pain MILD(1-3)/Fever >100.5/CODY Enoxaparin Sodium (Enoxaparin) 30 mg SUB-Q QDAY [facility]HAM Esmolol HCl (Brevibloc Drip 2.5gm/250ml) 2.5 gm in 250 mls @ 19.187 mls/hr IV TITR ONE; Protocol Stop: 05/11/19 15:50 Last Admin: 05/11/19 03:38 Dose: 50 mcg/kg/min, 19.187 mls/hr Documented by: Morphine Sulfate (Morphine) 2 mg IV Q4H PRN PRN Reason: Pain, Moderate (4-6) Ondansetron HCl (Zofran) 4 mg IV Q8H PRN PRN Reason: Nausea And Vomiting Sodium Chloride (Sodium Chloride Flush Syringe 10 Ml) 10 ml IV BID [facility]AM Sodium Chloride (Sodium Chloride Flush Syringe 10 Ml) 10 ml IV PRN PRN PRN Reason: LINE FLUSH Exam - Physical Exam Narrative exam: General Apperance: The patient lying in bed, breathing comfortable HEENT: Normocephalic, atraumatic. Pupils equally round and reactive to light, EOMI, no sclericterus or JVD or thyromegaly or nodule. , no carotid bruit, mucous membranes moist, no exudate or erythema Heart: S1-S2, regular is rhythm Lungs: Clear to auscultation bilaterally, breathing comfortable Abdomen: Positive bowel sounds, soft,tender in the left upper quadrant, nondistended, no organomegaly Extremities: No edema cyanosis clubbing Skin: no rash, nodule, warm and dry Neuro: cranial nerves 2-12 intact, speech is fluent, motor/sensory intact, +tremor - Constitutional Vitals: Temp Pulse Resp BP Pulse Ox 98.6 F 100 H 14 117/68 98 05/10/19 23:37 05/11/19 04:30 05/11/19 04:30 05/11/19 04:30 05/11/19 04:30 Results - Labs CBC & Chem 7: 05/10/19 23:45 05/10/19 23:45 Labs: Abnormal lab results 05/10/19 05/10/19 05/11/19 Range/Units 23:45 23:45 02:55 Lymph % (Auto) 46.8 H (13.4-35.0) % [place] % (Auto) 13.7 H (0.0-7.3) % Seg Neutrophils % 38.3 L (40.0-70.0) % Potassium 3.3 L (3.6-5.0) mmol/L Creatinine 0.3 L (0.7-1.2) mg/dL Glucose 123 H (65-100) mg/dL Alkaline Phosphatase (35-129) units/L Albumin (3.9-5) g/dL TSH < 0.005 L (0.270-4.200) mlU/mL Free T4 > 7.77 H (0.76-1.46) ng/dL 05/11/19 Range/Units 02:55 Lymph % (Auto) (13.4-35.0) % [place] % (Auto) (0.0-7.3) % Seg Neutrophils % (40.0-70.0) % Potassium (3.6-5.0) mmol/L Creatinine (0.7-1.2) mg/dL Glucose (65-100) mg/dL Alkaline Phosphatase 215 H (35-129) units/L Albumin 3.2 L (3.9-5) g/dL TSH (0.270-4.200) mlU/mL Free T4 (0.76-1.46) ng/dL Assessment and Plan Assessment A. fib with RVR thyroid storm Chest pain Hypertension Plan Continue emolol drip Start IV steroids, methimazole Check cardiac enzymes, echo Stress test when off drip consult cardiology, critical care DVT prophylaxis
[2019-05-11 05:09] LABS: Creatine Kinase MB 1.6 ng/mL (0.0-4.0)
[2019-05-11 07:22] LABS: Amphetamine Screen,Urine PRESUMPTIVE NEGATIVE; Benzodiazepines Screen,Urine PRESUMPTIVE NEGATIVE; Cannabinoid Screen,Urine PRESUMPTIVE NEGATIVE; Cocaine Screen,Urine PRESUMPTIVE NEGATIVE; Methadone Screen,Urine PRESUMPTIVE NEGATIVE; Opiate Screen,Urine PRESUMPTIVE NEGATIVE
[2019-05-11] MEDS: ENOXAPARIN 40 MG/0.4 ML INJ SUB-Q SCH (09:29)
[2019-05-11] MEDS ORDERED: ENOXAPARIN 30 MG/0.3 ML INJ SUB-Q SCH (10:00)
--- NOTE | 2019-05-11 10:28 | Consultation ---
History of Present Illness - Reason for Consult Consult date: 05/11/19 Thyroid STORM Requesting physician: JIMMY GUAJARDO - History of Present Illness 49 y/o female with known Hyperthyroid disease, diagnosed 7 years ago but I assume do to lack of funding has not followed with endocrine, only getting meds via ED, admitted with Tachycardia and chest pain. TSH undetectable on the low ed, T4 undetectable on the high end. Started on BreviBlock and admitted to ICU. Per patient has been on therapy for 7 years and has "not had any problems". Appears her monthly ED visits are for medication refills only. Remainder of the review is negative. Past History Past Medical History: hyperthyroidism Medications and Allergies Allergies Allergy/AdvReac Type Severity Reaction Status Date / Time metronidazole [From Flagyl] Allergy Vomiting Verified 09/18/18 08:14 Metronidazole HCl Allergy Vomiting Verified 03/26/19 11:23 [From PrintToPeeryl] Home Medications Medication Instructions Recorded Confirmed Last Taken Type Propranolol [Inderal] 10 mg PO BID #60 tablet 05/05/19 05/11/19 05/10/19 19:45 Rx Tapazole 10 mg PO BID 05/11/19 05/11/19 05/10/19 19:45 History Active Meds: Active Medications Acetaminophen (Tylenol) 650 mg PO Q4H PRN PRN Reason: Pain MILD(1-3)/Fever >100.5/CODY Enoxaparin Sodium (Enoxaparin) 40 mg SUB-Q QDAY@1000 [facility] Last Admin: 05/11/19 09:29 Dose: 40 mg Documented by: Hydrocortisone Sodium Succinate (Solu-Cortef) 100 mg IV Q6HR [facility] Esmolol HCl (Brevibloc Drip 2.5gm/250ml) 2.5 gm in 250 mls @ 19.187 mls/hr IV TITR ONE; Protocol Stop: 05/11/19 15:50 Last Titration: 05/11/19 09:29 Dose: Infused Documented by: Methimazole (Tapazole) 20 mg PO Q8H [facility]AM Morphine Sulfate (Morphine) 2 mg IV Q4H PRN PRN Reason: Pain, Moderate (4-6) Ondansetron HCl (Zofran) 4 mg IV Q8H PRN PRN Reason: Nausea And Vomiting Sodium Chloride (Sodium Chloride Flush Syringe 10 Ml) 10 ml IV BID [facility] Last Admin: 05/11/19 09:29 Dose: 10 ml Documented by: Sodium Chloride (Sodium Chloride Flush Syringe 10 Ml) 10 ml IV PRN PRN PRN Reason: LINE FLUSH Review of Systems All systems: negative Exam - Constitutional Vitals: Temp Pulse Resp BP Pulse Ox 98.4 F 99 H 18 116/65 95 05/11/19 08:37 05/11/19 10:00 05/11/19 09:31 05/11/19 08:15 05/11/19 10:06 General appearance: Present: no acute distress, well-nourished - EENT Eyes: Present: PERRL, EOM intact ENT: hearing intact, clear oral mucosa, dentition normal - Neck Neck: Present: supple, normal ROM - Respiratory Respiratory effort: normal Respiratory: bilateral: CTA - Cardiovascular Rhythm: regular Heart Sounds: Present: S1 & S2 - Extremities Extremities: no ischemia, pulses intact, pulses symmetrical - Abdominal General gastrointestinal: Present: soft, non-tender, normal bowel sounds Female genitourinary: Present: deferred - Rectal Rectal Exam: deferred - Integumentary Integumentary: Present: clear, warm, dry - Musculoskeletal Musculoskeletal: other (bilateral tremor) - Neurologic Neurologic: moves all extremities, other (resting bilateral tremor) Results - Labs CBC & Chem 7: 05/10/19 23:45 05/10/19 23:45 Labs: Abnormal lab results 05/10/19 05/10/19 05/11/19 Range/Units 23:45 23:45 02:55 Lymph % (Auto) 46.8 H (13.4-35.0) % [place] % (Auto) 13.7 H (0.0-7.3) % Seg Neutrophils % 38.3 L (40.0-70.0) % Potassium 3.3 L (3.6-5.0) mmol/L Creatinine 0.3 L (0.7-1.2) mg/dL Glucose 123 H (65-100) mg/dL Alkaline Phosphatase (35-129) units/L Albumin (3.9-5) g/dL TSH < 0.005 L (0.270-4.200) mlU/mL Free T4 > 7.77 H (0.76-1.46) ng/dL 05/11/19 Range/Units 02:55 Lymph % (Auto) (13.4-35.0) % [place] % (Auto) (0.0-7.3) % Seg Neutrophils % (40.0-70.0) % Potassium (3.6-5.0) mmol/L Creatinine (0.7-1.2) mg/dL Glucose (65-100) mg/dL Alkaline Phosphatase 215 H (35-129) units/L Albumin 3.2 L (3.9-5) g/dL TSH (0.270-4.200) mlU/mL Free T4 (0.76-1.46) ng/dL - Imaging and Cardiology Chest x-ray: image reviewed (normal) Assessment and Plan 49 y/o female with known hyperthyroidism but unable to follow up with endocrine admitted with thyrotoxicosis. 1. Agree with methimazole 20 Q8 and Hydrocortisone 100q6 2. Per nursing cardiology to put in Propanolol dosing. Once done will start to wean esmolol 3. Needs outpatient endocrine follow up if possible 4. CM consult to see if they can help with funding. CCT 31 minutes.
[2019-05-11] MEDS ORDERED: HYDROCORTISONE SOD SUCC 100 MG/2 ML VIAL IV SCH (11:00)
--- NOTE | 2019-05-11 11:03 | Consultation ---
History of Present Illness Consult date: 05/11/19 Requesting physician: JIMMY GUAJARDO Consult reason: atrial fibrillation History of present illness: The patient has a history of hypothyroidism which was diagnosed about 7 years ago. She claims that she has been on the same thyroid medication but has never seen an upper tier. She claims that she presented to the emergency department about a week ago because she was not feeling well but was evaluated and sent home. For the past 2 weeks, she has been experiencing recurrent palpitations associated with left upper arm pain. Yesterday, she developed substernal chest tightness as well as left arm pain and palpitations prompting her to present to the emergency department. She has also noted exertional dyspn ea for the past 2 months. She has no orthopnea. In the ER, she was noted to be in rapid atrial fibrillation and was given intravenous esmolol with conversion to sinus rhythm. Past History Past Medical History: hyperthyroidism, hypertension, other (pancreatitis) Past Surgical History: cholecystectomy, Other (tubal ligation) Social history: denies: smoking, alcohol abuse Family history: denies: CAD Medications and Allergies Allergies Allergy/AdvReac Type Severity Reaction Status Date / Time metronidazole [From Flagyl] Allergy Vomiting Verified 09/18/18 08:14 Metronidazole HCl Allergy Vomiting Verified 03/26/19 11:23 [From Flagyl] Home Medications Medication Instructions Recorded Confirmed Last Taken Type Propranolol [Inderal] 10 mg PO BID #60 tablet 05/05/19 05/11/19 05/10/19 19:45 Rx Tapazole 10 mg PO BID 05/11/19 05/11/19 05/10/19 19:45 History Active Meds: Active Medications Acetaminophen (Tylenol) 650 mg PO Q4H PRN PRN Reason: Pain MILD(1-3)/Fever >100.5/CODY Enoxaparin Sodium (Enoxaparin) 40 mg SUB-Q QDAY@1000 [facility] Last Admin: 05/11/19 09:29 Dose: 40 mg Documented by: Hydrocortisone Sodium Succinate (Solu-Cortef) 100 mg IV Q6HR [facility] Esmolol HCl (Brevibloc Drip 2.5gm/250ml) 2.5 gm in 250 mls @ 19.187 mls/hr IV TITR ONE; Protocol Stop: 05/11/19 15:50 Last Titration: 05/11/19 09:29 Dose: Infused Documented by: Methimazole (Tapazole) 20 mg PO Q8H [facility] Morphine Sulfate (Morphine) 2 mg IV Q4H PRN PRN Reason: Pain, Moderate (4-6) Ondansetron HCl (Zofran) 4 mg IV Q8H PRN PRN Reason: Nausea And Vomiting Sodium Chloride (Sodium Chloride Flush Syringe 10 Ml) 10 ml IV BID [facility] Last Admin: 05/11/19 09:29 Dose: 10 ml Documented by: Sodium Chloride (Sodium Chloride Flush Syringe 10 Ml) 10 ml IV PRN PRN PRN Reason: LINE FLUSH Review of Systems Constitutional: no fever, no chills Ears, nose, mouth and throat: no ear pain, no ear discharge, no sore throat Cardiovascular: chest pain, palpitations, shortness of breath, no orthopnea Respiratory: shortness of breath, dyspnea on exertion, no cough, no hemoptysis Gastrointestinal: no abdominal pain, no nausea, no vomiting, no diarrhea, no constipation Genitourinary Female: no dysuria, no urinary frequency Rectal: no pain, no bleeding Musculoskeletal: no neck stiffness, no neck pain, no myalgias Integumentary: no rash, no pruritis Neurological: no weakness, no parathesias, no headaches Endocrine: heat intolerance Hematologic/Lymphatic: no easy bruising, no easy bleeding Allergic/Immunologic: no urticaria, no wheezing Physical Examination Vital Signs Last Vital Signs Temp 98.4 F 05/11/19 08:37 Pulse 89 05/11/19 10:45 Resp 21 05/11/19 10:45 BP 116/65 05/11/19 08:15 Pulse Ox 90 05/11/19 10:45 General appearance: no acute distress HEENT: Positive: EOMI, Normocephaly, Mucus Membranes Moist Neck: Positive: neck supple, trachea midline, Carotid Upstroke (normal) Cardiac: Positive: Reg Rate and Rhythm, S1/S2 Lungs: Positive: clear to auscultation Neuro: Positive: Grossly Intact Abdomen: Positive: Soft, Active Bowel Sounds. Negative: Tender Skin: Positive: Clear. Negative: Rash Musculoskeletal: Normal Range of Motion Extremities: Present: normal. Absent: edema Results 05/10/19 23:45 05/10/19 23:45 Cardiac Enzymes 05/11/19 05/11/19 Range/Units 02:55 04:38 AST 22 (5-40) units/L CK-MB (CK-2) 1.6 (0.0-4.0) ng/mL CBC 05/10/19 Range/Units 23:45 WBC 5.8 (4.5-11.0) K/mm3 RBC 4.14 (3.65-5.03) M/mm3 Hgb 11.4 (10.1-14.3) gm/dl Hct 34.2 (30.3-42.9) % Plt Count 220 (140-440) K/mm3 Lymph # 2.7 (1.2-5.4) K/mm3 Love # 0.8 (0.0-0.8) K/mm3 Eos # 0.0 (0.0-0.4) K/mm3 Baso # 0.0 (0.0-0.1) K/mm3 Comprehensive Metabolic Panel 05/10/19 05/11/19 Range/Units 23:45 02:55 Sodium 142 (137-145) mmol/L Potassium 3.3 L (3.6-5.0) mmol/L Chloride 103.3 (98-107) mmol/L Carbon Dioxide 22 (22-30) mmol/L BUN 15 (7-17) mg/dL Creatinine 0.3 L (0.7-1.2) mg/dL Glucose 123 H (65-100) mg/dL Calcium 9.6 (8.4-10.2) mg/dL Direct Bilirubin 0.2 (0-0.2) mg/dL Indirect Bilirubin 0.8 mg/dL AST 22 (5-40) units/L ALT 15 (7-56) units/L Alkaline Phosphatase 215 H (35-129) units/L Total Protein 6.5 (6.3-8.2) g/dL Albumin 3.2 L (3.9-5) g/dL - Imaging and Cardiology EKG: image reviewed EKG interpretations - Telemetry EKG Rhythm: Sinus Rhythm - EKG Supraventricular dysrhythmia: atrial fibrillation (with RVR) Assessment and Plan Initiate oral propranolol and wean off IV esmolol. Obtain echocardiogram. Lexiscan stress MPI on Monday morning. Correct hypokalemia. Maintain anti- thyroid regimen. - Patient Problems (1) PAF (paroxysmal atrial fibrillation) Current Visit: Yes Status: Acute (2) Thyrotoxicosis Current Visit: Yes Status: Acute (3) Chest pain Current Visit: Yes Status: Acute (4) Left arm pain Current Visit: Yes Status: Acute (5) Exertional dyspnea Current Visit: Yes Status: Acute (6) Hyperthyroidism Current Visit: No Status: Acute
--- NOTE | 2019-05-11 11:23 | Event Note ---
Date: 05/11/19 Patient seen and examined medical records reviewed Admitted early this morning, evaluated by pulmonary critical and cardiology Agree with the current management Monitor closely and adjust management as needed
[2019-05-11 11:35] LABS: BUN/Creatinine Ratio 63; Blood Urea Nitrogen 19 mg/dL (7-17); Calcium 9.5 mg/dL (8.4-10.2); Hemolysis Index 0
[2019-05-11 11:37] LABS: Creatine Kinase MB 1.5 ng/mL (0.0-4.0)
[2019-05-11] MEDS: MORPHINE 2 MG/1 ML INJ IV PRN ×3 (12:38→23:49)
[2019-05-11] MEDS: HYDROCORTISONE SOD SUCC 100 MG/2 ML VIAL IV SCH ×3 (12:39→23:23)
[2019-05-11] MEDS: DIGOXIN 0.5 MG/2 ML INJ IV SCH ×3 (12:39→23:25)
[2019-05-11] MEDS: PROPRANOLOL 10 MG TAB PO SCH ×3 (12:39→23:24)
[2019-05-11] MEDS: methIMAzole 5 MG TAB PO SCH ×2 (12:39→18:05)
[2019-05-12] MEDS: methIMAzole 5 MG TAB PO SCH ×3 (04:30→22:21)
[2019-05-12 05:10] LABS: Basophils % (Auto) 0.1 % (0.0-1.8); Hematocrit 30.9 % (30.3-42.9); Hemoglobin 10.2 gm/dl (10.1-14.3); Lymphocytes # (Auto) 1.1 K/mm3 (1.2-5.4); Lymphocytes % (Auto) 25.3 % (13.4-35.0); Mean Corpuscular HGB Conc 33 % (30-34); Mean Corpuscular Volume 83 fl (79-97); Monocytes # (Auto) 0.4 K/mm3 (0.0-0.8); Monocytes % (Auto) 9.7 % (0.0-7.3); Platelet Count 172 K/mm3 (140-440); Red Blood Count 3.71 M/mm3 (3.65-5.03); Red Cell Distribution Width 14.1 % (13.2-15.2)
[2019-05-12 05:32] LABS: BUN/Creatinine Ratio 80; Blood Urea Nitrogen 16 mg/dL (7-17); Calcium 9.7 mg/dL (8.4-10.2); Hemolysis Index 9
[2019-05-12 05:47] LABS: Free T4 (Free Thyroxine) 6.48 ng/dL (0.76-1.46)
[2019-05-12] MEDS: HYDROCORTISONE SOD SUCC 100 MG/2 ML VIAL IV SCH ×3 (06:33→18:39)
[2019-05-12] MEDS: DIGOXIN 0.5 MG/2 ML INJ IV SCH (06:33)
[2019-05-12] MEDS: PROPRANOLOL 10 MG TAB PO SCH ×3 (06:34→18:42)
--- NOTE | 2019-05-12 08:44 | Progress Note ---
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 Cardiology following --History of hyperthyroidism: Current Visit: Yes Status:Chronic Patient noncompliant with medications Strongly advised to comply with medications Follow-up visits --Atypical Chest pain Current Visit: Yes Status: Acute. Cardiology evaluated the patient Possible to stress test tomorrow --Medical noncompliance: Current Visit: Yes Status: Acute Counseling done advised to adhere to the treatment plan Patient verbalized understanding --Moderate malnutrition/hypoalbuminemia: Current Visit: Yes Status: Acute Supportive care, nutrition consult as needed. --DVT prophylaxis: Lovenox Monitor clinically and adjust the management as needed Patient is stable to be transferred out of ICU to telemetry Consults and recommendations noted and appreciated Plan of care reviewed with the patient and her nurse Critical care time 45 minutes History Interval history: Patient seen and examined this morning in ICU medical records reviewed Patient was admitted with thyrotoxicosis/thyroid storm/paroxysmal atrial fibrillation Received esmolol drip, now on propranolol and digoxin Also received IV steroids Patient feels slightly better, complains of constipation Alert awake oriented not in acute distress Vital signs reviewed Hospitalist Physical - Constitutional Vitals: Temp Pulse Resp BP Pulse Ox 97.8 F 90 16 116/58 97 05/11/19 23:28 05/12/19 06:34 05/12/19 06:00 05/12/19 06:34 05/12/19 06:00 General appearance: Present: no acute distress, well-nourished - EENT Eyes: Present: PERRL, EOM intact - Neck Neck: Present: supple, normal ROM - Respiratory Respiratory effort: normal Respiratory: bilateral: diminished, negative: rales, rhonchi, wheezing - Cardiovascular Rhythm: irregularly irregular Heart Sounds: Present: S1 & S2 - Extremities Extremities: no ischemia, No edema - Abdominal General gastrointestinal: soft, non-tender, non-distended, normal bowel sounds - Integumentary Integumentary: Present: clear, warm - Psychiatric Psychiatric: appropriate mood/affect, cooperative - Neurologic Neurologic: moves all extremities Results - Labs CBC & Chem 7: 05/12/19 04:22 05/12/19 04:22 Labs: Laboratory Last Values WBC 4.5 K/mm3 (4.5-11.0) 05/12/19 04:22 RBC 3.71 M/mm3 (3.65-5.03) 05/12/19 04:22 Hgb 10.2 gm/dl (10.1-14.3) 05/12/19 04:22 Hct 30.9 % (30.3-42.9) 05/12/19 04:22 MCV 83 fl (79-97) 05/12/19 04:22 MCH 28 pg (28-32) 05/12/19 04:22 MCHC 33 % (30-34) 05/12/19 04:22 RDW 14.1 % (13.2-15.2) 05/12/19 04:22 Plt Count 172 K/mm3 (140-440) 05/12/19 04:22 Lymph % (Auto) 25.3 % (13.4-35.0) 05/12/19 04:22 [place] % (Auto) 9.7 % (0.0-7.3) H 05/12/19 04:22 Eos % (Auto) 0.0 % (0.0-4.3) 05/12/19 04:22 Baso % (Auto) 0.1 % (0.0-1.8) 05/12/19 04:22 Lymph # 1.1 K/mm3 (1.2-5.4) L 05/12/19 04:22 [place] # 0.4 K/mm3 (0.0-0.8) 05/12/19 04:22 Eos # 0.0 K/mm3 (0.0-0.4) 05/12/19 04:22 Baso # 0.0 K/mm3 (0.0-0.1) 05/12/19 04:22 Seg Neutrophils % 64.9 % (40.0-70.0) 05/12/19 04:22 Seg Neutrophils # 2.9 K/mm3 (1.8-7.7) 05/12/19 04:22 Sodium 140 mmol/L (137-145) 05/12/19 04:22 Potassium 4.1 mmol/L (3.6-5.0) 05/12/19 04:22 Chloride 107.5 mmol/L (98-107) H 05/12/19 04:22 Carbon Dioxide 20 mmol/L (22-30) L 05/12/19 04:22 Anion Gap 17 mmol/L 05/12/19 04:22 BUN 16 mg/dL (7-17) 05/12/19 04:22 Creatinine 0.2 mg/dL (0.7-1.2) L 05/12/19 04:22 Estimated GFR > 60 ml/min 05/12/19 04:22 BUN/Creatinine Ratio 80 % 05/12/19 04:22 Glucose 127 mg/dL (65-100) H 05/12/19 04:22 Calcium 9.7 mg/dL (8.4-10.2) 05/12/19 04:22 Magnesium 1.70 mg/dL (1.7-2.3) 05/11/19 11:05 Total Bilirubin 1.00 mg/dL (0.1-1.2) 05/11/19 02:55 Direct Bilirubin 0.2 mg/dL (0-0.2) 05/11/19 02:55 Indirect Bilirubin 0.8 mg/dL 05/11/19 02:55 AST 22 units/L (5-40) 05/11/19 02:55 ALT 15 units/L (7-56) 05/11/19 02:55 Alkaline Phosphatase 215 units/L (35-129) H 05/11/19 02:55 Total Creatine Kinase 38 units/L (30-135) 05/11/19 11:05 CK-MB (CK-2) 1.5 ng/mL (0.0-4.0) 05/11/19 11:05 CK-MB (CK-2) Rel Index 3.9 (0-4) 05/11/19 11:05 Troponin T < 0.010 ng/mL (0.00-0.029) 05/11/19 11:05 Total Protein 6.5 g/dL (6.3-8.2) 05/11/19 02:55 Albumin 3.2 g/dL (3.9-5) L 05/11/19 02:55 Albumin/Globulin Ratio 1.0 % 05/11/19 02:55 TSH < 0.005 mlU/mL (0.270-4.200) L 05/12/19 04:22 Free T4 6.48 ng/dL (0.76-1.46) H 05/12/19 04:22 Urine Opiates Screen Presumptive negative 05/11/19 06:05 Urine Methadone Screen Presumptive negative 05/11/19 06:05 Ur Barbiturates Screen Presumptive negative 05/11/19 06:05 Ur Phencyclidine Scrn Presumptive negative 05/11/19 06:05 Ur Amphetamines Screen Presumptive negative 05/11/19 06:05 U Benzodiazepines Scrn Presumptive negative 05/11/19 06:05 Urine Cocaine Screen Presumptive negative 05/11/19 06:05 U Marijuana (THC) Screen Presumptive negative 05/11/19 06:05 Drugs of Abuse Note Disclamer 05/11/19 06:05 Active Medications - Current Medications Current Medications: Generic Name Dose Route Start Last Admin Trade Name Freq PRN Reason Stop Dose Admin Acetaminophen 650 mg 05/11/19 04:29 Tylenol PO Q4H PRN Pain MILD(1-3)/Fever >100.5/CODY Digoxin 0.125 mg 05/12/19 17:00 Lanoxin PO DAILY@1700 [facility] Enoxaparin Sodium 40 mg 05/11/19 10:00 05/11/19 09:29 Enoxaparin SUB-Q 40 mg QDAY@1000 [facility] Administration Hydrocortisone Sodium Succinate 100 mg 05/11/19 12:00 05/12/19 06:33 Solu-Cortef IV 100 mg Q6HR [facility]AM Administration Methimazole 20 mg 05/11/19 11:00 05/12/19 04:30 Tapazole PO 20 mg Q8H [facility] Administration Morphine Sulfate 2 mg 05/11/19 04:29 05/11/19 23:49 Morphine IV 2 mg Q4H PRN Administration Pain, Moderate (4-6) Ondansetron HCl 4 mg 05/11/19 04:29 Zofran IV Q8H PRN Nausea And Vomiting Propranolol HCl 20 mg 05/11/19 12:00 05/12/19 06:34 Inderal PO 20 mg Q6H [facility]AM Administration Sodium Chloride 10 ml 05/11/19 10:00 05/11/19 23:24 Sodium Chloride Flush Syringe 10 Ml IV 10 ml BID [facility]AM Administration Sodium Chloride 10 ml 05/11/19 04:29 Sodium Chloride Flush Syringe 10 Ml IV PRN PRN LINE FLUSH
[2019-05-12] MEDS ORDERED: MAGNESIUM HYDROXIDE (MOM) ORAL LIQD UDC PO ONE (09:48)
[2019-05-12] MEDS ORDERED: MAGNESIUM HYDROXIDE (MOM) ORAL LIQD UDC PO PRN (09:48)
--- NOTE | 2019-05-12 09:50 | Event Note ---
Date: 05/12/19 Off esmolol. Rate is better. Cards plans for stress tomorrow morning. T4 is now detectable. Suggest continuing stress dose rounds until T4 levels are within normal range as this prevents conversion. Stable for transfer out of unit. Spoke with [facility]MS. Will sign off.
[2019-05-12] MEDS: ENOXAPARIN 40 MG/0.4 ML INJ SUB-Q SCH (10:37)
--- NOTE | 2019-05-12 10:59 | Progress Note ---
Assessment and Plan Continue propranolol and digoxin. Lexiscan stress MPI in am. - Patient Problems (1) PAF (paroxysmal atrial fibrillation) Current Visit: Yes Status: Acute (2) Thyrotoxicosis Current Visit: Yes Status: Acute (3) Chest pain Current Visit: Yes Status: Acute (4) Left arm pain Current Visit: Yes Status: Acute (5) Exertional dyspnea Current Visit: Yes Status: Acute (6) Hyperthyroidism Current Visit: No Status: Acute Subjective Date of service: 05/12/19 Principal diagnosis: PAF, thyrotoxicosis, CP, L arm pain, Exertional dyspnea Interval history: She claims that she feels better this morning. She is in normal sinus rhythm. We reviewed her echo findings. Objective Vital Signs Last Vital Signs Temp 98.1 F 05/12/19 10:20 Pulse 94 H 05/12/19 10:00 Resp 26 H 05/12/19 10:00 BP 135/70 05/12/19 10:00 Pulse Ox 98 05/12/19 10:00 - Physical Examination General: No Apparent Distress HEENT: Positive: EOMI, Normocephaly, Mucus Membranes Moist Neck: Positive: neck supple, trachea midline, Carotid Upstroke (normal) Cardiac: Positive: Reg Rate and Rhythm, S1/S2 Lungs: Positive: clear to auscultation Neuro: Positive: Grossly Intact Abdomen: Positive: Soft, Active Bowel Sounds. Negative: Tender Skin: Positive: Clear. Negative: Rash Musculoskeletal: Normal Range of Motion Extremities: Present: normal. Absent: edema - Labs and Meds Cardiac Enzymes 05/11/19 Range/Units 11:05 CK-MB (CK-2) 1.5 (0.0-4.0) ng/mL CBC 05/12/19 Range/Units 04:22 WBC 4.5 (4.5-11.0) K/mm3 RBC 3.71 (3.65-5.03) M/mm3 Hgb 10.2 (10.1-14.3) gm/dl Hct 30.9 (30.3-42.9) % Plt Count 172 (140-440) K/mm3 Lymph # 1.1 L (1.2-5.4) K/mm3 [place] # 0.4 (0.0-0.8) K/mm3 Eos # 0.0 (0.0-0.4) K/mm3 Baso # 0.0 (0.0-0.1) K/mm3 Comprehensive Metabolic Panel 05/11/19 05/12/19 Range/Units 11:05 04:22 Sodium 139 140 (137-145) mmol/L Potassium 3.8 4.1 (3.6-5.0) mmol/L Chloride 106.4 107.5 H (98-107) mmol/L Carbon Dioxide 20 L 20 L (22-30) mmol/L BUN 19 H 16 (7-17) mg/dL Creatinine 0.3 L 0.2 L (0.7-1.2) mg/dL Glucose 155 H 127 H (65-100) mg/dL Calcium 9.5 9.7 (8.4-10.2) mg/dL - Imaging and Cardiology EKG: image reviewed - Telemetry EKG Rhythm: Sinus Rhythm
[2019-05-12] MEDS: MORPHINE 2 MG/1 ML INJ IV PRN ×2 (16:46→21:39)
[2019-05-12] MEDS: DIGOXIN 0.125 MG TAB PO SCH (16:46)
[2019-05-13] MEDS: PROPRANOLOL 10 MG TAB PO SCH ×2 (01:13→07:48)
[2019-05-13] MEDS: HYDROCORTISONE SOD SUCC 100 MG/2 ML VIAL IV SCH ×4 (01:13→18:37)
[2019-05-13] MEDS: methIMAzole 5 MG TAB PO SCH ×3 (03:00→22:41)
[2019-05-13] MEDS ORDERED: REGADENOSON 0.4 MG/5 ML INJ IV ONE ×2 (07:11→08:55)
--- NOTE | 2019-05-13 13:17 | Progress Note ---
Assessment and Plan S/p lexiscan MPI stress test this AM which was negative. Convert propranolol to BID dosing to encourage compliance. Continue digoxin. Pt has reported h/o HTN and thus CHADS score is 2. We will initiate Xarelto (pt is self pay). If she is unable to afford Xarelto, can consider conversion to Coumadin as OP. Currently stable cardiac status. Pt may discharge from cardiology standpoint. Recommend follow up in our office with Dr. Carbone within 1-2 weeks ([phone]). The patient has been seen in conjunction with Dr. Steen who agrees with the assessment and plan of care. - Patient Problems (1) PAF (paroxysmal atrial fibrillation) Current Visit: Yes Status: Acute (2) Thyrotoxicosis Current Visit: Yes Status: Acute (3) Chest pain Current Visit: Yes Status: Resolved (4) Exertional dyspnea Current Visit: Yes Status: Resolved (5) Hyperthyroidism Current Visit: Yes Status: Acute (6) Hypertension Current Visit: Yes Status: Chronic Subjective Date of service: 05/13/19 Principal diagnosis: PAF, thyrotoxicosis, CP, L arm pain, Exertional dyspnea Interval history: pt for stress test, no current complaints. tele reviewed - in SR with brief bouts of AFib RVR overnight. for stress test today. Objective Last Vital Signs Temp 97.9 F 05/13/19 07:42 Pulse 81 05/13/19 09:02 Resp 16 05/13/19 07:42 BP 119/52 05/13/19 11:05 Pulse Ox 95 05/13/19 07:42 - Physical Examination General: No Apparent Distress HEENT: Positive: EOMI, Normocephaly, Mucus Membranes Moist Neck: Positive: neck supple, trachea midline, Carotid Upstroke (normal) Cardiac: Positive: Reg Rate and Rhythm, S1/S2 Lungs: Positive: clear to auscultation Neuro: Positive: Grossly Intact Abdomen: Positive: Soft, Active Bowel Sounds. Negative: Tender Skin: Positive: Clear. Negative: Rash Musculoskeletal: Normal Range of Motion Extremities: Present: normal. Absent: edema - Imaging and Cardiology EKG: image reviewed
--- NOTE | 2019-05-13 16:07 | Progress Note ---
Assessment and Plan Assessment and plan: --Atypical Chest pain Current Visit: Yes Status: Acute. Stress test done today negative for ischemia Chest pain atypical probably secondary to GERD -- PAF (paroxysmal atrial fibrillation) Current Visit: Yes Status: Acute s/p esmolol drip, now on propranolol digitoxin. 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 --DVT prophylaxis: Lovenox Monitor clinically and adjust the management as needed Patient is stable to be transferred out of ICU to telemetry Consults and recommendations noted and appreciated Plan of care reviewed with the patient and her nurse History Interval history: Patient Seen and examined medical records reviewed Patient had a stress test today, negative for ischemia Patient denies any chest pain or shortness of breath Thyroid function tests gradually improving Vital signs noted Hospitalist Physical - Constitutional Vitals: Temp Pulse Resp BP Pulse Ox 97.9 F 81 16 119/52 95 05/13/19 07:42 05/13/19 09:02 05/13/19 07:42 05/13/19 11:05 05/13/19 07:42 General appearance: Present: no acute distress, well-nourished - EENT Eyes: Present: PERRL, EOM intact - Neck Neck: Present: supple, normal ROM - Respiratory Respiratory effort: normal Respiratory: bilateral: diminished, negative: rales, rhonchi, wheezing - Cardiovascular Rhythm: regular Heart Sounds: Present: S1 & S2 - Extremities Extremities: no ischemia, No edema - Abdominal General gastrointestinal: soft, non-tender, non-distended, normal bowel sounds - Integumentary Integumentary: Present: clear, warm - Psychiatric Psychiatric: appropriate mood/affect, cooperative - Neurologic Neurologic: CNII-XII intact, moves all extremities Results - Labs CBC & Chem 7: 05/12/19 04:22 05/12/19 04:22 Labs: Laboratory Last Values WBC 4.5 K/mm3 (4.5-11.0) 05/12/19 04:22 RBC 3.71 M/mm3 (3.65-5.03) 05/12/19 04:22 Hgb 10.2 gm/dl (10.1-14.3) 05/12/19 04:22 Hct 30.9 % (30.3-42.9) 05/12/19 04:22 MCV 83 fl (79-97) 05/12/19 04:22 MCH 28 pg (28-32) 05/12/19 04:22 MCHC 33 % (30-34) 05/12/19 04:22 RDW 14.1 % (13.2-15.2) 05/12/19 04:22 Plt Count 172 K/mm3 (140-440) 05/12/19 04:22 Lymph % (Auto) 25.3 % (13.4-35.0) 05/12/19 04:22 [place] % (Auto) 9.7 % (0.0-7.3) H 05/12/19 04:22 Eos % (Auto) 0.0 % (0.0-4.3) 05/12/19 04:22 Baso % (Auto) 0.1 % (0.0-1.8) 05/12/19 04:22 Lymph # 1.1 K/mm3 (1.2-5.4) L 05/12/19 04:22 [place] # 0.4 K/mm3 (0.0-0.8) 05/12/19 04:22 Eos # 0.0 K/mm3 (0.0-0.4) 05/12/19 04:22 Baso # 0.0 K/mm3 (0.0-0.1) 05/12/19 04:22 Seg Neutrophils % 64.9 % (40.0-70.0) 05/12/19 04:22 Seg Neutrophils # 2.9 K/mm3 (1.8-7.7) 05/12/19 04:22 Sodium 140 mmol/L (137-145) 05/12/19 04:22 Potassium 4.1 mmol/L (3.6-5.0) 05/12/19 04:22 Chloride 107.5 mmol/L (98-107) H 05/12/19 04:22 Carbon Dioxide 20 mmol/L (22-30) L 05/12/19 04:22 Anion Gap 17 mmol/L 05/12/19 04:22 BUN 16 mg/dL (7-17) 05/12/19 04:22 Creatinine 0.2 mg/dL (0.7-1.2) L 05/12/19 04:22 Estimated GFR > 60 ml/min 05/12/19 04:22 BUN/Creatinine Ratio 80 % 05/12/19 04:22 Glucose 127 mg/dL (65-100) H 05/12/19 04:22 Calcium 9.7 mg/dL (8.4-10.2) 05/12/19 04:22 Magnesium 1.70 mg/dL (1.7-2.3) 05/11/19 11:05 Total Bilirubin 1.00 mg/dL (0.1-1.2) 05/11/19 02:55 Direct Bilirubin 0.2 mg/dL (0-0.2) 05/11/19 02:55 Indirect Bilirubin 0.8 mg/dL 05/11/19 02:55 AST 22 units/L (5-40) 05/11/19 02:55 ALT 15 units/L (7-56) 05/11/19 02:55 Alkaline Phosphatase 215 units/L (35-129) H 05/11/19 02:55 Total Creatine Kinase 38 units/L (30-135) 05/11/19 11:05 CK-MB (CK-2) 1.5 ng/mL (0.0-4.0) 05/11/19 11:05 CK-MB (CK-2) Rel Index 3.9 (0-4) 05/11/19 11:05 Troponin T < 0.010 ng/mL (0.00-0.029) 05/11/19 11:05 Total Protein 6.5 g/dL (6.3-8.2) 05/11/19 02:55 Albumin 3.2 g/dL (3.9-5) L 05/11/19 02:55 Albumin/Globulin Ratio 1.0 % 05/11/19 02:55 TSH < 0.005 mlU/mL (0.270-4.200) L 05/13/19 08:56 Free T4 4.30 ng/dL (0.76-1.46) H 05/13/19 08:56 Digoxin 0.7 ng/mL (0.9-2.0) L 05/12/19 10:00 Urine Opiates Screen Presumptive negative 05/11/19 06:05 Urine Methadone Screen Presumptive negative 05/11/19 06:05 Ur Barbiturates Screen Presumptive negative 05/11/19 06:05 Ur Phencyclidine Scrn Presumptive negative 05/11/19 06:05 Ur Amphetamines Screen Presumptive negative 05/11/19 06:05 U Benzodiazepines Scrn Presumptive negative 05/11/19 06:05 Urine Cocaine Screen Presumptive negative 05/11/19 06:05 U Marijuana (THC) Screen Presumptive negative 05/11/19 06:05 Drugs of Abuse Note Disclamer 05/11/19 06:05 Active Medications - Current Medications Current Medications: Generic Name Dose Route Start Last Admin Trade Name Freq PRN Reason Stop Dose Admin Acetaminophen 650 mg 05/11/19 04:29 Tylenol PO Q4H PRN Pain MILD(1-3)/Fever >100.5/CODY Digoxin 0.125 mg 05/12/19 17:00 05/12/19 16:46 Lanoxin PO 0.125 mg DAILY@1700 [facility] Administration Hydrocortisone Sodium Succinate 100 mg 05/11/19 12:00 05/13/19 14:44 Solu-Cortef IV Not Given Q6HR [facility] Magnesium Hydroxide 30 ml 05/12/19 09:48 Milk Of Magnesia PO QDAY PRN Constipation Methimazole 20 mg 05/11/19 11:00 05/13/19 14:54 Tapazole PO 20 mg Q8H [facility]AM Administration Morphine Sulfate 2 mg 05/11/19 04:29 05/12/19 21:39 Morphine IV 2 mg Q4H PRN Administration Pain, Moderate (4-6) Ondansetron HCl 4 mg 05/11/19 04:29 Zofran IV Q8H PRN Nausea And Vomiting Propranolol HCl 40 mg 05/13/19 22:00 Inderal PO BID ELHAM Rivaroxaban 20 mg 05/13/19 17:00 Xarelto PO QDAY [facility] Protocol Sodium Chloride 10 ml 05/11/19 10:00 05/12/19 21:50 Sodium Chloride Flush Syringe 10 Ml IV 10 ml BID ELHAM Administration Sodium Chloride 10 ml 05/11/19 04:29 Sodium Chloride Flush Syringe 10 Ml IV PRN PRN LINE FLUSH
[2019-05-13] MEDS ORDERED: RIVAROXABAN 10 MG TAB PO SCH (17:00)
[2019-05-13] MEDS: DIGOXIN 0.125 MG TAB PO SCH (18:37)
[2019-05-13] MEDS ORDERED: PROPRANOLOL 10 MG TAB PO SCH (22:00)
[2019-05-13] MEDS: PROPRANOLOL 40 MG TAB PO SCH (22:42)
[2019-05-14] MEDS: HYDROCORTISONE SOD SUCC 100 MG/2 ML VIAL IV SCH ×5 (00:05→21:42)
[2019-05-14] MEDS: MORPHINE 2 MG/1 ML INJ IV PRN (02:29)
--- NOTE | 2019-05-14 04:14 | Treadmill Report ---
SINGLE ISOTOPE DUAL STUDY MYOCARDIAL PERFUSION SCAN AGE: 49. SEX: Female. REFERRING PHYSICIAN: Lana Baeza M.D. DESCRIPTION OF PROCEDURE: The patient received 10 mCi of technetium 99m Myoview intravenously under resting conditions. Resting myocardial perfusion scan was done. Subsequently, the patient received 28 mCi of technetium 99m Myoview intravenously. After 30-60 minutes, post stress images were done. Computerized reconstruction images were performed for analysis. The post-stress images revealed mild transient ischemic dilatation of the left ventricle with TID ratio 1.14. No perfusion abnormality was seen. Gated study did not reveal any wall motion abnormality. The left ventricular ejection fraction was normal and was calculated to be 71%. The resting images were normal. CONCLUSIONS: 1. Mild transient ischemic dilatation of the left ventricle with TID ratio of 1.14 on the stress images -- This is of uncertain significance. 2. No perfusion abnormality in the resting as well as stress images. 3. No wall motion abnormality. 4. Normal left ventricular systolic function of 71%. JOB# [id number] [facility]
[2019-05-14] MEDS: methIMAzole 5 MG TAB PO SCH ×3 (04:40→18:10)
[2019-05-14 06:02] LABS: Free T4 (Free Thyroxine) 4.18 ng/dL (0.76-1.46)
[2019-05-14] MEDS: RIVAROXABAN 20 MG TAB PO SCH (10:44)
[2019-05-14] MEDS: PROPRANOLOL 40 MG TAB PO SCH ×2 (10:45→21:42)
[2019-05-14] MEDS: oxyCODONE /ACETAMINOPHEN 5-325MG TAB PO PRN (16:17)
[2019-05-14] MEDS: DIGOXIN 0.125 MG TAB PO SCH (16:17)
--- NOTE | 2019-05-14 18:30 | Progress Note ---
Assessment and Plan Assessment and plan: --Atypical Chest pain Current Visit: Yes Status: Acute. Stress test done today negative for ischemia Chest pain atypical probably secondary to GERD -- PAF (paroxysmal atrial fibrillation) Current Visit: Yes Status: Acute s/p esmolol drip, now on propranolol digitoxin. 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 --DVT prophylaxis: Lovenox Monitor clinically and adjust the management as needed Patient is stable to be transferred out of ICU to telemetry Consults and recommendations noted and appreciated Plan of care reviewed with the patient and her nurse History Interval history: Patient is seen and examined medical records reviewed Patient feels slightly better Hospitalist Physical - Constitutional Vitals: Temp Pulse Resp BP Pulse Ox 98.0 F 80 20 128/56 98 05/14/19 16:07 05/14/19 16:17 05/14/19 17:17 05/14/19 16:07 05/14/19 16:07 General appearance: Present: no acute distress, well-nourished - EENT Eyes: Present: PERRL, EOM intact - Neck Neck: Present: supple, normal ROM - Respiratory Respiratory effort: normal Respiratory: bilateral: diminished, negative: rales, rhonchi, wheezing - Cardiovascular Rhythm: regular Heart Sounds: Present: S1 & S2 - Extremities Extremities: no ischemia, No edema - Abdominal General gastrointestinal: soft, non-tender, non-distended, normal bowel sounds - Integumentary Integumentary: Present: clear, warm - Psychiatric Psychiatric: appropriate mood/affect, cooperative - Neurologic Neurologic: moves all extremities Results - Labs CBC & Chem 7: 05/12/19 04:22 05/12/19 04:22 Labs: Laboratory Last Values WBC 4.5 K/mm3 (4.5-11.0) 05/12/19 04:22 RBC 3.71 M/mm3 (3.65-5.03) 05/12/19 04:22 Hgb 10.2 gm/dl (10.1-14.3) 05/12/19 04:22 Hct 30.9 % (30.3-42.9) 05/12/19 04:22 MCV 83 fl (79-97) 05/12/19 04:22 MCH 28 pg (28-32) 05/12/19 04:22 MCHC 33 % (30-34) 05/12/19 04:22 RDW 14.1 % (13.2-15.2) 05/12/19 04:22 Plt Count 172 K/mm3 (140-440) 05/12/19 04:22 Lymph % (Auto) 25.3 % (13.4-35.0) 05/12/19 04:22 [place] % (Auto) 9.7 % (0.0-7.3) H 05/12/19 04:22 Eos % (Auto) 0.0 % (0.0-4.3) 05/12/19 04:22 Baso % (Auto) 0.1 % (0.0-1.8) 05/12/19 04:22 Lymph # 1.1 K/mm3 (1.2-5.4) L 05/12/19 04:22 [place] # 0.4 K/mm3 (0.0-0.8) 05/12/19 04:22 Eos # 0.0 K/mm3 (0.0-0.4) 05/12/19 04:22 Baso # 0.0 K/mm3 (0.0-0.1) 05/12/19 04:22 Seg Neutrophils % 64.9 % (40.0-70.0) 05/12/19 04:22 Seg Neutrophils # 2.9 K/mm3 (1.8-7.7) 05/12/19 04:22 Sodium 140 mmol/L (137-145) 05/12/19 04:22 Potassium 4.1 mmol/L (3.6-5.0) 05/12/19 04:22 Chloride 107.5 mmol/L (98-107) H 05/12/19 04:22 Carbon Dioxide 20 mmol/L (22-30) L 05/12/19 04:22 Anion Gap 17 mmol/L 05/12/19 04:22 BUN 16 mg/dL (7-17) 05/12/19 04:22 Creatinine 0.2 mg/dL (0.7-1.2) L 05/12/19 04:22 Estimated GFR > 60 ml/min 05/12/19 04:22 BUN/Creatinine Ratio 80 % 05/12/19 04:22 Glucose 127 mg/dL (65-100) H 05/12/19 04:22 Calcium 9.7 mg/dL (8.4-10.2) 05/12/19 04:22 Magnesium 1.70 mg/dL (1.7-2.3) 05/11/19 11:05 Total Bilirubin 1.00 mg/dL (0.1-1.2) 05/11/19 02:55 Direct Bilirubin 0.2 mg/dL (0-0.2) 05/11/19 02:55 Indirect Bilirubin 0.8 mg/dL 05/11/19 02:55 AST 22 units/L (5-40) 05/11/19 02:55 ALT 15 units/L (7-56) 05/11/19 02:55 Alkaline Phosphatase 215 units/L (35-129) H 05/11/19 02:55 Total Creatine Kinase 38 units/L (30-135) 05/11/19 11:05 CK-MB (CK-2) 1.5 ng/mL (0.0-4.0) 05/11/19 11:05 CK-MB (CK-2) Rel Index 3.9 (0-4) 05/11/19 11:05 Troponin T < 0.010 ng/mL (0.00-0.029) 05/11/19 11:05 Total Protein 6.5 g/dL (6.3-8.2) 05/11/19 02:55 Albumin 3.2 g/dL (3.9-5) L 05/11/19 02:55 Albumin/Globulin Ratio 1.0 % 05/11/19 02:55 TSH < 0.005 mlU/mL (0.270-4.200) L 05/14/19 04:29 Free T4 4.18 ng/dL (0.76-1.46) H 05/14/19 04:29 Digoxin 0.7 ng/mL (0.9-2.0) L 05/12/19 10:00 Urine Opiates Screen Presumptive negative 05/11/19 06:05 Urine Methadone Screen Presumptive negative 05/11/19 06:05 Ur Barbiturates Screen Presumptive negative 05/11/19 06:05 Ur Phencyclidine Scrn Presumptive negative 05/11/19 06:05 Ur Amphetamines Screen Presumptive negative 05/11/19 06:05 U Benzodiazepines Scrn Presumptive negative 05/11/19 06:05 Urine Cocaine Screen Presumptive negative 05/11/19 06:05 U Marijuana (THC) Screen Presumptive negative 05/11/19 06:05 Drugs of Abuse Note Disclamer 05/11/19 06:05 Active Medications - Current Medications Current Medications: Generic Name Dose Route Start Last Admin Trade Name Freq PRN Reason Stop Dose Admin Acetaminophen 650 mg 05/11/19 04:29 Tylenol PO Q4H PRN Pain MILD(1-3)/Fever >100.5/CODY Digoxin 0.125 mg 05/12/19 17:00 05/14/19 16:17 Lanoxin PO 0.125 mg DAILY@1700 [facility] Administration Hydrocortisone Sodium Succinate 100 mg 05/11/19 12:00 05/14/19 18:10 Solu-Cortef IV 100 mg Q6HR [facility] Administration Magnesium Hydroxide 30 ml 05/12/19 09:48 Milk Of Magnesia PO QDAY PRN Constipation Methimazole 20 mg 05/11/19 11:00 05/14/19 18:10 Tapazole PO 20 mg Q8H [facility] Administration Ondansetron HCl 4 mg 05/11/19 04:29 Zofran IV Q8H PRN Nausea And Vomiting Oxycodone/Acetaminophen 1 tab 05/14/19 16:12 05/14/19 16:17 Percocet 5/325 PO 1 tab Q6H PRN Administration Pain, Moderate (4-6) Propranolol HCl 40 mg 05/13/19 22:00 05/14/19 10:45 Inderal PO 40 mg BID [facility] Administration Rivaroxaban 20 mg 05/14/19 10:00 05/14/19 10:44 Xarelto PO 20 mg QDAY [facility] Administration Protocol Sodium Chloride 10 ml 05/11/19 10:00 05/14/19 10:45 Sodium Chloride Flush Syringe 10 Ml IV 10 ml BID [facility] Administration Sodium Chloride 10 ml 05/11/19 04:29 05/13/19 22:46 Sodium Chloride Flush Syringe 10 Ml IV 10 ml PRN PRN Administration LINE FLUSH
[2019-05-15] MEDS: oxyCODONE /ACETAMINOPHEN 5-325MG TAB PO PRN
[2019-05-15] MEDS: PROPRANOLOL 10 MG TAB PO SCH (02:25)
[2019-05-15] MEDS: ENOXAPARIN 40 MG/0.4 ML INJ SUB-Q SCH (02:25)
[2019-05-15] MEDS: methIMAzole 5 MG TAB PO SCH ×2 (02:29→10:38)
[2019-05-15 05:11] LABS: Free T4 (Free Thyroxine) 4.06 ng/dL (0.76-1.46)
[2019-05-15] MEDS: HYDROCORTISONE SOD SUCC 100 MG/2 ML VIAL IV SCH (06:09)
[2019-05-15] MEDS: RIVAROXABAN 20 MG TAB PO SCH (10:35)
[2019-05-15] MEDS: PROPRANOLOL 40 MG TAB PO SCH (10:36)
[2019-05-15 10:37] VITALS: BP 140/82
--- NOTE | 2019-05-15 11:36 | Discharge Summary ---
Providers - Providers Date of Admission: 05/11/19 05:21 Date of discharge: 05/15/19 Attending physician: ENZO LIU [facility] Reason for admission: A. fib with RVR / chest pain Condition: Stable Pertinent studies: Chest x-ray; no acute abnormality Echocardiogram; normal EF of 50-55%, mild pulmonary hypertension Stress test; mild transient ischemic dilation of the left ventricle, no perfusion abnormality or wall motion abnormality, EF 71% Hospital course: 49-year-old woman with a history of hypertension, hyperthyroidism, pancreatitis, unknown etiology cost emergency room with complaints of left arm and epigastric area. Pain is that she describes as a stightness, intermittent every 10 to 20 minutes, intensity 5/10, relieved with pain medication given in the emergency room. Admits to palpitation, nausea or vomiting, shortness of breath,no diaphoresis. States she is compliant with her medication. In the ER she was found to be in A. fib, rate 160s, she is now converted back to sinus, started on esmolol drip. Patient was managed appropriately, evaluated by cardiology, patient underwent stress test, negative for reversible ischemia Normal LV function, Patient's medications were optimized Today patient is comfortable no new complaints vital signs stable Physical examination is unremarkable Stable at discharge --Atypical Chest pain Current Visit: Yes Status: Acute. Stress test done today negative for ischemia Chest pain atypical probably secondary to GERD -- PAF (paroxysmal atrial fibrillation) Current Visit: Yes Status: Acute s/p esmolol drip, now on propranolol digitoxin. 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 --DVT prophylaxis: Lovenox Stable at discharge Disposition: TO HOME OR SELFCARE Time spent for discharge: 32 min Core Measure Documentation - Palliative Care Palliative Care/ Comfort Measures: Not Applicable - Core Measures Any of the following diagnoses?: none Exam - Constitutional Vitals: Temp Pulse Resp BP Pulse Ox 98.0 F 80 20 140/82 99 05/15/19 07:35 05/15/19 10:36 05/15/19 10:00 05/15/19 10:36 05/15/19 10:00 General appearance: Present: no acute distress, well-nourished - EENT Eyes: Present: PERRL, EOM intact - Neck Neck: Present: supple, normal ROM - Respiratory Respiratory effort: normal Respiratory: bilateral: diminished, negative: rales, rhonchi, wheezing - Cardiovascular Rhythm: regular Heart Sounds: Present: S1 & S2 - Extremities Extremities: no ischemia, No edema - Abdominal General gastrointestinal: Present: soft, non-tender, non-distended, normal bowel sounds - Integumentary Integumentary: Present: clear, warm - Musculoskeletal Musculoskeletal: strength equal bilaterally - Psychiatric Psychiatric: appropriate mood/affect, cooperative - Neurologic Neurologic: CNII-XII intact, moves all extremities Plan Activity: no restrictions Diet: regular Additional Instructions: Advised to see private beet end supervisor, bike assembler per schedule Follow up with: DAVID HINOJSOA MD [Primary Care Provider] - 3-5 Days SILVANO CASTRO MD [Staff Physician] - 7 Days LUTHER QUINTERO MD [Referring] - 7 Days Prescriptions: predniSONE [Deltasone] 2 tab PO DAILY #35 tablet Apixaban [Eliquis] 5 mg PO Q12H #60 tablet Propranolol [Inderal] 40 mg PO BID #60 tablet Digoxin [Lanoxin] 0.125 mg PO DAILY@1700 #30 tablet Methimazole [Tapazole] 10 mg PO Q8H #90 tablet
== END 2019-05-15 12:52 | disposition home or self-care (01) | DRG 644 ==
LOC: ED 23:19 → CC1 05-11 05:21 → 4A 05-12 13:30
PROVIDERS: ADMIT Internal Medicine; ATTEND Internal Medicine
DX: E05.90 Thyrotoxicosis, unspecified without thyrotoxic crisis or storm (principal); E44.0 Moderate protein-calorie malnutrition; I10 Essential (primary) hypertension; E87.6 Hypokalemia; I48.0 Paroxysmal atrial fibrillation; R07.89 Other chest pain; Z68.25 Body mass index [BMI] 25.0-25.9, adult; Z90.49 Acquired absence of other specified parts of digestive tract; Z87.891 Personal history of nicotine dependence; Z98.51 Tubal ligation status
CPT/HCPCS: 36415; 71045; 78452; 80048; 80076; 80162; 80307; 82550; 82553; 83735; 84439; 84443; 84484; 85025; 93005; 93010; 93017; 93306; 96374; 96375; G0378; A9502; J1160; J1650; J1720; J2270; J2405; J2785

== ENCOUNTER 2019-05-23 15:54 | Emergency (ER) | payer SELFPAY ==
--- NOTE | 2019-05-23 16:03 | Emergency Department Report ---
Blank Doc - Documentation Documentation: 49-year-old female that presents with heart palpations and SOB. Denies any ch est pain. This initial assessment/diagnostic orders/clinical plan/treatment(s) is/are subject to change based on patient's health status, clinical progression and re- assessment by fellow clinical providers in the ED. Further treatment and workup at subsequent clinical providers discretion. Patient/guardians urged not to elope from the ED as their condition may be serious if not clinically assessed and managed. Initial orders include: 1- Patient sent to MAIN ED for further evaluation and treatment 2- labs 3- EKG 4- CXR
[2019-05-23 16:21] LABS: Basophils % (Auto) 0.8 % (0.0-1.8); Hematocrit 36.9 % (30.3-42.9); Hemoglobin 12.2 gm/dl (10.1-14.3); Lymphocytes # (Auto) 0.8 K/mm3 (1.2-5.4); Lymphocytes % (Auto) 25.6 % (13.4-35.0); Mean Corpuscular HGB Conc 33 % (30-34); Mean Corpuscular Volume 82 fl (79-97); Monocytes # (Auto) 0.1 K/mm3 (0.0-0.8); Monocytes % (Auto) 4.1 % (0.0-7.3); Platelet Count 250 K/mm3 (140-440); Red Blood Count 4.52 M/mm3 (3.65-5.03); Red Cell Distribution Width 14.3 % (13.2-15.2)
[2019-05-23 16:41] LABS: Alanine Aminotransferase 12 units/L (7-56); BUN/Creatinine Ratio 28; Blood Urea Nitrogen 11 mg/dL (7-17); Calcium 9.9 mg/dL (8.4-10.2); Hemolysis Index 2
--- NOTE | 2019-05-23 17:08 | XRay Report ---
CHEST PA AND LATERAL VIEWS INDICATION: Chest Pain. COMPARISON: 05/11/2019. FINDINGS: Support devices: None. Heart: Within normal limits. Lungs/Pleura: Mild diffuse increased reticular opacities are again seen in both lungs. These are unch anged. No consolidation, effusion, or pneumothorax. IMPRESSION: 1. No acute findings. Mild increased reticular markings are again seen. Signer Name: Denny Huitron MD Signed: 05/23/2019 5:04 PM Workstation Name: [id number]
--- NOTE | 2019-05-23 18:47 | Emergency Department Report ---
HPI - General Chief Complaint: Medical Clearance Time Seen by Provider: 05/23/19 16:00 - HPI HPI: Room 37 The patient is a 49-year-old female presenting with the chief complaint shortness of shortness of breath. Patient was recently admitted to the hospital and managed for thyroid storm. Patient was sent home on digoxin, methimazole propanolol and prednisone. Patient states she has not had a change since she was discharged stating she has intermittent palpitations and shortness of breath. Patient states usually happens at night. Patient states a few days ago she noticed bilateral lower extremity edema but this has since resolved Location: [See above] Duration: [See above] Quality: [See above] Severity: [See above] Timing: [See above] Context: [See above] Modifying factors: [See above] Associated signs and symptoms: [see above] ED Past Medical Hx - Past Medical History Previous Medical History?: Yes Hx Hypertension: Yes Hx Asthma: (unsure) Additional medical history: hyperthyroid. fibroids. heart murmur - Surgical History Past Surgical History?: Yes Hx Cholecystectomy: Yes Hx Breast Surgery: Yes (LEFT BREAST BIOPSY) Additional Surgical History: tubal ligation. left collar bone surgery - Family History Family history: no significant - Social History Smoking Status: Former Smoker (none 10 years) Substance Use Type: None (denies illicit drug use) - Medications Home Medications: Home Medications Medication Instructions Recorded Confirmed Last Taken Type Apixaban [Eliquis] 5 mg PO Q12H #60 tablet 05/15/19 Unknown Rx Digoxin [Lanoxin] 0.125 mg PO DAILY@1700 #30 tablet 05/15/19 Unknown Rx Methimazole [Tapazole] 10 mg PO Q8H #90 tablet 05/15/19 Unknown Rx Propranolol [Inderal] 40 mg PO BID #60 tablet 05/15/19 Unknown Rx predniSONE [Deltasone] 2 tab PO DAILY #35 tablet 05/15/19 Unknown Rx hydrOXYzine PAMOATE [Vistaril] 50 mg PO Q6HR PRN #10 capsule 05/23/19 Unknown Rx ED Review of Systems ROS: Stated complaint: BLOOD PRESSURE CHECK Other details as noted in HPI Constitutional: no symptoms reported Eyes: denies: eye pain ENT: denies: throat pain Respiratory: shortness of breath, SOB with exertion Cardiovascular: palpitations, dyspnea on exertion. denies: chest pain Endocrine: no symptoms reported Gastrointestinal: denies: abdominal pain Genitourinary: denies: dysuria Musculoskeletal: denies: back pain Neurological: denies: headache Physical Exam - Physical Exam Vital Signs: Vital Signs 05/23/19 16:01 Temperature 97.6 F Pulse Rate 98 H Respiratory 15 Rate Blood Pressure 135/51 O2 Sat by Pulse 96 Oximetry Physical Exam: GENERAL: The patient is well-developed well-nourished female lying on stretcher not appearing to be in acute distress. [] HEENT: Normocephalic. Atraumatic. Extraocular motions are intact. Patient has moist mucous membranes. NECK: Supple. Trachea midline CHEST/LUNGS: Clear to auscultation. There is no respiratory distress noted. HEART/CARDIOVASCULAR: Regular. There is no tachycardia. There is no gallop rub or murmur. ABDOMEN: Abdomen is soft, nontender. Patient has normal bowel sounds. There is no abdominal distention. SKIN: There is no rash. There is no edema. There is no diaphoresis. NEURO: The patient is awake, alert, and oriented. The patient is cooperative. The patient has normal speech MUSCULOSKELETAL: There is no evidence of acute injury. ED Course Vital Signs 05/23/19 16:01 Temperature 97.6 F Pulse Rate 98 H Respiratory 15 Rate Blood Pressure 135/51 O2 Sat by Pulse 96 Oximetry ED Medical Decision Making - Lab Data Result diagrams: 05/23/19 16:10 05/23/19 16:10 Laboratory Tests 05/23/19 05/23/19 05/23/19 16:10 16:10 16:10 WBC 3.3 L RBC 4.52 Hgb 12.2 Hct 36.9 MCV 82 MCH 27 L MCHC 33 RDW 14.3 Plt Count 250 Lymph % (Auto) 25.6 [place] % (Auto) 4.1 Eos % (Auto) 0.0 Baso % (Auto) 0.8 Lymph # 0.8 L [place] # 0.1 Eos # 0.0 Baso # 0.0 Seg Neutrophils % 69.5 Seg Neutrophils # 2.3 D-Dimer Sodium 139 Potassium 4.2 Chloride 103.6 Carbon Dioxide 21 L Anion Gap 19 BUN 11 Creatinine 0.4 L Estimated GFR > 60 BUN/Creatinine Ratio 28 Glucose 157 H Calcium 9.9 Total Bilirubin 0.70 AST 13 ALT 12 Alkaline Phosphatase 242 H Troponin T < 0.010 NT-Pro-B Natriuret Pep Total Protein 7.7 Albumin 4.0 Albumin/Globulin Ratio 1.1 TSH < 0.005 L Free T4 Digoxin 05/23/19 05/23/19 05/23/19 16:10 16:10 16:10 WBC RBC Hgb Hct MCV MCH MCHC RDW Plt Count Lymph % (Auto) [place] % (Auto) Eos % (Auto) Baso % (Auto) Lymph # [place] # Eos # Baso # Seg Neutrophils % Seg Neutrophils # D-Dimer Sodium Potassium Chloride Carbon Dioxide Anion Gap BUN Creatinine Estimated GFR BUN/Creatinine Ratio Glucose Calcium Total Bilirubin AST ALT Alkaline Phosphatase Troponin T NT-Pro-B Natriuret Pep 289.3 Total Protein Albumin Albumin/Globulin Ratio TSH Free T4 5.99 H Digoxin 0.4 L 05/23/19 18:47 WBC RBC Hgb Hct MCV MCH MCHC RDW Plt Count Lymph % (Auto) [place] % (Auto) Eos % (Auto) Baso % (Auto) Lymph # [place] # Eos # Baso # Seg Neutrophils % Seg Neutrophils # D-Dimer 314.24 H Sodium Potassium Chloride Carbon Dioxide Anion Gap BUN Creatinine Estimated GFR BUN/Creatinine Ratio Glucose Calcium Total Bilirubin AST ALT Alkaline Phosphatase Troponin T NT-Pro-B Natriuret Pep Total Protein Albumin Albumin/Globulin Ratio TSH Free T4 Digoxin - EKG Data -: EKG Interpreted by Me EKG shows normal: sinus rhythm Rate: normal - EKG Data When compared to previous EKG there are: previous EKG unavailable Interpretation: other (no ischemic changes seen) - Radiology Data Radiology results: report reviewed (chest x-ray, CT chest), image reviewed (chest x-ray, CT chest) interpreted by me: Chest x-ray-no focal infiltrate, no pneumothorax [facility] [address] [place] [address] XRay Report Signed Patient: TONY WAY R#: [id number] : 1970 Acct:[id number] Age/Sex: 49 / F ADM Date: 05/23/19 Loc: ED Attending Dr: Ordering Physician: SHERRI MONZON NP Date of Service: 05/23/19 Procedure(s): XR chest routine 2V Accession Number(s): [id number] cc: SHERRI MONZON NP Fluoro Time In Minutes: CHEST PA AND LATERAL VIEWS INDICATION: Chest Pain. COMPARISON: 05/11/2019. FINDINGS: Support devices: None. Heart: Within normal limits. Lungs/Pleura: Mild diffuse increased reticular opacities are again seen in both lungs. These are unchanged. No consolidation, effusion, or pneumothorax. IMPRESSION: 1. No acute findings. Mild increased reticular markings are again seen. Signer Name: Denny Huitron MD Signed: 05/23/2019 5:04 PM Workstation Name: [id number] Transcribed By: JAYSHREE Dictated By: Denny Huitron MD Electronically Authenticated By: Denny Huitron MD Signed Date/Time: 05/23/191703 DD/ 02 TD/TT: [facility] [address] [place] [address] Cat Scan Report Signed Patient: TONY WAY R#: [id number] : 1970 Acct:[id number] Age/Sex: 49 / F ADM Date: 05/23/19 Loc: ED Attending Dr: Ordering Physician: LONI LEDESMA MD Date of Service: 05/23/19 Procedure(s): CT angio chest Accession Number(s): [id number] cc: LONI LEDESAM MD CTA of the chest with 3D Reconstruction Indication: ,shortness of breath Technique: TECHNIQUE: Axial CT images were obtained through the chest after injection of 100 cc of Omnipaque 350 IV contrast. 3 plane MIP reconstructions were produced. All CT scans at this location are performed using CT dose reduction for ALARA by means of automated exposure control. COMPARISON: CT dated 10/15/2018 Automatic exposure control was utilized in an attempt to reduce radiation dose. Findings: Pulmonary arteries: The main pulmonary artery and right and left pulmonary artery branches fill satisfactorily with contrast. No pulmonary embolus is seen. Lungs: There is mild bullous disease in the upper lobes. No focal infiltrate is seen. No pneumothorax is seen. Mediastinum: Heart size is upper limits of normal. Aorta: Normal in diameter. No dissection seen within limits of this exam. Impression: No pulmonary embolus is seen Signer Name: Keshav Matthews MD Signed: 05/23/2019 9:07 PM Workstation Name: [id number] Transcribed By: Dictated By: Keshav Matthews MD Electronically Authenticated By: Keshav Matthews MD Signed Date/Time: 05/23/192106 DD/ 00 TD/TT: - Differential Diagnosis A. fib with RVR, no limitations, anxiety, PE, CHF Critical care attestation.: If time is entered above; I have spent that time in minutes in the direct care of this critically ill patient, excluding procedure time. ED Disposition Clinical Impression: Hyperthyroidism, Palpitations Disposition: - TO HOME OR SELFCARE Is pt being admited?: No Does the pt Need Aspirin: No Condition: Stable Instructions: Palpitations (ED) Additional Instructions: Return to the emergency department should you develop worsening symptoms, inability to tolerate food or liquids, high fever or any other concerns Prescriptions: hydrOXYzine PAMOATE [Vistaril] 50 mg PO Q6HR PRN #10 capsule PRN Reason: Anxiety Referrals: LUTHER QUINTERO MD [Referring] - 3-5 Days Time of Disposition: 21:32
--- NOTE | 2019-05-23 21:11 | Cat Scan Report ---
CTA of the chest with 3D Reconstruction Indication: ,shortness of breath Technique: TECHNIQUE: Axial CT images were obtained through the chest after injection of 100 cc of Omnipaque 350 IV contrast. 3 plane MIP reconstructions were produced. All CT scans at this location are performed using CT dose reduction for ALARA by means of automated exposure control. COMPARISON: CT dated 10/15/2018 Automatic exposure control was utilized in an attempt to reduce radiation dose. Findings: Pulmonary arteries: The main pulmonary artery and right and left pulmonary artery branches fill satis factorily with contrast. No pulmonary embolus is seen. Lungs: There is mild bullous disease in the upper lobes. No focal infiltrate is seen. No pneumothorax is seen. Mediastinum: Heart size is upper limits of normal. Aorta: Normal in diameter. No dissection seen within limits of this exam. Impression: No pulmonary embolus is seen Signer Name: Keshav Matthews MD Signed: 05/23/2019 9:07 PM Workstation Name: [id number]
[2019-05-23 21:24] VITALS: BP 140/60
== END 2019-05-23 21:50 | disposition home or self-care (01) ==
LOC: ED 15:54
DX: E05.90 Thyrotoxicosis, unspecified without thyrotoxic crisis or storm (principal); R00.2 Palpitations; I10 Essential (primary) hypertension; Z90.49 Acquired absence of other specified parts of digestive tract; Z87.891 Personal history of nicotine dependence
CPT/HCPCS: 36415; 71046; 71275; 80053; 80162; 83880; 84439; 84443; 84484; 85025; 85379; 93005; 93010; 99285; Q9967

== ENCOUNTER 2019-07-29 10:39 | Emergency (ER) | payer SELFPAY ==
[2019-07-29 10:44] VITALS: BP 173/141
[2019-07-29] MEDS ORDERED: IPRATROPIUM/ALBUTEROL SULFATE 3 ML AMPUL.NEB IH ONE ×2 (11:04→11:06)
[2019-07-29] MEDS ORDERED: dexAMETHasone 20 MG/5 ML VIAL IV ONE (11:04)
[2019-07-29] MEDS ORDERED: IPRATROPIUM 0.02% NEBU 2.5 ML IH ONE (12:04)
[2019-07-29] MEDS ORDERED: ALBUTEROL 2.5 MG/3 ML NEBU IH ONE (12:04)
[2019-07-29 12:52] LABS: INR 1.06 (0.87-1.13)
[2019-07-29 12:53] LABS: Partial Thromboplastin Time 29.3 Sec. (24.2-36.6)
[2019-07-29 13:05] LABS: Basophils % (Auto) 0.2 % (0.0-1.8); Eosinophils % (Auto) 0.6 % (0.0-4.3); Hematocrit 38.9 % (30.3-42.9); Hemoglobin 12.6 gm/dl (10.1-14.3); Lymphocytes % (Auto) 47.4 % (13.4-35.0); Mean Corpuscular HGB Conc 33 % (30-34); Mean Corpuscular Volume 82 fl (79-97); Monocytes # (Auto) 0.5 K/mm3 (0.0-0.8); Monocytes % (Auto) 11.1 % (0.0-7.3); Platelet Count 230 K/mm3 (140-440); Red Blood Count 4.77 M/mm3 (3.65-5.03); Red Cell Distribution Width 15.8 % (13.2-15.2)
[2019-07-29 13:13] LABS: Alanine Aminotransferase 13 units/L (7-56); BUN/Creatinine Ratio 28; Blood Urea Nitrogen 11 mg/dL (7-17); Calcium 10.1 mg/dL (8.4-10.2); Hemolysis Index 4
[2019-07-29 13:18] LABS: Free T4 (Free Thyroxine) 2.54 ng/dL (0.76-1.46)
--- NOTE | 2019-07-29 13:48 | Emergency Department Report ---
ED General Adult HPI - General Chief complaint: Chest Pain Stated complaint: CHEST PAIN, BACK PAIN Time Seen by Provider: 07/29/19 10:58 Source: patient Mode of arrival: Ambulatory Limitations: No Limitations - History of Present Illness Initial comments: Patient presents to the emergency department the chief complaint of shortness of breath and wheezing for the last 2 days. The patient states she has had this before but does not have a diagnosis of asthma but it was in her family. Patient has fever, chest pain, abdominal pain. -: Gradual Severity scale (0 -10): 0 Consistency: constant Improves with: none Worsens with: none Associated Symptoms: denies other symptoms Treatments Prior to Arrival: none - Related Data Previous Rx's Medication Instructions Recorded Last Taken Type Apixaban [Eliquis] 5 mg PO Q12H #60 tablet 05/15/19 Unknown Rx Digoxin [Lanoxin] 0.125 mg PO DAILY@1700 #30 tablet 05/15/19 Unknown Rx Methimazole [Tapazole] 10 mg PO Q8H #90 tablet 05/15/19 Unknown Rx Propranolol [Inderal] 40 mg PO BID #60 tablet 05/15/19 Unknown Rx predniSONE [Deltasone] 2 tab PO DAILY #35 tablet 05/15/19 Unknown Rx hydrOXYzine PAMOATE [Vistaril] 50 mg PO Q6HR PRN #10 capsule 05/23/19 Unknown Rx Albuterol INH(or & Nicu Only) 2 puff IH Q4HR PRN #1 inhalation 07/29/19 Unknown Rx [ProAir HFA Inhaler] predniSONE [Deltasone] 20 mg PO DAILY #15 tablet 07/29/19 Unknown Rx Allergies Allergy/AdvReac Type Severity Reaction Status Date / Time metronidazole [From Flagyl] Allergy Vomiting Verified 09/18/18 08:14 Metronidazole HCl Allergy Vomiting Verified 03/26/19 11:23 [From Flagyl] ED Review of Systems ROS: Stated complaint: CHEST PAIN, BACK PAIN Other details as noted in HPI Comment: All other systems reviewed and negative Constitutional: denies: chills, fever Eyes: denies: eye pain, eye discharge, vision change ENT: denies: ear pain, throat pain Respiratory: denies: cough, shortness of breath, wheezing Cardiovascular: denies: chest pain, palpitations Endocrine: no symptoms reported Gastrointestinal: denies: abdominal pain, nausea, diarrhea Genitourinary: denies: urgency, dysuria, discharge Musculoskeletal: denies: back pain, joint swelling, arthralgia Skin: denies: rash, lesions Neurological: denies: headache, weakness, paresthesias Psychiatric: denies: anxiety, depression Hematological/Lymphatic: denies: easy bleeding, easy bruising ED Past Medical Hx - Past Medical History Previous Medical History?: Yes Hx Hypertension: Yes Hx Asthma: (unsure) Additional medical history: hyperthyroid. fibroids. heart murmur - Surgical History Past Surgical History?: Yes Hx Cholecystectomy: Yes Hx Breast Surgery: Yes (LEFT BREAST BIOPSY) Additional Surgical History: tubal ligation. left collar bone surgery - Social History Smoking Status: Never Smoker Substance Use Type: None - Medications Home Medications: Home Medications Medication Instructions Recorded Confirmed Last Taken Type Apixaban [Eliquis] 5 mg PO Q12H #60 tablet 05/15/19 Unknown Rx Digoxin [Lanoxin] 0.125 mg PO DAILY@1700 #30 tablet 05/15/19 Unknown Rx Methimazole [Tapazole] 10 mg PO Q8H #90 tablet 05/15/19 Unknown Rx Propranolol [Inderal] 40 mg PO BID #60 tablet 05/15/19 Unknown Rx predniSONE [Deltasone] 2 tab PO DAILY #35 tablet 05/15/19 Unknown Rx hydrOXYzine PAMOATE [Vistaril] 50 mg PO Q6HR PRN #10 capsule 05/23/19 Unknown Rx Albuterol INH(or & Nicu Only) 2 puff IH Q4HR PRN #1 inhalation 07/29/19 Unknown Rx [ProAir HFA Inhaler] predniSONE [Deltasone] 20 mg PO DAILY #15 tablet 07/29/19 Unknown Rx ED Physical Exam - General Limitations: No Limitations General appearance: alert, in no apparent distress - Head Head exam: Present: atraumatic, normocephalic - Eye Eye exam: Present: normal appearance, PERRL - ENT ENT exam: Present: mucous membranes moist - Neck Neck exam: Present: normal inspection - Respiratory Respiratory exam: Present: wheezes. Absent: respiratory distress - Cardiovascular Cardiovascular Exam: Present: regular rate, normal rhythm. Absent: systolic murmur, diastolic murmur, rubs, gallop - GI/Abdominal GI/Abdominal exam: Present: soft, normal bowel sounds. Absent: distended, tenderness - Extremities Exam Extremities exam: Present: normal inspection - Back Exam Back exam: Present: normal inspection - Neurological Exam Neurological exam: Present: alert, oriented X3, CN II-XII intact. Absent: motor sensory deficit - Psychiatric Psychiatric exam: Present: normal affect, normal mood - Skin Skin exam: Present: warm, dry, intact, normal color. Absent: rash ED Course Vital Signs 07/29/19 10:43 Temperature 97.0 F L Pulse Rate 90 Respiratory 36 H Rate Blood Pressure 173/141 [Right] O2 Sat by Pulse 100 Oximetry ED Medical Decision Making - Lab Data Result diagrams: 07/29/19 11:24 07/29/19 11:24 Lab Results 07/29/19 07/29/19 07/29/19 Range/Units 11:24 11:24 11:24 WBC 4.3 L (4.5-11.0) K/mm3 RBC 4.77 (3.65-5.03) M/mm3 Hgb 12.6 (10.1-14.3) gm/dl Hct 38.9 (30.3-42.9) % MCV 82 (79-97) fl MCH 27 L (28-32) pg MCHC 33 (30-34) % RDW 15.8 H (13.2-15.2) % Plt Count 230 (140-440) K/mm3 Lymph % (Auto) 47.4 H (13.4-35.0) % [place] % (Auto) 11.1 H (0.0-7.3) % Eos % (Auto) 0.6 (0.0-4.3) % Baso % (Auto) 0.2 (0.0-1.8) % Lymph # 2.0 (1.2-5.4) K/mm3 [place] # 0.5 (0.0-0.8) K/mm3 Eos # 0.0 (0.0-0.4) K/mm3 Baso # 0.0 (0.0-0.1) K/mm3 Add Manual Diff Complete Seg Neutrophils % 40.7 (40.0-70.0) % Seg Neutrophils # 1.8 (1.8-7.7) K/mm3 PT 13.9 (12.2-14.9) Sec. INR 1.06 (0.87-1.13) APTT 29.3 (24.2-36.6) Sec. Sodium 144 (137-145) mmol/L Potassium 4.7 (3.6-5.0) mmol/L Chloride 107.7 H (98-107) mmol/L Carbon Dioxide 24 (22-30) mmol/L Anion Gap 17 mmol/L BUN 11 (7-17) mg/dL Creatinine 0.4 L (0.7-1.2) mg/dL Estimated GFR > 60 ml/min BUN/Creatinine Ratio 28 % Glucose 105 H (65-100) mg/dL Calcium 10.1 (8.4-10.2) mg/dL Total Bilirubin 0.70 (0.1-1.2) mg/dL AST 17 (5-40) units/L ALT 13 (7-56) units/L Alkaline Phosphatase 328 H (35-129) units/L Troponin T < 0.010 (0.00-0.029) ng/mL NT-Pro-B Natriuret Pep 192.9 (0-900) pg/mL Total Protein 7.1 (6.3-8.2) g/dL Albumin 4.0 (3.9-5) g/dL Albumin/Globulin Ratio 1.3 % TSH (0.270-4.200) mlU/mL Free T4 (0.76-1.46) ng/dL 07/29/19 Range/Units 11:24 WBC (4.5-11.0) K/mm3 RBC (3.65-5.03) M/mm3 Hgb (10.1-14.3) gm/dl Hct (30.3-42.9) % MCV (79-97) fl MCH (28-32) pg MCHC (30-34) % RDW (13.2-15.2) % Plt Count (140-440) K/mm3 Lymph % (Auto) (13.4-35.0) % [place] % (Auto) (0.0-7.3) % Eos % (Auto) (0.0-4.3) % Baso % (Auto) (0.0-1.8) % Lymph # (1.2-5.4) K/mm3 [place] # (0.0-0.8) K/mm3 Eos # (0.0-0.4) K/mm3 Baso # (0.0-0.1) K/mm3 Add Manual Diff Seg Neutrophils % (40.0-70.0) % Seg Neutrophils # (1.8-7.7) K/mm3 PT (12.2-14.9) Sec. INR (0.87-1.13) APTT (24.2-36.6) Sec. Sodium (137-145) mmol/L Potassium (3.6-5.0) mmol/L Chloride (98-107) mmol/L Carbon Dioxide (22-30) mmol/L Anion Gap mmol/L BUN (7-17) mg/dL Creatinine (0.7-1.2) mg/dL Estimated GFR ml/min BUN/Creatinine Ratio % Glucose (65-100) mg/dL Calcium (8.4-10.2) mg/dL Total Bilirubin (0.1-1.2) mg/dL AST (5-40) units/L ALT (7-56) units/L Alkaline Phosphatase (35-129) units/L Troponin T (0.00-0.029) ng/mL NT-Pro-B Natriuret Pep (0-900) pg/mL Total Protein (6.3-8.2) g/dL Albumin (3.9-5) g/dL Albumin/Globulin Ratio % TSH < 0.005 L (0.270-4.200) mlU/mL Free T4 2.54 H (0.76-1.46) ng/dL - EKG Data -: EKG Interpreted by Tx EKG shows normal: sinus rhythm Rate: normal - Radiology Data Radiology results: report reviewed - Medical Decision Making The patient has a history of hypothyroidism and has no complaints of rash, tachy cardia, unexplained weight loss, visual issues, or confusion. Patient states she takes medications for hypothyroidism and just had the dosage increased The patient improved after a continuos breathing tx Critical Care Time: Yes Critical care time in (mins) excluding proc time.: 45 Critical care attestation.: If time is entered above; I have spent that time in minutes in the direct care of this critically ill patient, excluding procedure time. ED Disposition Clinical Impression: Wheezing, Shortness of breath Disposition: - TO HOME OR SELFCARE Is pt being admited?: No Does the pt Need Aspirin: No Condition: Stable Instructions: Asthma (ED) Additional Instructions: return if worse Referrals: PRIMARY CARE,MD [Primary Care Provider] - 3-5 Days [facility] [Provider Group] - 3-5 Days [facility] [Provider Group] - 3-5 Days Time of Disposition: 13:49
== END 2019-07-29 14:08 | disposition home or self-care (01) ==
LOC: ED 10:39
DX: R06.02 Shortness of breath (principal); R06.2 Wheezing; I10 Essential (primary) hypertension; J45.909 Unspecified asthma, uncomplicated; E05.90 Thyrotoxicosis, unspecified without thyrotoxic crisis or storm; Z90.49 Acquired absence of other specified parts of digestive tract
CPT/HCPCS: 36415; 80053; 83880; 84439; 84443; 84484; 85025; 85610; 85730; 93005; 93010; 96374; 99284; J1100

== ENCOUNTER 2019-08-20 23:06 | Inpatient (IN) | payer OTHER ==
[2019-08-21 01:10] LABS: Amorphous Crystals,Urine 1+; Bacteria,Urine 2+ /HPF (Negative); Bilirubin,Urine NEG (Negative); Blood,Urine LG (Negative); Color,Urine Red (Yellow); Mucus,Urine 2+ /HPF; Urobilinogen,Urine < 2.0 mg/dL (<2.0)
[2019-08-21 01:12] LABS: RBC,Urine > 182.0 /HPF (0.0-6.0)
[2019-08-21 01:14] LABS: HCG Qualitative,Urine Negative (Negative)
[2019-08-21] MEDS ORDERED: SODIUM CHLORIDE 0.9% 1000 ML 1,000 ML IV ONE (02:18)
[2019-08-21] MEDS ORDERED: MORPHINE 4 MG/1 ML INJ IV ONE (02:18)
[2019-08-21] MEDS ORDERED: ONDANSETRON 4 MG/2 ML INJ IV ONE ×3 (02:18→06:14)
[2019-08-21 02:32] LABS: Basophils % (Auto) 0.5 % (0.0-1.8); Eosinophils # (Auto) 0.1 K/mm3 (0.0-0.4); Eosinophils % (Auto) 0.7 % (0.0-4.3); Hematocrit 36.9 % (30.3-42.9); Hemoglobin 12.1 gm/dl (10.1-14.3); Lymphocytes # (Auto) 2.2 K/mm3 (1.2-5.4); Lymphocytes % (Auto) 26.5 % (13.4-35.0); Mean Corpuscular HGB Conc 33 % (30-34); Mean Corpuscular Volume 82 fl (79-97); Monocytes # (Auto) 0.9 K/mm3 (0.0-0.8); Monocytes % (Auto) 11.1 % (0.0-7.3); Platelet Count 170 K/mm3 (140-440); Red Blood Count 4.51 M/mm3 (3.65-5.03)
[2019-08-21 03:00] LABS: Alanine Aminotransferase 9 units/L (7-56); Albumin 3.9 g/dL (3.9-5); BUN/Creatinine Ratio 26; Blood Urea Nitrogen 13 mg/dL (7-17); Calcium 9.4 mg/dL (8.4-10.2); Hemolysis Index 5
[2019-08-21] MEDS ORDERED: cefTRIAXone/NS 1 GM/50 ML 1 GM/50 ML BAG IV ONE (04:53)
[2019-08-21] MEDS ORDERED: KETOROLAC 30 MG/1 ML INJ IV ONE ×2 (04:54→21:00)
--- NOTE | 2019-08-21 05:35 | Cat Scan Report ---
CT of the abdomen and pelvis without contrast INDICATION: Right flank pain COMPARISON: 10/14/2018 FINDINGS: Lung bases are clear. The liver, spleen, pancreas, adrenal glands and left kidney all appea r normal. There is right hydronephrosis and right perinephric edema. No intrarenal calculi seen in th e right kidney. Gallbladder has been removed. No biliary tree dilation. No fluid or adenopathy in the upper abdomen. CT of the pelvis shows persistent right hydroureter down to the right UVJ where there is a 3 mm stone causing relatively high-grade obstruction. No stone fragments seen in the bladder. Uterus is enlarge d and lobular likely due to fibroids. There is a 3.4 cm cyst in the left ovary. Right ovary is not cl early seen. The appendix is seen and is normal. No free pelvic fluid. No diverticulosis or diverticul itis. No bowel obstruction is seen. There is trace free pelvic fluid. IMPRESSION: 3 mm right UVJ stone with relatively high-grade obstruction. Uterine fibroids and left ov annette cyst. Automated exposure control was utilized to diminish radiation dose. Signer Name: Esvin Adams MD Signed: 08/21/2019 5:31 AM Workstation Name: [id number]
--- NOTE | 2019-08-21 06:08 | Emergency Department Report ---
<KELSEA DOMINGUEZ - Last Filed: 08/21/19 06:03> ED Abdominal Pain HPI - General Chief Complaint: Abdominal Pain Stated Complaint: RT FLANK PAIN Source: patient Mode of arrival: Ambulatory Limitations: No Limitations - History of Present Illness Initial Comments: Patient is a 49-year-old -[place]oz[place] female with a history of hypertension and remote history of kidney stones who presents to the ED with complaint of acute onset persistent severe right flank pain that radiates to the right lower quadrant area with intractable nausea and vomiting for the last 8 hours. Patient states that she was watching TV and laying on the couch at home when she suddenly started having right flank pain that has been relentless constant and persistent and she describes it as stabbing pain. Patient also states that she noticed that she had hematuria intermittently with pain. Patient denies dizziness, syncope, chest pain, shortness of breath, fever, chills, dysuria, urinary frequency and urgency, change in vision, neck pain, diarrhea, or vaginal discharge. MD Complaint: abdominal pain (right flank), flank pain (right), other (nausea and vomiting) -: Sudden, hour(s) (8) Location: RLQ, R flank Radiation: RLQ, R flank Migration to: RLQ, R flank Severity: severe Severity scale (0 -10): 9 Quality: stabbing, sharp Consistency: constant Improves With: nothing Worsens With: nothing Associated Symptoms: denies other symptoms, nausea, vomiting, hematuria, anorex ia. denies: diarrhea, fever, chills, constipation, dysuria, hematemesis, hematochezia, melena, syncope, other - Related Data Previous Rx's Medication Instructions Recorded Last Taken Type Digoxin [Lanoxin] 0.125 mg PO DAILY@1700 #30 tablet 05/15/19 1 Month Ago Rx ~07/23/19 Methimazole [Tapazole] 10 mg PO Q8H #90 tablet 05/15/19 08/19/19 Rx propranoloL [Inderal] 40 mg PO BID #60 tablet 05/15/19 08/19/19 Rx Albuterol INH(or & Nicu Only) 2 puff IH Q4HR PRN #1 inhalation 07/29/19 08/20/19 Rx [ProAir HFA Inhaler] predniSONE [Deltasone] 20 mg PO DAILY #15 tablet 07/29/19 08/19/19 Rx Allergies Allergy/AdvReac Type Severity Reaction Status Date / Time metronidazole [From Flagyl] Allergy Vomiting Verified 09/18/18 08:14 Metronidazole HCl Allergy Vomiting Verified 03/26/19 11:23 [From Flagyl] ED Review of Systems Constitutional: denies: chills, fever Eyes: denies: eye pain, eye discharge, vision change ENT: denies: ear pain, throat pain Respiratory: denies: cough, shortness of breath, wheezing Cardiovascular: denies: chest pain, palpitations Endocrine: no symptoms reported Gastrointestinal: abdominal pain (Right flank pain), nausea, vomiting. denies: diarrhea Genitourinary: hematuria. denies: urgency, dysuria, discharge Musculoskeletal: denies: back pain, joint swelling, arthralgia Skin: denies: rash, lesions Neurological: denies: headache, weakness, paresthesias Psychiatric: denies: anxiety, depression Hematological/Lymphatic: denies: easy bleeding, easy bruising ED Past Medical Hx - Past Medical History Previous Medical History?: Yes Hx Hypertension: Yes Hx Asthma: (unsure) Additional medical history: hyperthyroid. fibroids. heart murmur - Surgical History Past Surgical History?: Yes Hx Cholecystectomy: Yes Hx Breast Surgery: Yes (LEFT BREAST BIOPSY) Additional Surgical History: tubal ligation. left collar bone surgery - Social History Smoking Status: Never Smoker Substance Use Type: None - Medications Home Medications: Home Medications Medication Instructions Recorded Confirmed Last Taken Type Digoxin [Lanoxin] 0.125 mg PO DAILY@1700 #30 tablet 05/15/19 08/21/19 1 Month Ago Rx ~07/23/19 Methimazole [Tapazole] 10 mg PO Q8H #90 tablet 05/15/19 08/21/19 08/19/19 Rx propranoloL [Inderal] 40 mg PO BID #60 tablet 05/15/19 08/21/19 08/19/19 Rx Albuterol INH(or & Nicu Only) 2 puff IH Q4HR PRN #1 inhalation 07/29/19 08/21/19 08/20/19 Rx [ProAir HFA Inhaler] predniSONE [Deltasone] 20 mg PO DAILY #15 tablet 07/29/19 08/21/19 08/19/19 Rx ED Physical Exam - General Limitations: No Limitations General appearance: alert, in no apparent distress - Head Head exam: Present: atraumatic, normocephalic, normal inspection - Eye Eye exam: Present: normal appearance, PERRL, EOMI Pupils: Present: normal accommodation - ENT ENT exam: Present: normal exam, normal orophraynx, mucous membranes moist, TM's normal bilaterally, normal external ear exam - Neck Neck exam: Present: normal inspection, full ROM - Respiratory Respiratory exam: Present: normal lung sounds bilaterally. Absent: respiratory distress, wheezes, rales, chest wall tenderness, accessory muscle use, decreased breath sounds - Cardiovascular Cardiovascular Exam: Present: regular rate, normal rhythm, normal heart sounds. Absent: systolic murmur, diastolic murmur, rubs, gallop - GI/Abdominal GI/Abdominal exam: Present: soft, tenderness (Palpable severe right flank te nderness with guarding), guarding, normal bowel sounds. Absent: rebound, rigid, hyperactive bowel sounds, organomegaly - Extremities Exam Extremities exam: Present: normal inspection, full ROM, normal capillary refill - Back Exam Back exam: Present: normal inspection, full ROM. Absent: tenderness, CVA tenderness (R), muscle spasm, paraspinal tenderness, vertebral tenderness - Neurological Exam Neurological exam: Present: alert, oriented X3, CN II-XII intact, normal gait, reflexes normal - Psychiatric Psychiatric exam: Present: normal affect, normal mood - Skin Skin exam: Present: warm, dry, intact, normal color. Absent: rash ED Medical Decision Making - Lab Data Result diagrams: 08/21/19 02:19 08/21/19 02:19 - Radiology Data Radiology results: report reviewed, image reviewed Findings [facility] [address] [place] [address] Cat Scan Report Signed Patient: TONY WAY R#: [id number] : 1970 Acct:[id number] Age/Sex: 49 / F ADM Date: 08/20/19 Loc: ED Attending Dr: Ordering Physician: ALANIS COLBY Date of Service: 08/21/19 Procedure(s): CT abdomen pelvis wo con Accession Number(s): [id number] cc: ALANIS COLBY CT of the abdomen and pelvis without contrast INDICATION: Right flank pain COMPARISON: 10/14/2018 FINDINGS: Lung bases are clear. The liver, spleen, pancreas, adrenal glands and left kidney all appear normal. There is right hydronephrosis and right perinephric edema. No intrarenal calculi seen in the right kidney. Gallbladder has been removed. No biliary tree dilation. No fluid or adenopathy in the upper abdomen. CT of the pelvis shows persistent right hydroureter down to the right UVJ where there is a 3 mm stone causing relatively high-grade obstruction. No stone fragments seen in the bladder. Uterus is enlarged and lobular likely due to fibroids. There is a 3.4 cm cyst in the left ovary. Right ovary is not clearly seen. The appendix is seen and is normal. No free pelvic fluid. No diverticulosis or diverticulitis. No bowel obstruction is seen. There is trace free pelvic fluid. IMPRESSION: 3 mm right UVJ stone with relatively high-grade obstruction. Uterine fibroids and left ovarian cyst. Automated exposure control was utilized to diminish radiation dose. Signer Name: Esvin Adams MD Signed: 08/21/2019 5:31 AM Workstation Name: [id number] Transcribed By: ANGELA Dictated By: Esvin Adams MD Electronically Authenticated By: Esvin Adams MD Signed Date/Time: 08/21/19530 DD/ 5 TD/TT: - Medical Decision Making This is a 49-year-old female who presented to the ED with acute onset severe right flank pain that radiates to the right lower quadrant area with intractable nausea and vomiting and hematuria. In the ED, patient is alert and oriented x3 and is not in any distress but appears to be significant pain morning and crying during the physical exam because of pain. Patient is however hemodynamically stable. Lab test results were reviewed and are all nonactionable except for UTI that is prominent in the urinalysis with significant blood in urine. Patient was treated for pain in the ED and also given normal saline 1 L IV bolus as well as antiemetics. Abdomen pelvis CT scan without contrast showed persistent right hydroureter down to the right UVJ where there is a 3 mm stone causing relatively high-grade obstruction. No stone fragments seen in the bladder. Uterus is enlarged and lobular likely due to fibroids. There is a 3.4 cm cyst in the left ovary. Right ovary is not clearly seen. The appendix is seen and is normal. No free pelvic fluid. No diverticulosis or diverticulitis. No bowel obstruction is seen. There is trace free pelvic fluid. These findings were discussed with the ED attending physician Dr. Dominguez who advised advised that the patient be admitted to the hospital by the hospitalist physician for further evaluation and inpatient urology consultation, and that the patient be treated with antibiotics, pain control as well as normal saline IV fluids. I therefore paged and discussed the patient's case with Dr. Desai the hospitalist physician on-call who admitted the patient to the hospital. - Differential Diagnosis kidney stones; UTI; Appendicitis; Fibroids; Ovarian cysts; Neoplasm ED Disposition Clinical Impression: Acute abdominal pain in right flank, Renal stone, Kidney stone on right side, Acute urinary tract infection Hydronephrosis Qualifiers: Hydronephrosis type: with renal calculous obstruction Qualified Code(s): N13.2 - Hydronephrosis with renal and ureteral calculous obstruction Disposition: OP ADMIT IP TO THIS HOSP Is pt being admited?: Yes Does the pt Need Aspirin: No Condition: Critical Time of Disposition: 06:13 Print Language: RWANDAN <JAMES DOMINGUEZ III - Last Filed: 08/21/19 06:20> ED Review of Systems ROS: Stated complaint: RT FLANK PAIN Other details as noted in HPI ED Course Vital Signs 08/20/19 23:10 Temperature 98.5 F Pulse Rate 95 H Respiratory 18 Rate Blood Pressure 134/93 O2 Sat by Pulse 97 Oximetry - Reevaluation(s) Reevaluation #1: I discussed all results with patient. I discussed plan of care with patient. Patient agrees with plan of care and admission. Patient to be admitted to the hospitalist service. Patient examined. CVA exam within normal limits. Lung sounds are clear. 08/21/19 06:18 - Consultations Consultation #1: Hospitalist consulted for admission. Hospitalist admit patient. Bridge orders placed. 08/21/19 06:18 ED Medical Decision Making - Lab Data Result diagrams: 08/21/19 02:19 08/21/19 02:19 Critical Care Time: Yes Critical care time in (mins) excluding proc time.: 35 Critical care attestation.: If time is entered above; I have spent that time in minutes in the direct care of this critically ill patient, excluding procedure time. Critical Care Time: 35 minutes ED Disposition Is pt being admited?: Yes Does the pt Need Aspirin: No
[2019-08-21] MEDS ORDERED: TAMSULOSIN 0.4 MG CAP PO ONE (06:14)
[2019-08-21] MEDS ORDERED: LACTATED RINGERS 1,000 ML IV ONE (06:14)
[2019-08-21] MEDS ORDERED: HYDROmorphone 1 MG/1 ML INJ IV ONE (06:14)
[2019-08-21] MEDS ORDERED: ALBUTEROL 8.5 GM INHALATION IH PRN (09:38)
[2019-08-21] MEDS ORDERED: METHIMAZOLE 10 MG PO SCH (09:45)
--- NOTE | 2019-08-21 09:45 | History and Physical Report ---
History of Present Illness Date of examination: 08/21/19 Date of admission: 08/21/19 06:17 Chief complaint: Right flank pain since last night History of present illness: Very pleasant 49-year-old -[place] female patient with significant history of hypertension remote history of renal stones presented to the emergency room with right flank pain and intractable nausea vomiting since yesterday Patient rates her pain between 7-9 sharp squeezing to stabbing type associated with nausea no history of fever, no chills and rigors Initial work-up in the emergency room with CT abdomen and pelvis revealed 3 mm right UVJ stone with high-grade obstruction as well as right hydro-nephrosis patient also had incidental findings of uterine fibroids and left ovarian cyst Past History Past Medical History: hypertension, other (Hyperthyroidism) Past Surgical History: cholecystectomy, Other (Tubal ligation.lt collar bone sx,Lt breast biopsy) Social history: lives with family. denies: smoking, alcohol abuse, prescription drug abuse Family history: hypertension Medications and Allergies Allergies Allergy/AdvReac Type Severity Reaction Status Date / Time metronidazole [From Flagyl] Allergy Vomiting Verified 09/18/18 08:14 Metronidazole HCl Allergy Vomiting Verified 03/26/19 11:23 [From Flagyl] Home Medications Medication Instructions Recorded Confirmed Last Taken Type Digoxin [Lanoxin] 0.125 mg PO DAILY@1700 #30 tablet 05/15/19 08/21/19 1 Month Ago Rx ~07/23/19 Methimazole [Tapazole] 10 mg PO Q8H #90 tablet 05/15/19 08/21/19 08/19/19 Rx propranoloL [Inderal] 40 mg PO BID #60 tablet 05/15/19 08/21/19 08/19/19 Rx Albuterol INH(or & Nicu Only) 2 puff IH Q4HR PRN #1 inhalation 07/29/19 08/21/19 08/20/19 Rx [ProAir HFA Inhaler] predniSONE [Deltasone] 20 mg PO DAILY #15 tablet 07/29/19 08/21/19 08/19/19 Rx Active Meds: Active Medications Albuterol (Proair) 2 puff IH Q4HR PRN PRN Reason: Shortness Of Breath Digoxin (Lanoxin) 0.125 mg PO DAILY@1700 [facility] Miscellaneous Medication (Methimazole [Tapazole]) 10 mg PO Q8H [facility] Prednisone (Deltasone) 20 mg PO DAILY [facility] Propranolol HCl (Inderal) 40 mg PO BID [facility] Review of Systems Constitutional: no weight loss, no weight gain, no fever, no chills Ears, nose, mouth and throat: no nasal congestion, no nasal discharge Cardiovascular: no chest pain, no orthopnea, no shortness of breath Respiratory: no cough, no shortness of breath Gastrointestinal: abdominal pain, other (Flank pain), no nausea, no vomiting Musculoskeletal: no myalgias, no arthritis Integumentary: no rash, no lesions Neurological: no seizures, no syncope Psychiatric: no anxiety, no depression Endocrine: no cold intolerance, no heat intolerance, no polydipsia, no polyuria Hematologic/Lymphatic: no easy bruising, no easy bleeding Allergic/Immunologic: no urticaria, no allergic rhinitis Exam - Constitutional Vitals: Temp Pulse Resp BP Pulse Ox 98.0 F 123 H 16 124/68 96 08/21/19 06:35 08/21/19 06:35 08/21/19 06:35 08/21/19 06:35 08/21/19 06:35 General appearance: Present: mild distress, well-nourished - EENT Eyes: Present: PERRL, EOM intact - Neck Neck: Present: supple, normal ROM - Respiratory Respiratory effort: normal Respiratory: bilateral: diminished, negative: rales, rhonchi, wheezing - Cardiovascular Rhythm: regular Heart Sounds: Present: S1 & S2 - Extremities Extremities: no ischemia, No edema - Abdominal General gastrointestinal: Present: soft, non-tender, non-distended, normal bowel sounds - Integumentary Integumentary: Present: clear, warm - Musculoskeletal Musculoskeletal: strength equal bilaterally - Psychiatric Psychiatric: appropriate mood/affect, cooperative - Neurologic Neurologic: moves all extremities Results - Labs CBC & Chem 7: 08/21/19 02:19 08/21/19 02:19 Labs: Abnormal lab results 08/21/19 08/21/19 08/21/19 Range/Units 00:40 02:19 02:19 MCH 27 L (28-32) pg RDW 17.0 H (13.2-15.2) % Sargent % (Auto) 11.1 H (0.0-7.3) % Sargent # 0.9 H (0.0-0.8) K/mm3 Chloride 108.1 H (98-107) mmol/L Carbon Dioxide 20 L (22-30) mmol/L Creatinine 0.5 L (0.7-1.2) mg/dL Glucose 108 H (65-100) mg/dL Alkaline Phosphatase 321 H (35-129) units/L Lipase 7 L (13-60) units/L Urine WBC (Auto) 23.0 H (0.0-6.0) /HPF Assessment and Plan --Abdominal/flank pain/renal colic; IV fluids, pain medications, supportive care, --Right UV junction stone 3 mm/high-grade obstruction; Supportive care, urology consult, N.p.o. status --History of fibroid uterus; advised to see [facility] outpatient --Urinary tract infection; empiric antibiotics Follow cultures, IV fluids --DVT prophylaxis; SCDs Monitor closely and adjust management as needed Plan of care reviewed with the patient and her nurse
[2019-08-21] MEDS ORDERED: ALBUTEROL 2.5 MG/3 ML NEBU IH PRN (10:13)
[2019-08-21] MEDS: MORPHINE 2 MG/1 ML INJ IV PRN ×2 (10:45→18:46)
[2019-08-21] MEDS: PROPRANOLOL 40 MG TAB PO SCH ×2 (13:03→22:14)
[2019-08-21] MEDS: predniSONE 20 MG TAB PO SCH (13:03)
[2019-08-21] MEDS: SODIUM CHLORIDE 0.9% 1000 ML 1,000 ML IV SCH (13:56)
[2019-08-21] MEDS: methIMAzole 5 MG TAB PO SCH ×2 (14:36→22:14)
--- NOTE | 2019-08-21 15:17 | Progress Note ---
Assessment and Plan consuklt dictated informed consent done Subjective Date of service: 08/21/19 Principal diagnosis: stone Objective - Constitutional Vitals: Vital Signs - 12hr 08/21/19 08/21/19 08/21/19 06:18 06:35 08:31 Temperature 98.0 F 98.2 F Pulse Rate 123 H 101 H Respiratory 18 16 24 Rate Blood Pressure 132/67 Blood Pressure 124/68 [Left] O2 Sat by Pulse 96 91 Oximetry 08/21/19 08/21/19 11:46 13:03 Temperature 98.8 F Pulse Rate 95 H Respiratory 16 Rate Blood Pressure 136/70 136/70 Blood Pressure [Left] O2 Sat by Pulse 94 Oximetry General appearance: Present: no acute distress - Labs CBC & Chem 7: 08/21/19 02:19 08/21/19 02:19 Labs: Abnormal lab results 08/21/19 08/21/19 08/21/19 Range/Units 00:40 02:19 02:19 MCH 27 L (28-32) pg RDW 17.0 H (13.2-15.2) % Gaines % (Auto) 11.1 H (0.0-7.3) % Gaines # 0.9 H (0.0-0.8) K/mm3 Chloride 108.1 H (98-107) mmol/L Carbon Dioxide 20 L (22-30) mmol/L Creatinine 0.5 L (0.7-1.2) mg/dL Glucose 108 H (65-100) mg/dL Alkaline Phosphatase 321 H (35-129) units/L Lipase 7 L (13-60) units/L Urine WBC (Auto) 23.0 H (0.0-6.0) /HPF Medications & Allergies - Medications Allergies/Adverse Reactions: Allergies metronidazole [From Flagyl] Allergy (Verified 09/18/18 08:14) Vomiting Metronidazole HCl [From Flagyl] Allergy (Verified 03/26/19 11:23) Vomiting Home Medications: Home Medications Medication Instructions Recorded Confirmed Last Taken Type Digoxin [Lanoxin] 0.125 mg PO DAILY@1700 #30 tablet 05/15/19 08/21/19 1 Month Ago Rx ~07/23/19 Methimazole [Tapazole] 10 mg PO Q8H #90 tablet 11/27/19 03/04/20 03/02/20 Rx propranoloL [Inderal] 40 mg PO BID #60 tablet 05/15/19 08/21/19 08/19/19 Rx Albuterol INH(or & Nicu Only) 2 puff IH Q4HR PRN #1 inhalation 07/29/19 08/21/19 08/20/19 Rx [ProAir HFA Inhaler] predniSONE [Deltasone] 20 mg PO DAILY #15 tablet 07/29/19 08/21/19 08/19/19 Rx Active Medications: Generic Name Dose Route Start Last Admin Trade Name Freq PRN Reason Stop Dose Admin Albuterol 2.5 mg 08/21/19 10:13 Proventil IH Q4HRT PRN Shortness Of Breath Digoxin 0.125 mg 08/21/19 17:00 Lanoxin PO DAILY@1700 [facility] Sodium Chloride 1,000 mls @ 100 mls/hr 08/21/19 13:30 08/21/19 13:56 Nacl 0.9% 1000 Ml IV 100 mls/hr DIRECT [facility] Administration Ceftriaxone Sodium 1 gm in 50 mls @ 100 mls/hr 08/22/19 10:00 Rocephin/Ns 1 Gm/50 Ml IV Q24HR [facility] Protocol Methimazole 10 mg 08/21/19 14:00 08/21/19 14:36 Tapazole PO 10 mg Q8HR [facility] Administration Morphine Sulfate 2 mg 08/21/19 09:47 08/21/19 10:45 Morphine IV 2 mg Q6H PRN Administration Pain, Moderate (4-6) Prednisone 20 mg 08/21/19 10:00 08/21/19 13:03 Deltasone PO 20 mg DAILY [facility] Administration Propranolol HCl 40 mg 08/21/19 11:30 08/21/19 13:03 Inderal PO 40 mg BID [facility] Administration
[2019-08-21] MEDS: DIGOXIN 0.125 MG TAB PO SCH (18:48)
--- NOTE | 2019-08-21 23:37 | Consultation ---
HISTORY OF PRESENT ILLNESS: The patient is a 49-year-old woman who presents with history of hypertension, severe pain. She was found to have a distal right ureteral stone. She also has a history of fibroids. PAST MEDICAL HISTORY: Hypertension. PAST SURGICAL HISTORY: Tubal ligation, previous . SOCIAL HISTORY: Noncontributory. FAMILY HISTORY: Hypertension. ALLERGIES: FLAGYL. MEDICATIONS: Lanoxin, albuterol, prednisone, Inderal. REVIEW OF SYSTEMS: Intermittent right flank pain, improved; nausea and vomiting that revealed improved after last night. PHYSICAL EXAMINATION: GENERAL: She is awake, alert. She is in no distress, afebrile, no white count. ABDOMEN: Soft, nondistended. Minimal right flank pain. IMPRESSION: Right distal ureteral stone. We will see if she passes it over the next day; if not, we will schedule her for tomorrow if her pain continues. Informed consent was given and a consult was dictated. JOB# [id number] JAZZY/JASKARAN
[2019-08-22] MEDS: methIMAzole 5 MG TAB PO SCH ×2 (05:34→13:52)
[2019-08-22] MEDS: MORPHINE 2 MG/1 ML INJ IV PRN (06:15)
[2019-08-22] MEDS: SODIUM CHLORIDE 0.9% 1000 ML 1,000 ML IV SCH (06:20)
[2019-08-22] MEDS: cefTRIAXone/NS 1 GM/50 ML 1 GM/50 ML BAG IV SCH ×2 (07:50→13:39)
--- NOTE | 2019-08-22 08:01 | Anesthesia Day of Surgery ---
Anesthesia Day of Surgery - Day of Surgery Patient Examined: Yes Patient H&P Reviewed: Yes Patient is NPO: Yes
--- NOTE | 2019-08-22 08:01 | Anesthesia Consultation ---
Anesthesia Consult and Med Hx - Airway Anesthetic Teeth Evaluation: Good ROM Head & Neck: Adequate Mental/Hyoid Distance: Adequate Mallampati Class: Class II Intubation Access Assessment: Good - Pulmonary Exam CTA: Yes - Cardiac Exam Cardiac Exam: RRR - Pre-Operative Health Status ASA Pre-Surgery Classification: ASA2 Proposed Anesthetic Plan: General - Pulmonary Hx Asthma: (unsure) Hx Pneumonia: No - Cardiovascular System Hx Hypertension: Yes - Central Nervous System Hx Psychiatric Problems: (yes, post tramatice stresss disorder.) - Endocrine Hx End Stage Renal Disease: No Hx Hyperthyroidism: Yes - Other Systems Hx Cancer: No
[2019-08-22] MEDS ORDERED: HYDROmorphone 1 MG/1 ML INJ IV PRN (08:02)
[2019-08-22] MEDS ORDERED: ONDANSETRON 4 MG/2 ML INJ IV PRN (08:02)
[2019-08-22] MEDS ORDERED: fentaNYL 100 MCG/2 ML INJ IV PRN (08:02)
[2019-08-22] MEDS ORDERED: propofoL 200 MG/20 ML VIAL IV ONE (08:25)
[2019-08-22] MEDS ORDERED: HYDROmorphone 1 MG/1 ML INJ ONE (08:26)
[2019-08-22] MEDS ORDERED: LIDOCAINE MPF (2%) 20 MG/1 ML VIAL 5 ML ONE (08:27)
[2019-08-22] MEDS ORDERED: HYDROmorphone 1 MG/1 ML INJ IV ONE (08:30)
[2019-08-22] MEDS ORDERED: WATER FOR IRRIG STERILE 2000 ML IR ONE (08:51)
[2019-08-22] MEDS ORDERED: IOHEXOL 300 MG/ML 50ML IV ONE (08:53)
[2019-08-22] MEDS ORDERED: KETOROLAC 30 MG/1 ML INJ ONE (09:19)
[2019-08-22] MEDS ORDERED: ONDANSETRON 4 MG/2 ML INJ ONE (09:19)
--- NOTE | 2019-08-22 09:52 | Fluoroscopy Report ---
INTRAOPERATIVE FLUOROSCOPY: ABDOMEN INDICATION: RT URETERAL STONE. TECHNIQUE: Intraoperative spot images were obtained during the procedure. FINDINGS: Limited spot fluoroscopy demonstrates no distinct abnormality along the opacified right ureter or levra al collecting system with a subsequently placed right ureteral stent that is in good position. Please see the procedure report for further details. Fluoroscopy Time: 1.2 minutes. Fluoroscopy Images: 7. Signer Name: Garrett Dee MD Signed: 08/22/2019 9:47 AM Workstation Name: [id number]
--- NOTE | 2019-08-22 09:52 | Fluoroscopy Report ---
INTRAOPERATIVE FLUOROSCOPY: ABDOMEN INDICATION: RT URETERAL STONE. TECHNIQUE: Intraoperative spot images were obtained during the procedure. FINDINGS: Limited spot fluoroscopy demonstrates no distinct abnormality along the opacified right ureter or levar al collecting system with a subsequently placed right ureteral stent that is in good position. Please see the procedure report for further details. Fluoroscopy Time: 1.2 minutes. Fluoroscopy Images: 7. Signer Name: Garrett Dee MD Signed: 08/22/2019 9:47 AM Workstation Name: [email or web address]
--- NOTE | 2019-08-22 11:09 | Post Operative Note ---
Date of procedure: 08/22/19 Pre-op diagnosis: ureteral stone Post-op diagnosis: same Findings: same Procedure: ureteroscopy stone ext Anesthesia: DAISY Surgeon: LYNN MENDEZ Estimated blood loss: none Pathology: list (stone) Specimen disposition: given to patient/family Condition: stable Disposition: PACU
--- NOTE | 2019-08-22 12:46 | Operative Report ---
PREOPERATIVE DIAGNOSIS: Right distal ureteral stone with severe pain. POSTOPERATIVE DIAGNOSES: Right distal ureteral stone with severe pain. PROCEDURE: Cystoscopy, right retrograde, right ureteral balloon dilatation, ureteroscopy, stone extraction, J stent. SURGEON: Dr. Skaggs. ANESTHESIA: General. FINDINGS: This is a woman with severe pain. She was admitted through the Emergency Room. Now, presents for surgery. DESCRIPTION OF PROCEDURE: The patient was brought to operating room and placed on the operating table. Following induction of anesthesia, placed in lithotomy position, prepped and draped in the usual sterile fashion. Cystourethroscopy showed a large cystocele. Retrograde showed colonization of the ureter. A wire coiled in the kidney, balloon dilatation was carried out and the stone was extracted. It will be given to the patient and left in the chart. A 24 cm 6-Martiniquais double J was coiled in the kidney and bladder, we left the string. The patient tolerated the procedure well and brought to recovery room in stable condition. JOB# [id number] JAZZY/JASKARAN
--- NOTE | 2019-08-22 13:49 | Discharge Summary ---
Providers - Providers Date of Admission: 08/21/19 06:17 Date of discharge: 08/22/19 Attending physician: MOR Skaggs Primary care physician: STOCKFEED MILLER Hospitalization Condition: Critical Procedures: Date of procedure: 08/22/19 Pre-op diagnosis: ureteral stone Post-op diagnosis: same ureteroscopy stone extracted Anesthesia: DAISY Surgeon: LYNN SKAGGS Estimated blood loss: none Pathology: list (stone) Specimen disposition: Stone given to patient/family Condition: stable Hospital course: Abdominal/flank pain/renal colic--resolved IV fluids, pain medications, supportive care, Right UV junction stone 3 mm/high-grade obstruction--+Removed operatively and stone given to the patient Post op doing well History of fibroid uterus; advised to see LARRY [facility] OPERATOR outpatient Urinary tract infection---D/c on oral abx Disposition: TO HOME OR SELFCARE Core Measure Documentation - Palliative Care Palliative Care/ Comfort Measures: Not Applicable - Core Measures Any of the following diagnoses?: none Exam - Constitutional Vitals: Temp Pulse Resp BP Pulse Ox 98.4 F 77 16 120/57 99 08/22/19 11:45 08/22/19 11:45 08/22/19 12:01 08/22/19 11:45 08/22/19 12:01 General appearance: Present: no acute distress, well-nourished - EENT Eyes: Present: PERRL ENT: hearing intact, clear oral mucosa - Neck Neck: Present: supple, normal ROM - Respiratory Respiratory effort: normal Respiratory: bilateral: CTA - Cardiovascular Heart Sounds: Present: S1 & S2. Absent: rub, click - Extremities Extremities: pulses symmetrical, No edema Peripheral Pulses: within normal limits - Abdominal General gastrointestinal: Present: soft, non-tender, non-distended, normal bowel sounds Female genitourinary: Present: normal - Integumentary Integumentary: Present: clear, warm, dry - Musculoskeletal Musculoskeletal: gait normal, strength equal bilaterally - Psychiatric Psychiatric: appropriate mood/affect, intact judgment & insight - Neurologic Neurologic: CNII-XII intact, moves all extremities Plan Activity: no restrictions Diet: regular Follow up with: PRIMARY MD GALILEA [Primary Care Provider] - 3-5 Days LYNN SKAGGS MD [Staff Physician] - 7 Days
[2019-08-22] MEDS: predniSONE 20 MG TAB PO SCH (13:52)
[2019-08-22] MEDS: PROPRANOLOL 40 MG TAB PO SCH (13:52)
--- NOTE | 2019-08-22 16:38 | Post Anesthesia Evaluation ---
- Post Anesthesia Evaluation Patient Participated: Yes Airway Patent: Yes Stable Respiratory Function: Yes Nausea/Vomiting: No Temp > 96.8F: Yes Pain Manageable: Yes Adequeate Hydration: Yes Anesthesia Complications: No Block Receding Appropriately: Not Applicable Patient on Ventilator: No
[2019-08-22 17:14] VITALS: BP 114/41
[2019-08-22] MEDS: DIGOXIN 0.125 MG TAB PO SCH (18:10)
== END 2019-08-22 18:37 | disposition home or self-care (01) | DRG 661 ==
LOC: ED 23:06 → 3A 08-21 06:17
PROVIDERS: ADMIT Hospitalist; ATTEND Internal Medicine
PROC: 0T768DZ Dilation of Right Ureter with Intraluminal Device, Via Natural or Artificial Opening Endoscopic (ICD-10-PCS; principal; 2019-08-22)
PROC: 0TC68ZZ Extirpation of Matter from Right Ureter, Via Natural or Artificial Opening Endoscopic (ICD-10-PCS; 2019-08-22)
PROC: BT1D1ZZ Fluoroscopy of Right Kidney, Ureter and Bladder using Low Osmolar Contrast (ICD-10-PCS; 2019-08-22)
DX: N13.2 Hydronephrosis with renal and ureteral calculous obstruction (principal); N39.0 Urinary tract infection, site not specified; I10 Essential (primary) hypertension; E05.90 Thyrotoxicosis, unspecified without thyrotoxic crisis or storm; J45.909 Unspecified asthma, uncomplicated; Z90.49 Acquired absence of other specified parts of digestive tract; Z98.51 Tubal ligation status; Z82.49 Family history of ischemic heart disease and other diseases of the circulatory system
CPT/HCPCS: 36415; 74176; 74420; 80053; 81001; 81025; 83690; 84484; 85025; 87086; 87116; G0378; A4217; C1726; C1758; C1769; C2617; J0696; J1170; J1885; J2270; J2405; J2704; J7030; J7120; J7512; Q9967

== ENCOUNTER 2022-02-07 14:16 | Emergency (ER) | payer SELFPAY ==
[2022-02-07 16:11] VITALS: BP 160/75
--- NOTE | 2022-02-07 16:11 | Emergency Department Report ---
Blank Doc - Documentation Documentation: 49-year-old female that presents with an large goiter and stated was previously admitted recently for this condition. 1- This is a initial triage assessment/medical screening only. Full assessment and work-up will be completed once the patient is in proper hospital gown, ED be d and in a private room setting. This initial assessment/diagnostic orders/clinical plan/ treatment(s) is/are subject to change based on pt's health status, clinical progression and re-assessment by fellow clinical providers in the ED. Further treatment and workup at subsequent clinical providers discretion. Patient/guardians urged not to elope from ED as their condition may be serious if not clinically assessed and managed. 2-labs The patient was evaluated in the emergency department for symptoms described in the history of present illness. He/she was evaluated in the context of the glob al COVID-19 pandemic, which necessitated consideration that the patient might be at risk for infection with the virus that causes COVID-19. Institutional protocols and algorithms that pertain to the evaluation of patients at risk for COVID-19 are in a state of rapid change based on information released by regulatory bodies including the CDC and federal and state organizations. These policies and algorithms were followed during the patient's care in the emergency department. Please note that these policies, procedures and recommendations changed on a rapid basis.
[2022-02-07 16:55] LABS: Basophils # (Auto) 0.1 K/mm3 (0.0-0.1); Basophils % (Auto) 1.3 % (0.0-1.8); Eosinophils % (Auto) 0.1 % (0.0-4.3); Hematocrit 41.4 % (30.3-42.9); Hemoglobin 13.7 gm/dl (10.1-14.3); Lymphocytes # (Auto) 1.8 K/mm3 (1.2-5.4); Lymphocytes % (Auto) 32.9 % (13.4-35.0); Mean Corpuscular HGB Conc 33 % (30-34); Mean Corpuscular Volume 88 fl (79-97); Monocytes # (Auto) 0.4 K/mm3 (0.0-0.8); Monocytes % (Auto) 7.4 % (0.0-7.3); Platelet Count 214 K/mm3 (140-440); Red Blood Count 4.71 M/mm3 (3.65-5.03); Red Cell Distribution Width 15.1 % (13.2-15.2)
[2022-02-07 18:24] LABS: Blood Urea Nitrogen 13 mg/dL (7-17)
[2022-02-07 18:25] LABS: BUN/Creatinine Ratio 14; Calcium 10.3 mg/dL (8.4-10.2)
[2022-02-07 18:26] LABS: Hemolysis Index 14
== END 2022-02-08 13:02 | disposition left against medical advice (07) ==
LOC: ED 14:16
DX: K08.89 Other specified disorders of teeth and supporting structures (principal); Z53.21 Procedure and treatment not carried out due to patient leaving prior to being seen by health care provider
CPT/HCPCS: 36415; 80048; 84443; 85025

== ENCOUNTER 2022-02-09 06:02 | Emergency (ER) | payer SELFPAY ==
--- NOTE | 2022-02-09 10:43 | Ultrasound Report ---
ULTRASOUND THYROID INDICATION / CLINICAL INFORMATION: neck pain and swelling. COMPARISON: CTA chest 05/23/2019 FINDINGS: RIGHT LOBE: Size = 7.0 x 3.7 x 3.3 cm. - Echogenicity: Diffusely heterogeneous without discrete nodule - Vascularity: Increased - Nodules < 1 cm: None. - Nodules >= 1 cm or Suspicious Nodules: None. LEFT LOBE: Size = 6.4 x 3.2 x 3.7 cm. - Echogenicity: Diffusely heterogeneous without discrete nodule - Vascularity: Increased - Nodules < 1 cm: None. - Nodules >= 1 cm or Suspicious Nodules: None. ISTHMUS: Diffusely thickened and heterogeneous. Thickness = 1.7 cm. - Nodules < 1 cm: None. - Nodules >= 1 cm or Suspicious Nodules: None. LYMPH NODES: No abnormal lymph nodes. PARATHYROID GLANDS: No abnormal parathyroid gland. ADDITIONAL FINDINGS: None. IMPRESSION: The thyroid gland is markedly enlarged and heterogeneous with increased blood flow on color Doppler interrogation suggesting thyroiditis. There are scattered tiny cysts measuring less than 1 cm but no discrete thyroid mass. Note: Nodule size based on mean (average) size of 3 dimensions. Note: Nodules < 1 cm do not typically require follow-up or FNA unless there are suspicious features ( TRUDY, 2015) ACR TI-RADS Thyroid Nodule Recommendations TI-RADS 1 (0 points) -- Benign. No FNA or follow-up. TI-RADS 2 (1-2 points) -- Not suspicious. No FNA or follow-up. TI-RADS 3 (3 points) -- Mildly suspicious. Follow up in 1 year if 1.5 cm. FNA if 2.5 cm. TI-RADS 4 (4-6 points) -- Moderately suspicious. Follow up in 1 year if 1.0 cm. FNA if 1.5 cm. TI-RADS 5 (7+ points) -- Highly suspicious. Follow up in 1 year if 0.5 cm. FNA if 1.0 cm. Signer Name: Atul Cochran Jr, MD Signed: 02/09/2022 10:39 AM Workstation Name: [id number]
[2022-02-09 11:26] LABS: Hemoglobin 13.6 gm/dl (10.1-14.3); Mean Corpuscular HGB Conc 33 % (30-34); Mean Corpuscular Volume 87 fl (79-97); Platelet Count 198 K/mm3 (140-440); Red Blood Count 4.69 M/mm3 (3.65-5.03); Red Cell Distribution Width 15.1 % (13.2-15.2)
[2022-02-09 11:46] LABS: Alanine Aminotransferase 13 units/L (7-56); Albumin 4.9 g/dL (3.9-5); BUN/Creatinine Ratio 13; Blood Urea Nitrogen 10 mg/dL (7-17); Calcium 9.4 mg/dL (8.4-10.2); Hemolysis Index 5
[2022-02-09] MEDS ORDERED: dexAMETHasone 4 MG/ML VIAL IM ONE ×2 (14:00→14:35)
--- NOTE | 2022-02-09 14:14 | Emergency Department Report ---
ED General Adult HPI - General Chief complaint: Sore Throat Stated complaint: SWOLLEN THROUGHT Time Seen by Provider: 02/09/22 08:54 Source: patient Mode of arrival: Ambulatory Limitations: No Limitations - History of Present Illness Initial comments: 51-year-old black female with a past medical history of hypertension and hypothyroidism presents to the emergency department for evaluation of swelling to her throat. She states that she has had swelling to her throat for several months but over the last week it has been significantly worse. She states that she has had some soreness to her throat and has been unable to swallow comfortably. She denies shortness of breath. She states that she is currently on methimazole for hyperthyroidism per her quill fixer. She states that she is scheduled to see endocrinology in 3 to 4 weeks but states that she feels like her throat is too sore and the swelling is increasing so she decided to follow- up in the emergency department for evaluation. -: Gradual, week(s) (1-2) Location: mouth (Throat) Severity scale (0 -10): 0 Associated Symptoms: denies: confusion, chest pain, cough, diaphoresis, feve r/chills, headaches, loss of appetite, malaise, nausea/vomiting, rash, seizure, shortness of breath, syncope, weakness Treatments Prior to Arrival: none - Related Data Previous Rx's Medication Instructions Recorded Last Taken Type Albuterol Mdi (or & Nicu Only) 2 puff IH Q4HR PRN #1 inhalation 08/22/19 Unknown Rx [ProAir HFA Inhaler] Digoxin [Lanoxin] 0.125 mg PO DAILY@1700 tablet 08/22/19 Unknown Rx Nitrofurantoin [place]/M-Cryst 100 mg PO Q12HR #14 capsule 08/22/19 Unknown Rx [Macrobid CAP] methIMAzole [Tapazole] 10 mg PO Q8H 90 Days #90 tablet 08/22/19 Unknown Rx predniSONE [Deltasone] 20 mg PO DAILY tablet 08/22/19 Unknown Rx propranoloL [Inderal] 40 mg PO BID 30 Days #60 tablet 08/22/19 Unknown Rx Levothyroxine [Synthroid] 25 mcg PO QAM #30 tablet 02/09/22 Unknown Rx methylPREDNISolone [Medrol 4MG 4 mg PO DAILY #1 pack 02/09/22 Unknown Rx DOSEPAK (21 tabs)] Allergies Allergy/AdvReac Type Severity Reaction Status Date / Time metronidazole [From Flagyl] Allergy Vomiting Verified 09/18/18 08:14 Metronidazole HCl Allergy Vomiting Verified 03/26/19 11:23 [From Flagyl] ED Review of Systems ROS: Stated complaint: SWOLLEN THROUGHT Other details as noted in HPI Comment: All other systems reviewed and negative Constitutional: denies: chills, fever Respiratory: denies: shortness of breath Cardiovascular: denies: chest pain, palpitations Gastrointestinal: denies: abdominal pain, nausea, vomiting Musculoskeletal: denies: back pain Skin: denies: rash, lesions Neurological: denies: headache, weakness Psychiatric: denies: anxiety, depression ED Past Medical Hx - Past Medical History Hx Hypertension: Yes Hx Asthma: (unsure) Additional medical history: hyperthyroid. fibroids. heart murmur - Surgical History Hx Cholecystectomy: Yes Hx Breast Surgery: Yes (LEFT BREAST BIOPSY) Additional Surgical History: tubal ligation. left collar bone surgery - Social History Smoking Status: Never Smoker - Medications Home Medications: Home Medications Medication Instructions Recorded Confirmed Last Taken Type Albuterol Mdi (or & Nicu Only) 2 puff IH Q4HR PRN #1 inhalation 08/22/19 Unknown Rx [ProAir HFA Inhaler] Digoxin [Lanoxin] 0.125 mg PO DAILY@1700 tablet 08/22/19 Unknown Rx Nitrofurantoin [place]/M-Cryst 100 mg PO Q12HR #14 capsule 08/22/19 Unknown Rx [Macrobid CAP] methIMAzole [Tapazole] 10 mg PO Q8H 90 Days #90 tablet 08/22/19 Unknown Rx predniSONE [Deltasone] 20 mg PO DAILY tablet 08/22/19 Unknown Rx propranoloL [Inderal] 40 mg PO BID 30 Days #60 tablet 08/22/19 Unknown Rx Levothyroxine [Synthroid] 25 mcg PO QAM #30 tablet 02/09/22 Unknown Rx methylPREDNISolone [Medrol 4MG 4 mg PO DAILY #1 pack 02/09/22 Unknown Rx DOSEPAK (21 tabs)] ED Physical Exam - General Limitations: No Limitations General appearance: alert, in no apparent distress - Head Head exam: Present: atraumatic, normocephalic - Eye Eye exam: Present: normal appearance. Absent: conjunctival injection, periorbital swelling, periorbital tenderness - Expanded ENT Exam Expanded Mouth exam: Present: tongue normal. Absent: drooling, trismus Throat exam: Negative: tonsillar erythema, tonsillomegaly, tonsillar exudate - Neck Neck exam: Present: full ROM, thyromegaly. Absent: lymphadenopathy - Respiratory Respiratory exam: Present: normal lung sounds bilaterally. Absent: respiratory distress, wheezes, rales, rhonchi, stridor, chest wall tenderness - Cardiovascular Cardiovascular Exam: Present: regular rate, normal heart sounds - GI/Abdominal GI/Abdominal exam: Present: soft, normal bowel sounds. Absent: distended, tenderness, guarding, rebound, rigid - Extremities Exam Extremities exam: Present: full ROM, normal capillary refill. Absent: tenderness, pedal edema, joint swelling, calf tenderness - Back Exam Back exam: Present: normal inspection. Absent: CVA tenderness (R), CVA tenderness (L) - Neurological Exam Neurological exam: Present: alert, oriented X3, CN II-XII intact, normal gait, reflexes normal. Absent: motor sensory deficit - Psychiatric Psychiatric exam: Present: normal affect, normal mood - Skin Skin exam: Present: warm, dry, intact, normal color ED Course Vital Signs 02/09/22 02/09/22 02/09/22 06:44 09:42 14:53 Temperature 97.7 F Pulse Rate 70 72 Respiratory 16 18 Rate Blood Pressure 145/68 131/72 [Right] O2 Sat by Pulse 99 99 97 Oximetry ED Medical Decision Making - Lab Data Result diagrams: 02/09/22 10:55 02/09/22 10:55 - Radiology Data Radiology results: report reviewed, image reviewed Thyroid ultrasound: FINDINGS: RIGHT LOBE: Size = 7.0 x 3.7 x 3.3 cm. - Echogenicity: Diffusely heterogeneous without discrete nodule - Vascularity: Increased - Nodules < 1 cm: None. - Nodules >= 1 cm or Suspicious Nodules: None. LEFT LOBE: Size = 6.4 x 3.2 x 3.7 cm. - Echogenicity: Diffusely heterogeneous without discrete nodule - Vascularity: Increased - Nodules < 1 cm: None. - Nodules >= 1 cm or Suspicious Nodules: None. ISTHMUS: Diffusely thickened and heterogeneous. Thickness = 1.7 cm. - Nodules < 1 cm: None. - Nodules >= 1 cm or Suspicious Nodules: None. LYMPH NODES: No abnormal lymph nodes. PARATHYROID GLANDS: No abnormal parathyroid gland. ADDITIONAL FINDINGS: None. IMPRESSION: The thyroid gland is markedly enlarged and heterogeneous with increased blood flow on color Doppler interrogation suggesting thyroiditis. There are scattered tiny cysts measuring less than 1 cm but no discrete thyroid mass. - Medical Decision Making 51-year-old black female with a past medical history of hypertension and hypothyroidism presents to the emergency department for evaluation of swelling to her throat. She states that she has had swelling to her throat for several months but over the last week it has been significantly worse. She states that she has had some soreness to her throat and has been unable to swallow comfortably. She denies shortness of breath. She states that she is currently on methimazole for hyperthyroidism per her quill fixer. She states that she is scheduled to see endocrinology in 3 to 4 weeks but states that she feels like her throat is too sore and the swelling is increasing so she decided to follow-up in the emergency department for evaluation. Patient noted to have thyroiditis on ultrasound along with elevated TSH and low T4. Case discussed with attending physician, Dr. Bolden, and patient will be given steroids for 7 to management, advised to stop methimazole, and started on low-dose levothyroxine. Patient advised to follow-up with endocrinology, she was given numbers of quill fixer to follow-up with. Patient stated discharge that she had already made an appointment for Monday to see quill fixer. She is advised to return to the emergency department as needed. She verbalizes understanding of and agreement with plan of care. Critical care attestation.: If time is entered above; I have spent that time in minutes in the direct care of this critically ill patient, excluding procedure time. ED Disposition Clinical Impression: Thyroiditis Hypothyroid Qualifiers: Hypothyroidism type: unspecified Qualified Code(s): E03.9 - Hypothyroidism, unspecified Disposition: HOME / SELF CARE / HOMELESS Is pt being admited?: No Does the pt Need Aspirin: No Condition: Stable Instructions: Hypothyroidism Additional Instructions: Take medications as prescribed. Follow-up with your quill fixer as planned. Return to the emergency department as needed. Prescriptions: methylPREDNISolone [Medrol 4MG DOSEPAK (21 tabs)] 4 mg PO DAILY #1 pack Levothyroxine [Synthroid] 25 mcg PO QAM #30 tablet Referrals: JUAN MIGUEL CATALAN MD [Primary Care Provider] - 3-5 Days ELIZABETH MILIAN MD [Consulting Physician] - 3-5 Days UMU JONES MD [Staff Physician] - 3-5 Days Time of Disposition: 14:13
[2022-02-09] MEDS ORDERED: KETOROLAC 10 MG TAB PO ONE (14:35)
[2022-02-09 14:54] VITALS: BP 131/72
== END 2022-02-09 14:54 | disposition home or self-care (01) ==
LOC: ED 06:02
DX: E06.9 Thyroiditis, unspecified (principal); E03.9 Hypothyroidism, unspecified; I10 Essential (primary) hypertension; Z90.49 Acquired absence of other specified parts of digestive tract; Z79.899 Other long term (current) drug therapy; Z88.8 Allergy status to other drugs, medicaments and biological substances
CPT/HCPCS: 36415; 76536; 80053; 84436; 84443; 84481; 85027; 96372; 99284; J1100